=== PATIENT | female | born 1985 | race Caucasian/White ===

== ENCOUNTER 2020-02-16 15:29 | Outpatient (REF) | payer OTHER, SELFPAY | END 2020-02-16 15:30 | disposition home or self-care (01) | LOC: HO.LNP 15:29 | PROVIDERS: Visit Provider Nurse Practitioner Family | DX: Z20.828 Contact with and (suspected) exposure to other viral communicable diseases (principal); H92.02 Otalgia, left ear | CPT/HCPCS: 87635 ==

== ENCOUNTER → 2020-03-22 08:18 | Outpatient (BNVA) | payer OTHER, SELFPAY | PROVIDERS: PCP Internal Medicine; Visit Provider Surgery | DX: Z76.89 Persons encountering health services in other specified circumstances (principal) ==

== ENCOUNTER 2020-03-23 09:29 | Outpatient (REF) | payer OTHER, SELFPAY ==
--- NOTE | 2020-03-23 09:52 | ECG_ITS ---
Test Reason : CP Blood Pressure : / mmHG Vent. Rate : 069 BPM Atrial Rate : 069 BPM P-R Int : 184 ms QRS Dur : 102 ms QT Int : 410 ms P-R-T Axes : 043 010 023 degrees QTc Int : 439 ms Normal sinus rhythm Normal ECG No previous ECGs available Referred By: Fransisco Kasper Electronically Signed By:MARCIO DOWNS MD
[2020-03-23 10:19] LABS: MANUAL DIFF FLAG NO
--- NOTE | 2020-03-23 10:19 | XR_ITS ---
EXAMINATION: XR CHEST CLINICAL INFORMATION: Morbid obesity COMPARISON: Previous chest x-ray most recent November 2019 TECHNIQUE: 2 views of the chest were obtained. FINDINGS: No significant abnormality is noted involving the heart, lungs, mediastinum, bony thorax or soft tissues. XR/XR chest 2V IMPRESSION: Unremarkable examination.
[2020-03-23 10:23] LABS: Basophils Percent Auto 0.5 % (0-2); Eosinophils Absolute Auto 0.1 X10*3/uL (0.0-0.4); Eosinophils Percent Auto 1.4 % (0-4); Hematocrit 38.8 % (37-47); Hemoglobin 12.6 g/dl (12.0-16.0); Imm Gran Abs Auto 0.03 X10*3/uL (0.00-0.03); Imm Gran Pct Auto 0.3 % (0.0-0.4); Lymphocytes Absolute Auto 1.7 X10*3/uL (1.2-4.9); Lymphocytes Percent Auto 20.3 % (20-40); Mean Corpuscular HGB Conc 32.5 g/dl (31.0-35.0); Mean Corpuscular Hemoglobin 29.3 pg (27.0-33.0); Mean Corpuscular Volume 90.2 fL (80-98); Monocytes Absolute Auto 0.6 X10*3/uL (0.1-1.2); Monocytes Percent Auto 7.3 % (2-11); Neutrophils Percent Auto 70.2 % (45-73); Platelet Count 295 X10*3/uL (160-400); Red Cell Distribution Width 13.1 % (11.0-16.0); White Blood Count 8.6 X10*3/uL (4.8-10.8)
[2020-03-23 10:32] LABS: Estimated Average Glucose 108 mg/dL; Hemoglobin A1c % 5.4 %
[2020-03-23 10:50] LABS: Alanine Aminotransferase 15 U/L (0-31); Albumin Level 4.4 g/dL (3.5-5.0); Alkaline Phosphatase 55 U/L (39-117); Anion Gap 11 (12-20); Aspartate Amino Transferase 10 U/L (5-31); Bilirubin Total 0.4 mg/dL (0.0-1.0); Blood Urea Nitrogen 15 mg/dL (9-16); Calcium 8.9 mg/dL (8.4-10.2); Carbon Dioxide 25 mmol/L (22-29); Chloride 106 mmol/L (96-108); Cholesterol 165 mg/dL; Estimated Glomerular Filt Rate > 60; Glucose Random 108 mg/dL (60-115); HDL Cholesterol 38 mg/dL; LDL Cholesterol Calculated 100 mg/dl; Potassium 4.5 mmol/l (3.3-5.1); Sodium 137 mmol/L (135-145); Total Protein 7.1 g/dL (6.5-8.0); Triglycerides 136 mg/dL
[2020-03-23 11:03] LABS: Ferritin 24 ng/mL (10-122)
[2020-03-23 11:13] LABS: Free T4 (Free Thyroxine) 0.91 ng/dL (0.71-1.85); Vitamin D 25-OH Total 13.1 ng/mL (>30)
[2020-03-23 11:19] LABS: Folate 11.2 ng/mL (> or = 4.0); Vitamin B12 186 pg/mL (200-900)
[2020-03-25 10:36] LABS: H Pylori Breath Test NOT DETECTED (NOT DETECTED)
[2020-03-25 13:41] LABS: Calcium (PTHI) 9.2 mg/dL (8.6-10.2); Insulin Level Total 25.4 uIU/mL; PTHI 70 pg/mL (14-64)
[2020-03-26 12:51] LABS: Zinc 79 mcg/dL (60-130)
[2020-03-28 20:09] LABS: Vitamin A 50 mcg/dL (38-98)
[2020-03-30 10:57] LABS: Vitamin B1 8 nmol/L (8-30)
== END 2020-03-23 09:30 | disposition home or self-care (01) ==
LOC: HO.LAB 09:29
PROVIDERS: Absent Provider Surgery; PCP Internal Medicine; Visit Provider Internal Medicine
DX: E66.01 Morbid (severe) obesity due to excess calories (principal); I10 Essential (primary) hypertension; K21.9 Gastro-esophageal reflux disease without esophagitis; J45.20 Mild intermittent asthma, uncomplicated; E78.00 Pure hypercholesterolemia, unspecified; Z68.41 Body mass index [BMI] 40.0-44.9, adult
CPT/HCPCS: 36415; 71046; 80053; 80061; 82306; 82607; 82728; 82746; 83013; 83036; 83525; 83970; 84425; 84439; 84443; 84590; 84630; 85025; 93005; 99211

== ENCOUNTER → 2020-04-08 13:26 | Outpatient (BNVA) | payer OTHER, SELFPAY | PROVIDERS: PCP Internal Medicine; Visit Provider Physician Assistant | DX: Z76.89 Persons encountering health services in other specified circumstances (principal) ==

== ENCOUNTER → 2020-05-09 08:48 | Outpatient (BNVA) | payer OTHER, SELFPAY | PROVIDERS: PCP Internal Medicine; Visit Provider Dietitian, Registered | DX: Z76.89 Persons encountering health services in other specified circumstances (principal) ==

== ENCOUNTER → 2020-05-16 08:17 | Outpatient (BNVA) | payer OTHER, SELFPAY | PROVIDERS: PCP Internal Medicine; Visit Provider Surgery ==

== ENCOUNTER → 2020-05-24 08:08 | Outpatient (REF) | payer OTHER, SELFPAY ==
--- NOTE | 2020-05-24 08:12 | US_ITS ---
EXAMINATION: US COMPLETE ABDOMEN WITH LIVER ELASTOGRAPHY CLINICAL INFORMATION: Obesity COMPARISON: Previous CT of the abdomen and pelvis February 2017 TECHNIQUE: Real-time imaging of the abdominal viscera. Noninvasive ultrasound liver fibrosis assessment is performed using King ElastPQ point quantification shear wave elastography (pSWE) with a 5 MHz transducer. Multiple elastography samples are obtained. FINDINGS: PANCREAS: The visualized pancreatic head and body are normal in appearance. The remainder of the pancreas is obscured from visualization by the overlying bowel gas. ABDOMINAL AORTA: The proximal, middle, and distal aortic segments are normal in caliber. INFERIOR VENA CAVA: Visualized portions are normal. LIVER: Liver echotexture is increased probably representing fatty infiltration. The liver is enlarged. The liver is normal in contour. No focal lesion or intrahepatic biliary duct dilatation. The right lobe measures 21 cm in length. The left lobe measures 12 cm in length. The main portal vein is patent with appropriate hepatopedal flow Shear wave elastography provides a median stiffness of 1.6 m/s (reference: normal median stiffness is 0.81 - 1.22 m/s). The IQR/median stiffness to assess sampling precision is 0.3 (reference: optimal IQR/median stiffness is under 0.3). GALLBLADDER: Normal. The gallbladder is physiologically distended without evidence of stones, sludge, polyps, wall thickening or pericholecystic fluid. COMMON BILE DUCT: Normal in caliber measuring 0.5 cm in diameter. RIGHT KIDNEY: Normal. No hydronephrosis. No renal calculi or focal parenchymal lesions. The kidney measures 14.3 cm in maximum dimension. LEFT KIDNEY: There is a 2 x 3 mm echogenic density in the lower pole suggestive of a stone. No hydronephrosis. No focal parenchymal lesions. The kidney measures 14.2 cm in maximum dimension. SPLEEN: Normal. The spleen measures 12 cm in maximum dimension. FREE FLUID: None. US/US abdomen comp w elastography IMPRESSION: 1. Impression: Enlarged echogenic liver probably representing fatty infiltration. Left renal stone. Limited visualization of the tail of the pancreas. 2. Elastography: Metavir score F2 to F3 suggestive of [id number]-zr-[id number] increased risk of developing liver fibrosis.
--- NOTE | 2020-05-24 08:12 | FL_ITS ---
PROCEDURE: XR GI SERIES CLINICAL INFORMATION: Gastroesophageal reflux disease without esophagitis. COMPARISON: None TECHNIQUE: Routine upper GI air-contrast study was performed in upright and lying position. FINDINGS: Following oral administration of thick barium and effervescent granules there is normal propagation of bolus from the oral cavity through the pharynx, esophagus into stomach without any evidence of obstruction, narrowing or stricture. On placing patient supine and prone lying there is normal course, caliber and peristalsis of the stomach, duodenal bulb and the sweep. There is mild gastroesophageal reflux into the mid esophagus without hiatal hernia. The mucosal pattern of stomach, duodenal bulb and the sweep is normal. Rest of the course of stomach and the duodenum is normal. FLUOROSCOPY TIME: 2.3 minutes. DOSE AREA PRODUCT: 54.544 uGy-m2 (microgray-meter squared). FL/FL upper GI series IMPRESSION: Mild gastroesophageal reflux. Otherwise unremarkable upper GI air contrast study.
== END ==
LOC: HO.SL 08:08
PROVIDERS: Visit Provider Surgery
DX: Z01.818 Encounter for other preprocedural examination (principal); E66.01 Morbid (severe) obesity due to excess calories; I10 Essential (primary) hypertension; J45.20 Mild intermittent asthma, uncomplicated; K21.9 Gastro-esophageal reflux disease without esophagitis; J45.41 Moderate persistent asthma with (acute) exacerbation
CPT/HCPCS: 74240; 76705; 76981; 95806

== ENCOUNTER → 2020-06-07 08:09 | Outpatient (BNVA) | payer OTHER, SELFPAY | PROVIDERS: PCP Internal Medicine; Visit Provider Dietitian, Registered ==

== ENCOUNTER → 2020-06-15 08:26 | Outpatient (BNVA) | payer OTHER, SELFPAY | PROVIDERS: PCP Internal Medicine; Visit Provider Surgery ==

== ENCOUNTER 2020-06-16 10:52 | Outpatient (REF) | payer OTHER, SELFPAY ==
--- NOTE | 2020-06-16 17:26 | PFT_ITS ---
FLOWS: FEV1 of 104% of predicted at 3.78 L. FVC 99% of predicted at 4.38 L. FEV1 to FVC ratio of 0.86. No bronchodilator response. LUNG VOLUMES: Total lung capacity 111% of predicted at 6.48 L. Residual volume 114% of predicted at 1.98 L. Slow vital capacity 110% of predicted at 4.51 L. Expiratory reserve volume 44% of predicted at 0.67 L. Diffusion capacity is normal. IMPRESSION: No obstructive or restrictive ventilatory defect. No bronchodilator response. Decreased expiratory reserve volume suggests extrathoracic restriction likely secondary to abdominal obesity. Cliff Reed MD AP/MODL / [id number]
== END 2020-06-16 10:53 | disposition home or self-care (01) ==
LOC: HO.RESP 10:52
PROVIDERS: Visit Provider Surgery
DX: J45.41 Moderate persistent asthma with (acute) exacerbation (principal); J45.20 Mild intermittent asthma, uncomplicated; E66.01 Morbid (severe) obesity due to excess calories; I10 Essential (primary) hypertension; K21.9 Gastro-esophageal reflux disease without esophagitis
CPT/HCPCS: 94060; 94727; 94729

== ENCOUNTER → 2020-06-21 09:04 | Outpatient (BNVA) | payer OTHER, SELFPAY | PROVIDERS: PCP Internal Medicine; Visit Provider Physician Assistant ==

== ENCOUNTER → 2020-06-30 08:35 | Outpatient (BNVA) | payer OTHER, SELFPAY | PROVIDERS: PCP Internal Medicine; Visit Provider Physician Assistant ==

== ENCOUNTER → 2020-07-08 07:54 | Outpatient (BNVA) | payer OTHER, SELFPAY | PROVIDERS: PCP Internal Medicine; Visit Provider Surgery ==

== ENCOUNTER → 2020-07-14 08:03 | Outpatient (BNVA) | payer OTHER, SELFPAY | PROVIDERS: PCP Internal Medicine; Visit Provider Physician Assistant ==

== ENCOUNTER 2020-08-07 11:02 | Emergency (ER) | payer OTHER, SELFPAY ==
--- NOTE | ~2020-08-07 | CT_ITS ---
EXAMINATION: CT ABDOMEN AND PELVIS WITHOUT CONTRAST CLINICAL INFORMATION: Right-sided abdominal/flank pain. COMPARISON: CT of the abdomen and pelvis done on 03/16/2017. TECHNIQUE: Multidetector volumetric imaging was performed from the superior aspect of the liver through the pubic symphysis. Sagittal and coronal reformatted images were obtained on the technologist's workstation. This CT examination was performed using dose optimization techniques as appropriate, variously including the following: *Automated exposure control *Adjustment of mA and/or kV according to patient size (this includes techniques or standardized protocols for targeted exams where dose is matched to indication/reason for exam; i.e. extremities or head) *Use of iterative reconstruction technique DLP: 1289 mGy-cm FINDINGS: LUNG BASES: The visualized lung bases are unremarkable. LIVER, GALLBLADDER, AND BILIARY TREE: The liver is normal in size, shape, and attenuation. No focal hepatic lesion or biliary ductal dilatation is present. The gallbladder is unremarkable with no evidence of radiopaque gallstones, gallbladder wall thickening, or obvious pericholecystic inflammatory changes. PANCREAS: Unremarkable. SPLEEN: Unremarkable. ADRENAL GLANDS: Unremarkable. KIDNEYS AND URETERS: Few punctate clusters of 2 to 3 mm maximum dimension calculi are present within the inferior calyx of the left kidney. A punctate millimeter size radiopaque calculus is also noted within the inferior calyx of the right kidney. BLADDER: Unremarkable. GASTROINTESTINAL TRACT: The small and large bowel are unremarkable. The appendix is unremarkable. Multiple shotty mesenteric lymph nodes are noted around the right lower quadrant of the (image #5) ABDOMINAL WALL: Supraumbilical small fat-containing paramedian hernia is noted, unchanged. LYMPH NODES: Normal. VASCULAR: Unremarkable. PELVIC VISCERA: Hypodense circumscribed 4.4 x 4.4 cm mass is present within the left adnexal region, likely represent ovarian cyst. A smaller similar appearing hypodensity is also noted measuring approximately 3 cm within the right adnexal region. The left-sided adnexal/ovarian presumed cyst shows interval increased by 0.5 cm since the prior study. No evidence of any free fluid and/or free air. OSSEOUS STRUCTURES: No acute pathology. Moderate to severe degenerative spondylosis at L5-S1. CT/CT abdomen pelvis wo con IMPRESSION: 1. Bilateral nonobstructing renal calculi (left greater than right), the largest measures approximately 2 to 3 mm, seen at the inferior pole of the left kidney. 2. No evidence of any obstructive uropathy. 3. Multiple shotty mesenteric lymph nodes at the right lower quadrant of the abdomen, of indeterminate etiology. 4. Stable supraumbilical small fat-containing paramedian hernia. 5. Bilateral ovarian/adnexal cystic lesions, measures 4.4 cm on the left and 3 cm on the right. Follow-up nonemergent pelvic ultrasound is recommended for further clarification.
[2020-08-07 12:01] VITALS: BP 131/85; PULSE 74; RESP 18; TEMP 36.7; O2SAT 98; BMI 42.7
[2020-08-07 12:33] LABS: Glucose Urine UA NEG (NEG); Leukocyte Esterase Urine NEG (NEG); Nitrite Urine NEG (NEG); PH 7.5 (5.0-8.0); Urine Blood 2+ (NEG); Urine Ketones NEG (NEG); Urine Protein NEG (NEG-TRACE)
[2020-08-07 12:34] LABS: Appearance Urine CLOUDY; Color Urine YELLOW
[2020-08-07 12:46] LABS: WBC Urine 0 /HPF (0-4)
[2020-08-07 12:47] LABS: Amorphous Sediment Urine 3+ /LPF; Bacteria Urine 1+ /LPF; Squamous Epithelial Cell Urine 2+ /LPF
--- NOTE | 2020-08-07 14:01 | ED_ITS ---
HPI - General Adult General Chief complaint: General Medical Stated complaint: ?kidney stone Time Seen by Provider: 08/07/20 14:01 Source: patient Mode of arrival: ambulatory Limitations: no limitations History of Present Illness HPI narrative: States right flank pain since last evening history of kidney stones and feels consistent with this. Pain described as sharp and stabbing. No dysuria or hematuria. States has had multiple lithotripsies with urology here. No fever or chills. No vaginal discharge or bleeding. Some nausea due to pain but no vomiting for diarrhea. Onset (ago): day(s) Location: abdomen (Right flank) Radiation: flank Severity: mild Quality: stabbing and sharp Pain Consistency: constant Relieving factors: none Exacerbating factors: none Associated symptoms: denies other symptoms Treatments prior to arrival: none Related Data Home Medications Medication Instructions Recorded Confirmed acetaminophen 500 mg tablet 1,000 mg PO Q8H PRN 02/16/20 07/28/20 albuterol sulfate 90 mcg/actuation 2 puff INHALATION Q4H PRN 02/16/20 07/28/20 aerosol inhaler fluticasone 113 mcg-salmeterol 14 1 inh INHALATION BID 02/16/20 07/28/20 mcg/actuation breath activated powdr ibuprofen 600 mg tablet 600 mg PO Q6H PRN 02/16/20 07/28/20 etonogestrel 68 mg subdermal SUBDERMAL 03/17/20 07/28/20 implant Previous Rx's Medication Instructions Recorded cyclobenzaprine 10 mg tablet 10 mg PO TID 10 Days #30 tab 03/09/20 hvgyumavxz-loemwkeulbjml-oidkhtbu 1 cap PO .QD PRN 30 Days #30 cap 03/17/20 50 mg-300 mg-40 mg capsule lorazepam 0.5 mg tablet 0.5 mg PO Q6H PRN #30 tab 03/17/20 pantoprazole 40 mg tablet,delayed 40 mg PO DAILY #30 tab 03/17/20 release cholecalciferol (vitamin D3) 25 25 mcg PO DAILY #30 cap 03/28/20 mcg (1,000 unit) capsule mecobalamin (vitamin B12) 1,000 1,000 mcg PO DAILY #30 tab 03/28/20 mcg disintegrating tablet,sublingual cyanocobalamin (vitamin B-12) 1,000 mcg PO DAILY #30 tab 05/16/20 1,000 mcg tablet CPAP 5-16 cm H20 humidified air #1 ea 06/03/20 citalopram 40 mg tablet 40 mg PO DAILY #90 tab 06/06/20 lisinopril 10 mg tablet 10 mg PO DAILY 30 Days #30 tab 06/15/20 oxycodone 5 mg tablet 5 mg PO Q8H PRN 5 Days #15 tab 06/15/20 prednisone 10 mg tablet 10 mg PO DAILY 9 Days #18 tab 06/15/20 nystatin 100,000 unit/gram topical 1 appl TOPICAL TID #30 g 07/15/20 cream ibuprofen 800 mg PO Q8H PRN #30 tab 08/07/20 tamsulosin [Flomax] 0.4 mg PO DAILY #14 cap 08/07/20 Allergies Allergy/AdvReac Type Severity Reaction Status Date / Time amoxicillin [AMOXICILLIN] Allergy Intermediate RASH, hives Verified 06/15/20 16:08 clindamycin [CLINDAMYCIN] Allergy Intermediate RASH Verified 06/15/20 16:08 penicillin G [Penicillin G] Allergy Intermediate HIVES AND Verified 06/15/20 16:08 RASH cephalexin Allergy Unknown hives Verified 06/15/20 16:08 morphine [MORPHINE] Allergy Unknown AIRWAY Verified 06/15/20 16:08 ISSUES, sick penicillin V Allergy Unknown hives Verified 06/15/20 16:08 Review of Systems Review of Systems: Constitutional: No Weight loss, No Fever, No Chills, No Night Sweats, No Fatigue, No Malaise ENT/Mouth: No Hearing loss, No Ear Pain, No Nasal Congestion, No Sinus Pain, No Hoarseness, No sore throat, No Rhinorrhea, No Swallowing Difficulty Eyes: No Eye Pain, No Swelling, No Redness, No Foreign Body, No Discharge, No Vision Changes Cardiovascular: No Chest Pain, No SOB, No Dyspnea on Exertion, No Orthopnea, No Edema, No Palpitations Respiratory: No Cough, No Sputum, No Wheezing, No Dyspnea Gastrointestinal: No Nausea, No Vomiting, No Diarrhea, No Constipation, No abdominal Pain, No Hematochezia, No Melena Genitourinary: no irregular bleeding, No Dysuria, No Urinary Frequency, No He maturia, No Urinary Incontinence, No Urgency, + Flank Pain, No Urinary Flow Changes, No Hesitancy Musculoskeletal: No joint pain, No Myalgias, No Joint Swelling Skin: No Skin Lesions, No rash Neuro: No Weakness, No Numbness, No Paresthesias, No Loss of Consciousness, No Dizziness, No Headache Psych: No Social Issues Heme/Lymph: No Bruising, No Bleeding,No Lymphadenopathy Endocrine: No Polyuria, No Polydipsia, No Temperature Intolerance Yes all other systems are reviewed and are negative PMF Past Medical History Medical History Anxiety and depression Asthma Chronic back pain COVID-19 Degenerative joint disease Encounter for laboratory testing for COVID-19 virus History of MRSA infection Hypertension Irritable bowel syndrome Left ovarian cyst Menorrhagia Migraine Morbid obesity Obesity Renal calculus Surgical History History of bladder surgery History of lithotripsy History of tonsillectomy Family History Family History Father Diabetes Substance abuse Mother Diabetes Depression with anxiety CVD (cardiovascular disease) Hypertension Myocardial infarct Substance abuse Maternal Grandmother Diabetes Maternal Grandfather Diabetes Kidney failure, acute Social History Social History Alcohol intake: never Smoking Status: Never smoker Advance Directives: No Physical Exam Vital Signs: Vital Signs: Last Vital Signs Temp 98.1 F 08/07/20 12:01 Pulse 82 08/07/20 15:55 Resp 18 08/07/20 15:55 BP 134/75 08/07/20 15:55 Pulse Ox 98 08/07/20 15:55 Body Mass Index 42.7 Reviewed Const: General: cooperative and healthy appearing; No acute distress or intoxicated appearing Nutritional Appearance: average body habitus Orientation/consciousness: patient oriented x3 HENMT: Head: Yes normal to inspection Ears: hearing grossly normal bilaterally Eyes: General: appearance normal, both eyes and all related structures Visual Hayward: normal visual hayward by confrontation Neck: Neck: Yes normal visual inspection, No positive Brudzinski's sign, No positive Kernig's sign and No tender Thyroid: Thyroid normal Chest: Chest palpation & inspection: normal inspection of the chest Resp: Effort & Inspection: normal respiratory effort Auscultation: clear to auscultation bilaterally Cardio: Jugular venous distension: no JVD Rhythm: regular rhythm Heart sounds: S1 normal heart sound present and S2 normal heart sound present GI: Inspection: Yes normal to inspection Palpation (GI): Soft to palpation Percussion: Yes normal to percussion Auscultation: normal bowel sounds : General: Yes CVA tenderness on the right Skin: General skin exam: no rashes or lesions noted Neuro: General: patient oriented x3 Extrem: General: Yes normal to inspection Course Course Course Narrative: UA with RBC and flank pain consistent with previous renal c alculi. Afebrile nontoxic. No signs of acute infection. CT of the abdomen pelvis shows 1. Bilateral nonobstructing renal calculi (left greater than right), the largest measures approximately 2 to 3 mm, seen at the inferior pole of the left kidney. 2. No evidence of any obstructive uropathy. 3. Multiple shotty mesenteric lymph nodes at the right lower quadrant of the abdomen, of indeterminate etiology. 4. Stable supraumbilical small fat-containing paramedian hernia. 5. Bilateral ovarian/adnexal cystic lesions, measures 4.4 cm on the left and 3 cm on the right. Follow-up nonemergent pelvic ultrasound is recommended for further clarification. This was reviewed with her she feels better after voiding likely she has passed a small stone. Given urine strainer will follow up with Urology. Precaution return follow-up instructions provided. Abdominal exam benign. Stable for discharge. Medical Decision Making Lab Data Result diagrams: 08/07/20 14:19 08/07/20 15:08 Labs: Lab Results 08/07/20 08/07/20 08/07/20 Range/Units 12:25 12:25 14:19 WBC 11.3 H (4.8-10.8) X10*3/uL RBC 4.47 (4.20-5.50) X10*6/uL Hgb 13.3 (12.0-16.0) g/dl Hct 41.5 (37-47) % MCV 92.8 (80-98) fL MCH 29.8 (27.0-33.0) pg MCHC 32.0 (31.0-35.0) g/dl RDW 13.3 (11.0-16.0) % Plt Count 326 (160-400) X10*3/uL MPV 10.9 (9.4-12.3) fL Immature Gran % (Auto) 0.4 (0.0-0.4) % Neut % (Auto) 69.7 (45-73) % Lymph % (Auto) 21.7 (20-40) % Garfield % (Auto) 6.6 (2-11) % Eos % (Auto) 1.2 (0-4) % Baso % (Auto) 0.4 (0-2) % Lymph # (Auto) 2.5 (1.2-4.9) X10*3/uL Garfield # (Auto) 0.8 (0.1-1.2) X10*3/uL Eos # (Auto) 0.1 (0.0-0.4) X10*3/uL Baso # (Auto) 0.1 (0.0-0.2) X10*3/uL Abs Immat Gran (auto) 0.04 H (0.00-0.03) X10*3/uL Absolute Neuts (auto) 7.9 (2.0-8.3) X10*3/uL Absolute Nucleated RBC 0.000 (0.0-0.012) X10*3/uL Nucleated RBC % (auto) 0.0 (0.0-0.2) /100WBC Sodium (135-145) mmol/L Potassium (3.3-5.1) mmol/L Chloride (96-108) mmol/L Carbon Dioxide (22-29) mmol/L Anion Gap (12-20) BUN (9-16) mg/dL Creatinine (0.5-1.4) mg/dL Estim Creat Clear Calc Estimated GFR Random Glucose (60-115) mg/dL Calcium (8.4-10.2) mg/dL Total Bilirubin (0.0-1.0) mg/dL AST (5-31) U/L ALT (0-31) U/L Alkaline Phosphatase (39-117) U/L Total Protein (6.5-8.0) g/dL Albumin (3.5-5.0) g/dL Urine Color YELLOW Urine Appearance CLOUDY Urine pH 7.5 (5.0-8.0) Ur Specific [place] 1.020 (1.005-1.025) Urine Protein NEG (NEG-TRACE) MG/DL Urine Glucose (UA) NEG (NEG) MG/DL Urine Ketones NEG (NEG) MG/DL Urine Blood 2+ H (NEG) Urine Nitrite NEG (NEG) Ur Leukocyte Esterase NEG (NEG) Urine RBC 1-4 (0) /HPF Urine WBC 0 (0-4) /HPF Ur Squamous Epith Cells 2+ /LPF Amorphous Sediment 3+ /LPF Urine Bacteria 1+ /LPF Urine Test NEGATIVE (NEGATIVE) 08/07/20 Range/Units 15:08 WBC (4.8-10.8) X10*3/uL RBC (4.20-5.50) X10*6/uL Hgb (12.0-16.0) g/dl Hct (37-47) % MCV (80-98) fL MCH (27.0-33.0) pg MCHC (31.0-35.0) g/dl RDW (11.0-16.0) % Plt Count (160-400) X10*3/uL MPV (9.4-12.3) fL Immature Gran % (Auto) (0.0-0.4) % Neut % (Auto) (45-73) % Lymph % (Auto) (20-40) % Garfield % (Auto) (2-11) % Eos % (Auto) (0-4) % Baso % (Auto) (0-2) % Lymph # (Auto) (1.2-4.9) X10*3/uL Garfield # (Auto) (0.1-1.2) X10*3/uL Eos # (Auto) (0.0-0.4) X10*3/uL Baso # (Auto) (0.0-0.2) X10*3/uL Abs Immat Gran (auto) (0.00-0.03) X10*3/uL Absolute Neuts (auto) (2.0-8.3) X10*3/uL Absolute Nucleated RBC (0.0-0.012) X10*3/uL Nucleated RBC % (auto) (0.0-0.2) /100WBC Sodium 139 (135-145) mmol/L Potassium 4.3 (3.3-5.1) mmol/L Chloride 108 (96-108) mmol/L Carbon Dioxide 21 L (22-29) mmol/L Anion Gap 14 (12-20) BUN 16 (9-16) mg/dL Creatinine 0.65 (0.5-1.4) mg/dL Estim Creat Clear Calc 177.4 Estimated GFR > 60 Random Glucose 85 (60-115) mg/dL Calcium 8.7 (8.4-10.2) mg/dL Total Bilirubin 0.3 (0.0-1.0) mg/dL AST 10 (5-31) U/L ALT 17 (0-31) U/L Alkaline Phosphatase 48 (39-117) U/L Total Protein 6.3 L (6.5-8.0) g/dL Albumin 4.0 (3.5-5.0) g/dL Urine Color Urine Appearance Urine pH (5.0-8.0) Ur Specific [place] (1.005-1.025) Urine Protein (NEG-TRACE) MG/DL Urine Glucose (UA) (NEG) MG/DL Urine Ketones (NEG) MG/DL Urine Blood (NEG) Urine Nitrite (NEG) Ur Leukocyte Esterase (NEG) Urine RBC (0) /HPF Urine WBC (0-4) /HPF Ur Squamous Epith Cells /LPF Amorphous Sediment /LPF Urine Bacteria /LPF Urine Test (NEGATIVE) Imaging Data Abdominal/pelvis CT: Radiologist's impression: Leigh Hubbard Dax 35 F [address] Scan ReportSigned Patient: Leigh Hubbard AMR#: [id number]: 1985Acct:[id number]/Sex: 35 / FADM Date: 08/07/20Loc: EDRoxana Dr: Ordering Physician: Duc Ortega NP Date of Service: 08/07/20 Procedure(s): CT abdomen pelvis wo [facility] Accession Number(s): [id number] cc: Duc Ortega NP~ EXAMINATION: CT ABDOMEN AND PELVIS WITHOUT CONTRAST CLINICAL INFORMATION: Right-sided abdominal/flank pain. COMPARISON: CT of the abdomen and pelvis done on 03/16/2017. TECHNIQUE: Multidetector volumetric imaging was performed from the superior aspect of the liver through the pubic symphysis. Sagittal and coronal reformatted images were obtained on the technologist's workstation. This CT examination was performed using dose optimization techniques as appropriate, variously including the following: *Automated exposure control *Adjustment of mA and/or kV according to patient size (this includes techniques or standardized protocols for targeted exams where dose is matched to indication/reason for exam; i.e. extremities or head) *Use of iterative reconstruction technique DLP: 1289 mGy-cm FINDINGS: LUNG BASES: The visualized lung bases are unremarkable. LIVER, GALLBLADDER, AND BILIARY TREE: The liver is normal in size, shape, and attenuation. No focal hepatic lesion or biliary ductal dilatation is present. The gallbladder is unremarkable with no evidence of radiopaque gallstones, gallbladder wall thickening, or obvious pericholecystic inflammatory changes. PANCREAS: Unremarkable. SPLEEN: Unremarkable. ADRENAL GLANDS: Unremarkable. KIDNEYS AND URETERS: Few punctate clusters of 2 to 3 mm maximum dimension calculi are present within the inferior calyx of the left kidney. A punctate millimeter size radiopaque calculus is also noted within the inferior calyx of the right kidney. BLADDER: Unremarkable. GASTROINTESTINAL TRACT: The small and large bowel are unremarkable. The appendix is unremarkable. Multiple shotty mesenteric lymph nodes are noted around the right lower quadrant of the (image #5) ABDOMINAL WALL: Supraumbilical small fat-containing paramedian hernia is noted, unchanged. LYMPH NODES: Normal. VASCULAR: Unremarkable. PELVIC VISCERA: Hypodense circumscribed 4.4 x 4.4 cm mass is present within the left adnexal region, likely represent ovarian cyst. A smaller similar appearing hypodensity is also noted measuring approximately 3 cm within the right adnexal region. The left-sided adnexal/ovarian presumed cyst shows interval increased by 0.5 cm since the prior study. No evidence of any free fluid and/or free air. OSSEOUS STRUCTURES: No acute pathology. Moderate to severe degenerative spondylosis at L5-S1. CT/CT abdomen pelvis wo con IMPRESSION: 1. Bilateral nonobstructing renal calculi (left greater than right), the largest measures approximately 2 to 3 mm, seen at the inferior pole of the left kidney. 2. No evidence of any obstructive uropathy. 3. Multiple shotty mesenteric lymph nodes at the right lower quadrant of the abdomen, of indeterminate etiology. 4. Stable supraumbilical small fat-containing paramedian hernia. 5. Bilateral ovarian/adnexal cystic lesions, measures 4.4 cm on the left and 3 cm on the right. Follow-up nonemergent pelvic ultrasound is recommended for further clarification. Dictated By:MENA RODARTE MDSigned By:<Electronically signed by MENA RODARTE MD in OV>08/07/20 1528 DD/ 1404TD/TT: Hide Measuring Machine Operator: BRYNN Discharge Plan Discharge Clinical Impression: Bilateral renal stones Patient Disposition: Home, Self-Care Instructions: Kidney Stones (ED), How to Strain Your Urine (ED), Flank Pain (ED) Additional Instructions: Push clear fluids Take medication prescribed Follow-up with urology as discussed Return if any concerns or worsening symptoms including abdominal pain, fever, nausea, vomiting, diarrhea, chest pain, shortness of breath Thank you Prescriptions: New ibuprofen 800 mg tablet 800 mg PO Q8H PRN (Reason: pain) Qty: 30 RF: 0 tamsulosin [Flomax] 0.4 mg capsule 0.4 mg PO DAILY Qty: 14 RF: 0 No Action cyclobenzaprine 10 mg tablet 10 mg PO TID 10 Days Qty: 30 RF: 0 cholecalciferol (vitamin D3) 25 mcg (1,000 unit) capsule 25 mcg PO DAILY Qty: 30 RF: 5 mecobalamin (vitamin B12) 1,000 mcg tablet,disintegrating 1,000 mcg PO DAILY Qty: 30 RF: 5 (DME) CPAP 5-16 cm H20 humidified air See Rx Instructions .Route .MEDSUPPLY Qty: 1 RF: 0 citalopram 40 mg tablet 40 mg PO DAILY Qty: 90 RF: 1 nystatin 100,000 unit/gram cream 1 appl topical TID Qty: 30 RF: 0 oxycodone 5 mg tablet 5 mg PO Q8H PRN (Reason: pain) 5 Days Qty: 15 RF: 0 prednisone 10 mg tablet 10 mg PO DAILY 9 Days Qty: 18 RF: 0 lisinopril 10 mg tablet 10 mg PO DAILY 30 Days Qty: 30 RF: 3 Nexplanon 68 mg implant subdermal RF: 0 ykqglnbqeq-boutaaltwlyww-dgjy 50-300-40 mg capsule 1 cap PO .QD PRN (Reason: pain) 30 Days Qty: 30 RF: 0 lorazepam 0.5 mg tablet 0.5 mg PO Q6H PRN (Reason: anxiety) Qty: 30 RF: 0 pantoprazole 40 mg tablet,delayed release (DR/EC) 40 mg PO DAILY Qty: 30 RF: 1 fluticasone propion-salmeterol 113-14 mcg/actuation aerosol powdr breath activated 1 inh inhalation BID RF: 0 albuterol sulfate 90 mcg/actuation HFA aerosol inhaler 2 puff inhalation Q4H PRNRF: 0 ibuprofen 600 mg tablet 600 mg PO Q6H PRN (Reason: pain) RF: 0 acetaminophen 500 mg tablet 1,000 mg PO Q8H PRN (Reason: pain) RF: 0 cyanocobalamin (vitamin B-12) 1,000 mcg tablet 1,000 mcg PO DAILY Qty: 30 RF: 2 Referrals: Panfilo Hollins MD [Physician] - 1 week Interventions: ED Discharge Assessment Last Done: 08/07/20 17:09 Discharge Date/Time: 08/07/20 17:10
[2020-08-07 14:13] LABS: UPreg QC Valid YES; Urine Pregnancy NEGATIVE (NEGATIVE)
[2020-08-07 14:23] LABS: MANUAL DIFF FLAG NO
[2020-08-07 14:25] VITALS: BP 131/73; PULSE 75; RESP 20; O2SAT 100
[2020-08-07] MEDS: ondansetron HCL 4 MG/2 ML VIAL IVPUSH (14:25)
[2020-08-07] MEDS: Ketorolac Tromethamine 30 MG/ML VIAL IVPUSH (14:25)
[2020-08-07] MEDS: 0.9 % Sodium Chloride 1,000 ML 999 ML IV (14:25)
[2020-08-07] MEDS: HYDROmorphone HCl 0.5 MG/0.5 ML SYRINGE IVPUSH (14:25)
[2020-08-07 14:40] LABS: Basophils Absolute Auto 0.1 X10*3/uL (0.0-0.2); Basophils Percent Auto 0.4 % (0-2); Eosinophils Absolute Auto 0.1 X10*3/uL (0.0-0.4); Eosinophils Percent Auto 1.2 % (0-4); Hematocrit 41.5 % (37-47); Hemoglobin 13.3 g/dl (12.0-16.0); Imm Gran Abs Auto 0.04 X10*3/uL (0.00-0.03); Imm Gran Pct Auto 0.4 % (0.0-0.4); Lymphocytes Absolute Auto 2.5 X10*3/uL (1.2-4.9); Lymphocytes Percent Auto 21.7 % (20-40); Mean Corpuscular Hemoglobin 29.8 pg (27.0-33.0); Mean Corpuscular Volume 92.8 fL (80-98); Mean Platelet Volume 10.9 fL (9.4-12.3); Monocytes Absolute Auto 0.8 X10*3/uL (0.1-1.2); Monocytes Percent Auto 6.6 % (2-11); Neutrophils Absolute Auto 7.9 X10*3/uL (2.0-8.3); Neutrophils Percent Auto 69.7 % (45-73); Platelet Count 326 X10*3/uL (160-400); Red Blood Count 4.47 X10*6/uL (4.20-5.50); Red Cell Distribution Width 13.3 % (11.0-16.0); White Blood Count 11.3 X10*3/uL (4.8-10.8)
[2020-08-07 15:55] VITALS: BP 134/75; PULSE 82; RESP 18; O2SAT 98
[2020-08-07 16:01] LABS: Alanine Aminotransferase 17 U/L (0-31); Alkaline Phosphatase 48 U/L (39-117); Anion Gap 14 (12-20); Aspartate Amino Transferase 10 U/L (5-31); Bilirubin Total 0.3 mg/dL (0.0-1.0); Blood Urea Nitrogen 16 mg/dL (9-16); Calcium 8.7 mg/dL (8.4-10.2); Carbon Dioxide 21 mmol/L (22-29); Chloride 108 mmol/L (96-108); Creatinine Clr Calc Pharmacy 177.4; Estimated Glomerular Filt Rate > 60; Glucose Random 85 mg/dL (60-115); Potassium 4.3 mmol/L (3.3-5.1); Sodium 139 mmol/L (135-145); Total Protein 6.3 g/dL (6.5-8.0)
== END 2020-08-07 17:10 | disposition home or self-care (01) ==
PROVIDERS: Nurse Practitioner Primary Care; Emergency Provider Emergency Medicine Emergency Medical Services; PCP Internal Medicine
DX: N20.0 Calculus of kidney (principal); I10 Essential (primary) hypertension; J45.909 Unspecified asthma, uncomplicated; Z86.16 Personal history of COVID-19; Z87.442 Personal history of urinary calculi
CPT/HCPCS: 36415; 74176; 80053; 81001; 81025; 85025; 96361; 96374; 96375; 99284; J1170; J1885; J2405

== ENCOUNTER 2020-08-08 16:43 | Outpatient (REF) | payer OTHER, SELFPAY ==
--- NOTE | ~2020-08-08 | MR_ITS ---
EXAMINATION: MR LUMBAR SPINE WITHOUT CONTRAST CLINICAL INFORMATION: 35-year-old with back pain and bilateral leg pain. Evaluate for intervertebral disc disorder with radiculopathy. COMPARISON: None. TECHNIQUE: MRI of the lumbar spine was obtained using routine sequences without contrast. FINDINGS: Coronal Alignment:?Normal. Sagittal Alignment:?Trace retrolisthesis at L2-3. No spondylolisthesis or spondylolysis. Lumbosacral Junction:?Normal. Vertebral Bodies: Normal height. Bone Marrow: Degenerative marrow signal changes along the endplates at L5-S1. No suspicious marrow replacing process. Conus Medullaris:?Terminates at L1.?Morphology and signal is normal. Intradural Nerve Roots: Within normal limits. L5-S1: Severe loss of disc space height with disc desiccation, tiny Schmorl's nodes, probable intradiscal vacuum disc phenomenon and mixed degenerative marrow signal changes along the endplates. Anterior and paravertebral spondylosis is noted with diffuse disc bulging and a superimposed left paramedian extruded disc herniation with mild cephalad migration with slight encroachment on the dural sac on the left without nerve root compression or displacement. There is mild facet hypertrophic degenerative change bilaterally and there is mild right-sided and [id number]-[id number]-sided neural foraminal stenosis, with impingement on the exiting left L5 nerve root. L4-L5: Vsozseiv-gc-yexquy disc space height loss is noted with disc desiccation, probable intradiscal vacuum disc phenomenon, mixed degenerative marrow signal changes along the endplates. There is minimal disc bulging with a superimposed mild shallow central disc protrusion with minimal flattening of the central dural sac without neural impingement. No significant facet arthropathy, canal or neuroforaminal stenosis. L3-L4: Mild loss of disc space height and disc desiccation are noted. Very small central extruded disc herniation with slight caudal migration and minimal flattening of the central dural sac noted. No significant facet arthropathy, canal or neuroforaminal stenosis. L2-L3: Minimal disc space height loss and disc desiccation are noted. Small central extruded disc herniation with slight caudal migration noted and a small annular fissure with minimal flattening of the central dural sac. No significant spondylosis or facet arthrosis and no significant canal or neuroforaminal stenosis. L1-L2: Disc space height and signal well maintained without significant disc bulge or herniation and no significant spondylosis, facet arthrosis, canal or neural foraminal stenosis. Paraspinal/Retroperitoneal: The paravertebral soft tissues appear unremarkable. MR/MR lumbar spine wo con IMPRESSION: 1. Multilevel discogenic degenerative changes between L2-3 and L5-S1 inclusive with trace retrolisthesis at L2-3. 2. Small central and central to left paramedian disc herniations as described above without definite nerve root compression or displacement and no significant spinal canal stenosis. 3. Mild bilateral facet arthropathy at L5-S1 with severe disc space height loss, with moderate left-sided neural foraminal stenosis, with impingement on the exiting left L5 nerve root.
== END 2020-08-08 16:44 | disposition home or self-care (01) ==
LOC: HO.MRI 16:43
PROVIDERS: Visit Provider Physician Assistant
DX: M51.16 Intervertebral disc disorders with radiculopathy, lumbar region (principal)
CPT/HCPCS: 72148

== ENCOUNTER → 2020-08-31 08:35 | Outpatient (BNVA) | payer OTHER, SELFPAY | PROVIDERS: PCP Internal Medicine; Visit Provider Physician Assistant ==

== ENCOUNTER → 2020-09-14 09:03 | Outpatient (BNVA) | payer OTHER, SELFPAY | PROVIDERS: PCP Internal Medicine; Visit Provider Physician Assistant ==

== ENCOUNTER → 2020-09-23 10:16 | Outpatient (BNVA) | payer OTHER, SELFPAY | PROVIDERS: PCP Internal Medicine; Visit Provider Physician Assistant ==

== ENCOUNTER → 2020-09-30 09:59 | Outpatient (BNVA) | payer OTHER, SELFPAY | PROVIDERS: PCP Internal Medicine; Visit Provider Physician Assistant ==

== ENCOUNTER → 2020-10-07 10:47 | Outpatient (BNVA) | payer OTHER, SELFPAY | PROVIDERS: PCP Internal Medicine; Visit Provider Physician Assistant ==

== ENCOUNTER → 2020-10-11 07:22 | Outpatient (BNVA) | payer OTHER, SELFPAY | PROVIDERS: PCP Internal Medicine; Visit Provider Surgery ==

== ENCOUNTER → 2020-10-14 09:48 | Outpatient (BNVA) | payer OTHER, SELFPAY | PROVIDERS: PCP Internal Medicine; Visit Provider Physician Assistant ==

== ENCOUNTER → 2020-10-28 11:02 | Outpatient (BNVA) | payer OTHER, SELFPAY | PROVIDERS: PCP Internal Medicine; Visit Provider Physician Assistant ==

== ENCOUNTER → 2020-11-04 09:02 | Outpatient (BNVA) | payer OTHER, SELFPAY | PROVIDERS: PCP Internal Medicine; Referring Provider Internal Medicine; Visit Provider Physician Assistant ==

== ENCOUNTER 2020-11-12 09:07 | Emergency (ER) | payer OTHER, SELFPAY ==
[2020-11-12 09:12] VITALS: BP 131/78; PULSE 70; RESP 16; TEMP 37.1; O2SAT 98; BMI 42.3
--- NOTE | 2020-11-12 09:18 | ED_ITS ---
HPI - Allergic Reaction General Chief complaint: Allergic Reaction Stated complaint: Allergic reaction Time Seen by Provider: 11/12/20 09:18 Source: patient Mode of arrival: ambulatory Limitations: no limitations History of Present Illness MD complaint: hives Onset (ago): hour(s) (last night) Exposure: unknown Known history of allergy to: has allergy to blue cheese ate at a restaurant last night symptoms started after Symptoms: rash and itching Severity: moderate Treatment prior to arrival: benadryl (last night) Previous Allergic Reaction History: prior ED visit(s) Related Data Home Medications Medication Instructions Recorded Confirmed acetaminophen 500 mg tablet 1,000 mg PO Q8H PRN 02/16/20 09/15/20 albuterol sulfate 90 mcg/actuation 2 puff INHALATION Q4H PRN 02/16/20 09/15/20 aerosol inhaler fluticasone 113 mcg-salmeterol 14 1 inh INHALATION BID 02/16/20 09/15/20 mcg/actuation breath activated powdr etonogestrel 68 mg subdermal SUBDERMAL 03/17/20 09/15/20 implant gabapentin 600 mg tablet 600 mg PO DAILY 09/30/20 Previous Rx's Medication Instructions Recorded cyclobenzaprine 10 mg tablet 10 mg PO TID 10 Days #30 tab 03/09/20 lorazepam 0.5 mg tablet 0.5 mg PO Q6H PRN #30 tab 03/17/20 mecobalamin (vitamin B12) 1,000 1,000 mcg PO DAILY #30 tab 03/28/20 mcg disintegrating tablet,sublingual CPAP 5-16 cm H20 humidified air #1 ea 06/03/20 citalopram 40 mg tablet 40 mg PO DAILY #90 tab 06/06/20 lisinopril 10 mg tablet 10 mg PO DAILY 30 Days #30 tab 06/15/20 nystatin 100,000 unit/gram topical 1 appl TOPICAL TID #30 g 07/15/20 cream ibuprofen 800 mg PO Q8H PRN #30 tab 08/07/20 tamsulosin [Flomax] 0.4 mg PO DAILY #14 cap 08/07/20 fexofenadine 180 mg tablet 180 mg PO Q24H #90 tab 09/07/20 doxycycline hyclate 100 mg capsule 100 mg PO BID 10 Days #20 cap 09/15/20 fluconazole 150 mg tablet 150 mg PO DAILY #1 tab 09/15/20 cholecalciferol (vitamin D3) 25 25 mcg PO DAILY 90 Days #90 cap 09/30/20 mcg (1,000 unit) capsule cyanocobalamin (vitamin B-12) 1,000 mcg PO DAILY 90 Days #90 tab 09/30/20 1,000 mcg tablet oxycodone 5 mg tablet 5 mg PO Q8H PRN 10 Days #20 tab 09/30/20 pantoprazole 40 mg tablet,delayed 40 mg PO DAILY 90 Days #90 tab 11/09/20 release polyethylene glycol 3350 17 gram 17 g PO DAILY 90 Days #100 ea 11/10/20 oral powder packet famotidine [Pepcid] 20 mg PO DAILY 7 Days #30 tab 11/12/20 prednisone 40 mg PO DAILY 4 Days #8 tab 11/12/20 Allergies Allergy/AdvReac Type Severity Reaction Status Date / Time amoxicillin [AMOXICILLIN] Allergy Intermediate RASH, hives Verified 11/12/20 09:11 clindamycin [CLINDAMYCIN] Allergy Intermediate RASH Verified 11/12/20 09:11 penicillin G [Penicillin G] Allergy Intermediate HIVES AND Verified 11/12/20 09:11 RASH cephalexin Allergy Unknown hives Verified 11/12/20 09:11 morphine [MORPHINE] Allergy Unknown AIRWAY Verified 11/12/20 09:11 ISSUES, sick penicillin V Allergy Unknown hives Verified 11/12/20 09:11 Review of Systems Review of Systems: Constitutional : No Fever, No Chills ENT/Mouth : no oral swelling, No Hoarseness, No Swallowing Difficulty Eyes: No Eye Pain, No Swelling, No Redness Cardiovascular : No Chest Pain, No SOB Respiratory : No Cough, No Sputum, No Wheezing, No Smoke Exposure, No Dyspnea Gastrointestinal : No Nausea, No Vomiting, No Diarrhea, No abdominal Pain Genitourinary : No Dysuria, No Urinary Frequency, No Hematuria Musculoskeletal : No joint pain, No Myalgias, No Joint Swelling Skin : No Skin Lesions, positive rash Neuro : No Weakness, No Numbness, No Headache Psych : No Anxiety/Panic, No Depression Heme/Lymph: No Bruising, No Lymphadenopathy Endocrine : No Polyuria, No Polydipsia All other systems reviewed and are negative PMFSH Past Medical History Attestation statement: The following information was validated with the patient. Medical History Anxiety and depression Asthma Chronic back pain COVID-19 Degenerative joint disease Encounter for laboratory testing for COVID-19 virus History of MRSA infection Hypertension Irritable bowel syndrome Left ovarian cyst Menorrhagia Migraine Morbid obesity Obesity Renal calculus Surgical History History of bladder surgery History of lithotripsy History of tonsillectomy Family History Family History Father Diabetes Substance abuse Mother Diabetes Depression with anxiety CVD (cardiovascular disease) Hypertension Myocardial infarct Substance abuse Maternal Grandmother Diabetes Maternal Grandfather Diabetes Kidney failure, acute Social History Social History Alcohol intake: never Patient Tobacco Use Status: Never used Tobacco Second Hand Smoke Exposure: No Use of substances other than those prescribed or required for medical reasons: No Advance Directives: No Advance Directives Information Provided: No Patient : No Physical Exam Vital Signs: Vital Signs: Last Vital Signs Temp 98.8 F 11/12/20 09:12 Pulse 70 11/12/20 09:12 Resp 16 11/12/20 09:12 BP 131/78 11/12/20 09:12 Pulse Ox 98 11/12/20 09:12 Body Mass Index 42.3 Appearance: Alert. Oriented X3. No acute distress. Eyes: Pupils equal, round and reactive to light. ENT: Pharynx normal. Neck: Normal inspection. Neck supple. CVS: Normal heart rate and rhythm. Pulses normal. Respiratory: No respiratory distress. Breath sounds normal. no stridor Abdomen: Soft and nontender. Skin: Skin warm and dry. Normal skin color. hives noted on L knee and bilateral hands including the knuckles Extremities: No lower extremity edema. No calf ttp Neuro: Oriented X 3. No motor deficit. No sensory deficit. MDM - Allergic Reaction MDM Narrative Medical decision making narrative: 35 yo female with no sig PMH ate at a restaurant last night has isolated hives no resp issues at this time - will dose on benadryl, pepcid and steroids. suspect food contamination last night Discharge Plan Discharge Clinical Impression: Hives Patient Disposition: Home, Self-Care Instructions: Urticaria (ED) Additional Instructions: return to ED for any worsening symptoms or concerns would recommend following up with personnel and payroll technician I suspect that this was food contamination take 25mg benadryl every 6 hours as needed for itching Prescriptions: New prednisone 20 mg tablet 40 mg PO DAILY 4 Days Qty: 8 RF: 0 famotidine [Pepcid] 20 mg tablet 20 mg PO DAILY 7 Days Qty: 30 RF: 0 No Action cyclobenzaprine 10 mg tablet 10 mg PO TID 10 Days Qty: 30 RF: 0 mecobalamin (vitamin B12) 1,000 mcg tablet,disintegrating 1,000 mcg PO DAILY Qty: 30 RF: 5 (DME) CPAP 5-16 cm H20 humidified air See Rx Instructions .Route .MEDSUPPLY Qty: 1 RF: 0 citalopram 40 mg tablet 40 mg PO DAILY Qty: 90 RF: 1 nystatin 100,000 unit/gram cream 1 appl topical TID Qty: 30 RF: 0 fexofenadine [[facility] Allergy] 180 mg tablet 180 mg PO Q24H Qty: 90 RF: 1 pantoprazole 40 mg tablet,delayed release (DR/EC) 40 mg PO DAILY 90 Days Qty: 90 RF: 2 polyethylene glycol 3350 [Miralax] 17 gram powder in packet 17 g PO DAILY 90 Days Qty: 100 RF: 2 ibuprofen 800 mg tablet 800 mg PO Q8H PRN (Reason: pain) Qty: 30 RF: 0 tamsulosin [Flomax] 0.4 mg capsule 0.4 mg PO DAILY Qty: 14 RF: 0 lisinopril 10 mg tablet 10 mg PO DAILY 30 Days Qty: 30 RF: 3 gabapentin 600 mg tablet 600 mg PO DAILY RF: 0 oxycodone 5 mg tablet 5 mg PO Q8H PRN (Reason: pain) 10 Days Qty: 20 RF: 0 cholecalciferol (vitamin D3) 25 mcg (1,000 unit) capsule 25 mcg PO DAILY 90 Days Qty: 90 RF: 3 cyanocobalamin (vitamin B-12) 1,000 mcg tablet 1,000 mcg PO DAILY 90 Days Qty: 90 RF: 3 doxycycline hyclate 100 mg capsule 100 mg PO BID 10 Days Qty: 20 RF: 0 fluconazole [Diflucan] 150 mg tablet 150 mg PO DAILY Qty: 1 RF: 0 Nexplanon 68 mg implant subdermal RF: 0 lorazepam 0.5 mg tablet 0.5 mg PO Q6H PRN (Reason: anxiety) Qty: 30 RF: 0 fluticasone propion-salmeterol 113-14 mcg/actuation aerosol powdr breath activated 1 inh inhalation BID RF: 0 albuterol sulfate 90 mcg/actuation HFA aerosol inhaler 2 puff inhalation Q4H PRNRF: 0 acetaminophen 500 mg tablet 1,000 mg PO Q8H PRN (Reason: pain) RF: 0
[2020-11-12] MEDS: Famotidine 20 MG TABLET PO (09:28)
[2020-11-12] MEDS: predniSONE 20 MG TABLET 60 MG PO (09:28)
[2020-11-12] MEDS: diphenhydrAMINE HCL 25 MG TABLET PO (09:28)
== END 2020-11-12 09:42 | disposition home or self-care (01) ==
PROVIDERS: Emergency Provider Emergency Medicine; PCP Internal Medicine
DX: L50.9 Urticaria, unspecified (principal); I10 Essential (primary) hypertension; Z79.899 Other long term (current) drug therapy
CPT/HCPCS: 99283; 99284; Q0163

== ENCOUNTER → 2020-11-18 07:29 | Outpatient (BNVA) | payer OTHER, SELFPAY | PROVIDERS: PCP Internal Medicine; Visit Provider Surgery ==

== ENCOUNTER → 2021-01-18 08:08 | Outpatient (BNVA) | payer OTHER, SELFPAY | PROVIDERS: PCP Internal Medicine; Referring Provider Surgery; Visit Provider Dietitian, Registered | DX: E66.01 Morbid (severe) obesity due to excess calories (principal); Z68.41 Body mass index [BMI] 40.0-44.9, adult | CPT/HCPCS: 97803 ==

== ENCOUNTER → 2021-02-01 08:16 | Outpatient (BNVA) | payer OTHER, SELFPAY | PROVIDERS: PCP Internal Medicine; Referring Provider Surgery; Visit Provider Dietitian, Registered ==

== ENCOUNTER 2021-03-29 14:26 | Outpatient (REF) | payer OTHER, SELFPAY | END 2021-03-29 14:27 | disposition home or self-care (01) | LOC: HO.LNP 14:26 | PROVIDERS: Visit Provider Nurse Practitioner Family | DX: Z20.822 Contact with and (suspected) exposure to COVID-19 (principal); J01.10 Acute frontal sinusitis, unspecified; J45.20 Mild intermittent asthma, uncomplicated | CPT/HCPCS: U0003; U0005 ==

== ENCOUNTER 2021-04-02 21:01 | Emergency (ER) | payer OTHER, SELFPAY ==
--- NOTE | ~2021-04-02 | CT_ITS ---
EXAMINATION: CT ABDOMEN AND PELVIS WITH CONTRAST CLINICAL INFORMATION: RUQ, left-sided ABD pain rule out biliary, diverticulitis COMPARISON: None TECHNIQUE: Multidetector volumetric images were obtained from the superior aspect of the liver through the pubic symphysis following administration 100 mL of Omnipaque 350 intravenous contrast. Sagittal and coronal reformatted images were obtained on the technologist's workstation. Oral contrast: No This CT examination was performed using dose optimization techniques as appropriate, variously including the following: *Automated exposure control *Adjustment of mA and/or kV according to patient size (this includes techniques or standardized protocols for targeted exams where dose is matched to indication/reason for exam; i.e. extremities or head) *Use of iterative reconstruction technique DLP: 1268 mGy-cm FINDINGS: LUNG BASES: The visualized lung bases are unremarkable. LIVER, GALLBLADDER, AND BILIARY TREE: Again seen is enlarged fatty liver. The liver measures 22.3 cm in greatest length and demonstrates significantly decreased attenuation when compared with the spleen. No focal hepatic lesion or biliary ductal dilatation is present. The gallbladder is contracted but otherwise unremarkable with no evidence of radiopaque gallstones, gallbladder wall thickening, or obvious pericholecystic inflammatory changes. PANCREAS: Unremarkable. SPLEEN: Unremarkable. ADRENAL GLANDS: Unremarkable. KIDNEYS AND URETERS: The kidneys are normal in size, shape, and attenuation. Tiny punctate nonobstructing renal calculi again noted, left more than right. No hydronephrosis, hydroureter, or ureteral calculi seen. No perinephric stranding. BLADDER: Unremarkable. GASTROINTESTINAL TRACT: The small and large bowel are unremarkable. The appendix is unremarkable. ABDOMINAL WALL: There is a periumbilical hernia seen containing only fat. LYMPH NODES: Shotty retroperitoneal lymph nodes are seen but there is no adenopathy. VASCULAR: Unremarkable. PELVIC VISCERA: An anteverted uterus is present. A left ovarian cyst which had measured 4.5 cm, now measures 3.4 cm. A 4.0 cm right ovarian cyst is present which was not present previously. No free intraperitoneal fluid is seen. OSSEOUS STRUCTURES: Marked degenerative changes present at L4-L5 and L5-S1 with disc space narrowing at most other levels as well. No bony destructive lesions. CT/CT abdomen pelvis w con IMPRESSION: 1. Enlarged unchanged fatty liver. 2. Punctate nonobstructing bilateral renal calculi 3. Left ovarian cyst smaller, new right ovarian cyst. These are most likely functional and are of no concern. 4. Other incidental findings as described above. Fleischner guidelines were followed.
[2021-04-02 21:08] VITALS: BP 147/78; PULSE 101; RESP 20; TEMP 36.8; O2SAT 98; BMI 43.7
[2021-04-02 22:42] LABS: Basophils Absolute Auto 0.1 X10*3/uL (0.0-0.2); Basophils Percent Auto 0.4 % (0-2); Eosinophils Absolute Auto 0.2 X10*3/uL (0.0-0.4); Eosinophils Percent Auto 1.8 % (0-4); Hematocrit 36.9 % (37.0-47.0); Imm Gran Abs Auto 0.04 X10*3/uL (0.00-0.03); Imm Gran Pct Auto 0.4 % (0.0-0.4); Lymphocytes Percent Auto 26.4 % (20-40); Mean Corpuscular HGB Conc 32.5 g/dl (31.0-35.0); Mean Corpuscular Hemoglobin 30.1 pg (27.0-33.0); Mean Corpuscular Volume 92.5 fL (80.0-98.0); Mean Platelet Volume 10.6 fL (9.4-12.3); Monocytes Absolute Auto 0.9 X10*3/uL (0.1-1.2); Monocytes Percent Auto 8.1 % (2-11); Neutrophils Absolute Auto 7.2 x10*3/uL (2.0-8.3); Neutrophils Percent Auto 62.9 % (45-73); Platelet Count 301 X10*3/uL (160-400); Red Blood Count 3.99 X10*6/uL (4.20-5.50); Red Cell Distribution Width 12.9 % (11.0-16.0); White Blood Count 11.4 X10*3/uL (4.8-10.8)
[2021-04-02 22:43] LABS: MANUAL DIFF FLAG NO
[2021-04-02 22:54] VITALS: BP 121/64; PULSE 91; RESP 16; TEMP 36.7; O2SAT 97
--- NOTE | 2021-04-02 22:57 | PC.NURSE ---
PT a&o, no sob or chest pain. pt reports having bloody stool and abd pain. iv placed and labs collected and sent. Will continue to monitor. no sign of distress at this time.
[2021-04-02 23:05] LABS: Appearance Urine HAZY; Color Urine YELLOW; Glucose Urine UA NEG (NEG); Leukocyte Esterase Urine NEG (NEG); Nitrite Urine NEG (NEG); Urine Blood NEG (NEG); Urine Ketones 5 MG/DL (NEG); Urine Protein NEG (NEG-TRACE)
[2021-04-02 23:06] LABS: UPreg QC Valid YES; Urine Pregnancy NEGATIVE (NEGATIVE)
[2021-04-02 23:07] LABS: Alanine Aminotransferase 21 U/L (0-31); Albumin Level 4.3 g/dL (3.5-5.0); Alkaline Phosphatase 58 U/L (39-117); Anion Gap 13 (12-20); Aspartate Amino Transferase 22 U/L (5-31); Bilirubin Direct < 0.2 mg/dL (0.0-0.5); Bilirubin Total 0.3 mg/dL (0.0-1.0); Blood Urea Nitrogen 20 mg/dL (9-16); Calcium 9.7 mg/dL (8.4-10.2); Carbon Dioxide 23 mmol/L (22-29); Chloride 105 mmol/L (96-108); Creatinine Clr Calc Pharmacy 121.7; Estimated Glomerular Filt Rate > 60; Glucose Random 101 mg/dL (60-115); Lipase 33 U/L (8-78); Potassium 4.4 mmol/L (3.3-5.1); Sodium 137 mmol/L (135-145); Total Protein 7.3 g/dL (6.5-8.0)
--- NOTE | 2021-04-02 23:13 | ED.ABDPAIN ---
HPI - Abdominal Pain General Chief Complaint: Abdominal Pain Stated Complaint: Abdominal discomfort/Rectum bleeding Time Seen by Provider: 04/02/21 22:59 Source: patient Mode of arrival: ambulatory Limitations: no limitations History of Present Illness HPI narrative: 35-year-old female who presents emergency department for evaluation of abdominal pain and lower back pain. The patient states that she has chronic lower back pain. She states however over the past 2 months she has had pain in her lower coccygeal region which is new. She states this is a constant pain which is not changed. She states that approximately 2 hours prior to coming to the emergency department she developed a sudden onset of severe abdominal pain. The pain is located in the right upper quadrant of her abdomen as well as in her lower abdomen. She states that the pain radiates between her shoulder blades. She describes the pain as an intermittent cramping sensation which is 8/10 at its worst. She had associated nausea with no vomiting. She states that she had 3 episodes of bright red blood per rectum with some blood clots. She also states her abdomen feels very distended and bloated. This is her 1st episode of this type of abdominal pain however she states that when she was 16 years old she may have had an ?diverticulosis and she had similar pain to today's pain. The patient states that she is dieting to try to lose 30 lb for bariatric surgery but she has not lost any weight yet. She states that she ate dinner around 6:00 p.m. and this consisted of salad, pot roast and potatoes. Related Data Home Medications Medication Instructions Recorded Confirmed acetaminophen 500 mg tablet 1,000 mg PO Q8H PRN 02/16/20 09/15/20 etonogestrel 68 mg subdermal SUBDERMAL 03/17/20 09/15/20 implant (Nexplanon) gabapentin 600 mg tablet 600 mg PO DAILY 09/30/20 citalopram 20 mg tablet (Celexa) 20 mg PO DAILY 03/29/21 Previous Rx's Medication Instructions Recorded cyclobenzaprine 10 mg tablet 10 mg PO TID 10 Days #30 tab 03/09/20 mecobalamin (vitamin B12) 1,000 1,000 mcg PO DAILY #30 tab 03/28/20 mcg disintegrating tablet,sublingual CPAP 5-16 cm H20 humidified air #1 ea 06/03/20 nystatin 100,000 unit/gram topical 1 appl TOPICAL TID #30 g 07/15/20 cream ibuprofen 800 mg tablet 800 mg PO Q8H PRN #30 tab 08/07/20 tamsulosin 0.4 mg capsule (Flomax) 0.4 mg PO DAILY #14 cap 08/07/20 fexofenadine 180 mg tablet 180 mg PO Q24H #90 tab 09/07/20 (Mckenzie Allergy) doxycycline hyclate 100 mg capsule 100 mg PO BID 10 Days #20 cap 09/15/20 oxycodone 5 mg tablet 5 mg PO Q8H PRN 10 Days #20 tab 09/30/20 pantoprazole 40 mg tablet,delayed 40 mg PO DAILY 90 Days #90 tab 11/09/20 release diphenhydramine HCl 25 mg capsule 25 mg PO Q6H PRN #30 cap 11/12/20 (Benadryl) famotidine 20 mg tablet (Pepcid) 20 mg PO DAILY 7 Days #30 tab 11/12/20 prednisone 20 mg tablet 40 mg PO DAILY 4 Days #8 tab 11/12/20 polyethylene glycol 3350 17 17 g PO DAILY PRN #850 g 11/14/20 gram/dose oral powder (Miralax) cholecalciferol (vitamin D3) 25 25 mcg PO DAILY 90 Days #90 cap 01/13/21 mcg (1,000 unit) capsule cyanocobalamin (vitamin B-12) 1,000 mcg PO DAILY 90 Days #90 tab 01/13/21 1,000 mcg tablet lisinopril 10 mg tablet 10 mg PO DAILY 90 Days #90 tab 01/13/21 citalopram 20 mg tablet 20 mg PO DAILY 30 Days #30 tab 03/16/21 lorazepam 0.5 mg tablet 0.5 mg PO Q6H PRN #30 tab 03/20/21 albuterol sulfate 90 mcg/actuation 2 puff INHALATION Q4H PRN #6.7 g 03/29/21 aerosol inhaler azithromycin 250 mg tablet See Rx Instructions PO .COMPLEX #6 03/29/21 tab fluticasone 113 mcg-salmeterol 14 1 inh INHALATION BID PRN #1 ea 03/29/21 mcg/actuation breath activated powdr omeprazole 20 mg capsule,delayed 20 mg PO DAILY 30 Days #30 cap 04/03/21 release Allergies Allergy/AdvReac Type Severity Reaction Status Date / Time amoxicillin [AMOXICILLIN] Allergy Intermediate RASH, hives Verified 03/29/21 11:49 clindamycin [CLINDAMYCIN] Allergy Intermediate RASH Verified 03/29/21 11:49 penicillin G [Penicillin G] Allergy Intermediate HIVES AND Verified 03/29/21 11:49 RASH cephalexin Allergy Unknown hives Verified 03/29/21 11:49 morphine [MORPHINE] Allergy Unknown AIRWAY Verified 03/29/21 11:49 ISSUES, sick penicillin V Allergy Unknown hives Verified 03/29/21 11:49 Review of Systems Review of Systems Yes all other systems are reviewed and are negative Physical Exam Vital Signs: Vital Signs: Last Vital Signs Temp 98.1 F 04/02/21 22:54 Pulse 91 04/03/21 00:04 Resp 18 04/03/21 00:04 BP 111/54 L 04/03/21 00:04 Pulse Ox 98 04/03/21 00:04 BMI result Body Mass Index 43.7 Const: General: cooperative and no acute distress Orientation/consciousness: oriented to person and oriented to place Limitations: no limitations HENMT: Head: Yes normal to inspection, Yes normocephalic and Yes atraumatic Ears: external ears normal General nose exam: Normal external nose present Face and sinus: Yes normal facial exam Mouth: Normal oral and palatal mucosa present Throat: Yes posterior oropharynx normal Eyes: General: appearance normal, both eyes and all related structures Pupils: Equal, round and reactive pupils present Neck: Neck: Yes normal visual inspection, Yes no lymphadenopathy, Yes trachea midline and Yes supple Chest: Chest palpation & inspection: normal inspection of the chest and normal palpation of entire chest wall Resp: Effort & Inspection: normal respiratory effort and able to speak in complete sentences Auscultation: clear to auscultation bilaterally Cardio: Rate: regular rate Rhythm: regular rhythm Heart sounds: S1 normal heart sound present, S2 normal heart sound present and no murmurs GI: Inspection: Yes normal to inspection and Yes obesity Palpation (GI): Soft to palpation, Tenderness to palpation present (GI) in the epigastrum (Mild), in the LLQ (Moderate), in the LUQ (Moderate) and in the RUQ (Moderate) and no guarding Auscultation: normal bowel sounds Back/Spine/Pelvis: Other: Patient has tenderness palpation of her lumbar spine as well as her coccygeal spine with no significant paraspinal muscle tenderness or spasm. Skin: General skin exam: no rashes or lesions noted Neuro: General: oriented to person and oriented to place Cranial nerves: Yes CN's II-XII intact bilaterally and Yes Equal, round and reactive pupils present Cognition (Neuro): normal cognition Motor exam (neuro): 5/5 motor strength present throughout Extrem: General: Yes normal to inspection Psych: Appearance: grossly normal Speech and movement: Normal speech and movement present Affect: normal affect Attitude: cooperative Thought process: Normal thought process present Thought content: Normal thought content present Course Course Course Narrative: 35-year-old female who presents emergency department for evaluation of sudden onset of abdominal pain approximately 2 hours prior to coming to the emergency department. The pain is located in her right upper quadrant, epigastric and left side of her abdomen . She states the pain did radiate between her shoulder blades. Physical examination did reveal tenderness in all of these areas. Differential includes was not limited to acute pancreatitis, cholecystitis, diverticulitis, perforation, bowel obstruction. I did order CBC, CMP, lipase, urinalysis, urine , CT scan of the abdomen pelvis with IV contrast. 0158: The patient's laboratory evaluation was unremarkable. CT scan of the abdomen pelvis did not reveal any clear etiology for the patient's pain. She had multiple incidental findings which I did discuss with her. The patient got minimal relief with her 1st dose of Dilaudid and required a 2nd dose of Dilaudid 1 mg IV. Repeat abdominal exam revealed improvement of her lower abdominal pain but she still had midepigastric tenderness. She was treated Maalox 30 cc, viscous lidocaine 10 cc and 10 cc orally with only minimal improvement of her pain. I did do a rectal exam on the patient and the patient had brown stool which was Hemoccult positive. At this time I suspect that the patient may have acute gastritis possibly related to her ibuprofen and Excedrin that she takes for her back pain. She was advised to stop these medications for at least 2 weeks and she was started on omeprazole 20 mg once a day for 1 month. She was given printed and verbal instructions and discharged home. I did tell her that she will need to follow-up with the frame nailer to further evaluate her Hemoccult-positive stools and her bloody stool. Patient was given a work note to return to work on 04/04/2021. MDM - Abdominal Pain Lab Data Result diagrams: 04/02/21 22:37 04/02/21 22:37 Labs: Lab Results 04/02/21 04/02/21 04/02/21 Range/Units 22:37 22:37 22:58 WBC 11.4 H (4.8-10.8) X10*3/uL RBC 3.99 L (4.20-5.50) X10*6/uL Hgb 12.0 (12.0-16.0) g/dl Hct 36.9 L (37.0-47.0) % MCV 92.5 (80.0-98.0) fL MCH 30.1 (27.0-33.0) pg MCHC 32.5 (31.0-35.0) g/dl RDW 12.9 (11.0-16.0) % Plt Count 301 (160-400) X10*3/uL MPV 10.6 (9.4-12.3) fL Immature Gran % (Auto) 0.4 (0.0-0.4) % Neut % (Auto) 62.9 (45-73) % Lymph % (Auto) 26.4 (20-40) % [place] % (Auto) 8.1 (2-11) % Eos % (Auto) 1.8 (0-4) % Baso % (Auto) 0.4 (0-2) % Lymph # (Auto) 3.0 (1.2-4.9) X10*3/uL [place] # (Auto) 0.9 (0.1-1.2) X10*3/uL Eos # (Auto) 0.2 (0.0-0.4) X10*3/uL Baso # (Auto) 0.1 (0.0-0.2) X10*3/uL Abs Immat Gran (auto) 0.04 H (0.00-0.03) X10*3/uL Absolute Neuts (auto) 7.2 (2.0-8.3) x10*3/uL Absolute Nucleated RBC 0.000 (0.0-0.012) X10*3/uL Nucleated RBC % (auto) 0.0 (0.0-0.2) /100WBC Sodium 137 (135-145) mmol/L Potassium 4.4 (3.3-5.1) mmol/L Chloride 105 (96-108) mmol/L Carbon Dioxide 23 (22-29) mmol/L Anion Gap 13 (12-20) BUN 20 H (9-16) mg/dL Creatinine 0.96 (0.5-1.4) mg/dL Estim Creat Clear Calc 121.7 Estimated GFR > 60 Random Glucose 101 (60-115) mg/dL Calcium 9.7 D (8.4-10.2) mg/dL Total Bilirubin 0.3 (0.0-1.0) mg/dL Direct Bilirubin < 0.2 (0.0-0.5) mg/dL AST 22 D (5-31) U/L ALT 21 (0-31) U/L Alkaline Phosphatase 58 D (39-117) U/L Total Protein 7.3 (6.5-8.0) g/dL Albumin 4.3 (3.5-5.0) g/dL Lipase 33 (8-78) U/L Urine Color YELLOW Urine Appearance HAZY Urine pH 7.0 (5.0-8.0) Ur Specific [place] 1.020 (1.005-1.025) Urine Protein NEG (NEG-TRACE) MG/DL Urine Glucose (UA) NEG (NEG) MG/DL Urine Ketones 5 (NEG) MG/DL Urine Blood NEG (NEG) Urine Nitrite NEG (NEG) Ur Leukocyte Esterase NEG (NEG) Urine Test (NEGATIVE) 04/02/21 Range/Units 22:58 WBC (4.8-10.8) X10*3/uL RBC (4.20-5.50) X10*6/uL Hgb (12.0-16.0) g/dl Hct (37.0-47.0) % MCV (80.0-98.0) fL MCH (27.0-33.0) pg MCHC (31.0-35.0) g/dl RDW (11.0-16.0) % Plt Count (160-400) X10*3/uL MPV (9.4-12.3) fL Immature Gran % (Auto) (0.0-0.4) % Neut % (Auto) (45-73) % Lymph % (Auto) (20-40) % [place] % (Auto) (2-11) % Eos % (Auto) (0-4) % Baso % (Auto) (0-2) % Lymph # (Auto) (1.2-4.9) X10*3/uL [place] # (Auto) (0.1-1.2) X10*3/uL Eos # (Auto) (0.0-0.4) X10*3/uL Baso # (Auto) (0.0-0.2) X10*3/uL Abs Immat Gran (auto) (0.00-0.03) X10*3/uL Absolute Neuts (auto) (2.0-8.3) x10*3/uL Absolute Nucleated RBC (0.0-0.012) X10*3/uL Nucleated RBC % (auto) (0.0-0.2) /100WBC Sodium (135-145) mmol/L Potassium (3.3-5.1) mmol/L Chloride (96-108) mmol/L Carbon Dioxide (22-29) mmol/L Anion Gap (12-20) BUN (9-16) mg/dL Creatinine (0.5-1.4) mg/dL Estim Creat Clear Calc Estimated GFR Random Glucose (60-115) mg/dL Calcium (8.4-10.2) mg/dL Total Bilirubin (0.0-1.0) mg/dL Direct Bilirubin (0.0-0.5) mg/dL AST (5-31) U/L ALT (0-31) U/L Alkaline Phosphatase (39-117) U/L Total Protein (6.5-8.0) g/dL Albumin (3.5-5.0) g/dL Lipase (8-78) U/L Urine Color Urine Appearance Urine pH (5.0-8.0) Ur Specific [place] (1.005-1.025) Urine Protein (NEG-TRACE) MG/DL Urine Glucose (UA) (NEG) MG/DL Urine Ketones (NEG) MG/DL Urine Blood (NEG) Urine Nitrite (NEG) Ur Leukocyte Esterase (NEG) Urine Test NEGATIVE (NEGATIVE) Discharge Plan Discharge Clinical Impression: Hematochezia Abdominal pain Qualifiers: Abdominal location: epigastric Qualified Code(s): R10.13 - Epigastric pain Gastritis Qualifiers: Gastritis type: unspecified gastritis Chronicity: acute Gastritis bleeding: with bleeding Qualified Code(s): K29.01 - Acute gastritis with bleeding Patient Disposition: Home, Self-Care Instructions: Gastritis (ED), Rectal Bleeding (ED) Additional Instructions: Your laboratory evaluation was unremarkable. The CT scan of your abdomen and pelvis revealed multiple incidental findings which are not related to your pain. Your rectal exam did reveal to have blood in your stool. At this time, I believe that your symptoms are related to your esophageal reflux disease and you may have inflammation of your stomach (gastritis). You need to stop taking ibuprofen and Excedrin migraine for at least 1-2 weeks. This may be making her symptoms worse. I want you to start Prilosec (omeprazole) 20 mg once a day for 1 month. This medication will shut off your acid production and help the inflammation in your stomach heal. You will need to talk to your doctor about getting referred to a frame nailer to evaluate the blood in your stool. Follow-up with your doctor in 2 days. Please return to the emergency department if your symptoms get worse or if you develop any symptoms that are concerning to you. Please see the work note. Prescriptions: New omeprazole 20 mg capsule,delayed release(DR/EC) 20 mg PO DAILY 30 Days Qty: 30 RF: 0 No Action cyclobenzaprine 10 mg tablet 10 mg PO TID 10 Days Qty: 30 RF: 0 mecobalamin (vitamin B12) 1,000 mcg tablet,disintegrating 1,000 mcg PO DAILY Qty: 30 RF: 5 (DME) CPAP 5-16 cm H20 humidified air See Rx Instructions .Route .MEDSUPPLY Qty: 1 RF: 0 nystatin 100,000 unit/gram cream 1 appl topical TID Qty: 30 RF: 0 fexofenadine [Mckenzie Allergy] 180 mg tablet 180 mg PO Q24H Qty: 90 RF: 1 pantoprazole 40 mg tablet,delayed release (DR/EC) 40 mg PO DAILY 90 Days Qty: 90 RF: 2 polyethylene glycol 3350 [Miralax] 17 gram/dose powder 17 g PO DAILY PRN (Reason: constipation) Qty: 850 RF: 3 cyanocobalamin (vitamin B-12) 1,000 mcg tablet 1,000 mcg PO DAILY 90 Days Qty: 90 RF: 3 cholecalciferol (vitamin D3) 25 mcg (1,000 unit) capsule 25 mcg PO DAILY 90 Days Qty: 90 RF: 3 lisinopril 10 mg tablet 10 mg PO DAILY 90 Days Qty: 90 RF: 2 citalopram 20 mg tablet 20 mg PO DAILY 30 Days Qty: 30 RF: 0 lorazepam 0.5 mg tablet 0.5 mg PO Q6H PRN (Reason: anxiety) Qty: 30 RF: 0 ibuprofen 800 mg tablet 800 mg PO Q8H PRN (Reason: pain) Qty: 30 RF: 0 tamsulosin [Flomax] 0.4 mg capsule 0.4 mg PO DAILY Qty: 14 RF: 0 prednisone 20 mg tablet 40 mg PO DAILY 4 Days Qty: 8 RF: 0 famotidine [Pepcid] 20 mg tablet 20 mg PO DAILY 7 Days Qty: 30 RF: 0 diphenhydramine HCl [Benadryl] 25 mg capsule 25 mg PO Q6H PRN (Reason: allergy symptoms) Qty: 30 RF: 0 gabapentin 600 mg tablet 600 mg PO DAILY RF: 0 oxycodone 5 mg tablet 5 mg PO Q8H PRN (Reason: pain) 10 Days Qty: 20 RF: 0 doxycycline hyclate 100 mg capsule 100 mg PO BID 10 Days Qty: 20 RF: 0 Nexplanon 68 mg implant subdermal RF: 0 acetaminophen 500 mg tablet 1,000 mg PO Q8H PRN (Reason: pain) RF: 0 citalopram [Celexa] 20 mg tablet 20 mg PO DAILY RF: 0 azithromycin 250 mg tablet See Rx Instructions PO .COMPLEX Qty: 6 RF: 0 albuterol sulfate 90 mcg/actuation HFA aerosol inhaler 2 puff inhalation Q4H PRN (Reason: shortness of breath or wheezing) Qty: 6.7 RF: 2 fluticasone propion-salmeterol 113-14 mcg/actuation aerosol powdr breath activated 1 inh inhalation BID PRN (Reason: shortness of breath) Qty: 1 RF: 1 Stand Alone Forms: Work/School Release [facility] Past Medical History [facility] Narrative: Social history: She denies tobacco, alcohol and drug use. Medical History Anxiety and depression Asthma Chronic back pain COVID-19 Degenerative joint disease Encounter for laboratory testing for COVID-19 virus History of MRSA infection Hypertension Irritable bowel syndrome Left ovarian cyst Menorrhagia Migraine Morbid obesity Obesity Renal calculus Surgical History History of bladder surgery History of lithotripsy History of tonsillectomy Family History Family History Father Diabetes Substance abuse Mother Diabetes Depression with anxiety CVD (cardiovascular disease) Hypertension Myocardial infarct Substance abuse Maternal Grandmother Diabetes Maternal Grandfather Diabetes Kidney failure, acute Social History Social History Alcohol intake: never Patient Tobacco Use Status: Never used Tobacco Second Hand Smoke Exposure: No Use of substances other than those prescribed or required for medical reasons: No Advance Directives: No Advance Directives Information Provided: No
[2021-04-02] MEDS: 0.9 % Sodium Chloride 1,000 ML 999 ML IV (23:22)
[2021-04-02] MEDS: ondansetron HCL 4 MG/2 ML VIAL IVPUSH (23:22)
[2021-04-02] MEDS: HYDROmorphone HCl 1 MG/ML SYRINGE IVPUSH (23:22)
[2021-04-02] MEDS: iohexoL 350 MG/ML 100 ML INFUS..BTL IV (23:58)
[2021-04-03 00:04] VITALS: BP 111/54; PULSE 91; RESP 18; O2SAT 98
[2021-04-03] MEDS: HYDROmorphone HCl 1 MG/ML SYRINGE IVPUSH (01:07)
[2021-04-03] MEDS: Lidocaine HCl Viscous 2 % 15 ML SOLUTION 10 ML PO (01:30)
[2021-04-03] MEDS: PHENobarb/Hyoscy/Atropine/Scop 10 ML ELIXIR PO (01:31)
[2021-04-03] MEDS: Magnesium Hydrox/Alum Hydrox 30 ML ORAL.SUSP PO (01:31)
[2021-04-03 02:24] VITALS: RESP 20
== END 2021-04-03 02:26 | disposition home or self-care (01) ==
PROVIDERS: Emergency Provider Emergency Medicine Emergency Medical Services; PCP Internal Medicine
DX: K29.01 Acute gastritis with bleeding (principal); I10 Essential (primary) hypertension; J45.909 Unspecified asthma, uncomplicated
CPT/HCPCS: 36415; 74177; 80053; 81003; 81025; 82248; 83690; 85025; 96374; 99284; 99285; J1170; J2405; Q9967

== ENCOUNTER → 2021-04-12 12:31 | Outpatient (BNVA) | payer OTHER, SELFPAY | PROVIDERS: PCP Internal Medicine; Referring Provider Internal Medicine; Visit Provider Physician Assistant ==

== ENCOUNTER 2021-04-30 17:17 | Outpatient (REF) | payer OTHER, SELFPAY ==
[2021-04-30 17:48] LABS: IDNOW Serial# 9DD0AD1C
[2021-04-30 17:50] LABS: COVID-19 Test Negative (Negative)
== END 2021-04-30 17:18 | disposition home or self-care (01) ==
LOC: HO.LAB 17:17
PROVIDERS: Visit Provider Internal Medicine
DX: Z20.822 Contact with and (suspected) exposure to COVID-19 (principal)
CPT/HCPCS: 36415; 87635

== ENCOUNTER → 2021-07-04 10:57 | Outpatient (BNVA) | payer OTHER, SELFPAY | PROVIDERS: PCP Internal Medicine; Referring Provider Internal Medicine; Visit Provider Nurse Practitioner Family | DX: K21.9 Gastro-esophageal reflux disease without esophagitis (principal); K58.1 Irritable bowel syndrome with constipation; R14.0 Abdominal distension (gaseous) | CPT/HCPCS: 99202 ==

== ENCOUNTER 2021-07-05 12:10 | Outpatient (REF) | payer OTHER, SELFPAY ==
--- NOTE | ~2021-07-05 | XR_ITS ---
EXAMINATION: XR SACRUM AND COCCYX CLINICAL INFORMATION: Back pain COMPARISON: None TECHNIQUE: 2 views of the sacrum and 2 views of the coccyx were obtained. XR/XR sacrum coccyx min 2V FINDINGS/IMPRESSION: No acute fracture or dislocation. Joint spaces are maintained. Calcified phleboliths in the pelvis.
[2021-07-05 13:25] LABS: Appearance Urine CLEAR; Color Urine STRAW; Glucose Urine UA NEG (NEG); Leukocyte Esterase Urine NEG (NEG); Nitrite Urine NEG (NEG); Urine Blood NEG (NEG); Urine Ketones NEG (NEG); Urine Protein NEG (NEG-TRACE)
[2021-07-05 13:49] LABS: Anion Gap 14 (12-20); Blood Urea Nitrogen 17 mg/dL (9-16); C Reactive Protein 0.45 mg/dL (< or = 0.50); Calcium 10.1 mg/dL (8.4-10.2); Carbon Dioxide 25 mmol/L (22-29); Chloride 105 mmol/L (96-108); Estimated Glomerular Filt Rate > 60; Glucose Random 91 mg/dL (60-115); Potassium 4.8 mmol/L (3.3-5.1); Sodium 139 mmol/L (135-145)
[2021-07-05 14:06] LABS: TSH reflex Free T4 1.81 uIU/mL (0.32-4.0)
[2021-07-07 13:26] LABS: Transglutaminase Ab IgG <1.0 U/mL; Transglutaminase IgA <1.0 U/mL
== END 2021-07-05 12:11 | disposition home or self-care (01) ==
LOC: HO.LAB 12:10
PROVIDERS: Absent Provider Nurse Practitioner Family; PCP Internal Medicine; Visit Provider Nurse Practitioner Family
DX: M54.50 Low back pain, unspecified (principal); N20.0 Calculus of kidney; R10.9 Unspecified abdominal pain; K58.9 Irritable bowel syndrome, unspecified; R14.0 Abdominal distension (gaseous); R10.11 Right upper quadrant pain; I10 Essential (primary) hypertension
CPT/HCPCS: 36415; 72220; 80048; 81003; 84443; 86140; 86364

== ENCOUNTER → 2021-07-12 09:26 | Outpatient (BNVA) | payer OTHER, SELFPAY | PROVIDERS: PCP Internal Medicine; Visit Provider Physician Assistant | DX: Z13.89 Encounter for screening for other disorder (principal) ==

== ENCOUNTER → 2021-07-19 08:33 | Outpatient (BNVA) | payer OTHER, SELFPAY | PROVIDERS: PCP Internal Medicine; Referring Provider Internal Medicine; Visit Provider Physician Assistant | DX: Z13.89 Encounter for screening for other disorder (principal) ==

== ENCOUNTER → 2021-07-26 08:54 | Outpatient (BNVA) | payer OTHER, SELFPAY | PROVIDERS: PCP Internal Medicine; Visit Provider Physician Assistant | DX: Z13.89 Encounter for screening for other disorder (principal) ==

== ENCOUNTER → 2021-08-02 08:25 | Outpatient (BNVA) | payer OTHER, SELFPAY | PROVIDERS: PCP Internal Medicine; Referring Provider Internal Medicine; Visit Provider Physician Assistant | DX: Z13.89 Encounter for screening for other disorder (principal) ==

== ENCOUNTER → 2021-08-09 08:38 | Outpatient (BNVA) | payer OTHER, SELFPAY | PROVIDERS: PCP Internal Medicine; Referring Provider Internal Medicine; Visit Provider Physician Assistant Surgical | DX: Z13.89 Encounter for screening for other disorder (principal) ==

== ENCOUNTER → 2021-08-16 08:30 | Outpatient (BNVA) | payer OTHER, SELFPAY | PROVIDERS: PCP Internal Medicine; Visit Provider Physician Assistant | DX: Z13.89 Encounter for screening for other disorder (principal) ==

== ENCOUNTER → 2021-08-21 08:11 | Outpatient (BNVA) | payer OTHER, SELFPAY | PROVIDERS: PCP Internal Medicine; Visit Provider Dietitian, Registered | DX: E66.9 Obesity, unspecified (principal) | CPT/HCPCS: 97803 ==

== ENCOUNTER → 2021-08-22 11:15 | Outpatient (BNVA) | payer OTHER, SELFPAY | PROVIDERS: PCP Internal Medicine; Visit Provider Counselor Mental Health | DX: F43.23 Adjustment disorder with mixed anxiety and depressed mood (principal); E66.01 Morbid (severe) obesity due to excess calories | CPT/HCPCS: 90791 ==

== ENCOUNTER → 2021-08-23 08:28 | Outpatient (BNVA) | payer OTHER, SELFPAY | PROVIDERS: PCP Internal Medicine; Referring Provider Internal Medicine; Visit Provider Physician Assistant Surgical | DX: Z13.89 Encounter for screening for other disorder (principal) ==

== ENCOUNTER → 2021-08-29 10:05 | Outpatient (BNVA) | payer OTHER, SELFPAY | PROVIDERS: PCP Internal Medicine; Referring Provider Internal Medicine; Visit Provider Nurse Practitioner Family | DX: K21.9 Gastro-esophageal reflux disease without esophagitis (principal); K58.1 Irritable bowel syndrome with constipation; K59.04 Chronic idiopathic constipation | CPT/HCPCS: 99212 ==

== ENCOUNTER → 2021-09-06 08:36 | Outpatient (BNVA) | payer OTHER, SELFPAY | PROVIDERS: PCP Internal Medicine; Referring Provider Internal Medicine; Visit Provider Physician Assistant | DX: Z13.89 Encounter for screening for other disorder (principal) ==

== ENCOUNTER → 2021-09-08 08:16 | Outpatient (BNVA) | payer OTHER, SELFPAY | PROVIDERS: PCP Internal Medicine; Visit Provider Surgery | DX: E66.01 Morbid (severe) obesity due to excess calories (principal); K21.9 Gastro-esophageal reflux disease without esophagitis; I10 Essential (primary) hypertension; R11.0 Nausea; Z01.818 Encounter for other preprocedural examination ==

== ENCOUNTER 2021-09-15 09:29 | Inpatient (IN) | payer OTHER, SELFPAY ==
[2021-09-08 12:59] LABS: MANUAL DIFF FLAG NO
[2021-09-08 13:22] LABS: Basophils Percent Auto 0.4 % (0-2); Eosinophils Absolute Auto 0.2 X10*3/uL (0.0-0.4); Eosinophils Percent Auto 2.1 % (0-4); Hematocrit 35.5 % (37.0-47.0); Hemoglobin 11.6 g/dl (12.0-16.0); Imm Gran Abs Auto 0.03 X10*3/uL (0.00-0.03); Imm Gran Pct Auto 0.4 % (0.0-0.4); Lymphocytes Absolute Auto 2.3 X10*3/uL (1.2-4.9); Lymphocytes Percent Auto 28.8 % (20-40); Mean Corpuscular HGB Conc 32.7 g/dl (31.0-35.0); Mean Corpuscular Hemoglobin 30.3 pg (27.0-33.0); Mean Corpuscular Volume 92.7 fL (80.0-98.0); Mean Platelet Volume 11.3 fL (9.4-12.3); Monocytes Absolute Auto 0.6 X10*3/uL (0.1-1.2); Monocytes Percent Auto 7.3 % (2-11); Neutrophils Absolute Auto 4.9 x10*3/uL (2.0-8.3); Platelet Count 291 X10*3/uL (160-400); Red Blood Count 3.83 X10*6/uL (4.20-5.50); Red Cell Distribution Width 12.9 % (11.0-16.0)
[2021-09-08 13:27] LABS: INTERNATIONAL NORM RATIO 1.1 (0.9-1.1); Prothrombin Time 12.4 SEC (9.9-13.0)
[2021-09-08 13:28] LABS: Estimated Average Glucose 105 mg/dL; Hemoglobin A1c % 5.3 %
[2021-09-08 13:47] LABS: Alanine Aminotransferase 17 U/L (0-31); Albumin Level 4.4 g/dL (3.5-5.0); Alkaline Phosphatase 56 U/L (39-117); Anion Gap 13 (12-20); Aspartate Amino Transferase 12 U/L (5-31); Bilirubin Total 0.5 mg/dL (0.0-1.0); Blood Urea Nitrogen 13 mg/dL (9-16); Calcium 9.8 mg/dL (8.4-10.2); Carbon Dioxide 23 mmol/L (22-29); Chloride 106 mmol/L (96-108); Cholesterol 170 mg/dL; Estimated Glomerular Filt Rate > 60; Glucose Random 91 mg/dL (60-115); HDL Cholesterol 37 mg/dL; LDL Cholesterol Calculated 92 mg/dl; Potassium 4.4 mmol/L (3.3-5.1); Sodium 138 mmol/L (135-145); Triglycerides 205 mg/dL
[2021-09-08 14:08] LABS: Insulin 10 uU/mL (2-29); TSH reflex Free T4 1.87 uIU/mL (0.32-4.0)
--- NOTE | 2021-09-09 16:49 | MHC.SHP ---
Pre-Procedural Eval Section A Date of Service: 09/09/21 The patient is an INPATIENT: Yes The History & Physical has been completed within 30 days and I have reviewed it.: Yes Section B Chief Complaint: obesity Relevant Family History (Specify if Yes): No Relevant Social History: None Present Medications: None Medical History: No relevant PMH History of Previous Operations: No relevant previous surgery Allergies: Allergies Allergy/AdvReac Type Severity Reaction Status Date / Time amoxicillin [AMOXICILLIN] Allergy Intermediate RASH, hives Verified 08/29/21 10:10 clindamycin [CLINDAMYCIN] Allergy Intermediate RASH Verified 08/29/21 10:10 penicillin G [Penicillin G] Allergy Intermediate HIVES AND Verified 08/29/21 10:10 RASH cephalexin Allergy Unknown hives Verified 08/29/21 10:10 morphine [MORPHINE] Allergy Unknown AIRWAY Verified 08/29/21 10:10 ISSUES, sick penicillin V Allergy Unknown hives Verified 08/29/21 10:10 Review of Systems Sugical H&P ROS: Negative: Constitution, Cardiovascular, Respiratory, Neurological, Psychiatric, Hem-Onc, Allergic/Immunologic, Gastrointestinal, Genitourinary, Musculoskeletal, Integumentary, Endocrine and Eyes/Ears/Nose/Throat Exam Surgical H&P Exam: Normal: HEENT, Normal: Heart, Normal: Lungs, Normal: Extremities, Normal: Abdomen, Normal: Skin and Normal: Neurological Plan Diagnosis/Plan: Unchanged I have reviewed the history and physical and performed a pertinent physical examination on my patient. No changes have occurred unless specified.
[2021-09-12 10:22] VITALS: BMI 40.7
--- NOTE | 2021-09-13 12:18 | P.CONAN_ITS ---
Documented by User: Ronna Bai NP 09/13/21 12:19 HPI - Anesthesia Eval Consult details Narrative: 36yo F for Gastrectomy Sleeve,EGD,poss diaphragmatic hernia,poss ventral hernia,poss open, PMFSH Active Problems Active Problems: All Active Problems (Updated 09/12/21 @ 10:21 by Dayana Mckeon RN) Annual physical exam (Acute) Witnessed apneic spells (Acute) GERD (gastroesophageal reflux disease) (Acute) Bilateral hand numbness (Acute) Low back pain (Acute) Vitamin B12 deficiency (Acute) Mild obstructive sleep apnea (Acute) Lumbar disc disease with radiculopathy (Acute) Nasal congestion (Acute) Sinus congestion (Acute) Allergic rhinitis (Acute) Vitamin D deficiency (Acute) Allergic reaction (Acute) Generalized anxiety disorder (Acute) Intermittent asthma (Acute) Sinusitis, acute frontal (Acute) Hematochezia (Acute) Renal calculus, bilateral (Acute) COVID-19 virus infection (Acute) Generalized anxiety disorder (Acute) Low back pain (Acute) Recurrent nephrolithiasis (Acute) Left flank pain (Acute) Adjustment disorder with mixed anxiety and depressed mood (Acute) Degenerative joint disease (Acute) Morbid obesity (Acute) Anxiety and depression (Acute) Migraine (Acute) Asthma (Acute) Hypertension (Acute) Irritable bowel syndrome (Acute) Obesity (Acute) Past Medical History Medical History Anxiety and depression Asthma Chronic back pain COVID-19 COVID-19 vaccine series completed Degenerative joint disease Encounter for laboratory testing for COVID-19 virus History of MRSA infection History of postoperative nausea and vomiting Hypertension Irritable bowel syndrome Left ovarian cyst Menorrhagia Migraine Morbid obesity Obesity Renal calculus Family History Family History Father Diabetes Substance abuse Mother Diabetes Depression with anxiety CVD (cardiovascular disease) Hypertension Myocardial infarct Substance abuse Maternal Grandmother Diabetes Maternal Grandfather Diabetes Kidney failure, acute Surgical History Surgical History History of bladder surgery History of colonoscopy History of endoscopy History of lithotripsy History of tonsillectomy Social History Social History Housing: Apartment Are you a primary multi care technician to a significant other at home: No Do you presently have visiting nurse or other home services: No Alcohol intake: never Patient Tobacco Use Status: Never used Tobacco e-Cigarette/Vaping Use: Never Used Second Hand Smoke Exposure: No Use of substances other than those prescribed or required for medical reasons: No Have you been hit, kicked, punched, or otherwise hurt by someone within the past year? If so, by whom?: No Are you DNR?: No Advance Directives: No Advance Directives Information Provided: Yes (brochure offered) Advance Directives on File: No Recently lost weight without trying: No Eating poorly because of decreased appetite: No Nutrition Risks: No Nutritional Risk Patient : No : No Poor oral hygiene: No Current occupational status: employed Meds Allergies Allergy/AdvReac Type Severity Reaction Status Date / Time morphine [MORPHINE] Allergy Severe Anaphylaxis Verified 09/15/21 10:04 amoxicillin [AMOXICILLIN] Allergy Intermediate RASH, hives Verified 08/29/21 10:10 cephalexin Allergy Intermediate hives Verified 09/12/21 09:53 clindamycin [CLINDAMYCIN] Allergy Intermediate RASH Verified 08/29/21 10:10 Penicillins Allergy Intermediate hives/rash Verified 09/12/21 09:53 shrimp Allergy Intermediate Hives Verified 09/12/21 10:21 Home Medications Medication Instructions Recorded Confirmed Last Taken Type acetaminophen 500 mg tablet 1,000 mg PO Q8H PRN 02/16/20 09/12/21 Unknown History etonogestrel 68 mg subdermal 1 implant SUBDERMAL ONCE 03/17/20 09/12/21 Unknown History implant (Nexplanon) citalopram 20 mg tablet 20 mg PO BEDTIME 09/12/21 09/12/21 Unknown History Exam Exam Date and Time: September 13, 2021 1218 Height,Weight and Vital Signs: Height 5 ft 9 in Weight 125.191 kg Pertinent Lab Results Pertinent Lab Results: Laboratory Tests 09/08/21 09/08/21 09/08/21 12:50 12:57 12:57 WBC 8.0 RBC 3.83 L Hgb 11.6 L Hct 35.5 L MCV 92.7 MCH 30.3 MCHC 32.7 RDW 12.9 Plt Count 291 MPV 11.3 Immature Gran % (Auto) 0.4 Neut % (Auto) 61.0 Lymph % (Auto) 28.8 [place] % (Auto) 7.3 Eos % (Auto) 2.1 Baso % (Auto) 0.4 Lymph # (Auto) 2.3 [place] # (Auto) 0.6 Eos # (Auto) 0.2 Baso # (Auto) 0.0 Abs Immat Gran (auto) 0.03 Absolute Neuts (auto) 4.9 Absolute Nucleated RBC 0.000 Nucleated RBC % (auto) 0.0 PT 12.4 INR 1.1 APTT 33.0 Sodium Potassium Chloride Carbon Dioxide Anion Gap BUN Creatinine Estim Creat Clear Calc Estimated GFR Random Glucose Estimat Average Glucose Hemoglobin A1c % Insulin Level Calcium Total Bilirubin AST ALT Alkaline Phosphatase C-Reactive Protein Total Protein Albumin Triglycerides Cholesterol LDL Cholesterol, Calc HDL Cholesterol TSH Blood Type A Positive Antibody Screen NEGATIVE 09/08/21 09/08/21 12:57 12:57 WBC RBC Hgb Hct MCV MCH MCHC RDW Plt Count MPV Immature Gran % (Auto) Neut % (Auto) Lymph % (Auto) [place] % (Auto) Eos % (Auto) Baso % (Auto) Lymph # (Auto) [place] # (Auto) Eos # (Auto) Baso # (Auto) Abs Immat Gran (auto) Absolute Neuts (auto) Absolute Nucleated RBC Nucleated RBC % (auto) PT INR APTT Sodium 138 Potassium 4.4 Chloride 106 Carbon Dioxide 23 Anion Gap 13 BUN 13 Creatinine 0.72 Estim Creat Clear Calc TNP Estimated GFR > 60 Random Glucose 91 Estimat Average Glucose 105 Hemoglobin A1c % 5.3 Insulin Level 10 Calcium 9.8 Total Bilirubin 0.5 AST 12 D ALT 17 Alkaline Phosphatase 56 C-Reactive Protein 0.20 Total Protein 7.0 Albumin 4.4 Triglycerides 205 Cholesterol 170 LDL Cholesterol, Calc 92 HDL Cholesterol 37 TSH 1.87 Blood Type Antibody Screen Assessment and Plan Assessment Anesthesia Assessment: Chart Reviewed Documented by User: Yoly Mayer MD 09/15/21 10:49 PMFSH Past Medical History Medical History Anxiety and depression Asthma Chronic back pain COVID-19 COVID-19 vaccine series completed Degenerative joint disease Encounter for laboratory testing for COVID-19 virus History of MRSA infection History of postoperative nausea and vomiting Hypertension Irritable bowel syndrome Left ovarian cyst Menorrhagia Migraine Morbid obesity Obesity Renal calculus Functional capacity: independent ambulation Patient : No Family History Family History Father Diabetes Substance abuse Mother Diabetes Depression with anxiety CVD (cardiovascular disease) Hypertension Myocardial infarct Substance abuse Maternal Grandmother Diabetes Maternal Grandfather Diabetes Kidney failure, acute Family history of problems with anesthesia: No Surgical History Surgical History History of bladder surgery History of colonoscopy History of endoscopy History of lithotripsy History of tonsillectomy History of Problems with Anesthesia: Yes (PONV) Social History Social History Housing: Apartment Are you a primary multi care technician to a significant other at home: No Do you presently have visiting nurse or other home services: No Alcohol intake: never Patient Tobacco Use Status: Never used Tobacco e-Cigarette/Vaping Use: Never Used Second Hand Smoke Exposure: No Use of substances other than those prescribed or required for medical reasons: No Have you been hit, kicked, punched, or otherwise hurt by someone within the past year? If so, by whom?: No Are you DNR?: No Advance Directives: No Advance Directives Information Provided: Yes (brochure offered) Advance Directives on File: No Recently lost weight without trying: No Eating poorly because of decreased appetite: No Nutrition Risks: No Nutritional Risk Patient : No : No Poor oral hygiene: No Current occupational status: employed Meds Allergies Allergy/AdvReac Type Severity Reaction Status Date / Time morphine [MORPHINE] Allergy Severe Anaphylaxis Verified 09/15/21 10:04 amoxicillin [AMOXICILLIN] Allergy Intermediate RASH, hives Verified 08/29/21 10:10 cephalexin Allergy Intermediate hives Verified 09/12/21 09:53 clindamycin [CLINDAMYCIN] Allergy Intermediate RASH Verified 08/29/21 10:10 Penicillins Allergy Intermediate hives/rash Verified 09/12/21 09:53 shrimp Allergy Intermediate Hives Verified 09/12/21 10:21 Home Medications Medication Instructions Recorded Confirmed Last Taken Type acetaminophen 500 mg tablet 1,000 mg PO Q8H PRN 02/16/20 09/12/21 Unknown History etonogestrel 68 mg subdermal 1 implant SUBDERMAL ONCE 03/17/20 09/12/21 Unknown History implant (Nexplanon) citalopram 20 mg tablet 20 mg PO BEDTIME 09/12/21 09/12/21 Unknown History Exam Airway Mallampati Class: III TM Dist: >3cm Neck ROM: Full Heart: TRR Lungs: CTA Assessment and Plan Final Anesthetic Review Family History of Problems with Anesthesia: No History of Problems with Anesthesia: Yes (PONV) NPO: Yes Final Preanesthetic Review: No Changes in Pt Med Stat, Meds/Allgs Chart Reviewed, Consent Obtained/Reviewed and Anes Risks/Benef Reviewed Patient Risk: Intermediate Procedure Risk: Intermediate Anesthetic Plan Anesthetic Plan: GA Disposition: Standard PACU
--- NOTE | 2021-09-14 | ECG_ITS ---
Test Reason : e66.01 Blood Pressure : / mmHG Vent. Rate : 048 BPM Atrial Rate : 048 BPM P-R Int : 196 ms QRS Dur : 106 ms QT Int : 454 ms P-R-T Axes : 032 007 015 degrees QTc Int : 405 ms Sinus bradycardia Otherwise normal ECG When compared to the previous EKG of 23 mar 2020, rate slower Referred By: Ronna Bai Electronically Signed By:YESSY POLK
[2021-09-14 12:12] LABS: COVID-19 Test Negative (Negative)
[2021-09-15] VITALS (14 sets, daily range): BP systolic 127–166; BP diastolic 69–91; PULSE 51–80; RESP 12–18; TEMP 36.1–37.2; O2SAT 96–100
--- NOTE | 2021-09-15 09:42 | PHA.MEDREC ---
Pharmacy Consult ? Medication Reconciliation Pharmacy has completed the medication reconciliation.
[2021-09-15 09:46] LABS: UPreg QC Valid YES; Urine Pregnancy NEGATIVE (NEGATIVE)
[2021-09-15] MEDS: Lactated Ringers 1,000 ML 999 ML IV (10:28)
[2021-09-15] MEDS: Lactated Ringers 1,000 ML 100 ML IVCONT ×2 (10:28→16:23)
[2021-09-15] MEDS: Scopolamine 1.5 MG PATCH.TD.3 TRANSDERMA (10:35)
--- NOTE | 2021-09-15 11:47 | P.BOP_ITS ---
Brief Operative Note Date of Service: 09/15/21 Pre-op diagnosis: Morbid obesity and comorbidities (see below) Post-op diagnosis: same Procedure: INITIAL PATIENT BMI ON PRESENTATION AT OUR OFFICE: 44 kg/m2 LAST BMI BEFORE SURGERY: 41.9 kg/m2 COMORBIDITIES: sleep apnea on CPAP, hypertension, asthma, depression, migraines, DJD, stress incontinence, GERD, liver fibrosis, liver steatosis ?The patient presented to the Weight Management Program with significant obesity that was negatively impacting the patient's comorbidities as listed above.? The program is a phased program with a special focus on preoperative medical weight management to promote substantial weight loss and prepare the patients for the second phase of the program: bariatric surgery. The patient participated in an intensive weekly lifestyle ?intervention and exercise program during which the patient ?has lost between the initial office visit and the last preoperative visit 21 lbs, or 8.7% of initial actual body weight. It was deemed appropriate for the patient to now have bariatric surgery. In light of the current Covid-19 pandemic and the well documented strong association of obesity and increased risk of worse outcomes if infected with Covid-19 (REFERENCES: https://pubmed.ncbi.nlm.nih.gov/08256025/ ,? https://pubmed.ncbi.nlm.nih.gov/45283164/ ), any delay in undergoing bariatric surgery may lead to the patient's worsening health condition and increased?risk of more severe Covid-19 disease if infected. In addition a recent?study from [facility] published in [facility] on 04/24/2021 ([email or web address]) found that, among patients with obesity, substantial weight loss achieved with surgery was associated with improved outcomes of COVID-19 infection. The findings suggest that obesity can be a modifiable risk factor for the severity of COVID- 19 infection. In addition, the patient met the BMI-criteria for bariatric surgery based on the BMI on initial presentation. The patient should not be penalized for achieving such weight loss because ?it is not sustainable long-term without surgical intervention and it was achieved in preparation for bariatric surgery ?under my direction and based on my published research ([email or web address] and? https://www.soard.org/article/[email or web address](16)18030-X/pdf ) ?that a 10% preoperative weight loss improves long-term weight loss after surgery and reduces perioperative complications.? Insurance carriers such as [employer] have endor sed my recommendations ?and have included in their policies criteria to include a 10% preoperative weight loss requirement. PROCEDURE: Esophago-gastroscopy, laparoscopic sleeve gastrectomy and lapar oscopic gastropexy INDICATIONS: This is a 36 year-old female who was electively scheduled for laparoscopic, possibly open sleeve gastrectomy. The risks and complications of the procedure were discussed with the patient in advance, particularly the possibility of ; pulmonary embolism; staple line leak; bleeding; GERD; cardiac, pulmonary, or renal complications; as well as long-term problems such as insufficient weight loss, vitamin deficiency, strictures, or ulcers. The patient understood all the risks, and was in agreement to proceed with surgery. DESCRIPTION OF PROCEDURE: After informed consent was obtained from the patient, the patient was given preoperative antibiotics, and was transferred to the operating room. After successful induction of general anesthesia, pneumatic compression devices were placed on both lower extremities. An upper endoscopy was performed next. The oropharynx and esophagus appeared to be within normal limits. There was no diaphragmatic hernia present consistent with the findings of the preoperative upper GI. The stomach was entered. Then after all fluid and air were suctioned and the stomach was fully decompressed, the scope was withdrawn and secured in the mid esophagus. The patient was then prepped and draped in the usual sterile manner, and abdominal access was established at the right upper quadrant with the Emery technique. A 12 mm blunt port was inserted, and the abdomen was insufflated with CO2 to a pressure of 15 mmHg. Under direct visualization, additional ports were placed, specifically two 5 mm Versi-step ports to the left upper quadrant, and a 5 mm Versi-Step port to the right upper quadrant. 1% lidocaine plain was used to infiltrate all port sites as well as all fascia defects. Following that, the patient was placed in a steep reverse Trendelenburg position. An additional 5 mm port was placed to the right flank for the Mediflex retractor that was used to retract the left lobe of the liver. The gastro-esophageal fat pad was opened with the ultrasonic device (Thunderbeat, Olympus) and the anterior esophagus and hiatus were exposed. The angle of His was opened with the ultrasonic device the fundus of the stomach from any diaphragmatic and splenic attachments. I then opened the gastrocolic ligament between the transverse colon and the greater curvature of the stomach with the ultrasonic device to enter the lesser sac and facilitate the ligation of the short gastric vessels. I started at a mid-point along the greater curvature and using the Thunderbeat, all short gastric vessels were divided all the way to the angle of His until the left jf was completely dissected at its entirety. I then divided the gastro-colic ligament distally to a distance of about 3-4 cm proximal to the pylorus. The stomach was then divided transversely with one Endo GIO-45 purple, one GIO- 45 orange load and four GIO-60 articulating orange loads using the AEON stapler and loads. Every effort was made that the gastric sleeve had a tubular shape and an even caliber throughout. Once the sleeve resection was completed, the staple line of the gastric sleeve was reinforced with Hemoclips. The resected stomach was retrieved without difficulty from the Emery port. A gastropexy was then performed in order to prevent postoperative GERD and partial gastric volvulus. Several interrupted 2.0 Surgidac sutures were placed between the sleeve's staple line and the previously divided greater omentum and gastro-colic ligament using the Endo-Stitch device. ?An upper endoscopy was performed. There was no narrowing at the GE junction. The scope was easily advanced all the way to the pylorus which was clearly visualized. There was no narrowing anywhere and the sleeve's caliber was even throughout. The sleeve's staple line was inspected and there was no evidence of ischemia, bleeding or dehiscence. At that point the gastroscope was withdrawn from the patient?s mouth while we were decompressing the bowel and the stomach from any remaining air. I looked into the lesser sac to see how the sleeve was situating and it was situating well. There was no bleeding from the staple line, spleen, or short gastric vessels. The Mediflex retractor was removed, and the undersurface of the liver was inspected and there was no bleeding. The patient was placed in supine position. I closed the fascial defect of the 12 mm port site with a figure of eight #1 Polysorb suture. Then 100 cc 0.25 % Marcaine plain with 10 mg of Dexamethasone were used to infiltrate the fascial closure as well as all skin incisions. At this point, the abdomen was deflated, all ports were removed under direct vision, and no bleeding was noted from any of the port sites. The skin incisions were irrigated with saline and were closed with 4-0 absorbable monofilament sutures. Steri-Strips and OpSites were used to cover all incisions. The patient was extubated and was transferred in stable condition to the recovery room for further care. I was present and performed all remy parts of the procedure. Ms. Pride was the healthcare administrative assistant. There were no residents to assist with this case. Derrick Kasper MD, PhD, FACS Surgeon: Fransisco Kasper MD Anesthesia: GETA, local and other (TAP block) Was an Supervisor In Charge used for this Procedure?: No Supervisor In Charge: Audelia Pride Estimated blood loss (mL): 10 Urine output (mL): 0 (No Cook to record) Pathology: other (Stomach) Condition: stable Disposition: PACU
[2021-09-15] MEDS: levoFLOXacin/D5W 500 MG/100 ML PIGGYBACK 100 MG IV (12:35)
--- NOTE | 2021-09-15 15:25 | PM.DS ---
DS: Providers Provider Date of Service: 09/16/21 Date of admission: 09/15/21 09:29 Primary care physician: Sarmad Rincon MD DS: Summary Hospital Course Hospital Course: ADMITTING DIAGNOSIS: morbid obesity,?anxiety, depression, asthma, back pain, HTN, IBS, DJD, menorrhagia, migraines ? DISCHARGE DIAGNOSIS: same, s/p laparoscopic sleeve gastrectomy and gastropexy ? PAST SURGICAL HISTORY:?bladder surgery, colonoscopy, endoscopy, lithotripsy, tonsillectomy ? PROCEDURE: upper endoscopy, laparoscopic sleeve gastrectomy ? DISCHARGE SUMMARY: ? History of Present Illness: ? The patient is a? 36? year-old woman with a BMI of? ?41.8 ? kg/m2 and associated co-morbidities as described above. The patient had extensive work-up, lost? ?18.4 ? lbs preoperatively and was electively scheduled for laparoscopic, possible open sleeve gastrectomy and gastropexy. Risks and complications of the surgery were discussed with the patient in advance, particularly the possibility of , pulmonary embolism, anastomotic leak, bleeding, bowel injury, GERD, cardiac, renal or pulmonary complications. The patient understood all the risks and was in agreement with the surgical plan. ? Hospital Course: ? The patient underwent an uneventful laparoscopic sleeve gastrectomy with gastropexy on the day of admission. Postoperatively, the patient was transferred to the surgical floor. The patient received IV Acetaminophen and IV dilaudid for pain control. Patient was started on bariatric phase 1 diet POD #0. On postoperative day one, the patient was feeling well without nausea, vomiting, fevers, or tachycardia. The patient had some mild incisional pain and the abdomen was soft.? ? On the morning of postoperative day one, the patient was continued on 1 ounce of water or ice every half hour. During the day, the patient did fairly well, having some incisional pain, but able to ambulate adequately and to tolerate liquids well. ? Since the patient is doing well, we decided that the patient was ready to be discharged. The patient was given instructions to follow-up with me next week and to call my office for any fever over 101, persistent abdominal pain, nausea, vomiting, GERD, symptoms of DVT such as calf tenderness, or leg swelling, or pulmonary embolism such as chest pain or shortness of breath.? The patient was also instructed to drink 40-60 ounces of liquids per day using the 1-ounce cups. The patient had been given prescriptions for Tylenol for pain, Zofran prn for nausea, and pantoprazole and carafate previously. The patient was encouraged to ambulate and use the incentive spirometer. The patient was allowed to shower, but no baths, and encouraged to stay active at home. All of these instructions were given to the patient personally. All questions were answered and the patient understood all instructions, the instructions were also given to the patient in print. Time Spent with Patient Time attestation: Total time spent providing and/or coordinating discharge services: Discharge coordination time: Less than 30 minutes Quality: Safe Use of Opioids Does Pt have an Active Cancer Diagnosis on the Problem List?: No Quality: Stroke Does the patient have a stroke diagnosis?: No Physical Exam Vital Signs: Vital Signs: Last Vital Signs Temp 97.8 F 09/15/21 10:06 Pulse 76 09/15/21 10:06 Resp 18 09/15/21 10:06 BP 127/76 09/15/21 10:06 Pulse Ox 100 09/15/21 10:06 BMI result Body Mass Index 40.7 DS: Data Data Completed and Pending Pending studies at discharge: Pending at discharge 09/15/21 14:30 Surgical [PTH] Routine Labs on day of discharge: Laboratory Results - last 24 hr 09/15/21 09:35 Urine Test NEGATIVE Discharge Plan Discharge Anticipated Discharge Date/Time: 09/16/21 09:17 Patient Disposition: Home, Self-Care Discharge Diagnosis: s/p sleeve gastrectomy Referrals: Po,Sarmad Turcios MD [Primary Care Provider] - 1 Week Discharge Medications: Continued lisinopril 10 mg tablet 10 mg PO DAILY 90 Days Qty: 90 2RF citalopram 20 mg tablet 20 mg PO BEDTIME 0RF lorazepam 0.5 mg tablet 0.5 mg PO Q6H PRN (Reason: anxiety) 30 Days Qty: 30 0RF Nexplanon 68 mg implant 1 implant subdermal ONCE 0RF acetaminophen 500 mg tablet 1,000 mg PO Q8H PRN (Reason: pain) 0RF albuterol sulfate 90 mcg/actuation HFA aerosol inhaler 2 puff inhalation Q4H PRN (Reason: shortness of breath or wheezing) Qty: 6.7 2RF pantoprazole 40 mg tablet,delayed release (DR/EC) 40 mg PO DAILY Qty: 30 2RF Rx Instructions: take one tablet half an hour before breakfast sucralfate 100 mg/mL suspension 10 ml PO BID Qty: 400 2RF ondansetron HCl 4 mg tablet 4 mg PO Q12H Qty: 20 0RF Discontinued cyanocobalamin (vitamin B-12) 1,000 mcg tablet 1,000 mcg PO DAILY 90 Days Qty: 90 3RF cholecalciferol (vitamin D3) 25 mcg (1,000 unit) capsule 25 mcg PO DAILY 90 Days Qty: 90 3RF Citrucel 500 mg tablet 500 mg PO DAILY Qty: 30 2RF Rx Instructions: take it with full glass of water famotidine 40 mg tablet 40 mg PO BEDTIME Qty: 30 3RF sennosides [Natural Senna Laxative] 8.6 mg tablet 17.2 mg PO BEDTIME Qty: 180 2RF polyethylene glycol 3350 [Miralax] 17 gram powder in packet 17 g PO DAILY Qty: 100 3RF pantoprazole 40 mg tablet,delayed release (DR/EC) 40 mg PO DAILY Qty: 30 2RF polyethylene glycol 3350 [Miralax] 17 gram powder in packet 17 g PO DAILY Qty: 14 0RF Rx Instructions: Mix each packet with 8oz of water and do 7 packets on 09/13/21 and another 7 packets on 09/14/21 Diet: other Activity on Discharge: No heavy lifting Stand Alone Forms: Patient Portal Discharge page Care Plan Goals: weight loss Health Concerns: morbid obesity Plan of Treatment: No tub baths, sex or returning to work until discussed at first post op appointment. No exercise, alcohol, tobacco or illegal drug use. Continue to use incentive spirometer hourly while awake. Walk in home for 5- 10 minutes every 2 hours during the first week. Follow all instructions in the bariatric handbook and call with any questions.Discharge Instructions 1. Please call your doctor or come back to the emergency room should any new symptoms arise. 2. You will receive a courtesy call from [facility] 24-48 hours after discharge. 3. Activity: abstain from alcohol, practice limited stair climbing, no bending, no driving, no exercise, no illicit substances, no lifting, no sex, no tub bath, no work. 4. Diet: continue as discussed with Dr. Kasper. 5. Dressing Change/Wound Care: Your incision is covered by clear bandages and gauze underneath. If the area is tender, you may apply an ice pack for short intervals (no more than 20 minutes on, followed by at least 20 minutes off). Do not apply heat. Do not use creams, lotions, or topical antibiotics unless instructed to do so by your surgeon. These can cause infection or allergic reaction. 6. Call your doctor if: - Your temperature exceeds 101.5 F - You experience excessive pain or swelling - You have an unexpected reaction to medication - You have excessive bleeding - You experience continued vomiting/nausea - Your incision begins to separate - Your incision shows signs of infection such as increased redness, swelling, excessive pain, heat, or drainage (light blood or clear fluid is normal) 7. General instructions: No lifting greater than 5 lbs for the next 4 weeks[address] within 24 hours of taking narcotic pain medications. If you do not move your bowels in the next 2 days, please take milk of magnesia over the counter. Please follow the post op diet and do not advance your diet until you are seen in the office in about 2 weeks. Please walk around your home every hour or two to prevent blood clots from forming in your legs. You do not need to wake from sleeping to walk. Please sleep in a bed or couch to prevent kinking at the hips and knees. Please take your incentive spirometer (your lung hospital insurance representative) home with you and use it for the next few days to prevent pneumonias. You may shower, no hot tubs, baths or swimming pools. Please call the office with any questions or concerns such as increasing abdominal pain, fever, chills, shortness of breath, chest pain, leg pain or swelling, or redness or drainage from your incisions. Please stay on stage 3 diet which includes sugar free clear liquids such as ice pops and jello and broth and crystal light. Avoid all carbonation. Please drink 3 protein shakes with at least 25-30 grams of protein daily or 3 of the Celebrate 4:1 shakes which can be purchased in our office. The Celebrate shakes have all of the bariatric vitamins you need if you consume these shakes. If you are drinking other protein shakes, you will need to purchase the Celebrate multivitamins and calcium that we provide in the office (they will provide all the vitamins you need). Please make sure you are consuming at least 40-60 ounces of water in addition to your 3 protein shakes daily. Do not hesitate to contact the office with any questions at . The patient's medical history has been reviewed and they are considered low risk for post op DVT and therefore DVT prophylaxis is not considered necessary. Travel after surgery was reviewed. The patient has not disclosed any travel plans during the first 30 days after surgery and they have been advised that within the first 30 days after surgery any bus, plane, train or car travel over 2 hours in duration is contraindicated due to the possibility of developing blood clots from immobility. Any travel, needs to include periods of ambulation of 10 minutes in duration every 2 hours.? The patient was instructed to discuss any plans for travel during this period with their bariatric surgeon. Assessment: stable s/p sleeve gastrectomy
[2021-09-15] MEDS: Famotidine/PF 20 MG/2 ML VIAL IVPUSH ×2 (15:34→20:42)
[2021-09-15 15:48] LABS: Hematocrit 37.6 % (37.0-47.0); Hemoglobin 12.2 g/dl (12.0-16.0)
[2021-09-15] MEDS: ondansetron HCL 4 MG/2 ML VIAL IVPUSH ×2 (16:00→18:21)
[2021-09-15 16:07] LABS: Anion Gap 12 (12-20); Blood Urea Nitrogen 12 mg/dL (9-16); Calcium 9.2 mg/dL (8.4-10.2); Carbon Dioxide 23 mmol/L (22-29); Chloride 105 mmol/L (96-108); Creatinine Clr Calc Pharmacy 150.4; Estimated Glomerular Filt Rate > 60; Glucose Random 120 mg/dL (60-115); Potassium 4.3 mmol/L (3.3-5.1); Sodium 136 mmol/L (135-145)
[2021-09-15] MEDS: Metoclopramide HCl 10 MG/2 ML VIAL IVPUSH (16:39)
[2021-09-15] MEDS: 0.9 % Sodium Chloride Flush 3 ML SYRINGE IVFLUSH (18:21)
[2021-09-16] MEDS: Metoclopramide HCl 10 MG/2 ML VIAL IVPUSH ×2 (00:12→08:00)
[2021-09-16] MEDS: 0.9 % Sodium Chloride Flush 3 ML SYRINGE IVFLUSH ×2 (00:12→08:05)
[2021-09-16 01:12] VITALS: RESP 18
[2021-09-16] MEDS: Lactated Ringers 1,000 ML 100 ML IVCONT (01:32)
[2021-09-16] MEDS: ondansetron HCL 4 MG/2 ML VIAL IVPUSH ×2 (03:19→09:02)
[2021-09-16 04:00] VITALS: BP 135/69; PULSE 88; RESP 20; TEMP 36.7; O2SAT 98
[2021-09-16 06:55] LABS: MANUAL DIFF FLAG NO
[2021-09-16 07:12] LABS: Basophils Percent Auto 0.1 % (0-2); Hematocrit 34.8 % (37.0-47.0); Hemoglobin 11.2 g/dl (12.0-16.0); Imm Gran Abs Auto 0.05 X10*3/uL (0.00-0.03); Imm Gran Pct Auto 0.4 % (0.0-0.4); Lymphocytes Absolute Auto 0.8 X10*3/uL (1.2-4.9); Lymphocytes Percent Auto 7.2 % (20-40); Mean Corpuscular HGB Conc 32.2 g/dl (31.0-35.0); Mean Corpuscular Hemoglobin 29.6 pg (27.0-33.0); Mean Corpuscular Volume 92.1 fL (80.0-98.0); Mean Platelet Volume 11.7 fL (9.4-12.3); Monocytes Absolute Auto 0.6 X10*3/uL (0.1-1.2); Monocytes Percent Auto 5.4 % (2-11); Neutrophils Absolute Auto 10.1 x10*3/uL (2.0-8.3); Neutrophils Percent Auto 86.9 % (45-73); Platelet Count 287 X10*3/uL (160-400); Red Blood Count 3.78 X10*6/uL (4.20-5.50); Red Cell Distribution Width 12.8 % (11.0-16.0); White Blood Count 11.7 X10*3/uL (4.8-10.8)
[2021-09-16 07:27] LABS: Anion Gap 13 (12-20); Blood Urea Nitrogen 9 mg/dL (9-16); Calcium 9.4 mg/dL (8.4-10.2); Carbon Dioxide 21 mmol/L (22-29); Chloride 107 mmol/L (96-108); Creatinine Clr Calc Pharmacy 148.4; Estimated Glomerular Filt Rate > 60; Glucose Random 120 mg/dL (60-115); Potassium 4.7 mmol/L (3.3-5.1); Sodium 136 mmol/L (135-145)
[2021-09-16 07:48] VITALS: BP 143/73; PULSE 56; RESP 22; TEMP 36.4; O2SAT 95
[2021-09-16] MEDS: Famotidine/PF 20 MG/2 ML VIAL IVPUSH (09:02)
--- NOTE | 2021-09-16 10:20 | MHC.CM.PN ---
PT REPORTS SHE LIVES AT HOME WITH HER AND CHILDREN RANGING IN AGES FROM 15 TO 3 YEARS OLD. 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 PT DISCHARGED HOME TODAY WITH NO SERVICES TRANSPORTED
--- NOTE | 2021-09-17 15:32 | HO.POSTANES ---
Post Anesthesia Evaluation Post Anesthesia Evaluation Anesthesia: General Endotracheal-GETA Mental Status: Awake Pain Control: Satisfactory Nausea/Vomiting: None Hydration: Adequate Anesthesia-Related Issues: No Anes. Related Issues
== END 2021-09-16 10:33 | disposition home or self-care (01) | DRG 403 ==
LOC: HO.SSSA 09:40 → HO.S3 12:36
PROVIDERS: Nurse Practitioner; Physician Assistant Surgical; Admitting Provider Surgery; PCP Internal Medicine; Visit Provider Surgery
PROC: 0DB64Z3 Excision of Stomach, Percutaneous Endoscopic Approach, Vertical (ICD-10-PCS; CPT 43845; principal; 2021-09-15 11:30)
DX: E66.01 Morbid (severe) obesity due to excess calories (principal); K44.0 Diaphragmatic hernia with obstruction, without gangrene; G43.909 Migraine, unspecified, not intractable, without status migrainosus; G89.29 Other chronic pain; M54.9 Dorsalgia, unspecified; M19.90 Unspecified osteoarthritis, unspecified site; F41.9 Anxiety disorder, unspecified; F32.A Depression, unspecified; J45.909 Unspecified asthma, uncomplicated; I10 Essential (primary) hypertension; K66.0 Peritoneal adhesions (postprocedural) (postinfection); Z20.822 Contact with and (suspected) exposure to COVID-19; Z68.41 Body mass index [BMI] 40.0-44.9, adult; Z86.16 Personal history of COVID-19; Z87.442 Personal history of urinary calculi; Z87.892 Personal history of anaphylaxis; Z91.013 Allergy to seafood; Z88.0 Allergy status to penicillin; Z88.1 Allergy status to other antibiotic agents; Z88.5 Allergy status to narcotic agent; Z79.899 Other long term (current) drug therapy
CPT/HCPCS: 36415; 80048; 80053; 80061; 81025; 83036; 83525; 84443; 85014; 85018; 85025; 85610; 85730; 86140; 86850; 86900; 86901; 87635; 88307; 88342; 93005; A4649; C9088; J0131; J1100; J1170; J1956; J2250; J2405; J2550; J2765; J3010

== ENCOUNTER → 2021-09-19 14:01 | Outpatient (BNVA) | payer OTHER, SELFPAY | PROVIDERS: PCP Internal Medicine; Referring Provider Internal Medicine; Visit Provider Surgery | DX: Z13.89 Encounter for screening for other disorder (principal) ==

== ENCOUNTER → 2021-09-26 08:38 | Outpatient (BNVA) | payer OTHER, SELFPAY | PROVIDERS: PCP Internal Medicine; Referring Provider Internal Medicine; Visit Provider Physician Assistant Surgical | DX: Z13.89 Encounter for screening for other disorder (principal) ==

== ENCOUNTER → 2021-09-27 17:00 | Outpatient (BNVA) | payer OTHER, SELFPAY | PROVIDERS: PCP Internal Medicine; Visit Provider Counselor Mental Health | DX: F43.23 Adjustment disorder with mixed anxiety and depressed mood (principal); E66.01 Morbid (severe) obesity due to excess calories | CPT/HCPCS: 90853 ==

== ENCOUNTER → 2021-09-29 09:41 | Outpatient (BNVA) | payer OTHER, SELFPAY | PROVIDERS: PCP Internal Medicine; Referring Provider Internal Medicine; Visit Provider Physician Assistant | DX: Z13.89 Encounter for screening for other disorder (principal) ==

== ENCOUNTER → 2021-10-12 11:06 | Outpatient (BNVA) | payer OTHER, SELFPAY | PROVIDERS: PCP Internal Medicine; Visit Provider Dietitian, Registered | DX: E66.9 Obesity, unspecified (principal); Z68.36 Body mass index [BMI] 36.0-36.9, adult | CPT/HCPCS: 97803 ==

== ENCOUNTER → 2021-10-26 15:48 | Outpatient (BNVA) | payer OTHER, SELFPAY | PROVIDERS: PCP Internal Medicine; Referring Provider Surgery; Visit Provider Dietitian, Registered | DX: E66.9 Obesity, unspecified (principal); Z68.36 Body mass index [BMI] 36.0-36.9, adult | CPT/HCPCS: 97803 ==

== ENCOUNTER → 2021-11-14 09:29 | Outpatient (BNVA) | payer OTHER, SELFPAY | PROVIDERS: PCP Internal Medicine; Referring Provider Surgery; Visit Provider Dietitian, Registered | DX: E66.9 Obesity, unspecified (principal); Z68.35 Body mass index [BMI] 35.0-35.9, adult | CPT/HCPCS: 97803 ==

== ENCOUNTER 2021-11-27 14:24 | Outpatient (REF) | payer OTHER, SELFPAY ==
[2021-11-27 14:44] LABS: MANUAL DIFF FLAG NO
[2021-11-27 15:33] LABS: Basophils Percent Auto 0.3 % (0-2); Eosinophils Absolute Auto 0.1 X10*3/uL (0.0-0.4); Eosinophils Percent Auto 0.7 % (0-4); Hematocrit 36.9 % (37.0-47.0); Hemoglobin 11.8 g/dl (12.0-16.0); Imm Gran Abs Auto 0.02 X10*3/uL (0.00-0.03); Imm Gran Pct Auto 0.2 % (0.0-0.4); Lymphocytes Absolute Auto 2.2 X10*3/uL (1.2-4.9); Lymphocytes Percent Auto 22.2 % (20-40); Mean Corpuscular Hemoglobin 29.7 pg (27.0-33.0); Mean Corpuscular Volume 92.9 fL (80.0-98.0); Mean Platelet Volume 12.1 fL (9.4-12.3); Monocytes Absolute Auto 0.7 X10*3/uL (0.1-1.2); Monocytes Percent Auto 6.5 % (2-11); Neutrophils Percent Auto 70.1 % (45-73); Platelet Count 278 X10*3/uL (160-400); Red Blood Count 3.97 X10*6/uL (4.20-5.50); Red Cell Distribution Width 13.3 % (11.0-16.0)
[2021-11-27 16:22] LABS: Iron 59 mcg/dL (30-160); Percent Iron Saturation 18 % (15-50); Total Iron Binding Capacity 322 mcg/dL (228-428); Unsaturated Iron Binding 263 ug/dL
== END 2021-11-27 14:25 | disposition home or self-care (01) ==
LOC: HO.LAB 14:24
PROVIDERS: PCP Internal Medicine; Visit Provider Physician Assistant Surgical
DX: R53.83 Other fatigue (principal)
CPT/HCPCS: 36415; 83540; 85025

== ENCOUNTER 2021-12-06 11:51 | Emergency (ER) | payer OTHER, SELFPAY ==
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
[2021-12-06 12:35] VITALS: BP 149/66; PULSE 60; RESP 18; TEMP 36.2; O2SAT 98; BMI 35.4
[2021-12-06 13:16] LABS: MANUAL DIFF FLAG NO
[2021-12-06 13:17] LABS: Basophils Percent Auto 0.4 % (0-2); Eosinophils Absolute Auto 0.1 X10*3/uL (0.0-0.4); Eosinophils Percent Auto 0.8 % (0-4); Hematocrit 35.7 % (37.0-47.0); Hemoglobin 11.5 g/dl (12.0-16.0); Imm Gran Abs Auto 0.02 X10*3/uL (0.00-0.03); Imm Gran Pct Auto 0.3 % (0.0-0.4); Lymphocytes Percent Auto 26.5 % (20-40); Mean Corpuscular HGB Conc 32.2 g/dl (31.0-35.0); Mean Corpuscular Hemoglobin 29.6 pg (27.0-33.0); Mean Corpuscular Volume 91.8 fL (80.0-98.0); Monocytes Absolute Auto 0.6 X10*3/uL (0.1-1.2); Monocytes Percent Auto 7.4 % (2-11); Neutrophils Absolute Auto 4.9 x10*3/uL (2.0-8.3); Neutrophils Percent Auto 64.6 % (45-73); Platelet Count 258 X10*3/uL (160-400); Red Blood Count 3.89 X10*6/uL (4.20-5.50); Red Cell Distribution Width 13.2 % (11.0-16.0); White Blood Count 7.5 X10*3/uL (4.8-10.8)
[2021-12-06 13:23] LABS: INTERNATIONAL NORM RATIO 1.1 (0.9-1.1)
[2021-12-06] MEDS: Cyclobenzaprine HCl 5 MG TABLET PO (13:26)
[2021-12-06] MEDS: Acetaminophen 325 MG TABLET 975 MG PO (13:26)
[2021-12-06] MEDS: diphenhydrAMINE HCL 25 MG TABLET PO (13:37)
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
[2021-12-06 14:48] LABS: Alanine Aminotransferase 14 U/L (0-31); Albumin Level 4.2 g/dL (3.5-5.0); Alkaline Phosphatase 68 U/L (39-117); Anion Gap 13 (12-20); Aspartate Amino Transferase 12 U/L (5-31); Bilirubin Total 0.6 mg/dL (0.0-1.0); Blood Urea Nitrogen 20 mg/dL (9-16); Carbon Dioxide 25 mmol/L (22-29); Chloride 106 mmol/L (96-108); Creatinine Clr Calc Pharmacy 140.7; Estimated Glomerular Filt Rate > 60; Glucose Random 89 mg/dL (60-115); Potassium 4.1 mmol/L (3.3-5.1); Sodium 140 mmol/L (135-145); Total Protein 6.8 g/dL (6.5-8.0)
[2021-12-06] MEDS: 0.9 % Sodium Chloride 1,000 ML 999 ML IVCONT (14:53)
[2021-12-06 14:54] LABS: HCG Quantitative < 2 mIU/mL
[2021-12-06] MEDS: iohexoL 350 MG/ML 100 ML INFUS..BTL IV (15:23)
[2021-12-06 17:50] LABS: Appearance Urine CLEAR; Color Urine YELLOW; Glucose Urine UA NEG (NEG); Leukocyte Esterase Urine NEG (NEG); Nitrite Urine NEG (NEG); PH 6.5 (5.0-8.0); Specific Gravity - Urine <= 1.005 (1.005-1.025); UACC Culture Trigger NO; Urine Blood 1+ (NEG); Urine Ketones 15 MG/DL (NEG); Urine Protein NEG (NEG-TRACE)
[2021-12-06 17:59] LABS: Amorphous Sediment Urine TRACE /LPF; RBC Urine 0-2 /HPF (0); Squamous Epithelial Cell Urine 1+ /LPF; WBC Urine 0-2 /HPF (0-4)
[2021-12-06 18:15] LABS: COVID-19 Test Negative (Negative); IDNOW Serial# 9DB6401D
[2021-12-06] MEDS: ondansetron HCL 4 MG/2 ML VIAL IVPUSH (18:46)
[2021-12-06] MEDS: HYDROmorphone HCl 0.5 MG/0.5 ML SYRINGE IVPUSH (18:46)
--- NOTE | 2021-12-06 18:51 | PC.NURSE ---
call was placed to [facility] per EL Ramos. [facility] was reached at [phone] awaiting call back. [facility] called back with ED to ed transfer. call was placed to action [phone] awaiting arrival
--- NOTE | 2021-12-06 19:09 | PC.NURSE ---
report called to [facility] RADHA [place]- pt transferred via ems to [facility] ED for further eval, pt aler oriented, NAD
== END 2021-12-06 19:40 | disposition short-term general hospital (02) ==
PROVIDERS: Physician Assistant Medical; Emergency Provider Internal Medicine; PCP Internal Medicine
DX: S36.119A Unspecified injury of liver, initial encounter (principal); S13.4XXA Sprain of ligaments of cervical spine, initial encounter; S39.012A Strain of muscle, fascia and tendon of lower back, initial encounter; V43.62XA Car passenger injured in collision with other type car in traffic accident, initial encounter; N83.202 Unspecified ovarian cyst, left side; Y93.89 Activity, other specified; Y92.414 Local residential or business street as the place of occurrence of the external cause; Y99.9 Unspecified external cause status; Z20.822 Contact with and (suspected) exposure to COVID-19
CPT/HCPCS: 36415; 72072; 72125; 74177; 80053; 81001; 83735; 84702; 85025; 85610; 87635; 96361; 96374; 96375; 99283; 99285; J1170; J2405; Q0163; Q9967

== ENCOUNTER → 2021-12-21 09:19 | Outpatient (BNVA) | payer OTHER, SELFPAY | PROVIDERS: PCP Internal Medicine; Referring Provider Surgery; Visit Provider Dietitian, Registered | DX: E66.9 Obesity, unspecified (principal); Z68.34 Body mass index [BMI] 34.0-34.9, adult; Z98.84 Bariatric surgery status; Z71.3 Dietary counseling and surveillance | CPT/HCPCS: 97803 ==

== ENCOUNTER → 2021-12-26 08:57 | Outpatient (REF) | payer OTHER, SELFPAY ==
--- NOTE | 2021-12-26 09:00 | ECG_ITS ---
Test Reason : ATRIOVENTRICULAR BLK Blood Pressure : / mmHG Vent. Rate : 057 BPM Atrial Rate : 057 BPM P-R Int : 200 ms QRS Dur : 104 ms QT Int : 442 ms P-R-T Axes : 045 013 023 degrees QTc Int : 430 ms Sinus bradycardia Otherwise normal ECG When compared with ECG of 14-SEP-2021 12:05, Heart rate has increased Referred By: Sarmad Rincon Electronically Signed By:LEBRON GRIMM
== END ==
LOC: HO.CARD 08:57
PROVIDERS: PCP Internal Medicine; Visit Provider Internal Medicine
DX: I44.0 Atrioventricular block, first degree (principal)
CPT/HCPCS: 93005

== ENCOUNTER → 2022-01-16 15:37 | Outpatient (BNVA) | payer OTHER, SELFPAY | PROVIDERS: PCP Internal Medicine; Referring Provider Surgery; Visit Provider Dietitian, Registered | DX: E66.9 Obesity, unspecified (principal); Z68.34 Body mass index [BMI] 34.0-34.9, adult; Z98.84 Bariatric surgery status; Z71.3 Dietary counseling and surveillance | CPT/HCPCS: 97803 ==

== ENCOUNTER → 2022-02-14 15:16 | Outpatient (BNVA) | payer OTHER, SELFPAY | PROVIDERS: PCP Internal Medicine; Referring Provider Surgery; Visit Provider Dietitian, Registered | DX: E66.9 Obesity, unspecified (principal); Z68.33 Body mass index [BMI] 33.0-33.9, adult | CPT/HCPCS: 97803 ==

== ENCOUNTER → 2022-03-14 13:08 | Outpatient (BNVA) | payer OTHER, SELFPAY | PROVIDERS: PCP Internal Medicine; Visit Provider Physician Assistant Surgical | DX: E66.01 Morbid (severe) obesity due to excess calories (principal); L98.7 Excessive and redundant skin and subcutaneous tissue; Z68.33 Body mass index [BMI] 33.0-33.9, adult; Z98.84 Bariatric surgery status; Z90.3 Acquired absence of stomach [part of] | CPT/HCPCS: 99212 ==

== ENCOUNTER → 2022-03-26 10:16 | Outpatient (BNVA) | payer OTHER, SELFPAY | PROVIDERS: PCP Internal Medicine; Visit Provider Dietitian, Registered | DX: E66.9 Obesity, unspecified (principal); Z68.33 Body mass index [BMI] 33.0-33.9, adult | CPT/HCPCS: 97803 ==

== ENCOUNTER 2022-05-01 07:21 | Outpatient (REF) | payer OTHER, SELFPAY ==
[2022-05-01 07:34] LABS: MANUAL DIFF FLAG NO
[2022-05-01 07:53] LABS: Basophils Percent Auto 0.4 % (0-2); Eosinophils Absolute Auto 0.1 X10*3/uL (0.0-0.4); Eosinophils Percent Auto 1.2 % (0-4); Hematocrit 36.4 % (37.0-47.0); Hemoglobin 11.9 g/dl (12.0-16.0); Imm Gran Abs Auto 0.03 X10*3/uL (0.00-0.03); Imm Gran Pct Auto 0.3 % (0.0-0.4); Lymphocytes Absolute Auto 2.9 X10*3/uL (1.2-4.9); Mean Corpuscular HGB Conc 32.7 g/dl (31.0-35.0); Mean Corpuscular Volume 91.7 fL (80.0-98.0); Mean Platelet Volume 10.9 fL (9.4-12.3); Monocytes Absolute Auto 0.7 X10*3/uL (0.1-1.2); Monocytes Percent Auto 7.4 % (2-11); Neutrophils Absolute Auto 5.1 x10*3/uL (2.0-8.3); Neutrophils Percent Auto 57.7 % (45-73); Platelet Count 302 X10*3/uL (160-400); Red Blood Count 3.97 X10*6/uL (4.20-5.50); Red Cell Distribution Width 12.6 % (11.0-16.0); White Blood Count 8.9 X10*3/uL (4.8-10.8)
[2022-05-01 08:10] LABS: Estimated Average Glucose 97 mg/dL
[2022-05-01 08:14] LABS: Anion Gap 11 (12-20)
[2022-05-01 08:19] LABS: Alanine Aminotransferase 11 U/L (0-31); Albumin Level 4.3 g/dL (3.5-5.0); Alkaline Phosphatase 65 U/L (39-117); Aspartate Amino Transferase 12 U/L (5-31); Bilirubin Total 0.7 mg/dL (0.0-1.0); Blood Urea Nitrogen 18 mg/dL (9-16); C Reactive Protein 0.13 mg/dL (< or = 0.50); Calcium 9.6 mg/dL (8.4-10.2); Carbon Dioxide 25 mmol/L (22-29); Chloride 109 mmol/L (96-108); Cholesterol 186 mg/dL; Estimated Glomerular Filt Rate > 60; Glucose Random 93 mg/dL (60-115); HDL Cholesterol 52 mg/dL; Iron 68 mcg/dL (30-160); LDL Cholesterol Calculated 119 mg/dl; Percent Iron Saturation 25 % (15-50); Potassium 4.5 mmol/L (3.3-5.1); Sodium 140 mmol/L (135-145); Total Iron Binding Capacity 269 mcg/dL (228-428); Total Protein 6.8 g/dL (6.5-8.0); Triglycerides 75 mg/dL; Unsaturated Iron Binding 201 ug/dL
[2022-05-01 08:52] LABS: Folate 13.7 ng/mL (> or = 4.0); Vitamin B12 343 pg/mL (200-900)
[2022-05-01 09:25] LABS: Ferritin 28 ng/mL (10-122); Insulin 6 uU/mL (2-29); TSH reflex Free T4 3.58 uIU/mL (0.32-4.0); Vitamin D 25-OH Total 27.3 ng/mL (>30)
[2022-05-02 16:14] LABS: Calcium (PTHI) 9.4 mg/dL (8.6-10.2); PTHI 64 pg/mL (16-77)
[2022-05-04 16:23] LABS: Zinc 71 mcg/dL (60-130)
[2022-05-04 22:24] LABS: Vitamin A 53 mcg/dL (38-98)
[2022-05-06 10:13] LABS: Vitamin B1 15 nmol/L (8-30)
== END 2022-05-01 07:22 | disposition home or self-care (01) ==
LOC: HO.LAB 07:21
PROVIDERS: PCP Internal Medicine; Visit Provider Physician Assistant Surgical
DX: Z98.84 Bariatric surgery status (principal)
CPT/HCPCS: 36415; 80053; 80061; 82306; 82607; 82728; 82746; 83036; 83525; 83540; 83970; 84425; 84443; 84590; 84630; 85025; 86140

== ENCOUNTER → 2022-05-08 11:08 | Outpatient (BNVA) | payer OTHER, SELFPAY | PROVIDERS: PCP Internal Medicine; Visit Provider Dietitian, Registered | DX: E66.9 Obesity, unspecified (principal); Z68.33 Body mass index [BMI] 33.0-33.9, adult; Z71.3 Dietary counseling and surveillance | CPT/HCPCS: 97803 ==

== ENCOUNTER 2022-05-08 18:50 | Outpatient (REF) | payer OTHER, SELFPAY ==
[2022-05-08 20:01] LABS: Influenza A PCR NEGATIVE (Negative); Influenza B PCR NEGATIVE (Negative); Resp Syncy Virus RNA Qual PCR NEGATIVE (Negative); SARS COV2 PCR INHOUSE POSITIVE (Negative)
== END 2022-05-08 18:51 | disposition home or self-care (01) ==
LOC: HO.LAB 18:50
PROVIDERS: Physician Assistant; Visit Provider Internal Medicine
DX: Z20.822 Contact with and (suspected) exposure to COVID-19 (principal); R05.9 Cough, unspecified; R09.89 Other specified symptoms and signs involving the circulatory and respiratory systems
CPT/HCPCS: 0241U; C9803

== ENCOUNTER → 2022-06-19 13:48 | Outpatient (BNVA) | payer OTHER, SELFPAY | PROVIDERS: PCP Internal Medicine; Visit Provider Dietitian, Registered | DX: E66.9 Obesity, unspecified (principal); Z68.34 Body mass index [BMI] 34.0-34.9, adult | CPT/HCPCS: 97803 ==

== ENCOUNTER → 2022-06-26 08:10 | Outpatient (BNVA) | payer OTHER, SELFPAY | PROVIDERS: PCP Internal Medicine; Referring Provider Internal Medicine; Visit Provider Internal Medicine | DX: I44.0 Atrioventricular block, first degree (principal); R07.2 Precordial pain | CPT/HCPCS: 93005; 99202 ==

== ENCOUNTER → 2022-07-17 13:04 | Outpatient (REF) | payer OTHER, SELFPAY ==
--- NOTE | 2022-07-17 13:08 | CA_ITS ---
Transthoracic Echocardiogram Patient (Last, First, Middle): Leigh Pabon A Gender: Female Date of : 1985 Age: 37 Procedure Date: 07/17/2022 Procedure Type: Transthoracic Echocardiogram Location: OP Height: 175.26 cm Weight: 106.6 kg BSA: 2.21 m2 Heart Rate: bpm BP: 128 / 64 mmHg Data Processing Auditor: TO Referring MD: Odilon Lanza MD Test Automation Architect: Terry De Santiago MD Symptoms: I44.0 - Atrioventricular block, first degree Study Quality: Fair ECG Rhythm: Sinus Conclusions: - Normal study Findings Left Ventricle Normal left ventricular size, thickness, and systolic function. The visually estimated ejection fraction is between 60-65%. Diastolic function is normal for age. Right Ventricle Normal right ventricular cavity size and systolic function. Atria Both atria are normal in size. There is no evidence of interatrial shunt. Aortic Valve Normal aortic valve structure and function. There is no aortic valve stenosis. There is no aortic valve regurgitation. Mitral Valve Normal mitral valve structure and function. There is no mitral valve regurgitation. There is no mitral valve stenosis. Pulmonic Valve The pulmonic valve is likely normal. There is trace pulmonic valve regurgitation. Tricuspid Valve Normal tricuspid valve structure. There is trace tricuspid valve regurgitation. The right ventricular systolic pressure is normal. Normal right atrial pressure. There is no evidence of pulmonary hypertension. Great Vessels All visible segments of the aorta are normal in size. The pulmonary artery was not well visualized. Venous The inferior vena cava is normal in size and collapses greater than 50% with inspiration. Pericardium/Pleural There is no evidence of pericardial effusion. Prior Study Comparison No prior study available for comparison. Measurements 2D Linear Measurements IVSd: 1.05 0.6-0.9/0.6-1.0 cm LVIDd: 5.12 3.9-5.3/4.2-5.9 cm LVIDd Index: 2.32 2.4-3.2/2.2-3.1 cm/m2 LVIDs: 3.36 2.0-3.6 cm LVPWd: 0.92 0.7-1.1 cm LA Diam: 4.10 2.7-3.8/3.0-4.0 cm LAIDs Index: 1.86 1.5-2.3 cm/m2 LV Mass: 230.29 67-162/88-224 g LV Mass Index: 104.20 43-95/49-115 g/m2 LVOT Diam: 2.20 3.0+(-)1.3 cm 2D Systolic Function EF 4C: 56.30 >55% Mitral Valve MV Pk E: 0.90 MV PK A: 0.62 MV Decel Time: 211.00 E/A: 1.50 E'Lateral: 16.80 E'Medial: 8.49 E/E' Med: 10.60 E/E' Lat: 5.40 PHT: 62.00 MVA PHT: 3.55 Decel Boundary: 4.29 Aortic Valve AoV Pk Isaiah: 1.43 AoV Mn Isaiah: 1.01 AoV VTI: 0.31 AoV Pk Grad: 8.00 Aov Mn Grad: 4.00 ABBI Cont.VTI: 2.64 LVOT LVOT Pk Isaiah: 1.04 LVOT Mn Isaiah: 0.70 LVOT VTI: 0.21 LVOT Pk Grad: 4.00 LVOT Mn Grad: 2.00 LVOT Diam: 2.20 LVOT Area: 3.80 Diastolic Function MV Pk E: 0.90 MV Pk A: 0.62 E/A: 1.50 E'Medial: 8.49 E/E' Med: 10.60 E' Laterial: 16.80 E/E' Lat: 5.40 Tricuspid Valve TR Pk Isaiah: 1.89 TR Pk Grad: 14.00 RA Press: 3.00 RVSP: 17.00 Great Vessels Aorta Sinus of Valsalva: 3.12 2.0-3.5 cm Ao Asc: 3.00 2.1-3.4 cm Updated in Other Vendor System with Status of Final Terry De Santiago MD electronically signed on 07/18/2022 9:14:23 AM with status of Final
--- NOTE | 2022-07-17 13:09 | HM_ITS ---
Conclusion: 1. Patient was monitored for total period of 2 days and 22 hours 2. Baseline was normal sinus rhythm with average heart of 76 beats per minute 3. No significant pauses noted 4. Very rare PVCs noted 5. Patient reported 1 event without any symptoms correlating with sinus rhythm MTDD
== END ==
LOC: HO.CARD 13:04
PROVIDERS: Visit Provider Internal Medicine
DX: I44.0 Atrioventricular block, first degree (principal)
CPT/HCPCS: 93242; 93306; 97803

== ENCOUNTER → 2022-07-31 13:11 | Outpatient (BNVA) | payer OTHER, SELFPAY | PROVIDERS: PCP Internal Medicine; Visit Provider Dietitian, Registered | DX: E66.01 Morbid (severe) obesity due to excess calories (principal); Z68.34 Body mass index [BMI] 34.0-34.9, adult; Z90.3 Acquired absence of stomach [part of]; Z71.3 Dietary counseling and surveillance | CPT/HCPCS: 97803 ==

== ENCOUNTER → 2022-08-10 09:13 | Outpatient (BNVA) | payer OTHER, SELFPAY | PROVIDERS: PCP Internal Medicine; Visit Provider Physician Assistant Surgical ==

== ENCOUNTER → 2022-08-24 09:12 | Outpatient (BNVA) | payer OTHER, SELFPAY | PROVIDERS: PCP Internal Medicine; Referring Provider Internal Medicine; Visit Provider Physician Assistant Surgical ==

== ENCOUNTER → 2022-09-27 08:01 | Outpatient (BNVA) | payer OTHER, SELFPAY | PROVIDERS: PCP Internal Medicine; Referring Provider Internal Medicine; Visit Provider Internal Medicine | DX: I44.0 Atrioventricular block, first degree (principal); R07.2 Precordial pain | CPT/HCPCS: 99212 ==

== ENCOUNTER → 2022-10-05 08:54 | Outpatient (BNVA) | payer OTHER, SELFPAY | PROVIDERS: PCP Internal Medicine; Visit Provider Physician Assistant ==

== ENCOUNTER → 2022-10-11 11:07 | Outpatient (BNVA) | payer OTHER, SELFPAY | PROVIDERS: PCP Internal Medicine; Visit Provider Dietitian, Registered | DX: E66.9 Obesity, unspecified (principal); Z68.35 Body mass index [BMI] 35.0-35.9, adult | CPT/HCPCS: 97803 ==

== ENCOUNTER → 2022-10-12 09:03 | Outpatient (BNVA) | payer OTHER, SELFPAY | PROVIDERS: PCP Internal Medicine; Visit Provider Physician Assistant Surgical ==

== ENCOUNTER 2022-10-19 21:06 | Emergency (ER) | payer OTHER, SELFPAY ==
--- NOTE | ~2022-10-19 | CT_ITS ---
EXAMINATION: CT ANGIOGRAM HEAD CT ANGIOGRAM NECK CLINICAL INFORMATION: Dissection. Severe neck pain. COMPARISON: CT head and cervical spine from 10/20/2022. TECHNIQUE: Initial noncontrast box lidder imaging of the head and neck was performed. Comparison is made with noncontrast head CT from earlier today. Test bolus sequences followed by intravenous administration 70 mL of Omnipaque 350. Helical imaging was performed in the axial plane from the aortic arch to the skull vertex. Delayed postcontrast imaging of the head was also performed. The data was processed at the histotechnologist's workstation for generation of MIP sequences. Angled MIPs and volume rendered reformatted images were also generated at an offline 3D workstation. Stenoses are assessed in accordance with NASCET criteria unless otherwise indicated. This CT examination was performed using dose optimization techniques as appropriate, variously including the following: *Automated exposure control. *Adjustment of mA and/or kV according to patient size (this includes techniques or standardized protocols for targeted exams where dose is matched to indication/reason for exam; i.e. extremities or head). *Use of iterative reconstruction technique. DLP: 1427 mGy-cm FINDINGS: CT Head: There is no evidence of acute intracranial hemorrhage or edematous territorial infarction. There is no abnormal attenuation within the brain parenchyma. Mccarty-white matter differentiation is preserved. The ventricles are normal in size and configuration. No evidence for obstructive hydrocephalus. No abnormal mass effect or midline shift. No extra-axial fluid collections. No pathologic intra-axial enhancement or regional oligemia. No acute soft tissue or osseous abnormalities. Moderate polypoid mucosal thickening of the maxillary and sphenoid sinuses. Mild mucosal thickening of the remaining paranasal sinuses. The mastoid air cells and middle ear cavities are clear. CT Neck: Subcentimeter lymph nodes with fatty magdaleno are mildly increased in number throughout the neck. The thyroid gland and remaining cervical soft tissues are within normal limits. No significant abnormalities of the cervical spine. CT Upper Chest: The visualized lung apices and upper mediastinum are within normal limits. Neck CTA: Aortic Arch: Normal contour and caliber. Classic 3 vessel branching pattern of the aortic arch. Great Vessel Origins: No significant stenosis of the branch origins. Right Common Carotid Artery: No focal stenosis or occlusion. Cervical Right Internal Carotid Artery: Normal opacification without focal stenosis or occlusion. Left Common Carotid Artery: No focal stenosis or occlusion. Cervical Left Internal Carotid Artery: Normal opacification without focal stenosis or occlusion. Cervical Right Vertebral Artery: Co-dominant. No focal stenosis or occlusion. Cervical Left Vertebral Artery: Co-dominant. No focal stenosis or occlusion. Brain CTA: Intracranial Internal Carotid Arteries: No focal stenosis or occlusion. Right Anterior Cerebral Artery: Normal A1 segment. Normal opacification of the distal MARITZA segments. Left Anterior Cerebral Artery: Normal A1 segment. Normal opacification of the distal MARITZA segments. Anterior Communicating Artery: Normal. Right Middle Cerebral Artery: Normal M1 segment of the MCA without focal stenosis or occlusion. Normal arborization of the distal segments. Left Middle Cerebral Artery: Normal M1 segment of the MCA without focal stenosis or occlusion. Normal arborization of the distal segments. Right Vertebral Artery: Normal V4 segment. Normal opacification of the proximal segments of the posterior inferior cerebellar artery. Left Vertebral Artery: Normal V4 segment. Normal opacification of the proximal segments of the posterior inferior cerebellar artery. Basilar Artery: Normal without focal stenosis or occlusion. Normal appearance of the proximal superior cerebellar arteries. Right Posterior Cerebral Artery: Normal P1 segment. Normal opacification of the distal PLEATING MACHINE OPERATOR segments. Left Posterior Cerebral Artery: Normal P1 segment. Normal opacification of the distal PLEATING MACHINE OPERATOR segments. Normal opacification of the superior sagittal, straight, transverse, and sigmoid sinuses. CT/CT angio head neck IMPRESSION: 1. No evidence of acute intracranial hemorrhage or edematous territorial infarction. 2. CTA of the head and neck without proximal occlusion or flow-limiting stenosis. 3. Moderate polypoid mucosal sinonasal disease.
--- NOTE | ~2022-10-19 | CT_ITS ---
EXAMINATION: CT brain and CT cervical spine without contrast CLINICAL INDICATIONS: Neck pain comparison: COMPARISON: CT cervical spine without contrast 12/06/2021. TECHNIQUE: Axial 3 mm thin and reformatted 2 mm thin sagittal and coronal images of cervical spine were obtained. Subsequently 5 minutes thin axial and reformatted 2 mm thin sagittal coronal images of brain were obtained. DLP 12:30. FINDINGS: Brain: There is no acute intra-axial, extra-axial bleed, masses or midline shift. There is no acute infarction evolution. There is no edema. The robin to white matter differentiation is maintained normal. The lateral ventricles are symmetrical in size and configuration without enlargement. Bone windows reveal no calvarial abnormality. There is no scalp soft tissue abnormality. There is mucoperiosteal thickening right sphenoid sinus. Rest of the paranasal sinuses and mastoid air cells are well-aerated. Cervical spine: There is mild straightening of cervical lordosis. The vertebral heights, alignment and disc heights are normal. There is no visible acute fracture, dislocation or subluxation seen. Craniovertebral junction and C1-C2 alignment is normal. There is underlying disc bulge, herniation or spinal stenosis. The neural foramina patent bilaterally. The lung apices are clear. CT/CT head/brain wo IV con IMPRESSION: 1. No acute intracranial process seen. 2. Mild straightening of cervical lordosis likely spasm. No visible acute fracture, dislocation or subluxation seen.
--- NOTE | ~2022-10-19 | CT_ITS ---
EXAMINATION: CT brain and CT cervical spine without contrast CLINICAL INDICATIONS: Neck pain comparison: COMPARISON: CT cervical spine without contrast 12/06/2021. TECHNIQUE: Axial 3 mm thin and reformatted 2 mm thin sagittal and coronal images of cervical spine were obtained. Subsequently 5 minutes thin axial and reformatted 2 mm thin sagittal coronal images of brain were obtained. DLP 12:30. FINDINGS: Brain: There is no acute intra-axial, extra-axial bleed, masses or midline shift. There is no acute infarction evolution. There is no edema. The robin to white matter differentiation is maintained normal. The lateral ventricles are symmetrical in size and configuration without enlargement. Bone windows reveal no calvarial abnormality. There is no scalp soft tissue abnormality. There is mucoperiosteal thickening right sphenoid sinus. Rest of the paranasal sinuses and mastoid air cells are well-aerated. Cervical spine: There is mild straightening of cervical lordosis. The vertebral heights, alignment and disc heights are normal. There is no visible acute fracture, dislocation or subluxation seen. Craniovertebral junction and C1-C2 alignment is normal. There is underlying disc bulge, herniation or spinal stenosis. The neural foramina patent bilaterally. The lung apices are clear. CT/CT cervical spine wo IV con IMPRESSION: 1. No acute intracranial process seen. 2. Mild straightening of cervical lordosis likely spasm. No visible acute fracture, dislocation or subluxation seen.
[2022-10-19 21:51] VITALS: BP 149/78; PULSE 78; RESP 16; TEMP 36.7; O2SAT 99; BMI 35.4
--- NOTE | 2022-10-19 22:46 | ED_ITS ---
HPI - General Adult General Chief complaint: Back Pain/Injury Stated complaint: Neck pain down to back Time Seen by Provider: 10/19/22 22:26 Source: patient Mode of arrival: ambulatory Limitations: no limitations History of Present Illness HPI narrative: 37 yo female with history of migraines, lumbar disc disease with radiculopathy and morbid obesity presents to the ER for two weeks of worsening headaches that now progressed to severe lower back pain and severe neck pain. She states that the headache was mild 2 weeks ago and worsened after being adjusted by her chiropractor. She reports the headache started to increase in intensity 2 days ago. She reports this morning she started experiencing intense lumbar back pain that radiates down her right leg to her toes. She reports cervical tenderness. She states this is the worst headache and back pain of her life. She reports worse with activity and better with rest. She states its hard to bear weight as it exaggerates her pain. She states that she was evaluated years ago for back pain by [facility] but currently is not under their care. She states she has taken 1000 mg of Tyelonol, 800 mg of Ibuprofen,, and extra strength Excedrin for her pain. She is currently not taking medication for her migraines. She denies visual changes, N/V, abdominal pain, weakness in the lower extremity, urinary/ bowel incontinence/retention, saddle paresthesias, numbness, tingling, fevers, chills, recent URI visual changes. Related Data Home Medications Medication Instructions Recorded Confirmed etonogestrel 68 mg subdermal 1 implant subdermal ONCE 03/17/20 09/27/22 implant (Nexplanon) polyethylene glycol 3350 17 gram 17 g PO DAILY 09/19/22 09/27/22 oral powder packet (Miralax) Previous Rx's Medication Instructions Recorded docusate sodium 100 mg capsule 100 mg PO DAILY #30 caps 06/19/22 buspirone 5 mg tablet 5 mg PO BID 30 days #60 tabs 09/19/22 lorazepam 0.5 mg tablet 0.5 mg PO BID PRN anxiety 5 days 09/19/22 #10 tabs sertraline 25 mg tablet 25 mg PO DAILY #30 tabs 09/19/22 clotrimazole 1 % topical cream 1 appl topical BID #45 grams 09/26/22 cetirizine 10 mg tablet 10 mg PO DAILY #90 tabs 10/17/22 sennosides 8.6 mg tablet (Senna 8.6 mg PO DAILY #90 tabs 10/18/22 Laxative) cyclobenzaprine 10 mg tablet 10 mg PO BEDTIME PRN muscle spasm 10/20/22 #7 tabs lidocaine 5 % topical patch 1 patch topical DAILY PRN pain #15 10/20/22 ea Allergies Allergy/AdvReac Type Severity Reaction Status Date / Time morphine [MORPHINE] Allergy Severe Anaphylaxis Verified 09/27/22 08:45 amoxicillin [AMOXICILLIN] Allergy Intermediate RASH, hives Verified 09/27/22 08:45 cephalexin Allergy Intermediate hives Verified 09/27/22 08:45 clindamycin [CLINDAMYCIN] Allergy Intermediate RASH Verified 09/27/22 08:45 Penicillins Allergy Intermediate hives/rash Verified 09/27/22 08:45 shrimp Allergy Intermediate Hives Verified 09/27/22 08:45 Review of Systems Review of Systems: Constitutional : No Weight loss, No Fever, No Chills, ENT/Mouth : No Hearing loss, No Ear Pain, No Nasal Congestion, No Sinus Pain, No Hoarseness, No sore throat, No Rhinorrhea, No Swallowing Difficulty Cardiovascular : No Chest Pain, No SOB Respiratory : No Cough, No Dyspnea Gastrointestinal : No Nausea, No Vomiting, No Diarrhea, No abdominal Pain, No Hematochezia, No Melena Genitourinary : No Dysuria, No Urinary Frequency, No Hematuria, No Urinary Incontinence, Musculoskeletal : positive back pain Skin : No Skin Lesions, No rash Neuro : No Weakness, No Numbness, No Paresthesias, no loss of bowel or bladder incontinence, no saddle anesthesia, + headache Yes all other systems are reviewed and are negative [facility] Past Medical History Attestation statement: The following information was validated with the patient. Source: old records reviewed and nursing notes reviewed Medical History Allergic dermatitis Allergic rhinitis Annual physical exam Asthma Bilateral hand numbness Chronic back pain COVID-19 COVID-19 vaccine series completed COVID-19 virus infection Degenerative joint disease Encounter for laboratory testing for COVID-19 virus Fatigue Generalized anxiety disorder Hematochezia History of MRSA infection History of postoperative nausea and vomiting Hypertension Irritable bowel syndrome Left flank pain Left ovarian cyst Menorrhagia Migraine Morbid obesity Nasal congestion Nausea Obesity Recurrent nephrolithiasis Renal calculus Renal calculus, bilateral Sinus congestion Sinusitis, acute frontal Upper respiratory infection, acute Witnessed apneic spells Surgical History History of bladder surgery History of colonoscopy History of endoscopy History of lithotripsy History of tonsillectomy S/P laparoscopic sleeve gastrectomy Family History Family History Father Diabetes Substance abuse CVD (cardiovascular disease) Hypertension Hypercholesteremia Mother Diabetes Depression with anxiety CVD (cardiovascular disease) Hypertension Myocardial infarct Substance abuse Maternal Grandmother Diabetes Maternal Grandfather Diabetes Kidney failure, acute Social History Social History Household Members: Family Housing: Apartment Are you a primary pet care worker to a significant other at home: No Do you presently have visiting nurse or other home services: No Alcohol intake: never Patient Tobacco Use Status: Never used Tobacco Smoked in Last 30 Days: No e-Cigarette/Vaping Use: Never Used Second Hand Smoke Exposure: No Use of substances other than those prescribed or required for medical reasons: No Advance Directives: Yes Advance Directives on File: Yes Advance Directives Date on File: 09/18/21 service: No Current occupational status: employed Current occupational exposures/hazards: No Cognitive needs: No Hearing needs: No Vision needs: No Physical Exam ED Vital Signs: Vital Signs - 24 hr 10/19/22 21:51 10/20/22 00:35 10/20/22 02:00 Temperature 98.1 F 98.7 F 98.2 F Pulse Rate 78 57 62 Respiratory Rate 16 16 16 Blood Pressure 149/78 H 140/64 H 112/67 Pulse Oximetry 99 97 98 Oxygen Delivery Method Room Air Room Air Room Air 10/20/22 05:09 Temperature 97.9 F Pulse Rate 74 Respiratory Rate 18 Blood Pressure 120/57 L Pulse Oximetry 98 Oxygen Delivery Method Room Air BMI result Body Mass Index 35.4 vss Appearance: Alert.? Oriented X3.? No acute distress.? Head: Normocephalic, atraumatic, no step-offs or deformities Eyes: Pupils equal, round and reactive to light.? ENT: Pharynx normal.? Neck: Normal inspection.?Negative Kernig and Brudzinski CVS: Normal heart rate and rhythm.? Pulses normal.? Respiratory: No respiratory distress.? Breath sounds normal.? Abdomen: Soft and nontender.? Skin: Skin warm and dry.? Normal skin color.? Normal skin turgor.? Extremities: No lower extremity edema.? No calf ttp. 5/5 strength to bilateral upper and lower extremities Back: + midline tenderness around C3-C4 , full range of motion, + b/l lumbar paraspinous tenderness throughout, no midline tenderness in thoracic or lumbar region. No CVA tenderness bilaterally + R straight leg raise. Negative on L Neuro: Oriented X 3.? No motor deficit.? No sensory deficit. CN 2-12 intact. Normal finger to nose, heel to moeller, steady tandem gait w/ normal coordination. No saddle paresthesias. NIHSS-0 Course Reevaluation(s) Reevaluation #1: CBC with normal white blood cell count, inflammatory markers normal. Chemistry unremarkable. CT head and cervical spine negative. Patient resting in the stretcher, well-appearing, nontoxic, vital signs stable. No meningeal signs. Patient reports that medications helped significantly getting rid of the pain behind her eyes that she was having, reports now she is having some discomfort, pain is not completely gone. However improved from when she 1st got here. Will give Lidoderm patch and Tylenol in addition to what patient already got. I suspect this is musculoskeletal in origin, possible sciatica. Other differentials include herniated disc of the cervical spine, Will discuss this case with my attending Time: 01:00 Reevaluation #2: Discussed case w/ my attending recommends CTA head and neck w/ contrast to r/o disection. Patient laying in bed comfortable appearing at this time Time: 01:19 Reevaluation #3: Sign-out given to Dr. Chung pending CTA, reeval and dispo based off of results. Patient aware of plan. Time: 01:29 Medications Administered Discontinued Medications Generic Name Dose Route Start Last Admin Trade Name Freq PRN Reason Stop Dose Admin Acetaminophen 975 mg 10/20/22 01:05 10/20/22 01:35 Acetaminophen 325 Mg Tablet PO 10/20/22 01:06 975 mg ONCE ONE Administration Diphenhydramine HCl 25 mg 10/19/22 22:46 10/19/22 23:19 Diphenhydramine Hcl 50 Mg/Ml Vial IVPUSH 10/19/22 22:47 25 mg ONCE ONE Administration Iohexol 70 ml 10/20/22 02:30 10/20/22 02:30 Iohexol 350 Mg/Ml 100 Ml Infus..Btl IV 10/20/22 02:31 70 ml ONCE ONE Administration Ketorolac Tromethamine 30 mg 10/19/22 22:46 10/19/22 23:15 Ketorolac Tromethamine 15 Mg/Ml Vial IVPUSH 10/19/22 22:47 30 mg ONCE ONE Administration Lidocaine 2 patch 10/20/22 01:05 10/20/22 01:35 Lidocaine 4 % Patch Adh..Patch TRANSDERMA 10/20/22 01:06 2 patch ONCE ONE Administration Protocol Metoclopramide HCl 10 mg 10/19/22 22:46 10/19/22 23:22 Metoclopramide Hcl 10 Mg/2 Ml Vial IVPUSH 10/19/22 22:47 10 mg ONCE ONE Administration Medical Decision Making Medical Decision Making [facility] Narrative: 37 year old female presents with neck pain, lower back pain, atraumatic in nature for the past few days Physical exam significant for + midline tenderness around C3-C4 , full range of motion, + b/l lumbar paraspinous tenderness throughout, no midline tenderness in thoracic or lumbar region. No CVA tenderness bilaterally + R straight leg rais e. Negative on L No signs of cauda equina, epidural abscess, cord compression. Likely lumbar radiculopathy or possible sciatica versus herniated disc. Neck pain likely secondary to herniated disc, versus cervical radiculopathy or cervical sprain or strain. Unlikely fractures, dislocations. Low suspicion for epidural abscess. I do not suspect aseptic, meningitis, encephalitis based off patient history and physical exam. No meningeal signs. Unlikley SAH sx > 5 hours no focal neuro deficits. . Plan labs, imaging. Will medicate with Reglan, Benadryl, Toradol. Will order CT of head and cervical spine. Her patient went to a chiropractor did have increasing pain. A CTA of the head and neck was done. There was no evidence for dissection. Patient well- appearing. Neurologically intact. Likely musculoskeletal. Will discharge patient home Differential Diagnosis Differential Diagnoses: The differential diagnosis associated with the presentation includes No signs of cauda equina, epidural abscess, cord compression. Likely lumbar radiculopathy or possible sciatica versus herniated disc. Neck pain likely secondary to herniated disc, versus cervical radiculopathy or cervical sprain or strain. Unlikely fractures, dislocations. Low suspicion for epidural abscess. I do not suspect aseptic, meningitis, encephalitis based off patient history and physical exam. No meningeal signs. Unlikley SAH. Unlikley SAH sx > 5 hours no focal neuro deficits. . Admission/Observation Consideration of admission/observation: Escalation of care including admission/observation considered Unlikely candidate for hospital admission Lab Data MDM Lab Attestation statement: I reviewed the patient's lab results. 10/19/22 23:10 10/19/22 23:10 Labs: Lab Results 10/19/22 10/19/22 10/19/22 Range/Units 23:10 23:10 23:10 WBC 8.0 (4.8-10.8) X10*3/uL RBC 3.97 L (4.20-5.50) X10*6/uL Hgb 12.0 (12.0-16.0) g/dl Hct 36.8 L (37.0-47.0) % MCV 92.7 (80.0-98.0) fL MCH 30.2 (27.0-33.0) pg MCHC 32.6 (31.0-35.0) g/dl RDW 12.6 (11.0-16.0) % Plt Count 286 (160-400) X10*3/uL MPV 10.8 (9.4-12.3) fL Immature Gran % (Auto) 0.1 (0.0-0.4) % Neut % (Auto) 46.0 (45-73) % Lymph % (Auto) 42.8 H (20-40) % [place] % (Auto) 8.9 (2-11) % Eos % (Auto) 1.6 (0-4) % Baso % (Auto) 0.6 (0-2) % Lymph # (Auto) 3.4 (1.2-4.9) X10*3/uL [place] # (Auto) 0.7 (0.1-1.2) X10*3/uL Eos # (Auto) 0.1 (0.0-0.4) X10*3/uL Baso # (Auto) 0.1 (0.0-0.2) X10*3/uL Abs Immat Gran (auto) 0.01 (0.00-0.03) X10*3/uL Absolute Neuts (auto) 3.7 (2.0-8.3) x10*3/uL Absolute Nucleated RBC 0.000 (0.0-0.012) X10*3/uL Nucleated RBC % (auto) 0.0 (0.0-0.2) /100WBC ESR 14 (0-20) MM/HR Sodium 141 (135-145) mmol/L Potassium 4.0 (3.3-5.1) mmol/L Chloride 109 H (96-108) mmol/L Carbon Dioxide 23 (22-29) mmol/L Anion Gap 13 (12-20) BUN 19 H (9-16) mg/dL Creatinine 0.67 (0.5-1.4) mg/dL Estim Creat Clear Calc 152.6 Estimated GFR > 60 Random Glucose 116 H (60-115) mg/dL Calcium 9.6 (8.4-10.2) mg/dL Magnesium 2.0 (1.6-2.6) mg/dL Total Bilirubin 0.2 (0.0-1.0) mg/dL AST 13 (5-31) U/L ALT 13 (0-31) U/L Alkaline Phosphatase 65 (39-117) U/L C-Reactive Protein 0.11 (< or = 0.50) mg/dL Total Protein 7.5 (6.5-8.0) g/dL Albumin 4.3 (3.5-5.0) g/dL Beta HCG, Quant mIU/mL Urine Test (NEGATIVE) COVID-19 (IRENE) (Negative) COVID-19 Clin Com 10/19/22 10/20/22 10/20/22 Range/Units 23:12 01:52 01:52 WBC (4.8-10.8) X10*3/uL RBC (4.20-5.50) X10*6/uL Hgb (12.0-16.0) g/dl Hct (37.0-47.0) % MCV (80.0-98.0) fL MCH (27.0-33.0) pg MCHC (31.0-35.0) g/dl RDW (11.0-16.0) % Plt Count (160-400) X10*3/uL MPV (9.4-12.3) fL Immature Gran % (Auto) (0.0-0.4) % Neut % (Auto) (45-73) % Lymph % (Auto) (20-40) % [place] % (Auto) (2-11) % Eos % (Auto) (0-4) % Baso % (Auto) (0-2) % Lymph # (Auto) (1.2-4.9) X10*3/uL [place] # (Auto) (0.1-1.2) X10*3/uL Eos # (Auto) (0.0-0.4) X10*3/uL Baso # (Auto) (0.0-0.2) X10*3/uL Abs Immat Gran (auto) (0.00-0.03) X10*3/uL Absolute Neuts (auto) (2.0-8.3) x10*3/uL Absolute Nucleated RBC (0.0-0.012) X10*3/uL Nucleated RBC % (auto) (0.0-0.2) /100WBC ESR (0-20) MM/HR Sodium (135-145) mmol/L Potassium (3.3-5.1) mmol/L Chloride (96-108) mmol/L Carbon Dioxide (22-29) mmol/L Anion Gap (12-20) BUN (9-16) mg/dL Creatinine (0.5-1.4) mg/dL Estim Creat Clear Calc Estimated GFR Random Glucose (60-115) mg/dL Calcium (8.4-10.2) mg/dL Magnesium (1.6-2.6) mg/dL Total Bilirubin (0.0-1.0) mg/dL AST (5-31) U/L ALT (0-31) U/L Alkaline Phosphatase (39-117) U/L C-Reactive Protein (< or = 0.50) mg/dL Total Protein (6.5-8.0) g/dL Albumin (3.5-5.0) g/dL Beta HCG, Quant < 2 mIU/mL Urine Test NEGATIVE (NEGATIVE) COVID-19 (IRENE) Negative (Negative) COVID-19 Clin Com See Note Independent Interpretation I performed an independent interpretation of an: CT Scan (CT/CT cervical spine wo IV con IMPRESSION: 1. No acute intracranial process seen. 2. Mild straightening of cervical lordosis likely spasm. No visible acute fracture, dislocation or subluxation seen. ) Radiology Impression Discussion of test interpretation with radiology: I have reviewed the radiologist's reading. Core Measures AMI core measures followed: Yes Measure exclusions: not indicated Critical Care Time Critical Care Time Critical Care Time: No Discharge Plan Discharge Clinical Impression: Sciatica, Neck pain Patient Disposition: Home, Self-Care Instructions: Sciatica (ED), Neck Pain (ED) Additional Instructions: Take your medications as prescribed. If you were prescribed antibiotics today, it is important that you take your medication to their entirety, do not skip any doses, do not finish them early. Follow-up with your primary care provider this week. Return to the emergency department with new or worsening symptoms. Such as fevers, chills, chest pain, shortness of breath, nausea, vomiting, dizziness, headache, vision changes, lethargy In case of emergency call 911 Follow-up with [facility] Prescriptions: New cyclobenzaprine 10 mg tablet 10 mg PO BEDTIME PRN (Reason: muscle spasm) Qty: 7 0RF lidocaine 5 % adhesive patch,medicated 1 patch topical DAILY PRN (Reason: pain) Qty: 15 0RF Rx Instructions: leave on most painful area for up to 12 hrs No Action docusate sodium 100 mg capsule 100 mg PO DAILY Qty: 30 5RF clotrimazole 1 % cream 1 appl topical BID Qty: 45 3RF cetirizine 10 mg tablet 10 mg PO DAILY Qty: 90 3RF sennosides [Senna Laxative] 8.6 mg tablet 8.6 mg PO DAILY Qty: 90 3RF Nexplanon 68 mg implant 1 implant subdermal ONCE buspirone 5 mg tablet 5 mg PO BID 30 Days Qty: 60 1RF polyethylene glycol 3350 [Miralax] 17 gram powder in packet 17 g PO DAILY lorazepam 0.5 mg tablet 0.5 mg PO BID PRN (Reason: anxiety) 5 Days Qty: 10 0RF sertraline 25 mg tablet 25 mg PO DAILY Qty: 30 2RF Referrals: [facility] [Provider Group] - 2 days Po,Sarmad Turcios MD [Primary Care Provider] - 2 days
[2022-10-19 23:15] LABS: MANUAL DIFF FLAG NO
[2022-10-19] MEDS: Ketorolac Tromethamine 15 MG/ML VIAL 30 MG IVPUSH (23:15)
[2022-10-19 23:16] LABS: Basophils Absolute Auto 0.1 X10*3/uL (0.0-0.2); Basophils Percent Auto 0.6 % (0-2); Eosinophils Absolute Auto 0.1 X10*3/uL (0.0-0.4); Eosinophils Percent Auto 1.6 % (0-4); Hematocrit 36.8 % (37.0-47.0); Imm Gran Abs Auto 0.01 X10*3/uL (0.00-0.03); Imm Gran Pct Auto 0.1 % (0.0-0.4); Lymphocytes Absolute Auto 3.4 X10*3/uL (1.2-4.9); Lymphocytes Percent Auto 42.8 % (20-40); Mean Corpuscular HGB Conc 32.6 g/dl (31.0-35.0); Mean Corpuscular Hemoglobin 30.2 pg (27.0-33.0); Mean Corpuscular Volume 92.7 fL (80.0-98.0); Mean Platelet Volume 10.8 fL (9.4-12.3); Monocytes Absolute Auto 0.7 X10*3/uL (0.1-1.2); Monocytes Percent Auto 8.9 % (2-11); Neutrophils Absolute Auto 3.7 x10*3/uL (2.0-8.3); Platelet Count 286 X10*3/uL (160-400); Red Blood Count 3.97 X10*6/uL (4.20-5.50); Red Cell Distribution Width 12.6 % (11.0-16.0)
[2022-10-19] MEDS: diphenhydrAMINE HCL 50 MG/ML VIAL 25 MG IVPUSH (23:19)
[2022-10-19] MEDS: Metoclopramide HCl 10 MG/2 ML VIAL IVPUSH (23:22)
[2022-10-19 23:31] LABS: Alanine Aminotransferase 13 U/L (0-31); Albumin Level 4.3 g/dL (3.5-5.0); Alkaline Phosphatase 65 U/L (39-117); Anion Gap 13 (12-20); Aspartate Amino Transferase 13 U/L (5-31); Bilirubin Total 0.2 mg/dL (0.0-1.0); Blood Urea Nitrogen 19 mg/dL (9-16); Calcium 9.6 mg/dL (8.4-10.2); Carbon Dioxide 23 mmol/L (22-29); Chloride 109 mmol/L (96-108); Creatinine Clr Calc Pharmacy 152.6; Estimated Glomerular Filt Rate > 60; Glucose Random 116 mg/dL (60-115); Sodium 141 mmol/L (135-145); Total Protein 7.5 g/dL (6.5-8.0)
[2022-10-19 23:40] LABS: C Reactive Protein 0.11 mg/dL (< or = 0.50)
[2022-10-19 23:50] LABS: COVID-19 Test Negative (Negative); IDNOW Serial# BCCEAD1C
[2022-10-20 00:06] LABS: Erythrocyte Sedimentation Rate 14 MM/HR (0-20)
[2022-10-20 00:35] VITALS: BP 140/64; PULSE 57; RESP 16; TEMP 37.1; O2SAT 97
[2022-10-20] MEDS: Acetaminophen 325 MG TABLET 975 MG PO (01:35)
[2022-10-20] MEDS: Lidocaine 4 % Patch ADH..PATCH 2 PATCH TRANSDERMA (01:35)
--- NOTE | 2022-10-20 01:40 | PC.NURSE ---
provider into discuss plan of care, medicated per mar, Pt awaiting CT (A) Scan. Will continue to monitor.
[2022-10-20 02:00] VITALS: BP 112/67; PULSE 62; RESP 16; TEMP 36.8; O2SAT 98
[2022-10-20 02:03] LABS: UPreg QC Valid YES; Urine Pregnancy NEGATIVE (NEGATIVE)
[2022-10-20 02:20] LABS: HCG Quantitative < 2 mIU/mL
[2022-10-20] MEDS: iohexoL 350 MG/ML 100 ML INFUS..BTL 70 ML IV (02:30)
--- NOTE | 2022-10-20 03:57 | PC.NURSE ---
pt sleeping no s/s of distress.
[2022-10-20 05:09] VITALS: BP 120/57; PULSE 74; RESP 18; TEMP 36.6; O2SAT 98
== END 2022-10-20 05:55 | disposition home or self-care (01) ==
PROVIDERS: Physician Assistant; Emergency Provider Emergency Medicine Emergency Medical Services; PCP Internal Medicine
DX: M54.40 Lumbago with sciatica, unspecified side (principal); M54.2 Cervicalgia; R51.9 Headache, unspecified; Z20.822 Contact with and (suspected) exposure to COVID-19; Z20.828 Contact with and (suspected) exposure to other viral communicable diseases; Z79.899 Other long term (current) drug therapy
CPT/HCPCS: 36415; 70450; 70496; 70498; 72125; 80053; 81025; 83735; 84702; 85025; 85652; 86140; 87635; 96374; 96375; 99284; J1200; J1885; J2765; Q9967

== ENCOUNTER → 2022-11-16 08:37 | Outpatient (BNVA) | payer OTHER, SELFPAY | PROVIDERS: PCP Internal Medicine; Visit Provider Physician Assistant Surgical ==

== ENCOUNTER 2022-12-12 16:22 | Outpatient (AMB) | payer OTHER, SELFPAY ==
--- NOTE | 2022-12-12 16:08 | A.OFFVIS_ITS ---
Intake VS Expanded 12/12/22 16:14 Height 5 ft 9 in Weight 239 lb BMI 35.3 Intake Visit Reasons: VIDEO PO LSG 09/15/21 Allergies morphine [MORPHINE] Allergy (Severe, Verified 09/27/22 08:45) Anaphylaxis amoxicillin [AMOXICILLIN] Allergy (Intermediate, Verified 09/27/22 08:45) RASH, hives cephalexin Allergy (Intermediate, Verified 09/27/22 08:45) hives clindamycin [CLINDAMYCIN] Allergy (Intermediate, Verified 09/27/22 08:45) RASH Penicillins Allergy (Intermediate, Verified 09/27/22 08:45) hives/rash shrimp Allergy (Intermediate, Verified 09/27/22 08:45) Hives Medication List - Last Reconciled 12/12/22 by EL Croft buspirone 5 mg PO BID 30 days cetirizine 10 mg PO DAILY clotrimazole 1% 1 appl topical BID cyclobenzaprine 10 mg PO BEDTIME PRN docusate sodium 100 mg PO DAILY etonogestrel (Nexplanon) 1 implant subdermal ONCE lidocaine 5% 1 patch topical DAILY PRN lorazepam 0.5 mg PO BID PRN 5 days polyethylene glycol 3350 (Miralax) 17 grams PO DAILY sennosides (Senna Laxative) 8.6 mg PO DAILY sertraline 25 mg PO DAILY HPI HPI Comments History of Present Illness Details This?is a?37?yo female who is s/p LSG 09/15/2021. Presents for 15 month post op visit. Weight at last visit on 10/11/2022 was 240 pounds with a BMI of 35.4, weight today is 239 pounds, representing a 1 pound weight loss with a BMI today of 35.3.? No complaints of nausea, emesis, abdominal pain or reflux, or constipation. Pt reports she had gained almost 20lbs working nights, now weight is down again. Working 6 days a week, 16 hour shifts, starts school in 2 weeks. Present meal plan includes: using Rockin' Protein, 50g- splits between breakfast and lunch protein bar - ZP or Fitcrunch small meal for dinner feels cravings after dinner although she knows she is not really hungry gets adequate hydration, uses Propel water sometimes uses Isopure goodwin Exercise routine includes: has gym membership, planning to go 4 days per week once school starts Did the patient ever have any of these conditions and are they resolved or still being treated? GERD: never ANDERSON:? never DM:? was prediabetic before surgery? HTN:? was on meds, stopped after surgery Hyperlipidemia:?never Post op complications:? never Pt reports ongoing issues of excess skin of abdomen. Notices a foul smelling odor when moisture collects in skin fold. Will get boils at bottom of pannus and rashes/itchiness. She has been prescribed clotrimazole ointment but this has not completely resolved the issue. Has to wear a girdle for support during everyday activities and especially exercise to prevent discomfort. Reports that intercourse with her is very difficult because the skin gets in the way and is very uncomfortable. [facility] Medical History Allergic dermatitis Allergic rhinitis Annual physical exam Asthma Bilateral hand numbness Chronic back pain COVID-19 COVID-19 vaccine series completed COVID-19 virus infection Degenerative joint disease Encounter for laboratory testing for COVID-19 virus Fatigue Generalized anxiety disorder Hematochezia History of MRSA infection History of postoperative nausea and vomiting Hypertension Irritable bowel syndrome Left flank pain Left ovarian cyst Menorrhagia Migraine Morbid obesity Nasal congestion Nausea Obesity Recurrent nephrolithiasis Renal calculus Renal calculus, bilateral Sinus congestion Sinusitis, acute frontal Upper respiratory infection, acute Witnessed apneic spells Surgical History History of bladder surgery History of colonoscopy History of endoscopy History of lithotripsy History of tonsillectomy S/P laparoscopic sleeve gastrectomy Family History Father Diabetes Substance abuse CVD (cardiovascular disease) Hypertension Hypercholesteremia Mother Diabetes Depression with anxiety CVD (cardiovascular disease) Hypertension Myocardial infarct Substance abuse Maternal Grandmother Diabetes Maternal Grandfather Diabetes Kidney failure, acute Social History Household Members: Family Housing: Apartment Are you a primary child care nurse to a significant other at home: No Do you presently have visiting nurse or other home services: No Alcohol intake: never Patient Tobacco Use Status: Never used Tobacco e-Cigarette/Vaping Use: Never Used Second Hand Smoke Exposure: No Advance Directives Date on File: 09/18/21 service: No Current occupational status: employed Current occupational exposures/hazards: No Cognitive needs: No Hearing needs: No Vision needs: No Assessment & Plan Assessment & Plan (1) S/P laparoscopic sleeve gastrectomy: Comment: 09/15/21 Code(s): Z98.84 - Bariatric surgery status (2) Obesity: Code(s): E66.9 - Obesity, unspecified Qualifiers: Obesity type: due to excess calories Obesity classification: adult class 3 (BMI >= 40) Serious obesity comorbidity presence: with serious comorbidity Body mass index: BMI 40.0-44.9 Qualified Code(s): E66.01 - Morbid (severe) obesity due to excess calories; Z68.41 - Body mass index [BMI]40.0- 44.9, adult Plan Pt requested the option for a bar/shake plan, suggested 1 shake split into 2 for 50g protein; plus 2 protein bars per day. She recognizes exercise will be remy to help support ongoing weight loss. She wants to have one meal per week, will measure a 2oz portion. Labs ordered. Pt has appointment with RD already scheduled for next month. She will photograph any skin rashes that develop; will continue clotrimazole. Goal of 50lbs additional weight loss prior to submission for skin removal surgery. Patient is obese and is not considered stable at this time. I spent a total of 30 minutes reviewing/updating records, examining the patient and counseling the patient on weight management as detailed above. Orders: Orders Vitamin B12 and Folate Today Z.84 - Bariatric surgery status Comprehensive Met. Panel Today Z84 - Bariatric surgery status C Reactive Protein Today Z98.84 - Bariatric surgery status Ferritin Today Z98.84 - Bariatric surgery status Hemoglobin A1c Today Z98.84 - Bariatric surgery status Insulin Today Z98.84 - Bariatric surgery status IRON PROFILE Today Z.84 - Bariatric surgery status Lipid Panel Today Z.84 - Bariatric surgery status PTHI Today Z.84 - Bariatric surgery status TSH reflex Free T4 Today Z98.84 - Bariatric surgery status Vitamin A Today Z.84 - Bariatric surgery status Vitamin B1 Today Z98.84 - Bariatric surgery status Vitamin D 25-OH Total Today Z98.84 - Bariatric surgery status Zinc Today Z98.84 - Bariatric surgery status Complete Blood Count Auto Diff Today Z98.84 - Bariatric surgery status Telehealth Telehealth Location of provider rendering services: practice address Location of patient: address on file Patient Identification confirmed using: Name, : Yes Telehealth method: video Patient verbally consented to treatment: Yes Patient verbally consented to billing insurance company: Yes Patient informed of any privacy concerns related to visit: Yes Coding Level of Care Code Tele Est Pt Level 4 (27458) Diagnoses S/P laparoscopic sleeve gastrectomy Z98.84 Obesity E66.01; Z68.41 Obesity type: due to excess calories Obesity classification: adult class 3 (BMI >= 40) Serious obesity comorbidity presence: with serious comorbidity Body mass index: BMI 40.0-44.9
[2022-12-12 16:14] VITALS: BMI 35.3
== END 2022-12-12 16:32 | disposition home or self-care (01) ==
LOC: HO.HBS 16:22
PROVIDERS: PCP Internal Medicine; Visit Provider Physician Assistant Surgical
DX: E66.01 Morbid (severe) obesity due to excess calories (principal); Z68.35 Body mass index [BMI] 35.0-35.9, adult; Z90.3 Acquired absence of stomach [part of]; Z98.84 Bariatric surgery status
CPT/HCPCS: 99214

== ENCOUNTER → 2022-12-12 16:22 | Outpatient (BNVA) | payer OTHER, SELFPAY | PROVIDERS: PCP Internal Medicine; Visit Provider Physician Assistant Surgical ==

== ENCOUNTER 2022-12-17 07:54 | Outpatient (REF) | payer OTHER, SELFPAY ==
[2022-12-17 08:20] LABS: MANUAL DIFF FLAG NO
[2022-12-17 08:58] LABS: Basophils Percent Auto 0.5 % (0-2); Eosinophils Absolute Auto 0.1 X10*3/uL (0.0-0.4); Eosinophils Percent Auto 1.6 % (0-4); Hematocrit 38.6 % (37.0-47.0); Hemoglobin 12.3 g/dl (12.0-16.0); Imm Gran Abs Auto 0.01 X10*3/uL (0.00-0.03); Imm Gran Pct Auto 0.2 % (0.0-0.4); Lymphocytes Absolute Auto 1.8 X10*3/uL (1.2-4.9); Lymphocytes Percent Auto 28.4 % (20-40); Mean Corpuscular HGB Conc 31.9 g/dl (31.0-35.0); Mean Corpuscular Hemoglobin 29.4 pg (27.0-33.0); Mean Corpuscular Volume 92.3 fL (80.0-98.0); Mean Platelet Volume 11.1 fL (9.4-12.3); Monocytes Absolute Auto 0.5 X10*3/uL (0.1-1.2); Monocytes Percent Auto 8.7 % (2-11); Neutrophils Absolute Auto 3.8 x10*3/uL (2.0-8.3); Neutrophils Percent Auto 60.6 % (45-73); Platelet Count 264 X10*3/uL (160-400); Red Blood Count 4.18 X10*6/uL (4.20-5.50); Red Cell Distribution Width 12.4 % (11.0-16.0); White Blood Count 6.2 X10*3/uL (4.8-10.8)
[2022-12-17 09:04] LABS: Estimated Average Glucose 97 mg/dL
[2022-12-17 09:36] LABS: Alanine Aminotransferase 12 U/L (0-31); Albumin Level 4.3 g/dL (3.5-5.0); Alkaline Phosphatase 56 U/L (39-117); Anion Gap 12 (12-20); Aspartate Amino Transferase 11 U/L (5-31); Bilirubin Total 0.5 mg/dL (0.0-1.0); Blood Urea Nitrogen 18 mg/dL (9-16); C Reactive Protein 0.11 mg/dL (< or = 0.50); Calcium 9.3 mg/dL (8.4-10.2); Carbon Dioxide 25 mmol/L (22-29); Chloride 109 mmol/L (96-108); Cholesterol 186 mg/dL; Estimated Glomerular Filt Rate > 60; Glucose Random 91 mg/dL (60-115); HDL Cholesterol 53 mg/dL; Iron 54 mcg/dL (30-160); LDL Cholesterol Calculated 111 mg/dl; Percent Iron Saturation 18 % (15-50); Potassium 4.4 mmol/L (3.3-5.1); Sodium 142 mmol/L (135-145); Total Iron Binding Capacity 299 mcg/dL (228-428); Total Protein 7.3 g/dL (6.5-8.0); Triglycerides 110 mg/dL; Unsaturated Iron Binding 245 ug/dL
[2022-12-17 09:59] LABS: Ferritin 18 ng/mL (10-122); TSH reflex Free T4 2.24 uIU/mL (0.32-4.0); Vitamin D 25-OH Total 32.9 ng/mL (>30)
[2022-12-17 10:00] LABS: Folate 11.1 ng/mL (> or = 4.0); Vitamin B12 331 pg/mL (200-900)
[2022-12-17 10:30] LABS: Insulin 7 uU/mL (2-29)
[2022-12-18 14:13] LABS: Calcium (PTHI) 9.3 mg/dL (8.6-10.2); PTHI 87 pg/mL (16-77)
[2022-12-20 12:54] LABS: Zinc 77 mcg/dL (60-130)
[2022-12-21 02:44] LABS: Vitamin A 55 mcg/dL (38-98)
[2022-12-22 14:38] LABS: Vitamin B1 14 nmol/L (8-30)
== END 2022-12-17 07:55 | disposition home or self-care (01) ==
LOC: HO.LAB 07:54
PROVIDERS: Absent Provider Physician Assistant Surgical; PCP Internal Medicine; Visit Provider Internal Medicine
DX: Z98.84 Bariatric surgery status (principal)
CPT/HCPCS: 36415; 80053; 80061; 82306; 82607; 82728; 82746; 83036; 83525; 83540; 83970; 84425; 84443; 84590; 84630; 85025; 86140

== ENCOUNTER 2023-01-10 08:58 | Outpatient (AMB) | payer OTHER, SELFPAY ==
--- NOTE | 2023-01-10 08:32 | A.OFFVIS_ITS ---
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 Sleep has significantly improved - 10pm-6am was eating a lot of sweet candies . Hasn't been consistent with her nutrition plan in several months. two shakes - rockin protein 30g protein 4 crackers, 4 cubes of cheese, 1/2c grap es dinner: stuffed shrimp and 2 bites mashed potatoes Hydration: 60oz per day Exercise: hasn't been to the gym in several months Dietary counseling reduction Diagnosis Nutrition problem #1 overweight/obesity As related to (etiology) #1 excess energy intake and physical inactivity As evidenced by (sign/symptom) #1 high BMI Monitoring/Goals Nutrition problem monitoring total energy intake, level of knowledge/skill, total PRO intake, total CHO intake and weight Outcome progress verbalized understanding Learning/Education Readiness to learn good Stages of change action Most Recent Diabetes Results: Cholesterol 186 mg/dL 12/17/22 HDL Cholesterol 53 mg/dL 12/17/22 Triglycerides 110 mg/dL 12/17/22 Creatinine 0.68 mg/dL (0.5-1.4) 12/17/22 Blood Urea Nitrogen 18 mg/dL (9-16) H 12/17/22 Sodium 142 mmol/L (135-145) 12/17/22 Potassium 4.4 mmol/L (3.3-5.1) 12/17/22 Chloride 109 mmol/L (96-108) H 12/17/22 Carbon Dioxide 25 mmol/L (22-29) 12/17/22 Calcium 9.3 mg/dL (8.4-10.2) 12/17/22 AST 11 U/L (5-31) 12/17/22 ALT 12 U/L (0-31) 12/17/22 Total Protein 7.3 g/dL (6.5-8.0) 12/17/22 Albumin 4.3 g/dL (3.5-5.0) 12/17/22 [facility] Medical History Allergic dermatitis Allergic rhinitis Annual physical exam Asthma Bilateral hand numbness Chronic back pain COVID-19 COVID-19 vaccine series completed COVID-19 virus infection Degenerative joint disease Encounter for laboratory testing for COVID-19 virus Fatigue Generalized anxiety disorder Hematochezia History of MRSA infection History of postoperative nausea and vomiting Hypertension Irritable bowel syndrome Left flank pain Left ovarian cyst Menorrhagia Migraine Morbid obesity Nasal congestion Nausea Obesity Recurrent nephrolithiasis Renal calculus Renal calculus, bilateral Sinus congestion Sinusitis, acute frontal Upper respiratory infection, acute Witnessed apneic spells Surgical History History of bladder surgery History of colonoscopy History of endoscopy History of lithotripsy History of tonsillectomy S/P laparoscopic sleeve gastrectomy Family History Father Diabetes Substance abuse CVD (cardiovascular disease) Hypertension Hypercholesteremia Mother Diabetes Depression with anxiety CVD (cardiovascular disease) Hypertension Myocardial infarct Substance abuse Maternal Grandmother Diabetes Maternal Grandfather Diabetes Kidney failure, acute Social History Household Members: Family Housing: Apartment Are you a primary post anesthesia care unit nurse to a significant other at home: No Do you presently have visiting nurse or other home services: No Alcohol intake: never Patient Tobacco Use Status: Never used Tobacco e-Cigarette/Vaping Use: Never Used Second Hand Smoke Exposure: No Advance Directives Date on File: 09/18/21 service: No Current occupational status: employed Current occupational exposures/hazards: No Cognitive needs: No Hearing needs: No Vision needs: No Assessment & Plan Assessment & Plan (1) Obesity (BMI 30-39.9): Code(s): E66.9 - Obesity, unspecified Patient Instructions: Come to emotional eating workshop. make time for herself and take 30 minutes to go to the gym. check in with me every few days via message to help with accountability. We talked about having some balance and if she wants to have food, portion control, adequate protein throughout the day. Telehealth Telehealth Location of provider rendering services: practice address Location of patient: address on file Patient Identification confirmed using: Name, : Yes Telehealth method: video Patient verbally consented to treatment: Yes Patient verbally consented to billing insurance company: Yes Patient informed of any privacy concerns related to visit: Yes Minutes spent on Phone/Video with Pt.: 30 Coding Level of Care Code Nutr Indiv Subseq ([id number]) Diagnoses Obesity (BMI 30-39.9) E66.9 Time Spent (min) 30
[2023-01-10 16:42] VITALS: BMI 35.3
== END 2023-01-10 09:51 | disposition home or self-care (01) ==
LOC: HO.HBS 08:58
PROVIDERS: PCP Internal Medicine; Visit Provider Dietitian, Registered
DX: E66.9 Obesity, unspecified (principal)

== ENCOUNTER → 2023-01-10 08:58 | Outpatient (BNVA) | payer OTHER, SELFPAY | PROVIDERS: PCP Internal Medicine; Visit Provider Dietitian, Registered | DX: E66.9 Obesity, unspecified (principal); Z68.35 Body mass index [BMI] 35.0-35.9, adult; Z98.84 Bariatric surgery status; Z71.3 Dietary counseling and surveillance | CPT/HCPCS: 97803 ==

== ENCOUNTER 2023-01-11 16:32 | Emergency (ER) | payer OTHER, SELFPAY ==
--- NOTE | ~2023-01-11 | XR_ITS ---
EXAMINATION: XR CHEST CLINICAL INFORMATION: Chest pain COMPARISON: X-ray 03/23/2020 TECHNIQUE: 2 views of the chest were obtained. FINDINGS: The cardiomediastinal silhouette is within normal limits. The lungs are well expanded. There is no focal consolidation, edema, or effusion. No pneumothorax. No acute osseous abnormality. XR/XR chest 2V IMPRESSION: No acute cardiopulmonary process.
--- NOTE | 2023-01-11 16:34 | ECG_ITS ---
Test Reason : DIZZY Blood Pressure : / mmHG Vent. Rate : 068 BPM Atrial Rate : 068 BPM P-R Int : 218 ms QRS Dur : 100 ms QT Int : 410 ms P-R-T Axes : 035 004 018 degrees QTc Int : 435 ms Sinus rhythm with 1st degree A-V block Otherwise normal ECG When compared with ECG of 26-DEC-2021 08:58, No significant change was found Referred By: Ibis Flores Electronically Signed By:LEBRON GRIMM
[2023-01-11 16:58] VITALS: BP 140/85; PULSE 66; RESP 20; TEMP 36.3; O2SAT 98; BMI 1749.8
--- NOTE | 2023-01-11 16:58 | ED.GENADULT ---
HPI - General Adult General Chief complaint: General Medical Stated complaint: High blood pressure Time Seen by Provider: 01/11/23 21:27 Source: patient Mode of arrival: ambulatory Limitations: no limitations History of Present Illness HPI narrative: Patient history of migraine headaches borderline hypertension used to be on medications which were stopped after she lost some weight and not on any medication patient does have a migraine after this episode was last month headache started behind the left eye did left side of the back with nausea check the blood pressure was elevated 169/107 also complaining of mild chest pain after noticed that she had a high blood pressure took Tylenol prior to arrival in the ER patient pressure was 140/85 patient headache is similar to that as headache which she gets in the past with light sensitive Related Data Home Medications Medication Instructions Recorded Confirmed etonogestrel 68 mg subdermal 1 implant subdermal ONCE 03/17/20 12/12/22 implant (Nexplanon) polyethylene glycol 3350 17 gram 17 g PO DAILY 09/19/22 12/12/22 oral powder packet (Miralax) Previous Rx's Medication Instructions Recorded buspirone 5 mg tablet 5 mg PO BID 30 days #60 tabs 09/19/22 lorazepam 0.5 mg tablet 0.5 mg PO BID PRN anxiety 5 days 09/19/22 #10 tabs sertraline 25 mg tablet 25 mg PO DAILY #30 tabs 09/19/22 clotrimazole 1 % topical cream 1 appl topical BID #45 grams 09/26/22 cetirizine 10 mg tablet 10 mg PO DAILY #90 tabs 10/17/22 sennosides 8.6 mg tablet (Senna 8.6 mg PO DAILY #90 tabs 10/18/22 Laxative) cyclobenzaprine 10 mg tablet 10 mg PO BEDTIME PRN muscle spasm 10/20/22 #7 tabs lidocaine 5 % topical patch 1 patch topical DAILY PRN pain #15 10/20/22 ea docusate sodium 100 mg capsule 100 mg PO DAILY #90 caps 12/12/22 dynlptosor-revipxjbxligt-wdutfwaf 1 tab PO Q6H PRN haeadace #20 tabs 01/11/23 50 mg-325 mg-40 mg tablet sumatriptan succinate 50 mg tablet 50 mg PO Q2H PRN migraine headache 01/11/23 (Imitrex) #10 tabs Allergies Allergy/AdvReac Type Severity Reaction Status Date / Time morphine [MORPHINE] Allergy Severe Anaphylaxis Verified 09/27/22 08:45 amoxicillin [AMOXICILLIN] Allergy Intermediate RASH, hives Verified 09/27/22 08:45 cephalexin Allergy Intermediate hives Verified 09/27/22 08:45 clindamycin [CLINDAMYCIN] Allergy Intermediate RASH Verified 09/27/22 08:45 Penicillins Allergy Intermediate hives/rash Verified 09/27/22 08:45 shrimp Allergy Intermediate Hives Verified 09/27/22 08:45 Review of Systems Review of Systems: Yes all other systems are reviewed and are negative [facility] Past Medical History Medical History Nausea Fatigue Allergic dermatitis Upper respiratory infection, acute History of postoperative nausea and vomiting COVID-19 vaccine series completed Left flank pain Recurrent nephrolithiasis Generalized anxiety disorder COVID-19 virus infection Renal calculus, bilateral Hematochezia Sinusitis, acute frontal Allergic rhinitis Sinus congestion Nasal congestion Degenerative joint disease Morbid obesity Bilateral hand numbness Witnessed apneic spells Annual physical exam Chronic back pain Menorrhagia History of MRSA infection Migraine Asthma Hypertension Irritable bowel syndrome Obesity Renal calculus Left ovarian cyst Encounter for laboratory testing for COVID-19 virus COVID-19 Surgical History S/P laparoscopic sleeve gastrectomy History of endoscopy History of colonoscopy History of lithotripsy History of bladder surgery History of tonsillectomy Family History Family History Father Diabetes Substance abuse CVD (cardiovascular disease) Hypertension Hypercholesteremia Mother Diabetes Depression with anxiety CVD (cardiovascular disease) Hypertension Myocardial infarct Substance abuse Maternal Grandmother Diabetes Maternal Grandfather Diabetes Kidney failure, acute Social History Social History Household Members: Family Housing: Apartment Are you a primary resident care associate to a significant other at home: No Do you presently have visiting nurse or other home services: No Alcohol intake: never Patient Tobacco Use Status: Never used Tobacco Smoked in Last 30 Days: No e-Cigarette/Vaping Use: Never Used Second Hand Smoke Exposure: No Use of substances other than those prescribed or required for medical reasons: No Advance Directives: Yes Advance Directives on File: Yes Advance Directives Date on File: 09/18/21 service: No Current occupational status: employed Current occupational exposures/hazards: No Cognitive needs: No Hearing needs: No Vision needs: No Physical Exam ED Vital Signs: Vital Signs - 24 hr 01/11/23 16:58 01/11/23 20:14 Temperature 97.3 F 98.4 F Pulse Rate 66 72 Respiratory Rate 20 19 Blood Pressure 140/85 H 147/76 H Pulse Oximetry 98 98 Oxygen Delivery Method Room Air Room Air BMI result Body Mass Index 1749.8 Appearance: Alert. Oriented X3. No acute distress. Eyes: PERRLA, No Nystagmus ENT: Pharynx normal. Oral Mucosa moist no temporal artery tenderness Neck: Normal inspection. Neck supple. CVS: Normal heart rate and rhythm. Pulses normal. Respiratory: No respiratory distress. Equal air entry bilateral, no wheezing/rales/rhonchi Abdomen: Soft and nontender. Bowel sounds are present, no mass palpable, no CVA tenderness Skin: Skin warm and dry. Normal skin color. Normal skin turgor. Extremities: No lower extremity edema. No calf tenderness Neuro: Oriented X 3. No motor deficit. No sensory deficit.No cerebellar signs , cranial nerves II-XII intact Course Course Course Narrative: This is a rapid medical exam: Additional HPI, ROS, PE not included below will be deferred to primary provider. Patient is a 37-year-old female with history of sleeve gastrectomy, GERD, ANDERSON, asthma, migraines, IBS, HTN presenting to the emergency department from PCP office for elevated blood pressure, migraine, and left eye pain as well as seeing black waves, squiggly lines. Also complains of dizziness, intermittent chest pain, nausea, and feeling hot, states I usually always feel cold. States sxs began with headache 2 days ago, then developed left eye pain this morning, then noted BP to be elevated at home 169/107. States she is not currently on any BP meds currently, they were discontinued after her bariatric surgery. BP 140/85 in triage. Took 1g Tylenol at home. Plan: EKG, CXR, labs Medications Administered Discontinued Medications Generic Name Dose Route Start Last Admin Trade Name Freq PRN Reason Stop Dose Admin Acetaminophen/Butalbital/Caffeine 1 tab 01/11/23 22:25 01/11/23 22:47 Butalb/Acetamin/Caff 50/325/40 Tablet PO 01/11/23 22:26 1 tab ONCE ONE Administration Ondansetron HCl 4 mg 01/11/23 22:25 01/11/23 22:47 Ondansetron Odt 4 Mg Tab.Rapdis TRANSLINGU 01/11/23 22:26 4 mg ONCE ONE Administration Sumatriptan Succinate 6 mg 01/11/23 22:25 01/11/23 22:47 Sumatriptan Succinate 6 Mg/0.5 Ml Vial SUBCUT 01/11/23 22:26 6 mg ONCE ONE Administration Medical Decision Making Medical Decision Making MDM Narrative: Patient with measuring headache which improved clinician migraine headache which improved after Fioricet and Imitrex patient home Differential Diagnosis Differential Diagnoses: The differential diagnosis associated with the presentation includes Accelerated hypertension/migraine headaches/tension headache/ACS Lab Data [facility] Lab Attestation statement: I reviewed the patient's lab results. 01/11/23 18:21 01/11/23 18:21 Labs: Lab Results 01/11/23 Range/Units 18:21 WBC 9.1 (4.8-10.8) X10*3/uL RBC 4.10 L (4.20-5.50) X10*6/uL Hgb 12.3 (12.0-16.0) g/dl Hct 38.1 (37.0-47.0) % MCV 92.9 (80.0-98.0) fL MCH 30.0 (27.0-33.0) pg MCHC 32.3 (31.0-35.0) g/dl RDW 12.2 (11.0-16.0) % Plt Count 265 (160-400) X10*3/uL MPV 10.8 (9.4-12.3) fL Immature Gran % (Auto) 0.3 (0.0-0.4) % Neut % (Auto) 63.7 (45-73) % Lymph % (Auto) 27.5 (20-40) % Story % (Auto) 6.8 (2-11) % Eos % (Auto) 1.2 (0-4) % Baso % (Auto) 0.5 (0-2) % Lymph # (Auto) 2.5 (1.2-4.9) X10*3/uL Story # (Auto) 0.6 (0.1-1.2) X10*3/uL Eos # (Auto) 0.1 (0.0-0.4) X10*3/uL Baso # (Auto) 0.1 (0.0-0.2) X10*3/uL Abs Immat Gran (auto) 0.03 (0.00-0.03) X10*3/uL Absolute Neuts (auto) 5.8 (2.0-8.3) x10*3/uL Absolute Nucleated RBC 0.000 (0.0-0.012) X10*3/uL Nucleated RBC % (auto) 0.0 (0.0-0.2) /100WBC Sodium 140 (135-145) mmol/L Potassium 4.0 (3.3-5.1) mmol/L Chloride 107 (96-108) mmol/L Carbon Dioxide 24 (22-29) mmol/L Anion Gap 13 (12-20) BUN 22 H (9-16) mg/dL Creatinine 0.71 (0.5-1.4) mg/dL Estim Creat Clear Calc 6.0 Estimated GFR > 60 Random Glucose 103 (60-115) mg/dL Calcium 9.5 (8.4-10.2) mg/dL Total Bilirubin 0.2 (0.0-1.0) mg/dL AST 11 (5-31) U/L ALT 11 (0-31) U/L Alkaline Phosphatase 64 (39-117) U/L Troponin I High Sens < 2.7 (<3.5-17.0) ng/L Total Protein 7.1 (6.5-8.0) g/dL Albumin 4.3 (3.5-5.0) g/dL Independent Interpretation I performed an independent interpretation of an: EKG Interpretation: Normal sinus rhythm heart rate 68 beats per minute no acute ST wave changes acute ischemia Discharge Plan Discharge Clinical Impression: Migraine, Essential hypertension Patient Disposition: Home, Self-Care Instructions: Migraine Headache (ED), Hypertension (ED) Additional Instructions: Taking medication for migraine as prescribed Your elevated blood pressure could be from reaction to the headache Check blood pressure regularly should be less than 135/85 If the blood pressure persistently higher than 135/85 follow-up with PCP Medication as advised for migraine headache Prescriptions: New sumatriptan succinate [Imitrex] 50 mg tablet 50 mg PO Q2H PRN (Reason: migraine headache) Qty: 10 0RF Rx Instructions: do not exceed 2 doses per 24 hrs fehmiyyinu-liygkuakwrcrc-xmmi 50-325-40 mg tablet 1 tab PO Q6H PRN (Reason: haeadace) Qty: 20 0RF No Action clotrimazole 1 % cream 1 appl topical BID Qty: 45 3RF cetirizine 10 mg tablet 10 mg PO DAILY Qty: 90 3RF sennosides [Senna Laxative] 8.6 mg tablet 8.6 mg PO DAILY Qty: 90 3RF docusate sodium 100 mg capsule 100 mg PO DAILY Qty: 90 1RF cyclobenzaprine 10 mg tablet 10 mg PO BEDTIME PRN (Reason: muscle spasm) Qty: 7 0RF lidocaine 5 % adhesive patch,medicated 1 patch topical DAILY PRN (Reason: pain) Qty: 15 0RF Rx Instructions: leave on most painful area for up to 12 hrs Nexplanon 68 mg implant 1 implant subdermal ONCE buspirone 5 mg tablet 5 mg PO BID 30 Days Qty: 60 1RF polyethylene glycol 3350 [Miralax] 17 gram powder in packet 17 g PO DAILY lorazepam 0.5 mg tablet 0.5 mg PO BID PRN (Reason: anxiety) 5 Days Qty: 10 0RF sertraline 25 mg tablet 25 mg PO DAILY Qty: 30 2RF
[2023-01-11 18:26] LABS: MANUAL DIFF FLAG NO
[2023-01-11 18:33] LABS: Basophils Absolute Auto 0.1 X10*3/uL (0.0-0.2); Basophils Percent Auto 0.5 % (0-2); Eosinophils Absolute Auto 0.1 X10*3/uL (0.0-0.4); Eosinophils Percent Auto 1.2 % (0-4); Hematocrit 38.1 % (37.0-47.0); Hemoglobin 12.3 g/dl (12.0-16.0); Imm Gran Abs Auto 0.03 X10*3/uL (0.00-0.03); Imm Gran Pct Auto 0.3 % (0.0-0.4); Lymphocytes Absolute Auto 2.5 X10*3/uL (1.2-4.9); Lymphocytes Percent Auto 27.5 % (20-40); Mean Corpuscular HGB Conc 32.3 g/dl (31.0-35.0); Mean Corpuscular Volume 92.9 fL (80.0-98.0); Mean Platelet Volume 10.8 fL (9.4-12.3); Monocytes Absolute Auto 0.6 X10*3/uL (0.1-1.2); Monocytes Percent Auto 6.8 % (2-11); Neutrophils Absolute Auto 5.8 x10*3/uL (2.0-8.3); Neutrophils Percent Auto 63.7 % (45-73); Platelet Count 265 X10*3/uL (160-400); Red Cell Distribution Width 12.2 % (11.0-16.0); White Blood Count 9.1 X10*3/uL (4.8-10.8)
[2023-01-11 18:46] LABS: Alanine Aminotransferase 11 U/L (0-31); Albumin Level 4.3 g/dL (3.5-5.0); Alkaline Phosphatase 64 U/L (39-117); Anion Gap 13 (12-20); Aspartate Amino Transferase 11 U/L (5-31); Bilirubin Total 0.2 mg/dL (0.0-1.0); Blood Urea Nitrogen 22 mg/dL (9-16); Calcium 9.5 mg/dL (8.4-10.2); Carbon Dioxide 24 mmol/L (22-29); Chloride 107 mmol/L (96-108); Estimated Glomerular Filt Rate > 60; Glucose Random 103 mg/dL (60-115); Sodium 140 mmol/L (135-145); Total Protein 7.1 g/dL (6.5-8.0)
[2023-01-11 18:51] LABS: Troponin-I High Sensitivity < 2.7 ng/L (<3.5-17.0)
--- NOTE | 2023-01-11 19:23 | PC.NURSE ---
pt resting comfortably on stretcher at this time, respirations even and unlabored, skin pwd, no apparent distress. Awaiting MD sign up. Pt reports increased headache at this time
[2023-01-11 20:14] VITALS: BP 147/76; PULSE 72; RESP 19; TEMP 36.9; O2SAT 98
[2023-01-11] MEDS: Ondansetron ODT 4 MG TAB.RAPDIS TRANSLINGU (22:47)
[2023-01-11] MEDS: Butalb/Acetamin/Caff 50/325/40 TABLET 1 TAB PO (22:47)
[2023-01-11] MEDS: SUMAtriptan succinate 6 MG/0.5 ML VIAL SUBCUT (22:47)
== END 2023-01-11 23:51 | disposition home or self-care (01) ==
PROVIDERS: Registered Nurse Emergency; Emergency Provider Internal Medicine; PCP Internal Medicine
DX: G43.909 Migraine, unspecified, not intractable, without status migrainosus (principal); I10 Essential (primary) hypertension; Z79.899 Other long term (current) drug therapy
CPT/HCPCS: 36415; 71046; 80053; 84484; 85025; 93005; 96372; 99284; J3030

== ENCOUNTER 2023-01-16 14:58 | Outpatient (AMB) | payer OTHER, SELFPAY ==
[2023-01-16 15:01] VITALS: BP 136/78; PULSE 64; O2SAT 98; BMI 36.6
--- NOTE | 2023-01-16 15:01 | MHC.PC.OV ---
Vital Signs 01/16/23 15:01 Height 5 ft 9 in Weight 248 lb BMI 36.6 BP 136/78 Blood Pressure Location Lt brachial Position Sitting Pulse 64 Pulse Source Pulse Oximeter Pulse Oximetry (%) 98 Oxygen Delivery Method Room Air Intake Visit Reasons: Weight Management Allergies morphine [MORPHINE] Allergy (Severe, Verified 01/16/23 15:02) Anaphylaxis amoxicillin [AMOXICILLIN] Allergy (Intermediate, Verified 01/16/23 15:02) RASH, hives cephalexin Allergy (Intermediate, Verified 01/16/23 15:02) hives clindamycin [CLINDAMYCIN] Allergy (Intermediate, Verified 01/16/23 15:02) RASH Penicillins Allergy (Intermediate, Verified 01/16/23 15:02) hives/rash shrimp Allergy (Intermediate, Verified 01/16/23 15:02) Hives citalopram Adverse Reaction (Intermediate, Unverified 01/16/23 15:24) Nausea Medication List - Last Reconciled 01/16/23 by Sarmad Rincon MD riwcaofixh-sivmolxtuibqs-vdto 50-325-40 mg 1 tab PO Q6H PRN cetirizine 10 mg PO DAILY clotrimazole 1% 1 appl topical BID docusate sodium 100 mg PO DAILY etonogestrel (Nexplanon) 1 implant subdermal ONCE lorazepam 0.5 mg PO BID PRN 5 days polyethylene glycol 3350 (Miralax) 17 grams PO DAILY sennosides (Senna Laxative) 8.6 mg PO DAILY sumatriptan succinate (Imitrex) 50 mg PO Q2H PRN Tobacco use date assessed: 09/19/22 Dental Screening Dental Screen Date: 01/16/23 Did you have a dental visit in the last 12 months?: Yes Did you have a dental problem in the last 6 months where you did not have access to dental care?: No Was dental information given to patient?: Patient has dentist HPI Weight Management HPI Details 37-year-old obese female with hypertension irritable bowel syndrome, GERD adjustment disorder/generalized anxiety disorder status post laparoscopic sleeve gastrectomy coming in for follow-up. Patient has nephrolithiasis also. Review of the notes ER visit January 11 having headaches and noted to have an elevated blood pressure. Patient is here for follow-up. Patient has been complaining of a lot of stress with regards to family, studies children and work. Patient was asking some medication to help with anxiety. Also thinks that she has ADHD and complaining that she is not able to completely finish her work. Patient also has been having problems with losing the weight and is asking for medications for this. Discussed about the different medication to help with the problems that she has. [facility] Medical History Nausea Fatigue Allergic dermatitis Upper respiratory infection, acute History of postoperative nausea and vomiting COVID-19 vaccine series completed Left flank pain Recurrent nephrolithiasis Generalized anxiety disorder COVID-19 virus infection Renal calculus, bilateral Hematochezia Sinusitis, acute frontal Allergic rhinitis Sinus congestion Nasal congestion Degenerative joint disease Morbid obesity Bilateral hand numbness Witnessed apneic spells Annual physical exam Chronic back pain Menorrhagia History of MRSA infection Migraine Asthma Hypertension Irritable bowel syndrome Obesity Renal calculus Left ovarian cyst Encounter for laboratory testing for COVID-19 virus COVID-19 Surgical History S/P laparoscopic sleeve gastrectomy History of endoscopy History of colonoscopy History of lithotripsy History of bladder surgery History of tonsillectomy Family History Father Diabetes Substance abuse CVD (cardiovascular disease) Hypertension Hypercholesteremia Mother Diabetes Depression with anxiety CVD (cardiovascular disease) Hypertension Myocardial infarct Substance abuse Maternal Grandmother Diabetes Maternal Grandfather Diabetes Kidney failure, acute Social History Household Members: Family Housing: Apartment Are you a primary medicare specialist to a significant other at home: No Do you presently have visiting nurse or other home services: No Alcohol intake: never Patient Tobacco Use Status: Never used Tobacco e-Cigarette/Vaping Use: Never Used Second Hand Smoke Exposure: No Advance Directives Date on File: 09/18/21 service: No Current occupational status: employed Current occupational exposures/hazards: No Cognitive needs: No Hearing needs: No Vision needs: No Questionnaire PHQ-9 Over the last 2 weeks, how often have you been bothered by any of the following problems? 1. Little interest or pleasure in doing things: several days 2. Feeling down, depressed, or hopeless: several days 3. Trouble falling or staying asleep, or sleeping too much: several days 4. Feeling tired or having little energy: several days 5. Poor appetite or overeating: several days 6. Feeling bad about yourself - or that you are a failure or have let yourself or your family down: several days 7. Trouble concentrating on things, such as reading the newspaper or watching television: several days 8. Moving or speaking so slowly that other people could have noticed. Or the opposite - being so fidgety or restless that you have been moving around a lot more than usual: several days 9. Thoughts that you would be better off or of hurting yourself in some way: not at all Total score: 8 Source: Developed by Drs. Alfredo Singletary, Lian Marion, Wang Espinoza and colleagues, with an educational arben from [employer]. Thrive Questionnaire Date Thrive assessed: 09/19/22 AUDIT C Alcohol Use Questionnaire (AUDIT-C) 1. How often do you have a drink containing alcohol?: Never Total Score: 0 VERONIQUE-7 AMB Questionnaire VERONIQUE-7 Date VERONIQUE - 7 assessed: 08/09/22 Source: Developed by Drs. Alfredo Singletary, Lian Marion, Wang Espinoza and colleagues, with an educational arben from [employer]. Physical exam (Primary Care) Vital Signs: Last Vital Signs Pulse 64 01/16/23 15:01 BP 136/78 01/16/23 15:01 Pulse Ox 98 01/16/23 15:01 Oxygen Delivery Method Room Air 01/16/23 15:01 BMI result Body Mass Index 36.6 Tobacco/Smoking Status: Tobacco use Status Tobacco use date assessed 09/19/22 01/16/23 15:11 Patient Tobacco Use Status Never used Tobacco 01/16/23 15:11 e-Cigarette/Vaping Use Never Used 01/16/23 15:11 PHQ-9: PHQ-9 Score PHQ-9: Total score 8 01/16/23 15:11 Thrive Assessment: Date of Thrive Assessment Date Thrive assessed 09/19/22 01/16/23 15:11 Const General: alert; No acute distress Eyes Conjunctivae: conjunctivae normal Resp Auscultation: clear to auscultation bilaterally Cardio Rate: regular rate Rhythm: regular rhythm GI Inspection: Yes normal to inspection Extrem General: Yes normal to inspection and No edema Assessment and Plan Assessment & Plan (1) S/P laparoscopic sleeve gastrectomy: Comment: 09/15/21 Code(s): Z98.84 - Bariatric surgery status Plan: Continue to follow-up with weight management (2) GERD (gastroesophageal reflux disease): Code(s): K21.9 - Gastro-esophageal reflux disease without esophagitis Qualifiers: Esophagitis presence: esophagitis presence not specified Qualified Code(s): K21.9 - Gastro-esophageal reflux disease without esophagitis Plan: Avoid the foods that causes that usually spicy foods, tomato products, juices, coffee, soda and foods that your sensitive to. After eating do not lie down, allow 3-4 hours before in lie down. And keep the head of bed above 30 degrees to avoid the acid from going up. (3) Generalized anxiety disorder: Comment: counselling [facility] counselling Code(s): F41.1 - Generalized anxiety disorder Plan: Continue with counseling and therapy. Start on Wellbutrin SR 100 mg once a day (4) Hypertension: Code(s): I10 - Essential (primary) hypertension Qualifiers: Hypertension type: essential hypertension Qualified Code(s): I10 - Essential (primary) hypertension Plan: Continue to monitor blood pressure. Blood pressure presently is under control without any medication. Increase in blood pressure most likely from the stress (5) Migraine: Code(s): G43.909 - Migraine, unspecified, not intractable, without status migrainosus Plan: Continue with medication discussed that if the migraine attacks/episodic more than 3 a month will have to discuss about preventive medications. Medications: New bupropion HCl (Wellbutrin SR) 100 mg PO BEDTIME 30 tabs 3RF F41.1 - Generalized anxiety disorder Coding Level of Care Code Est Pt Level 4 (67272) Diagnoses S/P laparoscopic sleeve gastrectomy Z98.84 Gastroesophageal reflux disease, unspecified whether esophagitis present K21.9 Esophagitis presence: esophagitis presence not specified Generalized anxiety disorder F41.1 Essential hypertension I10 Hypertension type: essential hypertension Migraine G43.909
== END 2023-01-16 16:04 | disposition home or self-care (01) ==
PROVIDERS: PCP Internal Medicine; Visit Provider Internal Medicine
DX: K21.9 Gastro-esophageal reflux disease without esophagitis (principal); I10 Essential (primary) hypertension; G43.909 Migraine, unspecified, not intractable, without status migrainosus; Z98.84 Bariatric surgery status; F41.1 Generalized anxiety disorder
CPT/HCPCS: 99214

== ENCOUNTER 2023-03-01 12:53 | Outpatient (AMB) | payer OTHER, SELFPAY ==
--- NOTE | 2023-03-01 12:49 | A.OFFPC_ITS ---
Vital Signs 03/01/23 12:50 Height 5 ft 9 in Weight 250 lb BMI 36.9 Intake Visit Reasons: la Telephone Exchange Operator Required: No Accompanied by: Self / Same As Patient Allergies morphine [MORPHINE] Allergy (Severe, Verified 01/16/23 15:02) Anaphylaxis amoxicillin [AMOXICILLIN] Allergy (Intermediate, Verified 01/16/23 15:02) RASH, hives cephalexin Allergy (Intermediate, Verified 01/16/23 15:02) hives clindamycin [CLINDAMYCIN] Allergy (Intermediate, Verified 01/16/23 15:02) RASH Penicillins Allergy (Intermediate, Verified 01/16/23 15:02) hives/rash shrimp Allergy (Intermediate, Verified 01/16/23 15:02) Hives citalopram Adverse Reaction (Intermediate, Unverified 01/16/23 15:24) Nausea Medication List - Last Reconciled 03/01/23 by Sarmad Turcios Po, amitriptyline 10 mg PO BEDTIME bupropion HCl (Wellbutrin SR) 100 mg PO BEDTIME cetirizine 10 mg PO DAILY clotrimazole 1% 1 appl topical BID docusate sodium 100 mg PO DAILY etonogestrel (Nexplanon) 1 implant subdermal ONCE lorazepam 0.5 mg PO BID PRN 5 days polyethylene glycol 3350 (Miralax) 17 grams PO DAILY sennosides (Senna Laxative) 8.6 mg PO DAILY sumatriptan succinate (Imitrex) 50 mg PO Q2H PRN Tobacco use date assessed: 09/19/22 Dental Screening Dental Screen Date: 03/01/23 Did you have a dental visit in the last 12 months?: Yes Did you have a dental problem in the last 6 months where you did not have access to dental care?: No Was dental information given to patient?: Patient has dentist HPI fmla HPI Details 37-year-old obese female status post lap aroscopic gastrectomy August 2021, GERD Radha anxiety disorder hypertension and migraine last seen in December 2022. Patient sent me a note for [facility] paperwork and is here for follow-up to [place]. Pateint was receiving treatment from [facility] but changed to [place]. --and advised counselling to send notes. Patient was asking for medication to help with losing weight, Saxenda was sent in but insurance does not cover. Discussed about other medications leg semaglutide, mounjaro, eddieity. As for the form FMLA fill up done due to generalized anxiety disorder and that she wants an intermittent FMLA to cover for work. [facility] Medical History Nausea Fatigue Allergic dermatitis Upper respiratory infection, acute History of postoperative nausea and vomiting COVID-19 vaccine series completed Left flank pain Recurrent nephrolithiasis Generalized anxiety disorder COVID-19 virus infection Renal calculus, bilateral Hematochezia Sinusitis, acute frontal Allergic rhinitis Sinus congestion Nasal congestion Degenerative joint disease Morbid obesity Bilateral hand numbness Witnessed apneic spells Annual physical exam Chronic back pain Menorrhagia History of MRSA infection Migraine Asthma Hypertension Irritable bowel syndrome Obesity Renal calculus Left ovarian cyst Encounter for laboratory testing for COVID-19 virus COVID-19 Surgical History S/P laparoscopic sleeve gastrectomy History of endoscopy History of colonoscopy History of lithotripsy History of bladder surgery History of tonsillectomy Family History Father Diabetes Substance abuse CVD (cardiovascular disease) Hypertension Hypercholesteremia Mother Diabetes Depression with anxiety CVD (cardiovascular disease) Hypertension Myocardial infarct Substance abuse Maternal Grandmother Diabetes Maternal Grandfather Diabetes Kidney failure, acute Social History Household Members: Family Housing: Apartment Are you a primary medical care evaluation specialist to a significant other at home: No Do you presently have visiting nurse or other home services: No Alcohol intake: never Patient Tobacco Use Status: Never used Tobacco e-Cigarette/Vaping Use: Never Used Second Hand Smoke Exposure: No Advance Directives Date on File: 09/18/21 service: No Current occupational status: employed Current occupational exposures/hazards: No Cognitive needs: No Hearing needs: No Vision needs: No Questionnaire Thrive Questionnaire Date Thrive assessed: 09/19/22 VERONIQUE-7 AMB Questionnaire VERONIQUE-7 Date VERONIQUE - 7 assessed: 08/09/22 Source: Developed by Drs. Alfredo Singletary, Lian Marion, Wang Espinoza and colleagues, with an educational arben from [employer]. Physical exam (Primary Care) BMI result Body Mass Index 36.9 Tobacco/Smoking Status: Tobacco use Status Tobacco use date assessed 09/19/22 03/01/23 12:53 Patient Tobacco Use Status Never used Tobacco 03/01/23 12:53 e-Cigarette/Vaping Use Never Used 03/01/23 12:53 Thrive Assessment: Date of Thrive Assessment Date Thrive assessed 09/19/22 03/01/23 12:53 Telehealth Telehealth Location of provider rendering services: practice address Location of patient: address on file Patient Identification confirmed using: Name, : Yes Telehealth method: video Patient verbally consented to treatment: Yes Patient verbally consented to billing insurance company: Yes Patient informed of any privacy concerns related to visit: Yes Minutes spent on Phone/Video with Pt.: 25 Assessment and Plan Assessment & Plan (1) Generalized anxiety disorder: Comment: counselling done in [place] Code(s): F41.1 - Generalized anxiety disorder Plan: Advised to said the notes from counseling place (2) Migraine: Code(s): G43.909 - Migraine, unspecified, not intractable, without status migrainosus Plan: Discussed that Fioricet has ran out of fever for migraine. Amitriptyline sent in to take at night. And continue with Imitrex p.r.n. on follow-up will have to discuss about preventive measures (3) Obesity with body mass index (BMI) of 30.0 to 39.9: Code(s): E66.9 - Obesity, unspecified Plan: Diet and exercise. Discussed about semaglutide, Trulicity,Mounjaro and saxenda Medications: New amitriptyline 10 mg PO BEDTIME 30 tabs 0RF G43.909 - Migraine, unspecified, not intractable, without status migrainosus Discontinued cpucivxbcw-xwwvamelhvzra-mflm 50-325-40 mg Discontinued Reason: Ancillary Entered New Order 1 tab PO Q6H PRN 20 tabs 0RF haeadace Coding Level of Care Code Tele Est Pt Level 4 (45474) Diagnoses Generalized anxiety disorder F41.1 Migraine G43.909 Obesity with body mass index (BMI) of 30.0 to 39.9 E66.9
[2023-03-01 12:50] VITALS: BMI 36.9
== END 2023-03-01 13:36 | disposition home or self-care (01) ==
LOC: HO.HMGH 12:53
PROVIDERS: PCP Internal Medicine; Visit Provider Internal Medicine
DX: F41.1 Generalized anxiety disorder (principal); G43.909 Migraine, unspecified, not intractable, without status migrainosus; E66.9 Obesity, unspecified; Z68.36 Body mass index [BMI] 36.0-36.9, adult
CPT/HCPCS: 99214

== ENCOUNTER 2023-03-10 21:02 | Inpatient (IN) | payer OTHER, SELFPAY ==
--- NOTE | ~2023-03-10 | CT_ITS ---
EXAMINATION: CT ABDOMEN AND PELVIS WITHOUT CONTRAST CLINICAL INFORMATION: Right lower quadrant pain. COMPARISON: CT abdomen/pelvis 12/06/2021. TECHNIQUE: Multidetector volumetric imaging was performed from the superior aspect of the liver through the pubic symphysis. Sagittal and coronal reformatted images were obtained on the technologist's workstation. This CT examination was performed using dose optimization techniques as appropriate, variously including the following: *Automated exposure control *Adjustment of mA and/or kV according to patient size (this includes techniques or standardized protocols for targeted exams where dose is matched to indication/reason for exam; i.e. extremities or head) *Use of iterative reconstruction technique DLP: 1028 mGy-cm FINDINGS: The lack of intravenous contrast limits evaluation of the solid visceral organs including the liver, spleen, pancreas, and kidneys. LUNG BASES: No focal consolidation or pleural effusion. LIVER, GALLBLADDER, AND BILIARY TREE: The liver is enlarged measuring 20 cm craniocaudally with decreased attenuation most consistent with hepatic steatosis. No focal liver lesion in this limited noncontrast examination. The gallbladder is unremarkable with no evidence of radiopaque gallstones, gallbladder wall thickening, or obvious pericholecystic inflammatory changes. PANCREAS: Unremarkable. SPLEEN: Unremarkable. ADRENAL GLANDS: Unremarkable. KIDNEYS AND URETERS: The kidneys are normal in size, shape, and attenuation. Nonobstructive left greater than right punctate renal calculi. No perinephric stranding. BLADDER: Unremarkable. GASTROINTESTINAL TRACT: Significant dilatation of the appendix measuring up to 1.5 cm in diameter with severe wall thickening and extensive periappendiceal fat stranding/free fluid. No extraluminal air or organized extraluminal collection. Right lower quadrant lymphadenopathy, for instance measuring up to 14 mm in short axis. A few loops of small bowel are slightly prominent, likely reactive ileus in the context of appendicitis. Postsurgical changes from gastric sleeve. The stomach is nondilated. No findings to suggest acute diverticulitis or colitis. ABDOMINAL WALL: Mild to moderate fat-containing inguinal hernia with minimal associated fatty haziness, sac measures up to 5 cm in size. LYMPH NODES: As above, right lower quadrant lymphadenopathy. VASCULAR: Normal caliber abdominal aorta. PELVIC VISCERA: Large up to 5.2 cm right adnexal cyst. Small amount of free fluid. OSSEOUS STRUCTURES: No acute or aggressive appearing osseous findings. Degenerative changes of the spine. CT/CT abdomen pelvis wo IV con IMPRESSION: Significant appendiceal dilatation with severe wall thickening and extensive periappendiceal inflammatory changes most consistent with acute appendicitis. In view of the degree of extensive fat stranding and free fluid, some degree of perforation is suspected. No organized extraluminal collection, although evaluation is limited in the absence of IV contrast. No pneumoperitoneum. Up to 5.2 cm simple appearing cyst in the right adnexa/ovary which is almost certainly benign in a patient of this age. In view of size, a yearly follow-up ultrasound is recommended. Nonobstructive bilateral renal calculi. Enlarged liver with hepatic steatosis. Small to moderate-sized fat-containing umbilical hernia with mild fat stranding, recommend correlation with physical examination. This critical result was discussed with at 03/10/2023 11:41 PM and it was ascertained that the content and urgency of the report was understood at the time of direct communication.
[2023-03-10 21:11] VITALS: BP 134/81; PULSE 92; RESP 18; TEMP 36.8; O2SAT 97; BMI 36.6
[2023-03-10 21:50] LABS: MANUAL DIFF FLAG NO
[2023-03-10 21:54] LABS: Basophils Absolute Auto 0.1 X10*3/uL (0.0-0.2); Basophils Percent Auto 0.3 % (0-2); Eosinophils Absolute Auto 0.1 X10*3/uL (0.0-0.4); Eosinophils Percent Auto 0.9 % (0-4); Hematocrit 37.6 % (37.0-47.0); Hemoglobin 12.5 g/dl (12.0-16.0); Imm Gran Abs Auto 0.05 X10*3/uL (0.00-0.03); Imm Gran Pct Auto 0.3 % (0.0-0.4); Lymphocytes Absolute Auto 2.4 X10*3/uL (1.2-4.9); Lymphocytes Percent Auto 16.9 % (20-40); Mean Corpuscular HGB Conc 33.2 g/dl (31.0-35.0); Mean Corpuscular Volume 90.4 fL (80.0-98.0); Mean Platelet Volume 10.5 fL (9.4-12.3); Monocytes Absolute Auto 1.4 X10*3/uL (0.1-1.2); Monocytes Percent Auto 9.4 % (2-11); Neutrophils Absolute Auto 10.5 x10*3/uL (2.0-8.3); Neutrophils Percent Auto 72.2 % (45-73); Platelet Count 275 X10*3/uL (160-400); Red Blood Count 4.16 X10*6/uL (4.20-5.50); Red Cell Distribution Width 12.4 % (11.0-16.0); White Blood Count 14.5 X10*3/uL (4.8-10.8)
[2023-03-10 22:07] LABS: Alanine Aminotransferase 12 U/L (0-31); Albumin Level 4.3 g/dL (3.5-5.0); Alkaline Phosphatase 74 U/L (39-117); Anion Gap 11 (12-20); Aspartate Amino Transferase 11 U/L (5-31); Bilirubin Direct 0.2 mg/dL (0.0-0.5); Bilirubin Total 0.6 mg/dL (0.0-1.0); Blood Urea Nitrogen 17 mg/dL (9-16); Calcium 9.5 mg/dL (8.4-10.2); Carbon Dioxide 23 mmol/L (22-29); Chloride 108 mmol/L (96-108); Creatinine Clr Calc Pharmacy 155.2; Estimated Glomerular Filt Rate > 60; Glucose Random 105 mg/dL (60-115); Lipase 13 U/L (8-78); Potassium 3.9 mmol/L (3.3-5.1); Sodium 138 mmol/L (135-145); Total Protein 7.1 g/dL (6.5-8.0)
--- NOTE | 2023-03-10 22:08 | ED_ITS ---
HPI - Abdominal Pain General Chief Complaint: Abdominal Pain Stated Complaint: abd pain, nausea/vomiting Time Seen by Provider: 03/10/23 21:59 Source: patient Mode of arrival: ambulatory Limitations: no limitations History of Present Illness HPI narrative: A 37-year-old female came in for evaluation of right lower quadrant abdominal pain x1 day. Started early this morning right lower quadrant pain associated with loss of appetite patient did not eat or drink anything all day today, no sick contacts, no exposure to bad food, no recent travel. Past surgical history is significant for sleeve gastrectomy, patient had a normal bowel movement earlier today, no dysuria, frequency urination, no hematuria , no fever or chills. Related Data Home Medications Medication Instructions Recorded Confirmed etonogestrel 68 mg subdermal 1 implant subdermal ONCE 03/17/20 03/01/23 implant (Nexplanon) polyethylene glycol 3350 17 gram 17 g PO DAILY 09/19/22 03/01/23 oral powder packet (Miralax) Previous Rx's Medication Instructions Recorded lorazepam 0.5 mg tablet 0.5 mg PO BID PRN anxiety 5 days 09/19/22 #10 tabs clotrimazole 1 % topical cream 1 appl topical BID #45 grams 09/26/22 cetirizine 10 mg tablet 10 mg PO DAILY #90 tabs 10/17/22 sennosides 8.6 mg tablet (Senna 8.6 mg PO DAILY #90 tabs 10/18/22 Laxative) docusate sodium 100 mg capsule 100 mg PO DAILY #90 caps 12/12/22 bupropion HCl 100 mg tablet,12 hr 100 mg PO BEDTIME #30 tabs 01/16/23 sustained-release (Wellbutrin SR) sumatriptan succinate 50 mg tablet 50 mg PO Q2H PRN migraine headache 02/11/23 (Imitrex) #10 tabs amitriptyline 10 mg tablet 10 mg PO BEDTIME #30 tabs 03/01/23 liraglutide (weight loss) 3 mg/0.5 See Rx Instructions subcut 03/04/23 mL (18 mg/3 mL) subcut pen .COMPLEX #15 mL injector (Saxenda) Allergies Allergy/AdvReac Type Severity Reaction Status Date / Time morphine [MORPHINE] Allergy Severe Anaphylaxis Verified 01/16/23 15:02 amoxicillin [AMOXICILLIN] Allergy Intermediate RASH, hives Verified 01/16/23 15:02 cephalexin Allergy Intermediate hives Verified 01/16/23 15:02 clindamycin [CLINDAMYCIN] Allergy Intermediate RASH Verified 01/16/23 15:02 Penicillins Allergy Intermediate hives/rash Verified 01/16/23 15:02 shrimp Allergy Intermediate Hives Verified 01/16/23 15:02 citalopram AdvReac Intermediate Nausea Unverified 01/16/23 15:24 Review of Systems Review of Systems All other systems are reviewed and are negative Constitutional: Reports as per HPI and Reports no additional constitutional complaints Eyes: Reports as per HPI and Reports no additional eye complaints Reports system reviewed and no additional complaints, except as documented Cardiovascular: Reports as per HPI and Reports no additional cardiovascular complaints Respiratory: Reports as per HPI and Reports no additional respiratory complaints Gastrointestinal: Reports as per HPI and Reports no additional gastrointestinal complaints Genitourinary: Reports no additional female genitourinary complaints Musculoskeletal: Reports no additional musculoskeletal complaints Skin/Breast: Reports system reviewed and no additional complaints, except as docu Psychiatric: Reports no additional psychiatric complaints Endocrine: Reports no additional endocrine complaints Hematologic/Lymphatic: Reports no additional hematologic/lymphatic complaints Allergic/Immunologic: Reports no additional allergic/immunologic complaints Reports system reviewed and no additional complaints, except as documented and Reports Abnormal speech present PMFSH Past Medical History Medical History Nausea Fatigue Allergic dermatitis Upper respiratory infection, acute History of postoperative nausea and vomiting COVID-19 vaccine series completed Left flank pain Recurrent nephrolithiasis Generalized anxiety disorder COVID-19 virus infection Renal calculus, bilateral Hematochezia Sinusitis, acute frontal Allergic rhinitis Sinus congestion Nasal congestion Degenerative joint disease Morbid obesity Bilateral hand numbness Witnessed apneic spells Annual physical exam Chronic back pain Menorrhagia History of MRSA infection Migraine Asthma Hypertension Irritable bowel syndrome Obesity Renal calculus Left ovarian cyst Encounter for laboratory testing for COVID-19 virus COVID-19 Surgical History S/P laparoscopic sleeve gastrectomy History of endoscopy History of colonoscopy History of lithotripsy History of bladder surgery History of tonsillectomy Family History Family History Father Diabetes Substance abuse CVD (cardiovascular disease) Hypertension Hypercholesteremia Mother Diabetes Depression with anxiety CVD (cardiovascular disease) Hypertension Myocardial infarct Substance abuse Maternal Grandmother Diabetes Maternal Grandfather Diabetes Kidney failure, acute Social History Social History Household Members: Family Housing: Apartment Are you a primary urgent care technician to a significant other at home: No Do you presently have visiting nurse or other home services: No Alcohol intake: never Patient Tobacco Use Status: Never used Tobacco e-Cigarette/Vaping Use: Never Used Second Hand Smoke Exposure: No Advance Directives: Yes Advance Directives on File: Yes Advance Directives Date on File: 09/18/21 service: No Current occupational status: employed Current occupational exposures/hazards: No Cognitive needs: No Hearing needs: No Vision needs: No Physical Exam ED Vital Signs: Vital Signs - 24 hr 03/10/23 21:11 03/10/23 23:09 Temperature 98.3 F 98.5 F Pulse Rate 92 88 Respiratory Rate 18 16 Blood Pressure 134/81 121/74 Pulse Oximetry 97 95 Oxygen Delivery Method Room Air Room Air BMI result Body Mass Index 36.6 Vital signs have been reviewed and appear to be correct. Blood pressure elevated. Heart rate normal. Respiratory rate normal. Temperature normal. Oxygen saturation normal. Appearance: Alert. Oriented X3. No acute distress. Head: Normal external exam. Normocephalic. Atraumatic. No Corona signs noted. No raccoon eyes noted Eyes: PERRLA. EOMI. Conjunctiva and sclera normal. Eyelids normal. ENT: TM's Normal. Pharynx normal. Uvula midline. Moist mucous membranes. No trismus noted. No drooling noted. No muffled voice noted. Neck: Normal inspection. Neck supple. FROM. No adenopathy. Thyroid Normal. No meningeal signs. No neck mass noted. CVS: Normal heart rate and rhythm. Heart sound normal. No murmurs noted. Pulses normal throughout. Respiratory: No respiratory distress. Painless inspiration. Breath sounds normal. No wheezes/rales/rhonchi noted. Chest nontender. No accessory muscle usage noted or decreased air movement noted. Abdomen: Soft , obese, right lower quadrant tenderness, no guarding or rebound tenderness.. Bowel sounds normal in all 4 quadrants. No distention noted. No organomegaly noted. No visible injury noted. Back: No CVA tenderness. Full range of motion noted. Skin: Skin warm and dry. Normal skin color. Normal skin turgor. No rashes/lesions/lacerations noted. Extremities: No lower extremity edema. Extremities exhibit normal range of motion. Extremities nontender. Neuro: Oriented X 3. Cranial nerve exam: II-XII are grossly intact No motor deficit. No sensory deficit. Reflexes normal. Course Reevaluation(s) Reevaluation #1: 37-year-old female came in with right lower quadrant abdominal pain with leukocytosis CT confirmed diagnosis of acute appendicitis case discussed with Dr. Waters. keep patient NPO, appendectomy as per Dr. waters Time: 23:53 Medical Decision Making Differential Diagnosis Differential Diagnoses: The differential diagnosis associated with the presentation includes ( acute appendicitis, colitis, diverticulitis, electrolyte abnormality, UTI, , severe anemia.) Admission/Observation Consideration of admission/observation: Escalation of care including admission/observation considered Consult Healthcare Provider Management of the patient was discussed with: Justowriter Operator ( Dr. waters) Lab Data MDM Lab Attestation statement: I reviewed the patient's lab results. 03/10/23 21:45 03/10/23 21:45 Labs: Lab Results 03/10/23 Range/Units 21:45 WBC 14.5 H (4.8-10.8) X10*3/uL RBC 4.16 L (4.20-5.50) X10*6/uL Hgb 12.5 (12.0-16.0) g/dl Hct 37.6 (37.0-47.0) % MCV 90.4 (80.0-98.0) fL MCH 30.0 (27.0-33.0) pg MCHC 33.2 (31.0-35.0) g/dl RDW 12.4 (11.0-16.0) % Plt Count 275 (160-400) X10*3/uL MPV 10.5 (9.4-12.3) fL Immature Gran % (Auto) 0.3 (0.0-0.4) % Neut % (Auto) 72.2 (45-73) % Lymph % (Auto) 16.9 L (20-40) % [place] % (Auto) 9.4 (2-11) % Eos % (Auto) 0.9 (0-4) % Baso % (Auto) 0.3 (0-2) % Lymph # (Auto) 2.4 (1.2-4.9) X10*3/uL [place] # (Auto) 1.4 H (0.1-1.2) X10*3/uL Eos # (Auto) 0.1 (0.0-0.4) X10*3/uL Baso # (Auto) 0.1 (0.0-0.2) X10*3/uL Abs Immat Gran (auto) 0.05 H (0.00-0.03) X10*3/uL Absolute Neuts (auto) 10.5 H (2.0-8.3) x10*3/uL Absolute Nucleated RBC 0.000 (0.0-0.012) X10*3/uL Nucleated RBC % (auto) 0.0 (0.0-0.2) /100WBC Sodium 138 (135-145) mmol/L Potassium 3.9 (3.3-5.1) mmol/L Chloride 108 (96-108) mmol/L Carbon Dioxide 23 (22-29) mmol/L Anion Gap 11 L (12-20) BUN 17 H (9-16) mg/dL Creatinine 0.67 (0.5-1.4) mg/dL Estim Creat Clear Calc 155.2 Estimated GFR > 60 Random Glucose 105 (60-115) mg/dL Calcium 9.5 (8.4-10.2) mg/dL Total Bilirubin 0.6 (0.0-1.0) mg/dL Direct Bilirubin 0.2 (0.0-0.5) mg/dL AST 11 (5-31) U/L ALT 12 (0-31) U/L Alkaline Phosphatase 74 (39-117) U/L Total Protein 7.1 (6.5-8.0) g/dL Albumin 4.3 (3.5-5.0) g/dL Lipase 13 (8-78) U/L Independent Interpretation I performed an independent interpretation of an: CT Scan ( abdomen and pelvis: Acute appendicitis.) Radiology Impression Discussion of test interpretation with radiology: I have reviewed the radiologist's reading. Medications Administered Discontinued Medications Generic Name Dose Route Start Last Admin Trade Name Freq PRN Reason Stop Dose Admin Hydromorphone HCl 0.5 mg 03/10/23 22:07 03/10/23 23:03 Hydromorphone Hcl 0.5 Mg/0.5 Ml Syringe IVPUSH 03/10/23 22:08 0.5 mg ONCE ONE Administration Protocol Sodium Chloride 1,000 mls @ 999 mls/hr 03/10/23 22:07 03/10/23 23:00 Ns IV 03/10/23 23:07 999 mls/hr .Q1H1M ONE Administration Discharge Plan Discharge Clinical Impression: Acute appendicitis Patient Disposition: Admitted As Inpatient Prescriptions: No Action clotrimazole 1 % cream 1 appl topical BID Qty: 45 3RF cetirizine 10 mg tablet 10 mg PO DAILY Qty: 90 3RF sennosides [Senna Laxative] 8.6 mg tablet 8.6 mg PO DAILY Qty: 90 3RF docusate sodium 100 mg capsule 100 mg PO DAILY Qty: 90 1RF sumatriptan succinate [Imitrex] 50 mg tablet 50 mg PO Q2H PRN (Reason: migraine headache) Qty: 10 12RF Rx Instructions: do not exceed 2 doses per 24 hrs Saxenda 3 mg/0.5 mL (18 mg/3 mL) pen injector See Rx Instructions subcut .COMPLEX Qty: 15 1RF Rx Instructions: inject subcutaneously once daily: week 1 = 0.6 mg; week 2 = 1.2 mg; week 3 = 1.8 mg; week 4 = 2.4 mg; then 3 mg daily subcut Nexplanon 68 mg implant 1 implant subdermal ONCE bupropion HCl [Wellbutrin SR] 100 mg tablet sustained-release 12 hr 100 mg PO BEDTIME Qty: 30 3RF polyethylene glycol 3350 [Miralax] 17 gram powder in packet 17 g PO DAILY lorazepam 0.5 mg tablet 0.5 mg PO BID PRN (Reason: anxiety) 5 Days Qty: 10 0RF amitriptyline 10 mg tablet 10 mg PO BEDTIME Qty: 30 0RF
[2023-03-10] MEDS: 0.9 % Sodium Chloride 1,000 ML 999 ML IV (23:00)
[2023-03-10] MEDS: HYDROmorphone HCl 0.5 MG/0.5 ML SYRINGE IVPUSH (23:03)
--- NOTE | 2023-03-10 23:08 | PC.NURSE ---
Pt in bed resting, IV placed and dialudid given. pt has 10/10 abdominal pain.
[2023-03-10 23:09] VITALS: BP 121/74; PULSE 88; RESP 16; TEMP 36.9; O2SAT 95
--- NOTE | 2023-03-10 23:56 | PC.NURSE ---
consult called into dr. sanchez, dr lord on the line now with.
[2023-03-11] VITALS (16 sets, daily range): BP systolic 108–137; BP diastolic 60–85; PULSE 57–95; RESP 14–18; TEMP 36.1–36.7; O2SAT 94–100
[2023-03-11 00:10] LABS: HCG Quantitative < 2 mIU/mL
--- NOTE | 2023-03-11 00:10 | P.HPGS_ITS ---
History of Present Illness History of Present Illness Date of Service: 03/11/23 Chief complaint: Appendicitis Narrative: Leigh Pabon is a 37 year old female s/p LSG 08/2021, h/o HTN, ANDERSON, anxiety, PONV with appendicitis, leukocytosis. Radiology noted possible contained perforation based on fat streaking per report w/o pneumoperitoneum. The patient notes that her abdominal complaints started at work Saturday and was accompanied by obstipation. 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 When the pain progressed, she returned as a patient and had labs & CT. This morning, the patient states that sleep deprivation and stresses resulted in a migraine. She notes she normally takes Fioricet and requested 1. Patient further denies history of inflammatory bowel disease, Crohn's disease, family history of GI malignancy. She does note a history of irritable bowel syndrome. She reports her only intra-abdominal surgery was her sleeve gastrectomy performed here by Dr. Kasper Aug, 2021. [facility] Past Medical History Medical History (Updated 03/11/23 @ 00:20 by Jorge Waters MD, FACS, [facility]) Nausea Fatigue Allergic dermatitis Upper respiratory infection, acute History of postoperative nausea and vomiting COVID-19 vaccine series completed Left flank pain Recurrent nephrolithiasis Generalized anxiety disorder COVID-19 virus infection Renal calculus, bilateral Hematochezia Sinusitis, acute frontal Allergic rhinitis Sinus congestion Nasal congestion Degenerative joint disease Morbid obesity Bilateral hand numbness Witnessed apneic spells Annual physical exam Chronic back pain Menorrhagia History of MRSA infection Migraine Asthma Hypertension Irritable bowel syndrome Obesity Renal calculus Left ovarian cyst Encounter for laboratory testing for COVID-19 virus COVID-19 Family History Family History Father Diabetes Substance abuse CVD (cardiovascular disease) Hypertension Hypercholesteremia Mother Diabetes Depression with anxiety CVD (cardiovascular disease) Hypertension Myocardial infarct Substance abuse Maternal Grandmother Diabetes Maternal Grandfather Diabetes Kidney failure, acute Surgical History Surgical History S/P laparoscopic sleeve gastrectomy History of endoscopy History of colonoscopy History of lithotripsy History of bladder surgery History of tonsillectomy Social History Social History Household Members: Family Housing: Apartment Are you a primary regular senior care provider to a significant other at home: No Do you presently have visiting nurse or other home services: No Alcohol intake: never Patient Tobacco Use Status: Never used Tobacco e-Cigarette/Vaping Use: Never Used Second Hand Smoke Exposure: No Advance Directives: Yes Advance Directives on File: Yes Advance Directives Date on File: 09/18/21 Nutrition Risks: No Nutritional Risk Patient : No service: No Current occupational status: employed Current occupational exposures/hazards: No Cognitive needs: No Hearing needs: No Vision needs: No Meds Allergies Allergy/AdvReac Type Severity Reaction Status Date / Time morphine [MORPHINE] Allergy Severe Anaphylaxis Verified 03/11/23 01:51 amoxicillin [AMOXICILLIN] Allergy Intermediate RASH, hives Verified 03/11/23 01:51 cephalexin Allergy Intermediate hives Verified 03/11/23 01:51 clindamycin [CLINDAMYCIN] Allergy Intermediate RASH Verified 03/11/23 01:51 Penicillins Allergy Intermediate hives/rash Verified 03/11/23 01:51 citalopram AdvReac Intermediate Nausea Verified 03/11/23 01:51 Active Medications: Current Medications Acetaminophen (Acetaminophen 325 Mg Tablet) 975 mg PO Q6H PRN PRN Reason: Pain, Mild (Pain Scale 1-3) Hydromorphone HCl (Hydromorphone Hcl 0.5 Mg/0.5 Ml Syringe) 0.25 mg IVPUSH Q2H PRN; Protocol PRN Reason: Pain, Moderate(Pain Scale 4-6) Ondansetron HCl (Ondansetron Hcl 4 Mg/2 Ml Vial) 4 mg IVPUSH Q6H PRN PRN Reason: Nausea and Vomiting Home Medications Medication Instructions Recorded Confirmed Last Taken Type etonogestrel 68 mg subdermal 1 implant subdermal ONCE 03/17/20 03/11/23 Unknown History implant (Nexplanon) polyethylene glycol 3350 17 gram 17 g PO DAILY 09/19/22 03/11/23 Unknown History oral powder packet (Miralax) Physical Exam Vital Signs: Vital Signs: Last Vital Signs Temp 98.5 F 03/10/23 23:09 Pulse 88 03/10/23 23:09 Resp 16 03/10/23 23:09 BP 121/74 03/10/23 23:09 Pulse Ox 95 03/10/23 23:09 O2 Del Method Room Air 03/10/23 23:09 BMI result Body Mass Index 36.6 The patient is non-toxic & in good spirits NC/AT, PERRLA, EOMI Mood, affect & judgment all appear appropriate Sclera anicteric conjunctiva pink and moist Oropharynx is clear with no aphthous ulcers, Mallampati class 4, mucous membranes moist Neck is supple with no masses, adenopathy or bruits Heart is regular, normal S1-S2 no rubs or murmurs Lungs are clear and equal anteriorly with no audible wheezing, rubs or dullness to percussion Abdomen is obese with no demonstrable hernias. No HSM, rebound, rigidity, guarding, masses or bruits are present. Rectal exam is deferred Skin has good turgor and is free of rashes Extremities free of cyanosis clubbing edema Results Results Labs: Short CBC 03/10/23 Range/Units 21:45 WBC 14.5 H (4.8-10.8) X10*3/uL Hgb 12.5 (12.0-16.0) g/dl Hct 37.6 (37.0-47.0) % Plt Count 275 (160-400) X10*3/uL BMP 03/10/23 21:45 Sodium 138 Potassium 3.9 Chloride 108 Carbon Dioxide 23 BUN 17 H Creatinine 0.67 Calcium 9.5 Liver Function 03/10/23 Range/Units 21:45 Total Bilirubin 0.6 (0.0-1.0) mg/dL Direct Bilirubin 0.2 (0.0-0.5) mg/dL AST 11 (5-31) U/L ALT 12 (0-31) U/L Alkaline Phosphatase 74 (39-117) U/L Albumin 4.3 (3.5-5.0) g/dL Abdomen CT scan report/results: report reviewed and image reviewed CT scan - pelvis: report reviewed and image reviewed Assessment and Plan (1) Acute appendicitis: Status: Acute (2) Obesity with body mass index (BMI) of 30.0 to 39.9: Status: Acute (3) S/P laparoscopic sleeve gastrectomy: Status: Acute (4) GERD (gastroesophageal reflux disease): Qualifiers: Esophagitis presence: esophagitis presence not specified Qualified Code(s): K21.9 - Gastro-esophageal reflux disease without esophagitis Status: Acute (5) History of postoperative nausea and vomiting: Status: Acute (6) Mild obstructive sleep apnea: Status: Acute (7) Vitamin D deficiency: Status: Acute (8) Generalized anxiety disorder: Status: Acute (9) Hypertension: Qualifiers: Hypertension type: essential hypertension Qualified Code(s): I10 - Essential (primary) hypertension Status: Acute Plan NPO, IVF Levaquin, Flagyl IV SCDs For OR today I had a long discussion with the patient regarding her presentation and options of medical management versus appendectomy. I recommended an appendectomy in reviewed the plan for a laparoscopic appendectomy, possible open appendectomy if unexpected pathology is encountered or an open operation is required. I also reviewed the inherent risks of this plan which include bleeding, need for another procedure in the event of complications like bleeding or an abscess, activity restrictions to minimize incisional hernia, possibility of unexpected pathology that may require another procedure, and the possible need for a temporary drain in the event of perforation. Patient seemed understand her options, had her questions answered and wants to proceed. Patient should be kept NPO. 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 Likely OR time, 1300 today Quality Stroke Does the patient have a stroke diagnosis?: No VTE Prior VTE?: No VTE Risk Level:: Surgical - moderate VTE Device Contraindication: N/A - Device Ordered VTE Drug Contraindication: Treatment Not Indicated Procedures Date of Service Date of Service: 03/11/23
[2023-03-11 00:36] LABS: Appearance Urine Clear; Color Urine Yellow; Glucose Urine UA Negative (Negative); Leukocyte Esterase Urine Trace (Negative); Nitrite Urine Negative (Negative); PH 5.5 (5.0-9.0); Specific Gravity - Urine 1.025 (1.005-1.025); UMIC TRIGGER UACC YES; Urine Blood Negative (Negative); Urine Ketones Negative (Negative); Urine Protein Negative (Neg-Trace)
[2023-03-11 00:38] LABS: Bacteria Urine 1+ (None Seen); Hyaline Casts Urine 0-2 /LPF (0-2); RBC Urine 0-2 /HPF (0-2); WBC Urine 0-5 /HPF (0-5)
[2023-03-11] MEDS: metroNIDAZOLE/NS 500 MG/100 ML PIGGYBACK 100 MG IV ×4 (01:59→23:25)
[2023-03-11] MEDS: ondansetron HCL 4 MG/2 ML VIAL IVPUSH ×2 (01:59→08:04)
[2023-03-11] MEDS: Lactated Ringers 1,000 ML 150 ML IVCONT (01:59)
[2023-03-11] MEDS: HYDROmorphone HCl 0.5 MG/0.5 ML SYRINGE 0.25 MG IVPUSH ×2 (02:00→08:04)
[2023-03-11] MEDS: levoFLOXacin/D5W 500 MG/100 ML PIGGYBACK 100 MG IV ×2 (03:21→21:59)
[2023-03-11 05:51] LABS: MANUAL DIFF FLAG NO
[2023-03-11 05:58] LABS: Basophils Absolute Auto 0.1 X10*3/uL (0.0-0.2); Basophils Percent Auto 0.5 % (0-2); Eosinophils Absolute Auto 0.1 X10*3/uL (0.0-0.4); Eosinophils Percent Auto 1.4 % (0-4); Hematocrit 35.4 % (37.0-47.0); Hemoglobin 11.2 g/dl (12.0-16.0); Imm Gran Abs Auto 0.03 X10*3/uL (0.00-0.03); Imm Gran Pct Auto 0.3 % (0.0-0.4); Lymphocytes Absolute Auto 2.4 X10*3/uL (1.2-4.9); Lymphocytes Percent Auto 24.7 % (20-40); Mean Corpuscular HGB Conc 31.6 g/dl (31.0-35.0); Mean Corpuscular Hemoglobin 29.9 pg (27.0-33.0); Mean Corpuscular Volume 94.7 fL (80.0-98.0); Mean Platelet Volume 11.1 fL (9.4-12.3); Monocytes Absolute Auto 1.1 X10*3/uL (0.1-1.2); Monocytes Percent Auto 10.7 % (2-11); Neutrophils Absolute Auto 6.2 x10*3/uL (2.0-8.3); Neutrophils Percent Auto 62.4 % (45-73); Platelet Count 230 X10*3/uL (160-400); Red Blood Count 3.74 X10*6/uL (4.20-5.50); Red Cell Distribution Width 12.4 % (11.0-16.0); White Blood Count 9.9 X10*3/uL (4.8-10.8)
[2023-03-11 06:18] LABS: Anion Gap 9 (12-20); Blood Urea Nitrogen 15 mg/dL (9-16); Calcium 8.6 mg/dL (8.4-10.2); Carbon Dioxide 25 mmol/L (22-29); Chloride 109 mmol/L (96-108); Creatinine Clr Calc Pharmacy 144.4; Estimated Glomerular Filt Rate > 60; Glucose Random 93 mg/dL (60-115); Potassium 3.6 mmol/L (3.3-5.1); Sodium 139 mmol/L (135-145)
--- NOTE | 2023-03-11 07:10 | P.OP_ITS ---
Operative Note Operative Note Date of Service: 03/11/23 Narrative: Preop diagnosis: [Acute appendicitis] Postop diagnosis: [] Procedure: [] Surgeon: Jorge Waters MD, [facility], [place] Assist: [Alexa Sesay RN] Anesthesia: [GET, Marcaine 0.5% plain] Estimated blood loss: [20cc] Specimen: [appendix] Intraoperative findings: [Acutely inflamed appendix densely adherent into the stephanie appendiceal fat and ileal veil] Indications: [The patient is a 37-year-old woman with morbid obesity, anxiety disorder, migraine, sleep apnea, hypertension and is status post sleeve gastrectomy Aug, 2021. She presented with abdominal pain since Saturday and is noted to have a leukocytosis and CT consistent with acute appendicitis which may have a contained perforation. Options including medical management with IV antibiotics verses operative resection via laparoscopic or open incision was di scussed at length and the patient's questions seemed to be satisfactorily answered. She wanted to proceed with a laparoscopic, possible open appendectomy. The risks we discussed include, but are not limited to: Bleeding, infection, need for an open operation, the possibility of encountering unexpected pathology that may change the operative plan, complications such as bleeding or abscess that could require another procedure, activity restrictions for a month due to minimizing postoperative incisional hernia was also discussed. Patient seemed to have her questions satisfactorily answered and wanted to proceed.] Procedure: [The patient was identified in the preoperative holding area and again in the operating room. An appropriate time-out was performed. 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 Sequential compression stockings were placed. The patient was induced in general endotracheal anesthesia administered with excellent effect. The abdomen was widely prepped and draped in the usual manner for surgery. Preemptive local was used at all trocar insertion sites. The abdomen was accessed using a Veress needle. A transverse supraumbilical incision was made, the Veress needle inserted without incident, an appropriate drop test performed and a pneumoperitoneum of 15 mmHg was obtained using carbon dioxide. Opening pressures were 6 mmHg. Next, the Veress needle was withdrawn and the abdomen was accessed through the incision with a 30 degree/5 mm laparoscoped over Optiview trocar technique without incident. In examining the bowel & mesentary deep to the Veress needle, no evidence of injury was present. The remaining trocars were placed under direct laparoscopic vision with preemptive analgesia. The patient was then positioned in Trendelenburg, banked left. The appendix was identified and tracked down to the cecum. A window was made in the mesoappendix and the mesoappendix carefully dissected using the 5 mm L igaSure [place] tip. An Endo-GIO stapler, purple load, was placed across the appendiceal base on the cecum the and fired with good hemostasis and closure. The specimen was placed in an Endo-Catch bag and delivered through the 12 mm port in the left lower quadrant. Operative field was irrigated and inspected for hemostasis which was good. Patient was returned to neutral position, the abdomen deflated and the trocars removed. 12 mm fascia was closed with 0- Polysorb and skin closed with 4-0 Monocryl subcuticular sutures. The abdomen was washed and dried, Mastisol and Steri-Strips applied followed by Band-Aids. Patient tolerated the procedure well and was sent to the recovery in stable condition. All sponge instrument counts were correct. At the patient's request, I called her mother at [phone] to explan the operation and post-op plan to keep her overnight given the angry, friable tissue. Her parents' questions seemed to be satisfactorily answered.]
--- NOTE | 2023-03-11 07:45 | PHA.MEDREC ---
Pharmacy Consult ? Medication Reconciliation Pharmacy has completed the medication reconciliation. Pharmacy reviewed med rec done by nursing staff.
[2023-03-11] MEDS: Butalb/Acetamin/Caff 50/325/40 TABLET 1 TAB PO (08:04)
--- NOTE | 2023-03-11 08:13 | PC.NURSE ---
pt is alert and oriented, skin pwd, respirations even and unlabored, pt reports having abd pain and nausea, pain at 9/10, also having a headache 9/10, abd soft but tender, bowel sounds in all 4 quadrants
--- NOTE | 2023-03-11 09:20 | PC.NURSE ---
pt reports feeling a little better pain at 7/10 report given to med/oral surgery technician
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
[2023-03-11] MEDS: Scopolamine 1.5 MG PATCH.TD.3 TRANSDERMA (11:55)
--- NOTE | 2023-03-11 14:14 | PC.NURSE ---
Pt to unit approximately 0945. A/O x4. Comfortable at this time. Awaiting surgical procedure. 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
[2023-03-11] MEDS: Lactated Ringers 1,000 ML 125 ML IVCONT (16:18)
[2023-03-11] MEDS: Simethicone 80 MG TAB.CHEW PO (20:06)
[2023-03-11] MEDS: Acetaminophen 325 MG TABLET 975 MG PO (23:26)
[2023-03-12] MEDS: Lactated Ringers 1,000 ML 125 ML IVCONT (03:07)
[2023-03-12 03:18] VITALS: BP 136/70; PULSE 73; RESP 18; TEMP 36.4; O2SAT 99
[2023-03-12 05:30] LABS: MANUAL DIFF FLAG NO
[2023-03-12 05:34] LABS: Basophils Percent Auto 0.2 % (0-2); Eosinophils Percent Auto 0.1 % (0-4); Hematocrit 31.8 % (37.0-47.0); Hemoglobin 10.3 g/dl (12.0-16.0); Imm Gran Abs Auto 0.03 X10*3/uL (0.00-0.03); Imm Gran Pct Auto 0.3 % (0.0-0.4); Lymphocytes Absolute Auto 1.9 X10*3/uL (1.2-4.9); Lymphocytes Percent Auto 16.6 % (20-40); Mean Corpuscular HGB Conc 32.4 g/dl (31.0-35.0); Mean Corpuscular Hemoglobin 29.8 pg (27.0-33.0); Mean Corpuscular Volume 91.9 fL (80.0-98.0); Mean Platelet Volume 10.3 fL (9.4-12.3); Monocytes Absolute Auto 1.1 X10*3/uL (0.1-1.2); Monocytes Percent Auto 9.9 % (2-11); Neutrophils Absolute Auto 8.2 x10*3/uL (2.0-8.3); Neutrophils Percent Auto 72.9 % (45-73); Platelet Count 240 X10*3/uL (160-400); Red Blood Count 3.46 X10*6/uL (4.20-5.50); Red Cell Distribution Width 12.3 % (11.0-16.0); White Blood Count 11.2 X10*3/uL (4.8-10.8)
[2023-03-12 05:49] LABS: Anion Gap 12 (12-20); Blood Urea Nitrogen 8 mg/dL (9-16); Calcium 8.9 mg/dL (8.4-10.2); Carbon Dioxide 23 mmol/L (22-29); Chloride 110 mmol/L (96-108); Creatinine Clr Calc Pharmacy 152.9; Estimated Glomerular Filt Rate > 60; Glucose Random 107 mg/dL (60-115); Potassium 4.3 mmol/L (3.3-5.1); Sodium 141 mmol/L (135-145)
[2023-03-12 06:53] VITALS: BP 135/87; PULSE 77; RESP 18; TEMP 36.6; O2SAT 99
--- NOTE | 2023-03-12 07:45 | PM.PNGS ---
Subjective Subjective Date of Service: 03/12/23 Patient reports: no new complaints and feels better Interval history: The patient is sitting out of bed in a chair on her computer. She is in good spirits, tolerated clear liquids. She notes that the presenting pain in her right lower quadrant has resolved but she reports incisional pain, particularly in the left lower quadrant. She otherwise denies any new complaints such as chest pain, difficulty breathing or shortness of breath. Physical Exam Vital Signs: Vital Signs: Last Vital Signs Temp 98 F 03/12/23 06:53 Pulse 77 03/12/23 06:53 Resp 18 03/12/23 06:53 BP 135/87 03/12/23 06:53 Pulse Ox 99 03/12/23 06:53 O2 Del Method Room Air 03/12/23 06:53 O2 Flow Rate 6 03/11/23 14:35 BMI result Body Mass Index 36.6 On exam she is nontoxic She is having no respiratory difficulty There is no bruising around her incisions. The Band-Aids are intact and dry. Objective Data Active Medications Acetaminophen (Acetaminophen 325 Mg Tablet) 975 mg PO Q6H PRN PRN Reason: Pain, Mild (Pain Scale 1-3) Last Admin: 03/11/23 23:26 Dose: 975 mg Documented By: ROBERTO Acetaminophen/Butalbital/Caffeine (Butalb/Acetamin/Caff 50/325/40 Tablet) 1 tab PO Q4H PRN PRN Reason: Migraine Headache Last Admin: 03/11/23 08:04 Dose: 1 tab Documented By: DEIRDRE Fentanyl (Fentanyl Citrate/Pf 100 Mcg/2 Ml Vial) 50 mcg IVPUSH Q5M PRN; Protocol PRN Reason: Pain, Severe (Pain Scale 7-10) Hydromorphone HCl (Hydromorphone Hcl 0.5 Mg/0.5 Ml Syringe) 0.25 mg IVPUSH Q2H PRN; Protocol PRN Reason: Pain, Moderate(Pain Scale 4-6) Last Admin: 03/11/23 08:04 Dose: 0.25 mg Documented By: DEIRDRE Lactated Ringer's (Lr) 1,000 mls @ 125 mls/hr IVCONT .Q8H [facility]LES Last Admin: 03/12/23 03:07 Dose: 125 mls/hr Documented By: ROBERTO Metronidazole (Flagyl) 500 mg in 100 mls @ 100 mls/hr IV Q8H [facility] Last Infusion: 03/12/23 00:25 Dose: Infused Documented By: ROBERTO Levofloxacin (Levaquin) 500 mg in 100 mls @ 100 mls/hr IV Q24H [facility] Last Infusion: 03/11/23 23:22 Dose: Infused Documented By: ROBERTO Ondansetron HCl (Ondansetron Hcl 4 Mg/2 Ml Vial) 4 mg IVPUSH Q6H PRN PRN Reason: Nausea and Vomiting Last Admin: 03/11/23 08:04 Dose: 4 mg Documented By: DEIRDRE Ondansetron HCl (Ondansetron Hcl 4 Mg/2 Ml Vial) 4 mg IVPUSH ONCE PRN PRN Reason: Nausea and Vomiting Simethicone (Simethicone 80 Mg Tab.Chew) 80 mg PO QIDWMHS PRN PRN Reason: Gas Last Admin: 03/11/23 20:06 Dose: 80 mg Documented By: PERFECTO Labs 03/12/23 05:25 03/12/23 05:25 Labs: Laboratory Results - last 24 hr 03/12/23 05:25 MCV 91.9 MCH 29.8 MCHC 32.4 RDW 12.3 Plt Count 240 MPV 10.3 Immature Gran % (Auto) 0.3 Neut % (Auto) 72.9 Lymph % (Auto) 16.6 L Beckham % (Auto) 9.9 Eos % (Auto) 0.1 Baso % (Auto) 0.2 Lymph # (Auto) 1.9 Beckham # (Auto) 1.1 Eos # (Auto) 0.0 Baso # (Auto) 0.0 Abs Immat Gran (auto) 0.03 Absolute Neuts (auto) 8.2 Absolute Nucleated RBC 0.000 Nucleated RBC % (auto) 0.0 Anion Gap 12 Estim Creat Clear Calc 152.9 Estimated GFR > 60 Random Glucose 107 Calcium 8.9 Procedures Date of Service Date of Service: 03/12/23 Progress Note: A&P Assessment and plan (1) Acute appendicitis: Status: Acute (2) Obesity with body mass index (BMI) of 30.0 to 39.9: Status: Acute (3) History of postoperative nausea and vomiting: Status: Acute Plan Instructions including resuming her postoperative bariatric diet with celebrate 4 in 1 shakes, importance of hydration, activity restrictions and bowel regime were all reviewed & questions answered. Prescriptions were sent to her pharmacy. Follow up with me next week, sooner if she has problems. Instructions regarding her questions for school and work is seemed to be satisfactorily addressed. Patient will obtain notes from my office as needed. Time Spent With Patient Time: Total time managing care of this patient today ____ minutes. Quality Stroke Does the patient have a stroke diagnosis?: No VTE Prior VTE?: No VTE Risk Level:: Surgical - moderate VTE Device Contraindication: N/A - Device Ordered VTE Drug Contraindication: Treatment Not Indicated
--- NOTE | 2023-03-12 07:48 | P.DS_ITS ---
DS: Providers Provider Date of Service: 03/12/23 Date of admission: 03/11/23 00:05 Primary care physician: Sarmad Rincon MD Consults: 03/11/23 00:00 Consult to General Surgery Stat Consulting Provider: [facility] [place] General Surgeons Reason for consultation: acute appendicitis Has provider been notified: Yes DS: Diagnosis Discharge Diagnosis (1) Acute appendicitis: Status: Acute (2) Obesity with body mass index (BMI) of 30.0 to 39.9: Status: Acute (3) History of postoperative nausea and vomiting: Status: Acute DS: Summary Hospital Course Hospital Course: See admitting H and P for full details. 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 She was admitted, hydrated and placed on antibiotics. At the time of her laparoscopic appendectomy, her appendix was not grossly perforated but extremely densely socked in to the surrounding fatty tissue consistent with localized contained perforation. No gross purulence was obtained no cultures were taken. Postoperatively the patient had tolerated a clear liquid diet, had improvement of her pain and met discharge criteria on postop day 1. Overall condition at time discharge improved Time Attestation Discharge coordination time: Less than 30 minutes Quality: Safe Use of Opioids Does Pt have an Active Cancer Diagnosis on the Problem List?: No Quality: Stroke Does the patient have a stroke diagnosis?: No Physical Exam Vital Signs: Vital Signs: Last Vital Signs Temp 98 F 03/12/23 06:53 Pulse 77 03/12/23 06:53 Resp 18 03/12/23 06:53 BP 135/87 03/12/23 06:53 Pulse Ox 99 03/12/23 06:53 O2 Del Method Room Air 03/12/23 06:53 O2 Flow Rate 6 03/11/23 14:35 BMI result Body Mass Index 36.6 DS: Data Data Completed and Pending Completed studies during hospitalization [Text1]: Procedures Excision of Stomach, Percutaneous Endoscopic Approach, Vertical (09/15/21) Release Peritoneum, Percutaneous Endoscopic Approach (09/15/21) Repair Diaphragm, Percutaneous Endoscopic Approach (09/15/21) Pending studies at discharge: Pending at discharge 03/11/23 13:48 Surgical [PTH] Routine Labs on day of discharge: Laboratory Results - last 24 hr 03/12/23 05:25 WBC 11.2 H RBC 3.46 L Hgb 10.3 L Hct 31.8 L MCV 91.9 MCH 29.8 MCHC 32.4 RDW 12.3 Plt Count 240 MPV 10.3 Immature Gran % (Auto) 0.3 Neut % (Auto) 72.9 Lymph % (Auto) 16.6 L Armstrong % (Auto) 9.9 Eos % (Auto) 0.1 Baso % (Auto) 0.2 Lymph # (Auto) 1.9 Armstrong # (Auto) 1.1 Eos # (Auto) 0.0 Baso # (Auto) 0.0 Abs Immat Gran (auto) 0.03 Absolute Neuts (auto) 8.2 Absolute Nucleated RBC 0.000 Nucleated RBC % (auto) 0.0 Sodium 141 Potassium 4.3 Chloride 110 H Carbon Dioxide 23 Anion Gap 12 BUN 8 L Creatinine 0.68 Estim Creat Clear Calc 152.9 Estimated GFR > 60 Random Glucose 107 Calcium 8.9 Discharge Plan Discharge Anticipated Discharge Date/Time: 03/12/23 12:39 Patient Disposition: Home, Self-Care Discharge Diagnosis: acute appendicitis, s/p lap appy Referrals: Physician,Unknown J [Physician] - 1 Week Jorge Waters MD, CHARLENE, ARJUN [Physician] - 1 Week Discharge Medications: New levofloxacin 500 mg tablet 500 mg PO DAILY 5 Days Qty: 5 0RF oxycodone 5 mg tablet 5 mg PO Q4H PRN (Reason: pain) Qty: 14 0RF Rx Instructions: Partial Fill upon patient request. metronidazole 500 mg tablet 500 mg PO TID Qty: 14 0RF Continued clotrimazole 1 % cream 1 appl topical BID Qty: 45 3RF cetirizine 10 mg tablet 10 mg PO DAILY Qty: 90 3RF sennosides [Senna Laxative] 8.6 mg tablet 8.6 mg PO DAILY Qty: 90 3RF docusate sodium 100 mg capsule 100 mg PO DAILY Qty: 90 1RF sumatriptan succinate [Imitrex] 50 mg tablet 50 mg PO Q2H PRN (Reason: migraine headache) Qty: 10 12RF Rx Instructions: do not exceed 2 doses per 24 hrs Saxenda 3 mg/0.5 mL (18 mg/3 mL) pen injector See Rx Instructions subcut .COMPLEX Qty: 15 1RF Rx Instructions: inject subcutaneously once daily: week 1 = 0.6 mg; week 2 = 1.2 mg; week 3 = 1.8 mg; week 4 = 2.4 mg; then 3 mg daily subcut Nexplanon 68 mg implant 1 implant subdermal ONCE bupropion HCl [Wellbutrin SR] 100 mg tablet sustained-release 12 hr 100 mg PO BEDTIME Qty: 30 3RF polyethylene glycol 3350 [Miralax] 17 gram powder in packet 17 g PO DAILY amitriptyline 10 mg tablet 10 mg PO BEDTIME Qty: 30 0RF Diet: Advance to usual diet Activity on Discharge: No heavy lifting Stand Alone Forms: Patient Portal Discharge page Activity Restrictions/Additional Instructions: You had a laparoscopic appendectomy performed by Dr. Waters. It is normal to feel some minor abdominal discomfort due to the gas from the operation, however if you develop severe pain in your abdomen or chest, fevers over 100F, vomiting and are unable to keep liquids down, you should contact Dr. Waters or report to the nearest emergency department. If your incisions become red, swollen and tender, draining pus or have problems, please contact Dr. Waters report to the nearest emergency department. If you have bandages on your incisions, leave them in place for 48 hours, then remove them. You can shower but not soak in a tub after removing the bandages. If there are paper tapes known as butterflies/Steri-Strips, leave them fall off on their own in 1-2 weeks. You do not need to put another bandage on your incision s unless your clothing rubs and irritates your incisions. You can shower after you removed your bandages in 48 hours, but do not soak in a tub, go in a pool, or go swimming in a osei pond or ocean. Please let the paper tapes to dry after getting them wet. You do not need to replace a bandage on lesser clothing irritates the incision. You may find that pants with an elastic waist like gym cloths or suspenders are more comfortable than pants requiring a belt until your incisions completely heal. Because of the operation, you should not lift more than 20 lb for the next 4 weeks. Any strenuous activity such as lifting more than 20 lb, digging, yoga, any athletic activity, like running, soccer, or other strenuous activity, lifting heavy bags/groceries, swimming, martial arts, or other strenuous athletic activities can cause hernias. If you have any questions regarding a specific activity, please ask Dr. Waters. Avoiding strenuous activities will minimize the risk of incisional hernias. At your 1 week post-op office visit, Dr. Waters will discuss returning to work on light duty with you. Since you can perform light duty, you are not disabled, but your employer may not allow you to return until you have no restrictions; it is up to you to discuss this issue, as we cannot disclose personal information. Please bring any paperwork to that follow-up appointment from your employer. Please note that you are not disabled and need to discuss your work restrictions for medical reasons with your employer. If you do not have a follow-up post-op visit, call [phone] to schedule one, or call with questions. If you were prescribed an antibiotic, continue taking the medication as prescribed. The anesthesia from the operation and pain medicine will cause constipation. Yo u can purchase [id number] stool softener known as Colace/docusate, 100 mg and take 2 tablets in the morning with breakfast and 2 tablets in the evening after dinner to minimize this problem. Even if you are not taking narcotics, the anesthesia can cause constipation. Unless you have a medical reason, you should take [id number] Tylenol/acetaminophen every 6 hours to help with pain. Add the narcotic pain medicine if you are still having pain. Ice packs are also allowed to minimize pain and swelling. You should eat a high-protein, high-fiber, low-fat diet to optimize healing. Pl ease resume any preoperative medications unless otherwise directed by Dr. Waters. Please contact your primary care provider for a follow-up appointment in 2 weeks. Care Plan Goals: Allow adequate postoperative healing Health Concerns: Allow adequate postoperative healing; follow-up bariatric surgery office as previously scheduled Plan of Treatment: High-protein diet/low-carbohydrate diet Assessment: acute appendicitis, s/p lap appy
[2023-03-12] MEDS: Acetaminophen 325 MG TABLET 975 MG PO (08:39)
--- NOTE | 2023-03-12 09:05 | MHC.CM.PN ---
pt dcd home no services
--- NOTE | 2023-03-12 09:40 | PC.NURSE ---
Pt. with hx of Gastric sleeve, discharged home to follow bariatric diet.
--- NOTE | 2023-03-12 12:53 | HO.POSTANES ---
Post Anesthesia Evaluation Post Anesthesia Evaluation Date of Service: 03/12/23 Vital Signs: Vital Signs Temp Pulse Resp BP Pulse Ox O2 Del Method 03/12/23 06:53 98 F 77 18 135/87 99 Room Air 03/12/23 03:18 97.5 F 73 18 136/70 99 Room Air Anesthesia: General Endotracheal-GETA Mental Status: Awake Pain Control: Satisfactory Nausea/Vomiting: None Hydration: Adequate Anesthesia-Related Issues: No Anes. Related Issues
== END 2023-03-12 09:45 | disposition home or self-care (01) | DRG 234 ==
LOC: HO.ED 03-11 → HO.EDOVER 03-11 00:07 → HO.S3 03-11 08:46
PROVIDERS: Admitting Provider Surgery; Emergency Provider Emergency Medicine; PCP Internal Medicine; Visit Provider Surgery
PROC: 0DTJ4ZZ Resection of Appendix, Percutaneous Endoscopic Approach (ICD-10-PCS; CPT 44970; principal; 2023-03-11 12:20)
DX: K35.80 Unspecified acute appendicitis (principal); E55.9 Vitamin D deficiency, unspecified; K21.9 Gastro-esophageal reflux disease without esophagitis; E66.01 Morbid (severe) obesity due to excess calories; F41.1 Generalized anxiety disorder; G47.33 Obstructive sleep apnea (adult) (pediatric); Z98.84 Bariatric surgery status; Z79.899 Other long term (current) drug therapy
CPT/HCPCS: 36415; 74176; 80048; 80053; 81001; 82248; 83690; 84702; 85025; 88304; 99285; C1713; J0665; J1100; J1170; J1836; J1956; J2250; J2405; J2704; J3010; J7120

== ENCOUNTER → 2023-03-11 00:05 | Outpatient (BNV) | payer OTHER, SELFPAY | PROVIDERS: Admitting Provider Surgery; Emergency Provider Emergency Medicine; Visit Provider Surgery | DX: K35.80 Unspecified acute appendicitis (principal); E66.9 Obesity, unspecified; Z87.898 Personal history of other specified conditions | CPT/HCPCS: 44970; 99024; 99222 ==

== ENCOUNTER 2023-03-13 08:22 | Outpatient (AMB) | payer OTHER, SELFPAY ==
[2023-03-13 08:28] VITALS: BP 139/65; PULSE 61; TEMP 36.2; O2SAT 99
--- NOTE | 2023-03-13 08:28 | A.OFFVIS_ITS ---
Intake Vital Signs 03/13/23 08:28 Height 5 ft 9 in BP 139/65 Blood Pressure Location Rt brachial Position Sitting Pulse 61 Pulse Source Pulse Oximeter Temp 97.1 F Temp Source Tympanic Pulse Oximetry (%) 99 Oxygen Delivery Method Room Air Intake Visit Reasons: post op appendectomy 03/11 Allergies morphine [MORPHINE] Allergy (Severe, Verified 03/13/23 08:31) Anaphylaxis amoxicillin [AMOXICILLIN] Allergy (Intermediate, Verified 03/13/23 08:31) RASH, hives cephalexin Allergy (Intermediate, Verified 03/13/23 08:31) hives clindamycin [CLINDAMYCIN] Allergy (Intermediate, Verified 03/13/23 08:31) RASH Penicillins Allergy (Intermediate, Verified 03/13/23 08:31) hives/rash citalopram Adverse Reaction (Intermediate, Verified 03/13/23 08:31) Nausea HPI HPI Comments History of Present Illness Details The patient is a 37-year-old woman who is status post laparoscopic sleeve gastrectomy 08/2021 for obesity who developed acute appendicitis and underwent a laparoscopic appendectomy on 03/11/2023. Intraoperatively, there was no gross pus, but there was evidence of contained perforation due to adhesions to the surrounding mesoappendix and abdominal fat. Patient tolerated her diet of clear liquids and protein shakes and was discharged. Patient contacted the PA earlier today noting that she woke up at 05:00 today having crampy abdominal pain and vomiting. She does not recall when her last flatus or bowel movement occurred. She was directed to come to the office and is retching vomiting in a bag and was sent to the emergency room via wheelchair. Communication with the charge nurse occurred and I will evaluate the patient later in the ER and I have requested labs and hydration begin. [facility], [facility] Medical History (Updated 03/11/23 @ 00:20 by Jorge Waters MD, FACS, FASS) Nausea Fatigue Allergic dermatitis Upper respiratory infection, acute History of postoperative nausea and vomiting COVID-19 vaccine series completed Left flank pain Recurrent nephrolithiasis Generalized anxiety disorder COVID-19 virus infection Renal calculus, bilateral Hematochezia Sinusitis, acute frontal Allergic rhinitis Sinus congestion Nasal congestion Degenerative joint disease Morbid obesity Bilateral hand numbness Witnessed apneic spells Annual physical exam Chronic back pain Menorrhagia History of MRSA infection Migraine Asthma Hypertension Irritable bowel syndrome Obesity Renal calculus Left ovarian cyst Encounter for laboratory testing for COVID-19 virus COVID-19 Surgical History (Updated 03/12/23 @ 13:33 by Lisa Georges CMA) History of laparoscopic appendectomy S/P laparoscopic sleeve gastrectomy History of endoscopy History of colonoscopy History of lithotripsy History of bladder surgery History of tonsillectomy Family History Father Diabetes Substance abuse CVD (cardiovascular disease) Hypertension Hypercholesteremia Mother Diabetes Depression with anxiety CVD (cardiovascular disease) Hypertension Myocardial infarct Substance abuse Maternal Grandmother Diabetes Maternal Grandfather Diabetes Kidney failure, acute Social History Household Members: Spouse Housing: Apartment Are you a primary patient care coordinator to a significant other at home: No Do you presently have visiting nurse or other home services: No Alcohol intake: never Patient Tobacco Use Status: Never used Tobacco e-Cigarette/Vaping Use: Never Used Second Hand Smoke Exposure: No Advance Directives Date on File: 09/18/21 service: No Current occupational status: employed Current occupational exposures/hazards: No Cognitive needs: No Hearing needs: No Vision needs: No Physical Exam Vital Signs: Last Vital Signs Temp 97.1 F 03/13/23 08:28 Pulse 61 03/13/23 08:28 BP 139/65 03/13/23 08:28 Pulse Ox 99 03/13/23 08:28 Oxygen Delivery Method Room Air 03/13/23 08:28 Patient appears nauseated and is retching and vomiting into an emesis bag. She is speaking in full sentences and having no respiratory difficulty Given her ongoing nausea, her abdominal incisions will be examined in the emergency depart Assessment & Plan Assessment & Plan (1) History of postoperative nausea and vomiting: Comment: NEEDS SCOPOLAMINE PATCH PRE-OP Code(s): Z87.898 - Personal history of other specified conditions (2) Acute appendicitis: Code(s): K35.80 - Unspecified acute appendicitis (3) Obesity with body mass index (BMI) of 30.0 to 39.9: Code(s): E66.9 - Obesity, unspecified Plan Patient is being transported by wheelchair to the emergency room. In communication with the charge nurse I have requested an IV, IV fluid, labs be drawn and I will assess the patient. CT of the abdomen and pelvis will likely be confusing and may show free air as well as free fluid, consequently, in the setting of possible ileus and known postoperative nausea and vomiting, will clinically evaluate after labs are obtained before obtaining CT and recommend starting with standard abdominal x-rays. Coding Level of Care Code Global (77734) Diagnoses History of postoperative nausea and vomiting Z87.898 Acute appendicitis K35.80 Obesity with body mass index (BMI) of 30.0 to 39.9 E66.9
== END 2023-03-13 08:41 | disposition home or self-care (01) ==
PROVIDERS: PCP Internal Medicine; Visit Provider Surgery
DX: Z87.898 Personal history of other specified conditions (principal); K35.80 Unspecified acute appendicitis; E66.9 Obesity, unspecified
CPT/HCPCS: 99024

== ENCOUNTER → 2023-03-13 08:22 | Outpatient (BNVA) | payer OTHER, SELFPAY | PROVIDERS: PCP Internal Medicine; Visit Provider Surgery ==

== ENCOUNTER 2023-03-13 08:38 | Inpatient (IN) | payer OTHER, SELFPAY ==
[2023-03-13] VITALS (7 sets, daily range): BP systolic 128–144; BP diastolic 68–81; PULSE 57–79; RESP 16–20; TEMP 36–36.9; O2SAT 98–100; BMI 37.2
--- NOTE | ~2023-03-13 | XR_ITS ---
EXAMINATION: XR ABDOMEN KUB CLINICAL INDICATION: Vomiting after recent appendectomy. COMPARISON: 03/10/2023 CT abdomen TECHNIQUE: AP view of the abdomen. FINDINGS: Bowel gas pattern normal. No bowel obstruction or free air or mass effect. Surgical clips are observed in the left upper quadrant. XR/XR KUB IMPRESSION: No evidence for bowel obstruction.
--- NOTE | 2023-03-13 09:08 | ED.NAVMDI ---
HPI - Nausea/Vomiting/Diarrhea General Chief complaint: Nausea/Vomiting/Diarrhea Stated complaint: Vomiting Time Seen by Provider: 03/13/23 08:43 History of Present Illness HPI Narrative: Patient is a 37-year-old female status post gastric sleeve surgery history of having abdominal pain was evaluated for appendicitis operated on Saturday night. Discharge yesterday morning presented today with having abdominal pain nausea vomiting generalized malaise. Patient from home. The abdominal pain is diffuse. Worse over the lower abdomen. Related Data Home Medications Medication Instructions Recorded Confirmed etonogestrel 68 mg subdermal 1 implant subdermal ONCE 03/17/20 03/11/23 implant (Nexplanon) Previous Rx's Medication Instructions Recorded clotrimazole 1 % topical cream 1 appl topical BID #45 grams 09/26/22 cetirizine 10 mg tablet 10 mg PO DAILY #90 tabs 10/17/22 sennosides 8.6 mg tablet (Senna 8.6 mg PO DAILY #90 tabs 10/18/22 Laxative) docusate sodium 100 mg capsule 100 mg PO DAILY #90 caps 12/12/22 bupropion HCl 100 mg tablet,12 hr 100 mg PO BEDTIME #30 tabs 01/16/23 sustained-release (Wellbutrin SR) sumatriptan succinate 50 mg tablet 50 mg PO Q2H PRN migraine headache 02/11/23 (Imitrex) #10 tabs amitriptyline 10 mg tablet 10 mg PO BEDTIME #30 tabs 03/01/23 liraglutide (weight loss) 3 mg/0.5 See Rx Instructions subcut 03/04/23 mL (18 mg/3 mL) subcut pen .COMPLEX #15 mL injector (Saxenda) levofloxacin 500 mg tablet 500 mg PO DAILY 5 days #5 tabs 03/12/23 metronidazole 500 mg tablet 500 mg PO TID #14 tabs 03/12/23 oxycodone 5 mg tablet 5 mg PO Q4H PRN pain #14 tabs 03/12/23 polyethylene glycol 3350 17 gram 17 g PO DAILY #100 ea 03/12/23 oral powder packet (Miralax) polyethylene glycol 3350 17 gram 17 g PO DAILY #30 ea 03/12/23 oral powder packet (Miralax) Allergies Allergy/AdvReac Type Severity Reaction Status Date / Time morphine [MORPHINE] Allergy Severe Anaphylaxis Verified 03/13/23 08:31 amoxicillin [AMOXICILLIN] Allergy Intermediate RASH, hives Verified 03/13/23 08:31 cephalexin Allergy Intermediate hives Verified 03/13/23 08:31 clindamycin [CLINDAMYCIN] Allergy Intermediate RASH Verified 03/13/23 08:31 Penicillins Allergy Intermediate hives/rash Verified 03/13/23 08:31 citalopram AdvReac Intermediate Nausea Verified 03/13/23 08:31 Review of Systems Review of Systems: Positive abdominal pain PMFSH Past Medical History Attestation statement: The following information was validated with the patient. Medical History (Updated 03/13/23 @ 11:52 by Maude Chung MD) Nausea Fatigue Allergic dermatitis Upper respiratory infection, acute History of postoperative nausea and vomiting COVID-19 vaccine series completed Left flank pain Recurrent nephrolithiasis Generalized anxiety disorder COVID-19 virus infection Renal calculus, bilateral Hematochezia Sinusitis, acute frontal Allergic rhinitis Sinus congestion Nasal congestion Degenerative joint disease Morbid obesity Bilateral hand numbness Witnessed apneic spells Annual physical exam Chronic back pain Menorrhagia History of MRSA infection Migraine Asthma Hypertension Irritable bowel syndrome Obesity Renal calculus Left ovarian cyst Encounter for laboratory testing for COVID-19 virus COVID-19 Surgical History History of laparoscopic appendectomy S/P laparoscopic sleeve gastrectomy History of endoscopy History of colonoscopy History of lithotripsy History of bladder surgery History of tonsillectomy Family History Family History Father Diabetes Substance abuse CVD (cardiovascular disease) Hypertension Hypercholesteremia Mother Diabetes Depression with anxiety CVD (cardiovascular disease) Hypertension Myocardial infarct Substance abuse Maternal Grandmother Diabetes Maternal Grandfather Diabetes Kidney failure, acute Social History Social History Household Members: Spouse Housing: Apartment Are you a primary career based intervention coordinator to a significant other at home: No Do you presently have visiting nurse or other home services: No Alcohol intake: never Patient Tobacco Use Status: Never used Tobacco e-Cigarette/Vaping Use: Never Used Second Hand Smoke Exposure: No Advance Directives: Yes Advance Directives on File: Yes Advance Directives Date on File: 05/23/22 service: No Current occupational status: employed Current occupational exposures/hazards: No Cognitive needs: No Hearing needs: No Vision needs: No Physical Exam Vital Signs: Vital Signs: Last Vital Signs Temp 98.2 F 03/13/23 08:53 Pulse 57 03/13/23 11:02 Resp 16 03/13/23 11:02 BP 130/73 03/13/23 11:02 Pulse Ox 98 03/13/23 11:02 O2 Del Method Room Air 03/13/23 11:02 BMI result Body Mass Index 37.2 Appearance: Alert. Oriented X3. No acute distress. Eyes: Pupils equal, round and reactive to light. ENT: Pharynx normal. Neck: Normal inspection. Neck supple. No lymph nodes noted. No crepitus CVS: Normal heart rate and rhythm. Pulses normal. Normal S1 and S2 Respiratory: No respiratory distress. Breath sounds normal. No Wheezing. No rales Abdomen: Soft and nontender. No rigidity. No distention. good BS x4 Skin: Skin warm and dry. Normal skin color. Normal skin turgor. Extremities: No lower extremity edema. Neurovascular intact to all extremities. No Lacerations. No Rash Neuro: Oriented X 3. No motor deficit. No sensory deficit. Moving all extermities. No slurred speech Medications Administered Discontinued Medications Generic Name Dose Route Start Last Admin Trade Name Redq PRN Reason Stop Dose Admin Hydromorphone HCl 0.5 mg 03/13/23 09:06 03/13/23 09:27 Hydromorphone Hcl 0.5 Mg/0.5 Ml Syringe IVPUSH 03/13/23 09:07 0.5 mg ONCE ONE Administration Protocol Sodium Chloride 1,000 mls @ 999 mls/hr 03/13/23 09:15 03/13/23 11:01 Ns IV 03/13/23 10:15 Infused .Q1H1M CHARLES Infusion Ondansetron HCl 4 mg 03/13/23 09:06 03/13/23 09:26 Ondansetron Hcl 4 Mg/2 Ml Vial IVPUSH 03/13/23 09:07 4 mg ONCE ONE Administration Ondansetron HCl 4 mg 03/13/23 10:44 03/13/23 10:59 Ondansetron Hcl 4 Mg/2 Ml Vial IVPUSH 03/13/23 10:45 4 mg ONCE ONE Administration Medical Decision Making Medical Decision Making [facility] Narrative: Positive nausea vomiting status post appendectomy 3 days prior. Patient abdominal exam is soft. Labs appear normal. Surgeon came down evaluated the patient. Will admit patient for observation overnight. Currently in no distress. Zofran was given for nausea. Pain medications given additional IV fluids given. Patient feel comfortable. Will admit for further evaluation Differential Diagnosis Differential Diagnoses: The differential diagnosis associated with the presentation includes Perforation, further infection, complication from surgery, ileus, dehydration, constipation Admission/Observation Consideration of admission/observation: Escalation of care including admission/observation considered Will admit for observation Consult Healthcare Provider Management of the patient was discussed with: Transformer Assembly Supervisor (Surgery) Lab Data [facility] Lab Attestation statement: I reviewed the patient's lab results. 03/13/23 09:23 03/13/23 09:23 Labs: Lab Results 03/13/23 Range/Units 09:23 WBC 8.0 (4.8-10.8) X10*3/uL RBC 3.58 L (4.20-5.50) X10*6/uL Hgb 10.5 L (12.0-16.0) g/dl Hct 32.8 L (37.0-47.0) % MCV 91.6 (80.0-98.0) fL MCH 29.3 (27.0-33.0) pg MCHC 32.0 (31.0-35.0) g/dl RDW 12.6 (11.0-16.0) % Plt Count 267 (160-400) X10*3/uL MPV 10.5 (9.4-12.3) fL Immature Gran % (Auto) 0.3 (0.0-0.4) % Neut % (Auto) 65.3 (45-73) % Lymph % (Auto) 24.3 (20-40) % [place] % (Auto) 8.5 (2-11) % Eos % (Auto) 1.1 (0-4) % Baso % (Auto) 0.5 (0-2) % Lymph # (Auto) 1.9 (1.2-4.9) X10*3/uL [place] # (Auto) 0.7 (0.1-1.2) X10*3/uL Eos # (Auto) 0.1 (0.0-0.4) X10*3/uL Baso # (Auto) 0.0 (0.0-0.2) X10*3/uL Abs Immat Gran (auto) 0.02 (0.00-0.03) X10*3/uL Absolute Neuts (auto) 5.2 (2.0-8.3) x10*3/uL Absolute Nucleated RBC 0.000 (0.0-0.012) X10*3/uL Nucleated RBC % (auto) 0.0 (0.0-0.2) /100WBC Sodium 141 (135-145) mmol/L Potassium 4.0 (3.3-5.1) mmol/L Chloride 111 H (96-108) mmol/L Carbon Dioxide 24 (22-29) mmol/L Anion Gap 10 L (12-20) BUN 15 (9-16) mg/dL Creatinine 0.65 (0.5-1.4) mg/dL Estim Creat Clear Calc 161.3 Estimated GFR > 60 Random Glucose 98 (60-115) mg/dL Calcium 9.2 (8.4-10.2) mg/dL Total Bilirubin 0.2 (0.0-1.0) mg/dL Direct Bilirubin 0.2 (0.0-0.5) mg/dL AST 13 (5-31) U/L ALT 10 (0-31) U/L Alkaline Phosphatase 62 (39-117) U/L Total Protein 6.9 (6.5-8.0) g/dL Albumin 3.9 (3.5-5.0) g/dL Lipase 15 (8-78) U/L Beta HCG, Quant < 2 mIU/mL Independent Interpretation I performed an independent interpretation of an: Plain X-Ray (No gross abnormality noted on plain film x-ray) Radiology Impression Discussion of test interpretation with radiology: I have reviewed the radiologist's reading. External Record Review External record reviewed: Inpatient record Previous surgical record reviewed Chronic Conditions History of gastric bypass History of being overweight Discharge Plan Discharge Clinical Impression: Abdominal pain Patient Disposition: Admitted As Inpatient Prescriptions: No Action clotrimazole 1 % cream 1 appl topical BID Qty: 45 3RF cetirizine 10 mg tablet 10 mg PO DAILY Qty: 90 3RF sennosides [Senna Laxative] 8.6 mg tablet 8.6 mg PO DAILY Qty: 90 3RF docusate sodium 100 mg capsule 100 mg PO DAILY Qty: 90 1RF sumatriptan succinate [Imitrex] 50 mg tablet 50 mg PO Q2H PRN (Reason: migraine headache) Qty: 10 12RF Rx Instructions: do not exceed 2 doses per 24 hrs Saxenda 3 mg/0.5 mL (18 mg/3 mL) pen injector See Rx Instructions subcut .COMPLEX Qty: 15 1RF Rx Instructions: inject subcutaneously once daily: week 1 = 0.6 mg; week 2 = 1.2 mg; week 3 = 1.8 mg; week 4 = 2.4 mg; then 3 mg daily subcut polyethylene glycol 3350 [Miralax] 17 gram powder in packet 17 g PO DAILY Qty: 30 0RF polyethylene glycol 3350 [Miralax] 17 gram powder in packet 17 g PO DAILY Qty: 100 3RF levofloxacin 500 mg tablet 500 mg PO DAILY 5 Days Qty: 5 0RF oxycodone 5 mg tablet 5 mg PO Q4H PRN (Reason: pain) Qty: 14 0RF Rx Instructions: Partial Fill upon patient request. metronidazole 500 mg tablet 500 mg PO TID Qty: 14 0RF Nexplanon 68 mg implant 1 implant subdermal ONCE bupropion HCl [Wellbutrin SR] 100 mg tablet sustained-release 12 hr 100 mg PO BEDTIME Qty: 30 3RF amitriptyline 10 mg tablet 10 mg PO BEDTIME Qty: 30 0RF
[2023-03-13] MEDS: 0.9 % Sodium Chloride 1,000 ML 999 ML IV (09:21)
[2023-03-13] MEDS: ondansetron HCL 4 MG/2 ML VIAL IVPUSH ×3 (09:26→15:01)
[2023-03-13] MEDS: HYDROmorphone HCl 0.5 MG/0.5 ML SYRINGE IVPUSH (09:27)
[2023-03-13 09:29] LABS: MANUAL DIFF FLAG NO
[2023-03-13 09:30] LABS: Basophils Percent Auto 0.5 % (0-2); Eosinophils Absolute Auto 0.1 X10*3/uL (0.0-0.4); Eosinophils Percent Auto 1.1 % (0-4); Hematocrit 32.8 % (37.0-47.0); Hemoglobin 10.5 g/dl (12.0-16.0); Imm Gran Abs Auto 0.02 X10*3/uL (0.00-0.03); Imm Gran Pct Auto 0.3 % (0.0-0.4); Lymphocytes Absolute Auto 1.9 X10*3/uL (1.2-4.9); Lymphocytes Percent Auto 24.3 % (20-40); Mean Corpuscular Hemoglobin 29.3 pg (27.0-33.0); Mean Corpuscular Volume 91.6 fL (80.0-98.0); Mean Platelet Volume 10.5 fL (9.4-12.3); Monocytes Absolute Auto 0.7 X10*3/uL (0.1-1.2); Monocytes Percent Auto 8.5 % (2-11); Neutrophils Absolute Auto 5.2 x10*3/uL (2.0-8.3); Neutrophils Percent Auto 65.3 % (45-73); Platelet Count 267 X10*3/uL (160-400); Red Blood Count 3.58 X10*6/uL (4.20-5.50); Red Cell Distribution Width 12.6 % (11.0-16.0)
--- NOTE | 2023-03-13 09:44 | PC.NURSE ---
pt a&o x4, pleasant, calm, and cooperative. pt audibly dry heaving/vomiting in room. pt reporting 10/10 pain to LLQ and right shoulder from recent appendectomy. 20G IV established in LAC, labs drawn, fluids hung, and pt medicated per mar. pt currently in x-ray for KUB. rr even/unlabored. pt does not appear pale or diaphoretic. call roberts within pt reach. plan of care ongoing.
[2023-03-13 09:50] LABS: Alanine Aminotransferase 10 U/L (0-31); Albumin Level 3.9 g/dL (3.5-5.0); Alkaline Phosphatase 62 U/L (39-117); Anion Gap 10 (12-20); Aspartate Amino Transferase 13 U/L (5-31); Bilirubin Direct 0.2 mg/dL (0.0-0.5); Bilirubin Total 0.2 mg/dL (0.0-1.0); Blood Urea Nitrogen 15 mg/dL (9-16); Calcium 9.2 mg/dL (8.4-10.2); Carbon Dioxide 24 mmol/L (22-29); Chloride 111 mmol/L (96-108); Creatinine Clr Calc Pharmacy 161.3; Estimated Glomerular Filt Rate > 60; Glucose Random 98 mg/dL (60-115); Lipase 15 U/L (8-78); Sodium 141 mmol/L (135-145); Total Protein 6.9 g/dL (6.5-8.0)
[2023-03-13 10:02] LABS: HCG Quantitative < 2 mIU/mL
--- NOTE | 2023-03-13 10:25 | PM.HPGS ---
History of Present Illness History of Present Illness Date of Service: 03/13/23 Chief complaint: Vomiting Narrative: Leigh Pabon is a 37-year-old woman who is status post laparoscopic sleeve gastrectomy 08/2021 for obesity who developed acute appendicitis and underwent a laparoscopic appendectomy on 03/11/2023. Intraoperatively, there was no gross pus, but there was evidence of contained perforation due to adhesions to the surrounding mesoappendix and abdominal fat. Patient tolerated her diet of clear liquids and protein shakes and was discharged. Patient contacted the PA earlier today noting that she woke up at 05:00 today having crampy abdominal pain and vomiting. She does not recall when her last flatus or bowel movement occurred. She was directed to come to the office and is retching vomiting in a bag and was sent to the emergency room via wheelchair. Communication with the charge nurse occurred and I will evaluate the patient later in the ER and I have requested labs and hydration begin. The patient was examined in ER [facility] and reports her nausea and vomiting has settled down since getting Zofran. She reports some vague abdominal achiness but denies any severe abdominal pain. Review of Systems Review of Systems: Yes all other systems are reviewed and are negative Constitutional: Constitutional: Reports as per [facility] Past Medical History Medical History (Updated 03/13/23 @ 11:52 by Maude Chung MD) Nausea Fatigue Allergic dermatitis Upper respiratory infection, acute History of postoperative nausea and vomiting COVID-19 vaccine series completed Left flank pain Recurrent nephrolithiasis Generalized anxiety disorder COVID-19 virus infection Renal calculus, bilateral Hematochezia Sinusitis, acute frontal Allergic rhinitis Sinus congestion Nasal congestion Degenerative joint disease Morbid obesity Bilateral hand numbness Witnessed apneic spells Annual physical exam Chronic back pain Menorrhagia History of MRSA infection Migraine Asthma Hypertension Irritable bowel syndrome Obesity Renal calculus Left ovarian cyst Encounter for laboratory testing for COVID-19 virus COVID-19 Family History Family History Father Diabetes Substance abuse CVD (cardiovascular disease) Hypertension Hypercholesteremia Mother Diabetes Depression with anxiety CVD (cardiovascular disease) Hypertension Myocardial infarct Substance abuse Maternal Grandmother Diabetes Maternal Grandfather Diabetes Kidney failure, acute Surgical History Surgical History History of laparoscopic appendectomy S/P laparoscopic sleeve gastrectomy History of endoscopy History of colonoscopy History of lithotripsy History of bladder surgery History of tonsillectomy Social History Social History Household Members: Spouse Housing: Apartment Are you a primary home care administrator to a significant other at home: No Do you presently have visiting nurse or other home services: No Alcohol intake: never Patient Tobacco Use Status: Never used Tobacco e-Cigarette/Vaping Use: Never Used Second Hand Smoke Exposure: No Advance Directives: Yes Advance Directives on File: Yes Advance Directives Date on File: 09/18/21 service: No Current occupational status: employed Current occupational exposures/hazards: No Cognitive needs: No Hearing needs: No Vision needs: No Meds Allergies Allergy/AdvReac Type Severity Reaction Status Date / Time morphine [MORPHINE] Allergy Severe Anaphylaxis Verified 03/13/23 08:31 amoxicillin [AMOXICILLIN] Allergy Intermediate RASH, hives Verified 03/13/23 08:31 cephalexin Allergy Intermediate hives Verified 03/13/23 08:31 clindamycin [CLINDAMYCIN] Allergy Intermediate RASH Verified 03/13/23 08:31 Penicillins Allergy Intermediate hives/rash Verified 03/13/23 08:31 citalopram AdvReac Intermediate Nausea Verified 03/13/23 08:31 Home Medications Medication Instructions Recorded Confirmed Last Taken Type etonogestrel 68 mg subdermal 1 implant subdermal ONCE 03/17/20 03/11/23 Unknown History implant (Nexplanon) Physical Exam Vital Signs: Vital Signs: Last Vital Signs Temp 98.2 F 03/13/23 08:53 Pulse 59 03/13/23 08:53 Resp 16 03/13/23 08:53 BP 128/76 03/13/23 08:53 Pulse Ox 98 03/13/23 08:53 O2 Del Method Room Air 03/13/23 08:53 BMI result Body Mass Index 37.2 The patient appears more comfortable than in the office earlier She is in no acute distress and having no respiratory difficult Abdomen is obese but soft with appropriate incisional tenderness. There is no rebound, rigidity or guarding. Expected ecchymosis are present at the trocar sites but there was no evidence of cellulitis Results Results Labs: Short CBC 03/13/23 Range/Units 09:23 WBC 8.0 (4.8-10.8) X10*3/uL Hgb 10.5 L (12.0-16.0) g/dl Hct 32.8 L (37.0-47.0) % Plt Count 267 (160-400) X10*3/uL BMP 03/13/23 09:23 Sodium 141 Potassium 4.0 Chloride 111 H Carbon Dioxide 24 BUN 15 Creatinine 0.65 Calcium 9.2 Liver Function 03/13/23 Range/Units 09:23 Total Bilirubin 0.2 (0.0-1.0) mg/dL Direct Bilirubin 0.2 (0.0-0.5) mg/dL AST 13 (5-31) U/L ALT 10 (0-31) U/L Alkaline Phosphatase 62 (39-117) U/L Albumin 3.9 (3.5-5.0) g/dL Abdominal x-ray: image reviewed Additional studies: The patient's supine abdominal x-ray show a nonspecific air gas pattern including in her small bowel and colon Assessment and Plan (1) History of postoperative nausea and vomiting: Status: Acute (2) Obesity with body mass index (BMI) of 30.0 to 39.9: Status: Acute (3) Ileus: Status: Acute Plan The patient has normal white blood cell count is reassuring that this is not an infectious complication. Her hemoglobin seems to have drifted down and it is unclear whether this is dilution or a bleed. However, the patient is not experiencing severe abdominal pain is I would expect with hemoperitoneum. Continue IV hydration and will reassess the patient afterwards. Patient may be admitted due to her history of postop nausea vomiting and x-ray consistent with ileus. Trending her CBC will also occur if she is admitted. I will reassess her this morning in about an hour 1215pm Patient is still requiring IV hydration and Zofran. Will admit for IV hydration, antiemetics and trend her ileus. Repeat labs in morning. Given the confusion from a abdominal CT which will likely demonstrate free air and fluid, will hold off unless there is a clinical or lab changed. Plan was discussed with Dr. Chung and the patient. Quality Stroke Does the patient have a stroke diagnosis?: No VTE Prior VTE?: No VTE Risk Level:: Surgical - moderate VTE Device Contraindication: N/A - Device Ordered VTE Drug Contraindication: Treatment Not Indicated Procedures Date of Service Date of Service: 03/13/23
[2023-03-13 12:12] LABS: Appearance Urine Cloudy; Color Urine Yellow; Glucose Urine UA Negative (Negative); Leukocyte Esterase Urine Moderate (2+) (Negative); Nitrite Urine Negative (Negative); PH 6.5 (5.0-9.0); Specific Gravity - Urine 1.015 (1.005-1.025); UMIC TRIGGER UACC YES; Urine Blood Negative (Negative); Urine Ketones Negative (Negative); Urine Protein Negative (Neg-Trace)
--- NOTE | 2023-03-13 12:19 | PHA.MEDREC ---
Pharmacy Consult ? Medication Reconciliation Pharmacy has completed the medication reconciliation. COMPLETED MED REC USING DISCHARGE INSTRUCTIONS FROM 5 DAYS AGO AND CLAIM HISTORY
[2023-03-13 12:22] LABS: Bacteria Urine 4+ (None Seen); Hyaline Casts Urine 0-2 /LPF (0-2); RBC Urine 0-2 /HPF (0-2); Squamous Epithelial Cell Urine >20 /HPF (0-2); UACC Culture Trigger YES
--- NOTE | 2023-03-13 12:37 | PC.NURSE ---
pt NPO and has been since arrived.
[2023-03-13] MEDS: levoFLOXacin/D5W 500 MG/100 ML PIGGYBACK 100 MG IV (12:52)
[2023-03-13] MEDS: metroNIDAZOLE/NS 500 MG/100 ML PIGGYBACK 100 MG IV (14:04)
--- NOTE | 2023-03-13 16:22 | MHC.EDTECH ---
This pct assumed care of pt at 1500 ,vitals taken ,pt belongings list done ,Pt has a bed on med Surge waiting for nurse to nurse report .
[2023-03-13] MEDS: Lactated Ringers 1,000 ML 100 ML IVCONT (16:34)
--- NOTE | 2023-03-13 17:01 | PC.NURSE ---
report given to RADHA Bahena. awaiting pt transport to inpatient room.
[2023-03-13] MEDS: Acetaminophen 325 MG TABLET 975 MG PO (20:04)
[2023-03-14 03:24] VITALS: BP 136/75; PULSE 67; RESP 18; TEMP 36.7; O2SAT 97
[2023-03-14] MEDS: Lactated Ringers 1,000 ML 100 ML IVCONT (04:22)
[2023-03-14 05:44] LABS: MANUAL DIFF FLAG NO
[2023-03-14 05:56] LABS: Basophils Percent Auto 0.5 % (0-2); Eosinophils Absolute Auto 0.2 X10*3/uL (0.0-0.4); Eosinophils Percent Auto 2.7 % (0-4); Hematocrit 31.3 % (37.0-47.0); Lymphocytes Absolute Auto 2.1 X10*3/uL (1.2-4.9); Lymphocytes Percent Auto 34.1 % (20-40); Mean Corpuscular HGB Conc 31.9 g/dl (31.0-35.0); Mean Corpuscular Hemoglobin 30.2 pg (27.0-33.0); Mean Corpuscular Volume 94.6 fL (80.0-98.0); Mean Platelet Volume 10.8 fL (9.4-12.3); Monocytes Absolute Auto 0.6 X10*3/uL (0.1-1.2); Neutrophils Absolute Auto 3.3 x10*3/uL (2.0-8.3); Neutrophils Percent Auto 53.7 % (45-73); Platelet Count 248 X10*3/uL (160-400); Red Blood Count 3.31 X10*6/uL (4.20-5.50); Red Cell Distribution Width 12.3 % (11.0-16.0); White Blood Count 6.2 X10*3/uL (4.8-10.8)
[2023-03-14 06:13] LABS: Anion Gap 10 (12-20); Blood Urea Nitrogen 8 mg/dL (9-16); Calcium 8.8 mg/dL (8.4-10.2); Carbon Dioxide 26 mmol/L (22-29); Chloride 108 mmol/L (96-108); Creatinine Clr Calc Pharmacy 163.9; Estimated Glomerular Filt Rate > 60; Glucose Random 96 mg/dL (60-115); Potassium 4.3 mmol/L (3.3-5.1); Sodium 140 mmol/L (135-145)
[2023-03-14 07:30] VITALS: BP 134/87; PULSE 68; RESP 16; TEMP 36.2; O2SAT 99
--- NOTE | 2023-03-14 08:19 | P.PNGS_ITS ---
Subjective Subjective Date of Service: 03/14/23 Patient reports: no new complaints, feels better, flatus and no bowel movement Interval history: The patient is sitting up in bed on the phone with her . She looks 100% better and notes her nausea and vomiting has resolved. She denies any abdominal pain and further denies any chest pain, difficulty breathing or shortness of breath. Physical Exam 2 Vital Signs: Vital Signs: Last Vital Signs Temp 97.1 F 03/14/23 07:30 Pulse 68 03/14/23 07:30 Resp 16 03/14/23 07:30 BP 134/87 03/14/23 07:30 Pulse Ox 99 03/14/23 07:30 O2 Del Method Room Air 03/14/23 07:30 BMI result Body Mass Index 37.2 On exam she is in good spirits No respiratory distress She is anicteric Her abdomen has appropriate incisional tenderness but no peritoneal sign Objective Data Active Medications Acetaminophen (Acetaminophen 325 Mg Tablet) 975 mg PO Q6H PRN PRN Reason: Pain, Mild (Pain Scale 1-3) Last Admin: 03/13/23 20:04 Dose: 975 mg Documented By: GLENN Lactated Ringer's (Lr) 1,000 mls @ 100 mls/hr IVCONT .Q10H CHARLES Last Admin: 03/14/23 04:22 Dose: 100 mls/hr Documented By: GLENN Ondansetron HCl (Ondansetron Hcl 4 Mg/2 Ml Vial) 4 mg IVPUSH Q6H PRN PRN Reason: Nausea and Vomiting Last Admin: 03/13/23 15:01 Dose: 4 mg Documented By: ZOHRA Ondansetron HCl (Ondansetron Hcl 4 Mg/2 Ml Vial) 4 mg IVPUSH Q4H PRN PRN Reason: Nausea Labs 03/14/23 05:28 03/14/23 05:28 Labs: Laboratory Results - last 24 hr 03/13/23 03/13/23 03/14/23 09:23 12:05 05:28 MCV 91.6 94.6 MCH 29.3 30.2 MCHC 32.0 31.9 RDW 12.6 12.3 Plt Count 267 248 MPV 10.5 10.8 Immature Gran % (Auto) 0.3 0.0 Neut % (Auto) 65.3 53.7 Lymph % (Auto) 24.3 34.1 [place] % (Auto) 8.5 9.0 Eos % (Auto) 1.1 2.7 Baso % (Auto) 0.5 0.5 Lymph # (Auto) 1.9 2.1 [place] # (Auto) 0.7 0.6 Eos # (Auto) 0.1 0.2 Baso # (Auto) 0.0 0.0 Abs Immat Gran (auto) 0.02 0.00 Absolute Neuts (auto) 5.2 3.3 Absolute Nucleated RBC 0.000 0.000 Nucleated RBC % (auto) 0.0 0.0 Anion Gap 10 L 10 L Estim Creat Clear Calc 161.3 163.9 Estimated GFR > 60 > 60 Random Glucose 98 96 Calcium 9.2 8.8 Total Bilirubin 0.2 Direct Bilirubin 0.2 AST 13 ALT 10 Alkaline Phosphatase 62 Total Protein 6.9 Albumin 3.9 Lipase 15 Beta HCG, Quant < 2 Urine Color Yellow Urine Appearance Cloudy Urine pH 6.5 Ur Specific [place] 1.015 Urine Protein Negative Urine Glucose (UA) Negative Urine Ketones Negative Urine Blood Negative Urine Nitrite Negative Ur Leukocyte Esterase Moderate (2+) H Urine RBC 0-2 Urine WBC 11-20 H Ur Squamous Epith Cells >20 Urine Bacteria 4+ Hyaline Casts 0-2 Procedures Date of Service Date of Service: 03/14/23 Progress Note: A&P Assessment and plan (1) Ileus: Status: Acute (2) History of postoperative nausea and vomiting: Status: Acute (3) Acute appendicitis: Status: Acute (4) Obesity with body mass index (BMI) of 30.0 to 39.9: Status: Acute (5) S/P laparoscopic sleeve gastrectomy: Status: Acute Plan Patient is significantly improved. Will start clears with protein supplements and reassess after lunch for possible discharge. She continues to have a normal white blood cell count and she is instructed to stop the Levaquin and Flagyl since I have not ordered them postoperatively. We also discussed her drifting hemoglobin. If she had a little bit of bleeding postoperatively, and is not having any evidence of a white count or ongoing falling to her hemoglobin and is clinically stable, my recommendation is follow- up labs on an outpatient basis assuming discharge. However, if she has return of abdominal pain and is unable to be discharged, monitoring her labs and possible CT to assess for ongoing bleeding would be in order. Patient seemed to have her questions answered and requested her participate in a conference call. His questions were answered. Time Spent With Patient Time: Total time managing care of this patient today ____ minutes. Quality Stroke Does the patient have a stroke diagnosis?: No VTE Prior VTE?: No VTE Risk Level:: Surgical - moderate VTE Device Contraindication: N/A - Device Ordered VTE Drug Contraindication: Treatment Not Indicated
--- NOTE | 2023-03-14 11:46 | MHC.CM.PN ---
Addendum entered by Martha Foy 03/14/23 12:45: Discharge order received. DP Home self care. Pts spouse will provide transport home. Original Note: Patient lives with her spouse and 4 kids. 03/11/23 Hospitalized for Lap Appy. 03/13 patient returns with a PO illeus. She is independent with all functional mobility. DP home self care. Patients spouse will provide transportation home.
--- NOTE | 2023-03-14 12:36 | PM.DS ---
DS: Providers Provider Date of Service: 03/14/23 Date of admission: 03/13/23 12:16 Primary care physician: Sarmad Rincon MD DS: Diagnosis Discharge Diagnosis (1) Ileus: Status: Acute (2) History of postoperative nausea and vomiting: Status: Acute (3) Acute appendicitis: Status: Acute (4) Obesity with body mass index (BMI) of 30.0 to 39.9: Status: Acute (5) S/P laparoscopic sleeve gastrectomy: Status: Acute DS: Summary Hospital Course Hospital Course: See admitting H and P. The patient is a 37-year-old woman who is status post laparoscopic sleeve gastrectomy over a year ago and presented with acute appendicitis and underwent laparoscopic appendectomy on 03/11/23. She also has a history of significant postop nausea and vomiting. By postop day 1 she was meeting discharge criteria and tolerating her bariatric diet. She was discharged home and was doing well until 03/13/2023 when she contacted the office noting that she was having vomiting. She was seen in the office and concern for a postop ileus was raised so she was sent to the emergency department. She improved with IV hydration and Zofran but was noted to have a slight drift in her hemoglobin. And her nausea and vomiting resolved. She continued to have a normal white count and her hemoglobin remained stable. She tolerated both breakfast and lunch and was discharged home in improved condition following a postoperative ileus after laparoscopic appendectomy for acute appendicitis is evidence by pathology. She will resume her postop bariatric diet and follow up with me next week. She no longer requires narcotic and will take only Tylenol for pain. Overall condition at time of discharge is improved Time Attestation Discharge coordination time: Less than 30 minutes Quality: Safe Use of Opioids Does Pt have an Active Cancer Diagnosis on the Problem List?: No Quality: Stroke Does the patient have a stroke diagnosis?: No Physical Exam Vital Signs: Vital Signs: Last Vital Signs Temp 97.1 F 03/14/23 07:30 Pulse 68 03/14/23 07:30 Resp 16 03/14/23 07:30 BP 134/87 03/14/23 07:30 Pulse Ox 99 03/14/23 07:30 O2 Del Method Room Air 03/14/23 07:30 BMI result Body Mass Index 37.2 DS: Data Data Completed and Pending Completed studies during hospitalization [Text1]: Procedures Excision of Stomach, Percutaneous Endoscopic Approach, Vertical (09/15/21) Release Peritoneum, Percutaneous Endoscopic Approach (09/15/21) Repair Diaphragm, Percutaneous Endoscopic Approach (09/15/21) Labs on day of discharge: Laboratory Results - last 24 hr 03/14/23 05:28 WBC 6.2 RBC 3.31 L Hgb 10.0 L Hct 31.3 L MCV 94.6 MCH 30.2 MCHC 31.9 RDW 12.3 Plt Count 248 MPV 10.8 Immature Gran % (Auto) 0.0 Neut % (Auto) 53.7 Lymph % (Auto) 34.1 [place] % (Auto) 9.0 Eos % (Auto) 2.7 Baso % (Auto) 0.5 Lymph # (Auto) 2.1 [place] # (Auto) 0.6 Eos # (Auto) 0.2 Baso # (Auto) 0.0 Abs Immat Gran (auto) 0.00 Absolute Neuts (auto) 3.3 Absolute Nucleated RBC 0.000 Nucleated RBC % (auto) 0.0 Sodium 140 Potassium 4.3 Chloride 108 Carbon Dioxide 26 Anion Gap 10 L BUN 8 L Creatinine 0.64 Estim Creat Clear Calc 163.9 Estimated GFR > 60 Random Glucose 96 Calcium 8.8 Discharge Plan Discharge Anticipated Discharge Date/Time: 03/14/23 13:00 Patient Disposition: Home, Self-Care Discharge Diagnosis: Postoperative ileus Referrals: Po,Sarmad Turcios MD [Primary Care Provider] - 1 Week Jorge Waters MD, [facility] [[facility] - 1 Week Discharge Medications: Continued clotrimazole 1 % cream 1 appl topical BID Qty: 45 3RF cetirizine 10 mg tablet 10 mg PO DAILY Qty: 90 3RF sennosides [Senna Laxative] 8.6 mg tablet 8.6 mg PO DAILY Qty: 90 3RF docusate sodium 100 mg capsule 100 mg PO DAILY Qty: 90 1RF sumatriptan succinate [Imitrex] 50 mg tablet 50 mg PO Q2H PRN (Reason: migraine headache) Qty: 10 12RF Rx Instructions: do not exceed 2 doses per 24 hrs Saxenda 3 mg/0.5 mL (18 mg/3 mL) pen injector See Rx Instructions subcut .COMPLEX Qty: 15 1RF Rx Instructions: inject subcutaneously once daily: week 1 = 0.6 mg; week 2 = 1.2 mg; week 3 = 1.8 mg; week 4 = 2.4 mg; then 3 mg daily subcut bupropion HCl [Wellbutrin SR] 100 mg tablet sustained-release 12 hr 100 mg PO BEDTIME Qty: 30 3RF amitriptyline 10 mg tablet 10 mg PO BEDTIME Qty: 30 0RF Discontinued polyethylene glycol 3350 [Miralax] 17 gram powder in packet 17 g PO DAILY Qty: 30 0RF levofloxacin 500 mg tablet 500 mg PO DAILY 5 Days Qty: 5 0RF Rx Instructions: LAST DOSE 03/16 oxycodone 5 mg tablet 5 mg PO Q4H PRN (Reason: pain) Qty: 14 0RF Rx Instructions: Partial Fill upon patient request. metronidazole 500 mg tablet 500 mg PO TID Qty: 14 0RF Rx Instructions: TAKE UNTIL 03/15 Discharge Orders: Discharge Order (Routine); Ordered 03/14/23 Ordered By: Jorge Waters Diet: bariatric diet Activity on Discharge: No heavy lifting Stand Alone Forms: Patient Portal Discharge page Care Plan Goals: Allow adequate postoperative healing Health Concerns: Good nutrition to allow adequate healing Plan of Treatment: Follow bariatric meal plan and activity restrictions Assessment: Postoperative ileus--resolved You had a laparoscopic appendectomy performed by Dr. Waters & appear to have developed an ileus which is when your bowels shut down from surgery. It is normal to feel some minor abdominal discomfort due to the gas from the operation, however if you develop severe pain in your abdomen or chest, fevers over 100F, vomiting and are unable to keep liquids down, you should contact Dr. Waters or report to the nearest emergency department. If your incisions become red, swollen and tender, draining pus or have problems, please contact Dr. Waters report to the nearest emergency department. If you have bandages on your incisions, leave them in place for 48 hours, then remove them. You can shower but not soak in a tub after removing the bandages. If there are paper tapes known as butterflies/Steri-Strips, leave them fall off on their own in 1-2 weeks. You do not need to put another bandage on your incisions unless your clothing rubs and irritates your incisions. Resume bariatric meal plan; stop the prescribed antibiotics and oxycodone. If you develop severe abdominal pain contact Dr. Waters or report to the nearest emergency department. You can shower after you removed your bandages in 48 hours, but do not soak in a tub, go in a pool, or go swimming in a osei pond or ocean. Please let the paper tapes to dry after getting them wet. You do not need to replace a bandage on lesser clothing irritates the incision. You may find that pants with an elastic waist like gym cloths or suspenders are more comfortable than pants requiring a belt until your incisions completely heal. Because of the operation, you should not lift more than 20 lb for the next 4 weeks. Any strenuous activity such as lifting more than 20 lb, digging, yoga, any athletic activity, like running, soccer, or other strenuous activity, lifting heavy bags/groceries, swimming, martial arts, or other strenuous athletic activities can cause hernias. If you have any questions regarding a specific activity, please ask Dr. Waters. Avoiding strenuous activities will minimize the risk of incisional hernias. At your 1 week post-op office visit, Dr. Waters will discuss returning to work on light duty with you. Since you can perform light duty, you are not disabled, but your employer may not allow you to return until you have no restrictions; it is up to you to discuss this issue, as we cannot disclose personal information. Please bring any paperwork to that follow-up appointment from your employer. Please note that you are not disabled and need to discuss your work restrictions for medical reasons with your employer. If you do not have a follow-up post-op visit, call [phone] to schedule one, or call with questions. If you were prescribed an antibiotic, continue taking the medication as prescribed. The anesthesia from the operation and pain medicine will cause constipation. You can purchase etsd-xge-slejuqq stool softener known as Colace/docusate, 100 mg and take 2 tablets in the morning with breakfast and 2 tablets in the evening after dinner to minimize this problem. Even if you are not taking narcotics, the anesthesia can cause constipation. Unless you have a medical reason, you should take byfq-kbn-ueyglge Tylenol/acetaminophen, 2 tablets with qjtw-inq-tnwjubm ibuprofen, 2 tablets, every 6 hours to help with pain. Add the narcotic pain medicine if you are still having pain. Ice packs are also allowed to minimize pain and swelling. You should eat a high-protein, high-fiber, low-fat diet to optimize healing. Please resume any preoperative medications unless otherwise directed by Dr. Waters. Please contact your primary care provider for a follow-up appointment in 2 weeks.
== END 2023-03-14 13:46 | disposition home or self-care (01) | DRG 252 ==
LOC: HO.ED 11:52 → HO.EDOVER 12:29 → HO.S3 15:38
PROVIDERS: Admitting Provider Surgery; Emergency Provider Emergency Medicine Emergency Medical Services; PCP Internal Medicine; Visit Provider Surgery
DX: K91.89 Other postprocedural complications and disorders of digestive system (principal); K56.7 Ileus, unspecified; E66.9 Obesity, unspecified; Z68.37 Body mass index [BMI] 37.0-37.9, adult; Z98.84 Bariatric surgery status; Z79.899 Other long term (current) drug therapy
CPT/HCPCS: 36415; 74018; 80048; 80076; 81001; 83690; 84702; 85025; 87086; 99285; J1170; J1836; J1956; J2405; J7120

== ENCOUNTER → 2023-03-13 08:53 | Outpatient (BNV) | payer OTHER, SELFPAY | PROVIDERS: Emergency Provider Emergency Medicine Emergency Medical Services; PCP Internal Medicine; Visit Provider Surgery | DX: K56.7 Ileus, unspecified (principal); Z87.898 Personal history of other specified conditions; K35.80 Unspecified acute appendicitis; E66.9 Obesity, unspecified; Z98.84 Bariatric surgery status | CPT/HCPCS: 99024 ==

== ENCOUNTER 2023-03-18 08:44 | Outpatient (AMB) | payer OTHER, SELFPAY ==
--- NOTE | 2023-03-18 08:49 | A.OFFVIS_ITS ---
Intake Vital Signs 03/18/23 08:54 Height 5 ft 9 in Weight 246 lb 0.574 oz BMI 36.3 BP 143/75 H Blood Pressure Location Rt brachial Position Sitting Pulse 76 Pulse Source Pulse Oximeter Temp 98.6 F Temp Source Tympanic Pulse Oximetry (%) 98 Oxygen Delivery Method Room Air Intake Visit Reasons: post op appendectomy 03/11 Intake Note: Pt c/o: dizziness and nausea since surgery but states gradually feeling better Allergies morphine [MORPHINE] Allergy (Severe, Verified 03/18/23 08:54) Anaphylaxis amoxicillin [AMOXICILLIN] Allergy (Intermediate, Verified 03/18/23 08:54) RASH, hives cephalexin Allergy (Intermediate, Verified 03/18/23 08:54) hives clindamycin [CLINDAMYCIN] Allergy (Intermediate, Verified 03/18/23 08:54) RASH Penicillins Allergy (Intermediate, Verified 03/18/23 08:54) hives/rash citalopram Adverse Reaction (Intermediate, Verified 03/18/23 08:54) Nausea HPI HPI Comments History of Present Illness Details The patient is a 37-year-old woman who is status post laparoscopic sleeve gastrectomy 08/2021 for obesity who developed acute appendicitis and underwent a laparoscopic appendectomy on 03/11/2023. Intraoperatively, there was no gross pus, but there was evidence of contained perforation due to adhesions to the surrounding mesoappendix and abdominal fat. Patient tolerated her diet of clear liquids and protein shakes and was discharged. Patient was admitted overnight for IV hydration last week and then had resolution of her nausea and vomiting/clinical ileus. She was discharged tolerating bariatric diet and today reports ongoing intermittent nausea but no vomiting. She is tolerating protein shakes, her multivitamin and liquids, but has nausea when eating solid food. She otherwise denies fevers, chills and is having some bowel irregularity given the diet change, but is passing flatus. [facility] Medical History (Updated 03/13/23 @ 11:52 by Maude Chung MD) Nausea Fatigue Allergic dermatitis Upper respiratory infection, acute History of postoperative nausea and vomiting COVID-19 vaccine series completed Left flank pain Recurrent nephrolithiasis Generalized anxiety disorder COVID-19 virus infection Renal calculus, bilateral Hematochezia Sinusitis, acute frontal Allergic rhinitis Sinus congestion Nasal congestion Degenerative joint disease Morbid obesity Bilateral hand numbness Witnessed apneic spells Annual physical exam Chronic back pain Menorrhagia History of MRSA infection Migraine Asthma Hypertension Irritable bowel syndrome Obesity Renal calculus Left ovarian cyst Encounter for laboratory testing for COVID-19 virus COVID-19 Surgical History History of laparoscopic appendectomy S/P laparoscopic sleeve gastrectomy History of endoscopy History of colonoscopy History of lithotripsy History of bladder surgery History of tonsillectomy Family History Father Diabetes Substance abuse CVD (cardiovascular disease) Hypertension Hypercholesteremia Mother Diabetes Depression with anxiety CVD (cardiovascular disease) Hypertension Myocardial infarct Substance abuse Maternal Grandmother Diabetes Maternal Grandfather Diabetes Kidney failure, acute Social History Household Members: Spouse and Children Housing: Apartment Are you a primary care mgr to a significant other at home: No Do you presently have visiting nurse or other home services: No Alcohol intake: never Patient Tobacco Use Status: Never used Tobacco e-Cigarette/Vaping Use: Never Used Second Hand Smoke Exposure: No Advance Directives Date on File: 09/18/21 service: No Current occupational status: employed Current occupational exposures/hazards: No Cognitive needs: No Hearing needs: No Vision needs: No Review of Systems Const All systems reviewed & are unremarkable except as noted in HPI and below Physical Exam On exam, she is nontoxic She is anicteric She is having no respiratory difficulty Her abdominal incisions are healing well with expected ecchymosis but no peritoneal sign is noted on abdominal exam Results Reviewed Results Reviewed: Pathology confirming acute appendicitis with no neoplasia is noted. CBCD & CMP, nonfasting labs are ordered today Assessment & Plan Assessment & Plan (1) Abdominal pain: Code(s): R10.9 - Unspecified abdominal pain (2) Ileus: Code(s): K56.7 - Ileus, unspecified (3) Obesity with body mass index (BMI) of 30.0 to 39.9: Code(s): E66.9 - Obesity, unspecified (4) S/P laparoscopic sleeve gastrectomy: Comment: 09/15/21 Code(s): Z98.84 - Bariatric surgery status (5) History of postoperative nausea and vomiting: Comment: NEEDS SCOPOLAMINE PATCH PRE-OP Code(s): Z87.898 - Personal history of other specified conditions Plan Patient is instructed to avoid solid food at this point. Given the need for hydration and protein, the patient is instructed to resume postop bariatric diet with a goal of 60 oz of water/fluids as well as 100 g of protein via protein shakes. Patient notes that she takes 2 different brands of protein shakes and does not recall the total, she can mix her own and take 3 shakes to a total of 100 g or alternately reach out with questions. Patient is too uncomfortable and needs to focus on hydration and nutrition so she was given notes regarding school and work. She will go to the lab for nonfasting labs today, see me next week in follow-up and reach out if she is clinically worsening. Orders: Orders Complete Blood Count Auto Diff Today E66.9 - Obesity, unspecified, K56.7 - Ileus, unspecified, R10.9 - Unspecified abdominal pain, Z98.84 - Bariatric surgery status Comprehensive Met. Panel Today E66.9 - Obesity, unspecified, K56.7 - Ileus, unspecified, R10.9 - Unspecified abdominal pain, Z98.84 - Bariatric surgery status Medications: New ondansetron HCl 4 mg PO Q6H PRN 20 tabs 0RF nausea and vomiting Coding Level of Care Code Global (85007) Diagnoses Abdominal pain R10.9 Ileus K56.7 Obesity with body mass index (BMI) of 30.0 to 39.9 E66.9 S/P laparoscopic sleeve gastrectomy Z98.84 History of postoperative nausea and vomiting Z87.898
[2023-03-18 08:54] VITALS: BP 143/75; PULSE 76; TEMP 37; O2SAT 98; BMI 36.3
== END 2023-03-18 09:09 | disposition home or self-care (01) ==
PROVIDERS: PCP Internal Medicine; Visit Provider Surgery
DX: R10.9 Unspecified abdominal pain (principal); K56.7 Ileus, unspecified; E66.9 Obesity, unspecified; Z98.84 Bariatric surgery status; Z87.898 Personal history of other specified conditions
CPT/HCPCS: 99024

== ENCOUNTER 2023-03-18 08:44 | Outpatient (REF) | payer OTHER, SELFPAY ==
[2023-03-18 09:43] LABS: MANUAL DIFF FLAG NO
[2023-03-18 10:03] LABS: Basophils Percent Auto 0.4 % (0-2); Eosinophils Absolute Auto 0.1 X10*3/uL (0.0-0.4); Eosinophils Percent Auto 1.7 % (0-4); Hematocrit 36.8 % (37.0-47.0); Imm Gran Abs Auto 0.02 X10*3/uL (0.00-0.03); Imm Gran Pct Auto 0.3 % (0.0-0.4); Lymphocytes Absolute Auto 1.7 X10*3/uL (1.2-4.9); Lymphocytes Percent Auto 22.1 % (20-40); Mean Corpuscular HGB Conc 32.6 g/dl (31.0-35.0); Mean Corpuscular Hemoglobin 29.5 pg (27.0-33.0); Mean Corpuscular Volume 90.4 fL (80.0-98.0); Mean Platelet Volume 10.3 fL (9.4-12.3); Monocytes Absolute Auto 0.4 X10*3/uL (0.1-1.2); Monocytes Percent Auto 5.8 % (2-11); Neutrophils Absolute Auto 5.2 x10*3/uL (2.0-8.3); Neutrophils Percent Auto 69.7 % (45-73); Platelet Count 308 X10*3/uL (160-400); Red Blood Count 4.07 X10*6/uL (4.20-5.50); Red Cell Distribution Width 12.4 % (11.0-16.0); White Blood Count 7.5 X10*3/uL (4.8-10.8)
[2023-03-18 10:21] LABS: Alanine Aminotransferase 34 U/L (0-31); Albumin Level 4.2 g/dL (3.5-5.0); Alkaline Phosphatase 62 U/L (39-117); Anion Gap 12 (12-20); Aspartate Amino Transferase 25 U/L (5-31); Bilirubin Total 0.3 mg/dL (0.0-1.0); Blood Urea Nitrogen 14 mg/dL (9-16); Carbon Dioxide 24 mmol/L (22-29); Chloride 106 mmol/L (96-108); Estimated Glomerular Filt Rate > 60; Glucose Random 104 mg/dL (60-115); Potassium 3.9 mmol/L (3.3-5.1); Sodium 138 mmol/L (135-145); Total Protein 7.2 g/dL (6.5-8.0)
[2023-03-18 10:45] LABS: HBsAGNum1 0.31 S/CO (0.00-0.99); Hepatitis B Core Antibody Nonreactive (Nonreactive); Hepatitis B Surface Antigen Negative (Negative); ~HepC Num1 0.07 S/CO (0.00-0.79); ~Hepatitis B Surface Antibody REACTIVE (Nonreactive); ~Hepatitis C Antibody Nonreactive (Nonreactive)
[2023-03-19 21:37] LABS: Rubella IgG Antibody 1.63 Index
[2023-03-20 21:38] LABS: TS Negative Control Passed; TS Panel A 1; TS Panel B 1; TS Positive Control Passed; TSpotTB Negative (Negative)
== END 2023-03-18 08:45 | disposition home or self-care (01) ==
LOC: HO.LAB 08:44
PROVIDERS: PCP Internal Medicine; Referring Provider Internal Medicine; Visit Provider Surgery
DX: Z02.0 Encounter for examination for admission to educational institution (principal); R79.89 Other specified abnormal findings of blood chemistry; E66.9 Obesity, unspecified; R10.9 Unspecified abdominal pain; K56.7 Ileus, unspecified; Z48.815 Encounter for surgical aftercare following surgery on the digestive system; Z98.890 Other specified postprocedural states; Z98.84 Bariatric surgery status
CPT/HCPCS: 36415; 80053; 85025; 86481; 86704; 86706; 86762; 86765; 86787; 86803; 87340; 99212

== ENCOUNTER 2023-03-25 08:57 | Outpatient (AMB) | payer OTHER, SELFPAY ==
--- NOTE | 2023-03-25 08:58 | A.OFFVIS_ITS ---
Intake Vital Signs 03/25/23 09:04 Height 5 ft 9 in Weight 250 lb 14.177 oz BMI 37.0 BP 154/76 H Blood Pressure Location Rt brachial Position Sitting Pulse 80 Pulse Source Pulse Oximeter Temp 96.9 F Temp Source Temporal Artery Scan Pulse Oximetry (%) 97 Oxygen Delivery Method Room Air Intake Visit Reasons: post op Allergies morphine [MORPHINE] Allergy (Severe, Verified 03/25/23 09:05) Anaphylaxis amoxicillin [AMOXICILLIN] Allergy (Intermediate, Verified 03/25/23 09:05) RASH, hives cephalexin Allergy (Intermediate, Verified 03/25/23 09:05) hives clindamycin [CLINDAMYCIN] Allergy (Intermediate, Verified 03/25/23 09:05) RASH Penicillins Allergy (Intermediate, Verified 03/25/23 09:05) hives/rash citalopram Adverse Reaction (Intermediate, Verified 03/25/23 09:05) Nausea HPI HPI Comments History of Present Illness Details The patient is a 37-year-old woman who is status post laparoscopic sleeve gastrectomy 08/2021 for obesity who developed acute appendicitis and underwent a laparoscopic appendectomy on 03/11/2023. Intraoperatively, there was no gross pus, but there was evidence of contained perforation due to adhesions to the surrounding mesoappendix and abdominal fat. Patient tolerated her diet of clear liquids and protein shakes and was discharged. Patient contacted the office requesting to be seen due to a lump and concerns with 1 of her incisions & h/o MRSA. The patient denies F/C/S or drainage. She's concerned about palpable swelling in her panniculus. [facility] Medical History (Updated 03/20/23 @ 00:01 by Annette Rivas) Nausea Fatigue Allergic dermatitis Upper respiratory infection, acute History of postoperative nausea and vomiting COVID-19 vaccine series completed Left flank pain Recurrent nephrolithiasis Generalized anxiety disorder COVID-19 virus infection Renal calculus, bilateral Hematochezia Sinusitis, acute frontal Allergic rhinitis Sinus congestion Nasal congestion Degenerative joint disease Morbid obesity Bilateral hand numbness Witnessed apneic spells Annual physical exam Chronic back pain Menorrhagia History of MRSA infection Migraine Asthma Hypertension Irritable bowel syndrome Obesity Renal calculus Left ovarian cyst Encounter for laboratory testing for COVID-19 virus COVID-19 Surgical History History of laparoscopic appendectomy S/P laparoscopic sleeve gastrectomy History of endoscopy History of colonoscopy History of lithotripsy History of bladder surgery History of tonsillectomy Family History Father Diabetes Substance abuse CVD (cardiovascular disease) Hypertension Hypercholesteremia Mother Diabetes Depression with anxiety CVD (cardiovascular disease) Hypertension Myocardial infarct Substance abuse Maternal Grandmother Diabetes Maternal Grandfather Diabetes Kidney failure, acute Household Members: Spouse and Children Housing: Apartment Are you a primary district manager primary care sales to a significant other at home: No Do you presently have visiting nurse or other home services: No Alcohol intake: never Patient Tobacco Use Status: Never used Tobacco e-Cigarette/Vaping Use: Never Used Second Hand Smoke Exposure: No Advance Directives Date on File: 09/18/21 service: No Current occupational status: employed Current occupational exposures/hazards: No Cognitive needs: No Hearing needs: No Vision needs: No Review of Systems Const All systems reviewed & are unremarkable except as noted in HPI and below Physical Exam On exam, the patient is nontoxic. She is having no respiratory difficulty Abdomen is obese and soft. A normal expected healing ridge is present in the left lower quadrant with minimal erythema. Her other trocar sites are healing well with no evidence of cellulitis. There is no purulence from the left lower quadrant and expected healing ridge is all that is present. Assessment & Plan Assessment & Plan (1) S/P laparoscopic sleeve gastrectomy: Comment: 09/15/21 Code(s): Z98.84 - Bariatric surgery status (2) Hypertension: Code(s): I10 - Essential (primary) hypertension Qualifiers: Hypertension type: essential hypertension Qualified Code(s): I10 - Essential (primary) hypertension (3) Morbid obesity: Code(s): E66.01 - Morbid (severe) obesity due to excess calories (4) History of postoperative nausea and vomiting: Comment: NEEDS SCOPOLAMINE PATCH PRE-OP Code(s): Z87.898 - Personal history of other specified conditions (5) S/P laparoscopic appendectomy: Code(s): Z90.49 - Acquired absence of other specified parts of digestive tract Plan Instructions regarding diet and activity reviewed and apparently understood. Patient is reassured that there is no evidence of an MRSA infection and that the healing ridge noted is normal and should resolve. She is to refrain from sitting in a bath or other soaking until the scabs fall off. Work notes were previously provided as were school note. Patient will contact me with new concerns or other problems. Coding Level of Care Code Global (48816) Diagnoses S/P laparoscopic sleeve gastrectomy Z98.84 Essential hypertension I10 Hypertension type: essential hypertension Morbid obesity E66.01 History of postoperative nausea and vomiting Z87.898 S/P laparoscopic appendectomy Z90.49
[2023-03-25 09:04] VITALS: BP 154/76; PULSE 80; TEMP 36.1; O2SAT 97; BMI 37.0
== END 2023-03-25 09:10 | disposition home or self-care (01) ==
PROVIDERS: PCP Internal Medicine; Visit Provider Surgery
DX: Z98.84 Bariatric surgery status (principal); I10 Essential (primary) hypertension; E66.01 Morbid (severe) obesity due to excess calories; Z87.898 Personal history of other specified conditions; Z90.49 Acquired absence of other specified parts of digestive tract
CPT/HCPCS: 99024

== ENCOUNTER → 2023-03-25 08:57 | Outpatient (BNVA) | payer OTHER, SELFPAY | PROVIDERS: PCP Internal Medicine; Visit Provider Surgery ==

== ENCOUNTER 2023-04-06 21:43 | Emergency (ER) | payer OTHER, SELFPAY ==
[2023-04-06 21:48] VITALS: BP 151/80; PULSE 90; RESP 18; TEMP 36.6; O2SAT 99; BMI 35.0
[2023-04-06 22:17] LABS: Basophils Percent Auto 0.5 % (0-2); Eosinophils Absolute Auto 0.1 X10*3/uL (0.0-0.4); Eosinophils Percent Auto 1.4 % (0-4); Hematocrit 36.7 % (37.0-47.0); Hemoglobin 11.9 g/dl (12.0-16.0); Imm Gran Abs Auto 0.02 X10*3/uL (0.00-0.03); Imm Gran Pct Auto 0.2 % (0.0-0.4); Lymphocytes Absolute Auto 2.8 X10*3/uL (1.2-4.9); Lymphocytes Percent Auto 33.1 % (20-40); MANUAL DIFF FLAG NO; Mean Corpuscular HGB Conc 32.4 g/dl (31.0-35.0); Mean Corpuscular Hemoglobin 30.1 pg (27.0-33.0); Mean Corpuscular Volume 92.7 fL (80.0-98.0); Mean Platelet Volume 10.3 fL (9.4-12.3); Monocytes Absolute Auto 0.6 X10*3/uL (0.1-1.2); Monocytes Percent Auto 7.3 % (2-11); Neutrophils Absolute Auto 4.8 x10*3/uL (2.0-8.3); Neutrophils Percent Auto 57.5 % (45-73); Platelet Count 270 X10*3/uL (160-400); Red Blood Count 3.96 X10*6/uL (4.20-5.50); Red Cell Distribution Width 12.7 % (11.0-16.0); White Blood Count 8.4 X10*3/uL (4.8-10.8)
[2023-04-06 22:29] LABS: Alanine Aminotransferase 12 U/L (0-31); Albumin Level 4.2 g/dL (3.5-5.0); Alkaline Phosphatase 67 U/L (39-117); Anion Gap 13 (12-20); Aspartate Amino Transferase 11 U/L (5-31); Bilirubin Direct < 0.2 mg/dL (0.0-0.5); Bilirubin Total 0.2 mg/dL (0.0-1.0); Blood Urea Nitrogen 19 mg/dL (9-16); Calcium 9.4 mg/dL (8.4-10.2); Carbon Dioxide 23 mmol/L (22-29); Chloride 110 mmol/L (96-108); Creatinine Clr Calc Pharmacy 158.8; Estimated Glomerular Filt Rate > 60; Glucose Random 113 mg/dL (60-115); Lipase 18 U/L (8-78); Potassium 3.5 mmol/L (3.3-5.1); Sodium 142 mmol/L (135-145); Total Protein 7.1 g/dL (6.5-8.0)
--- NOTE | 2023-04-06 22:47 | ED_ITS ---
HPI - Abdominal Pain General Chief Complaint: Abdominal Pain Stated Complaint: popped hernia? Time Seen by Provider: 04/06/23 22:38 Source: patient Mode of arrival: ambulatory Limitations: no limitations History of Present Illness HPI narrative: Patient with history of umbilical hernia recently had appendectomy on 03/11 was drinking water and suddenly choked to start coughing noticed bulging of the umbilical area slightly nausea no vomiting Related Data Previous Rx's Medication Instructions Recorded clotrimazole 1 % topical cream 1 appl topical BID #45 grams 09/26/22 cetirizine 10 mg tablet 10 mg PO DAILY #90 tabs 10/17/22 sennosides 8.6 mg tablet (Senna 8.6 mg PO DAILY #90 tabs 10/18/22 Laxative) docusate sodium 100 mg capsule 100 mg PO DAILY #90 caps 12/12/22 bupropion HCl 100 mg tablet,12 hr 100 mg PO BEDTIME #30 tabs 01/16/23 sustained-release (Wellbutrin SR) sumatriptan succinate 50 mg tablet 50 mg PO Q2H PRN migraine headache 02/11/23 (Imitrex) #10 tabs amitriptyline 10 mg tablet 10 mg PO BEDTIME #30 tabs 03/01/23 liraglutide (weight loss) 3 mg/0.5 See Rx Instructions subcut 03/04/23 mL (18 mg/3 mL) subcut pen .COMPLEX #15 mL injector (Saxenda) ondansetron HCl 4 mg tablet 4 mg PO Q6H PRN nausea and 03/18/23 vomiting #20 tabs Allergies Allergy/AdvReac Type Severity Reaction Status Date / Time morphine [MORPHINE] Allergy Severe Anaphylaxis Verified 03/25/23 09:05 amoxicillin [AMOXICILLIN] Allergy Intermediate RASH, hives Verified 03/25/23 09:05 cephalexin Allergy Intermediate hives Verified 03/25/23 09:05 clindamycin [CLINDAMYCIN] Allergy Intermediate RASH Verified 03/25/23 09:05 Penicillins Allergy Intermediate hives/rash Verified 03/25/23 09:05 citalopram AdvReac Intermediate Nausea Verified 03/25/23 09:05 Review of Systems Review of Systems Yes all other systems are reviewed and are negative PMFSH Past Medical History Medical History (Updated 04/06/23 @ 23:00 by Bry Flores MD) Nausea Fatigue Allergic dermatitis Upper respiratory infection, acute History of postoperative nausea and vomiting COVID-19 vaccine series completed Left flank pain Recurrent nephrolithiasis Generalized anxiety disorder COVID-19 virus infection Renal calculus, bilateral Hematochezia Sinusitis, acute frontal Allergic rhinitis Sinus congestion Nasal congestion Degenerative joint disease Morbid obesity Bilateral hand numbness Witnessed apneic spells Annual physical exam Chronic back pain Menorrhagia History of MRSA infection Migraine Asthma Hypertension Irritable bowel syndrome Obesity Renal calculus Left ovarian cyst Encounter for laboratory testing for COVID-19 virus COVID-19 Surgical History History of laparoscopic appendectomy S/P laparoscopic sleeve gastrectomy History of endoscopy History of colonoscopy History of lithotripsy History of bladder surgery History of tonsillectomy Family History Family History Father Diabetes Substance abuse CVD (cardiovascular disease) Hypertension Hypercholesteremia Mother Diabetes Depression with anxiety CVD (cardiovascular disease) Hypertension Myocardial infarct Substance abuse Maternal Grandmother Diabetes Maternal Grandfather Diabetes Kidney failure, acute Social History Social History Household Members: Spouse and Children Housing: Apartment Are you a primary home care provider to a significant other at home: No Do you presently have visiting nurse or other home services: No Alcohol intake: never Comment: COUNTS CORRECT Patient Tobacco Use Status: Never used Tobacco e-Cigarette/Vaping Use: Never Used Second Hand Smoke Exposure: No Advance Directives: Yes Advance Directives on File: Yes Advance Directives Date on File: 09/18/21 service: No Current occupational status: employed Current occupational exposures/hazards: No Cognitive needs: No Hearing needs: No Vision needs: No Physical Exam ED Vital Signs: Vital Signs - 24 hr 04/06/23 21:48 Temperature 97.8 F Pulse Rate 90 Respiratory Rate 18 Blood Pressure 151/80 H Pulse Oximetry 99 Oxygen Delivery Method Room Air BMI result Body Mass Index 35.0 Appearance: Alert. Oriented X3. No acute distress. Neck: Normal inspection. Neck supple. CVS: Normal heart rate and rhythm. Pulses normal. Respiratory: No respiratory distress. Equal air entry bilateral, no wheezing/rales/rhonchi Abdomen: Soft small fat containing umbilical hernia slightly tender, Bowel sounds are present, no mass palpable, no CVA tenderness Skin: Skin warm and dry. Normal skin color. Normal skin turgor. Extremities: No lower extremity edema. No calf tenderness Neuro: Oriented X 3. Medical Decision Making Medical Decision Making [facility] Narrative: Patient has small fat containing hernia which was reduced easily without significant discomfort patient was feeling much better after umbilical hernia was reduced. Lab Data [facility] Lab Attestation statement: I reviewed the patient's lab results. 04/06/23 22:08 04/06/23 22:08 Labs: Lab Results 04/06/23 Range/Units 22:08 WBC 8.4 (4.8-10.8) X10*3/uL RBC 3.96 L (4.20-5.50) X10*6/uL Hgb 11.9 L (12.0-16.0) g/dl Hct 36.7 L (37.0-47.0) % MCV 92.7 (80.0-98.0) fL MCH 30.1 (27.0-33.0) pg MCHC 32.4 (31.0-35.0) g/dl RDW 12.7 (11.0-16.0) % Plt Count 270 (160-400) X10*3/uL MPV 10.3 (9.4-12.3) fL Immature Gran % (Auto) 0.2 (0.0-0.4) % Neut % (Auto) 57.5 (45-73) % Lymph % (Auto) 33.1 (20-40) % [place] % (Auto) 7.3 (2-11) % Eos % (Auto) 1.4 (0-4) % Baso % (Auto) 0.5 (0-2) % Lymph # (Auto) 2.8 (1.2-4.9) X10*3/uL [place] # (Auto) 0.6 (0.1-1.2) X10*3/uL Eos # (Auto) 0.1 (0.0-0.4) X10*3/uL Baso # (Auto) 0.0 (0.0-0.2) X10*3/uL Abs Immat Gran (auto) 0.02 (0.00-0.03) X10*3/uL Absolute Neuts (auto) 4.8 (2.0-8.3) x10*3/uL Absolute Nucleated RBC 0.000 (0.0-0.012) X10*3/uL Nucleated RBC % (auto) 0.0 (0.0-0.2) /100WBC Sodium 142 (135-145) mmol/L Potassium 3.5 (3.3-5.1) mmol/L Chloride 110 H (96-108) mmol/L Carbon Dioxide 23 (22-29) mmol/L Anion Gap 13 (12-20) BUN 19 H (9-16) mg/dL Creatinine 0.66 (0.5-1.4) mg/dL Estim Creat Clear Calc 158.8 Estimated GFR > 60 Random Glucose 113 (60-115) mg/dL Calcium 9.4 (8.4-10.2) mg/dL Total Bilirubin 0.2 (0.0-1.0) mg/dL Direct Bilirubin < 0.2 (0.0-0.5) mg/dL AST 11 (5-31) U/L ALT 12 (0-31) U/L Alkaline Phosphatase 67 (39-117) U/L Total Protein 7.1 (6.5-8.0) g/dL Albumin 4.2 (3.5-5.0) g/dL Lipase 18 (8-78) U/L Discharge Plan Discharge Clinical Impression: Reducible umbilical hernia Patient Disposition: Home, Self-Care Instructions: Umbilical Hernia (ED) Additional Instructions: Avoid straining Follow-up with your surgeon for umbilical hernia repair Report to the ER if worsening of the pain/vomiting Prescriptions: No Action clotrimazole 1 % cream 1 appl topical BID Qty: 45 3RF cetirizine 10 mg tablet 10 mg PO DAILY Qty: 90 3RF sennosides [Senna Laxative] 8.6 mg tablet 8.6 mg PO DAILY Qty: 90 3RF docusate sodium 100 mg capsule 100 mg PO DAILY Qty: 90 1RF sumatriptan succinate [Imitrex] 50 mg tablet 50 mg PO Q2H PRN (Reason: migraine headache) Qty: 10 12RF Rx Instructions: do not exceed 2 doses per 24 hrs Saxenda 3 mg/0.5 mL (18 mg/3 mL) pen injector See Rx Instructions subcut .COMPLEX Qty: 15 1RF Rx Instructions: inject subcutaneously once daily: week 1 = 0.6 mg; week 2 = 1.2 mg; week 3 = 1.8 mg; week 4 = 2.4 mg; then 3 mg daily subcut bupropion HCl [Wellbutrin SR] 100 mg tablet sustained-release 12 hr 100 mg PO BEDTIME Qty: 30 3RF amitriptyline 10 mg tablet 10 mg PO BEDTIME Qty: 30 0RF ondansetron HCl 4 mg tablet 4 mg PO Q6H PRN (Reason: nausea and vomiting) Qty: 20 0RF
[2023-04-06 23:34] VITALS: BP 149/99; PULSE 74; RESP 18; O2SAT 98
--- NOTE | 2023-04-06 23:35 | PC.NURSE ---
pt from home reporting 10/10 lower abdominal pain. pt reports previous surgery two weeks ago for appendix. pt reports she has history of umbilical hernia. reports burning sensation in the lower abdomen. pt reports inability to lift heavy items and ambulate for long periods.
== END 2023-04-06 23:36 | disposition home or self-care (01) ==
PROVIDERS: Emergency Provider Internal Medicine; PCP Internal Medicine
DX: K42.9 Umbilical hernia without obstruction or gangrene (principal)
CPT/HCPCS: 36415; 80048; 80076; 83690; 85025; 99283

== ENCOUNTER 2023-04-09 13:23 | Outpatient (AMB) | payer OTHER, SELFPAY ==
--- NOTE | 2023-04-09 13:30 | A.OFFVIS_ITS ---
Intake Vital Signs 04/09/23 13:37 Height 5 ft 10 in Weight 250 lb 0.067 oz BMI 35.9 BP 140/83 H Blood Pressure Location Rt brachial Position Sitting Pulse 77 Pulse Source Pulse Oximeter Temp 96.5 F L Temp Source Tympanic Pulse Oximetry (%) 99 Oxygen Delivery Method Room Air Intake Visit Reasons: Abdominal pain Allergies morphine [MORPHINE] Allergy (Severe, Verified 03/25/23 09:05) Anaphylaxis amoxicillin [AMOXICILLIN] Allergy (Intermediate, Verified 03/25/23 09:05) RASH, hives cephalexin Allergy (Intermediate, Verified 03/25/23 09:05) hives clindamycin [CLINDAMYCIN] Allergy (Intermediate, Verified 03/25/23 09:05) RASH Penicillins Allergy (Intermediate, Verified 03/25/23 09:05) hives/rash citalopram Adverse Reaction (Intermediate, Verified 03/25/23 09:05) Nausea HPI HPI Comments History of Present Illness Details The patient is a 37-year-old woman who is status post laparoscopic sleeve gastrectomy 08/2021 for obesity who developed acute appendicitis and underwent a laparoscopic appendectomy on 03/11/2023. The patient is here for follow-up regard an umbilical hernia noted previously back to July, on CT Abd/pelvis that has become symptomatic while cough last week. She was evaluated in the emergency department on 04/06/2023 and noted to be reducible. The patient is interested in hernia repair, concerned about returning to work on 04/17/2023 after her laparoscopic appendectomy but is also interested in panniculectomy. [facility] Medical History Nausea Fatigue Allergic dermatitis Upper respiratory infection, acute History of postoperative nausea and vomiting COVID-19 vaccine series completed Left flank pain Recurrent nephrolithiasis Generalized anxiety disorder COVID-19 virus infection Renal calculus, bilateral Hematochezia Sinusitis, acute frontal Allergic rhinitis Sinus congestion Nasal congestion Degenerative joint disease Morbid obesity Bilateral hand numbness Witnessed apneic spells Annual physical exam Chronic back pain Menorrhagia History of MRSA infection Migraine Asthma Hypertension Irritable bowel syndrome Obesity Renal calculus Left ovarian cyst Encounter for laboratory testing for COVID-19 virus COVID-19 Surgical History History of laparoscopic appendectomy S/P laparoscopic sleeve gastrectomy History of endoscopy History of colonoscopy History of lithotripsy History of bladder surgery History of tonsillectomy Family History (Reviewed 04/09/23 @ 13:33 by Jorge Waters MD, [facility] Father Diabetes Substance abuse CVD (cardiovascular disease) Hypertension Hypercholesteremia Mother Diabetes Depression with anxiety CVD (cardiovascular disease) Hypertension Myocardial infarct Substance abuse Maternal Grandmother Diabetes Maternal Grandfather Diabetes Kidney failure, acute Social History Household Members: Spouse and Children Housing: Apartment Are you a primary urgent care physician to a significant other at home: No Do you presently have visiting nurse or other home services: No Alcohol intake: never Comment: COUNTS CORRECT Patient Tobacco Use Status: Never used Tobacco e-Cigarette/Vaping Use: Never Used Second Hand Smoke Exposure: No Advance Directives Date on File: 09/18/21 service: No Current occupational status: employed Current occupational exposures/hazards: No Cognitive needs: No Hearing needs: No Vision needs: No Review of Systems Const All systems reviewed & are unremarkable except as noted in HPI and below Physical Exam On exam, the patient is nontoxic. She is having no respiratory difficulty Abdomen is obese and soft. A reducible umbilical hernia is palpable but not readily visible secondary to the patient's body habitus. A normal expected healing ridge is resolving in the left lower quadrant without erythema. Her other trocar sites are healing well with no evidence of cellulitis. She has redundant panniculus noted today on exam Results Reviewed Results Reviewed: In reviewing CT abd/pelvis scans back to July,, this umbilical hernia was present. The umbilical fascial defect is 1.9cm Assessment & Plan Assessment & Plan (1) Umbilical hernia: Code(s): K42.9 - Umbilical hernia without obstruction or gangrene (2) S/P laparoscopic appendectomy: Code(s): Z90.49 - Acquired absence of other specified parts of digestive tract (3) Obesity with body mass index (BMI) of 30.0 to 39.9: Code(s): E66.9 - Obesity, unspecified (4) S/P laparoscopic sleeve gastrectomy: Comment: 09/15/21 Code(s): Z98.84 - Bariatric surgery status (5) GERD (gastroesophageal reflux disease): Code(s): K21.9 - Gastro-esophageal reflux disease without esophagitis Qualifiers: Esophagitis presence: esophagitis presence not specified Qualified Code(s): K21.9 - Gastro-esophageal reflux disease without esophagitis (6) Morbid obesity: Code(s): E66.01 - Morbid (severe) obesity due to excess calories (7) History of postoperative nausea and vomiting: Comment: NEEDS SCOPOLAMINE PATCH PRE-OP Code(s): Z87.898 - Personal history of other specified conditions Plan Options were discussed with the patient including the option of a 2nd opinion. Discussion of the patient's case with Dr. Ranjith loco the option of weight loss and panniculectomy with umbilical hernia repair, which the patient is very interested in. The inherent risk of hernia recurrence in this acute setting given her BMI and weight gain after sleeve gastrectomy was candidly discussed, and the patient would prefer to try to lose weight to optimize successful hernia repair as well as address panniculectomy. From the appendectomy perspective, the patient is healing well and should be cleared to return to work without restriction affective 04/17/2023 as previously noted. If the patient's umbilical hernia become symptomatic, this may need to be modified and hernia repair could be considered, but the patient's comorbidities increase the risk of operative complication and recurrence. Given this, the patient would like to try to lose weight and is set up with Josef Mchugh PA-C for April, to resume postop bariatric diet. Coding Level of Care Code Est Pt Level 4 (06559) Diagnoses Umbilical hernia K42.9 S/P laparoscopic appendectomy Z90.49 Obesity with body mass index (BMI) of 30.0 to 39.9 E66.9 S/P laparoscopic sleeve gastrectomy Z98.84 Gastroesophageal reflux disease, unspecified whether esophagitis present K21.9 Esophagitis presence: esophagitis presence not specified Morbid obesity E66.01 History of postoperative nausea and vomiting Z87.898
[2023-04-09 13:37] VITALS: BP 140/83; PULSE 77; TEMP 35.8; O2SAT 99; BMI 35.9
== END 2023-04-09 13:57 | disposition home or self-care (01) ==
PROVIDERS: PCP Internal Medicine; Visit Provider Surgery
DX: K42.9 Umbilical hernia without obstruction or gangrene (principal); Z90.49 Acquired absence of other specified parts of digestive tract; E66.9 Obesity, unspecified; Z98.84 Bariatric surgery status; K21.9 Gastro-esophageal reflux disease without esophagitis
CPT/HCPCS: 99024

== ENCOUNTER → 2023-04-09 13:23 | Outpatient (BNVA) | payer OTHER, SELFPAY | PROVIDERS: PCP Internal Medicine; Visit Provider Surgery | DX: K42.9 Umbilical hernia without obstruction or gangrene (principal); K21.9 Gastro-esophageal reflux disease without esophagitis; E66.01 Morbid (severe) obesity due to excess calories; Z90.49 Acquired absence of other specified parts of digestive tract; Z98.84 Bariatric surgery status; Z87.898 Personal history of other specified conditions; Z68.35 Body mass index [BMI] 35.0-35.9, adult | CPT/HCPCS: 99212 ==

== ENCOUNTER 2023-04-17 15:31 | Outpatient (AMB) | payer OTHER, SELFPAY ==
--- NOTE | 2023-04-17 15:42 | A.OFFVIS_ITS ---
Intake Vital Signs 04/17/23 15:49 Height 5 ft 10 in Weight 249 lb BMI 35.7 BP 146/76 H Blood Pressure Location Rt brachial Position Sitting Pulse 77 Intake Visit Reasons: 2nd opinion umbilical hernia, post appendectomy Intake Note: This patient presents for a 2nd opinion umbilical hernia, post appendectomy. Patient c/o; reports no changes. Retort Load Expediter Required: No Accompanied by: Self / Same As Patient Allergies morphine [MORPHINE] Allergy (Severe, Verified 04/17/23 15:50) Anaphylaxis amoxicillin [AMOXICILLIN] Allergy (Intermediate, Verified 04/17/23 15:50) RASH, hives cephalexin Allergy (Intermediate, Verified 04/17/23 15:50) hives clindamycin [CLINDAMYCIN] Allergy (Intermediate, Verified 04/17/23 15:50) RASH Penicillins Allergy (Intermediate, Verified 04/17/23 15:50) hives/rash citalopram Adverse Reaction (Intermediate, Verified 04/17/23 15:50) Nausea Medication List - Last Reconciled 04/17/23 by Yash Elliott MD amitriptyline 10 mg PO BEDTIME bupropion HCl (Wellbutrin SR) 100 mg PO BEDTIME cetirizine 10 mg PO DAILY clotrimazole 1% 1 appl topical BID docusate sodium 100 mg PO DAILY liraglutide (weight loss) (Saxenda) inject subcutaneously once daily: week 1 = 0.6 mg; week 2 = 1.2 mg; week 3 = 1.8 mg; week 4 = 2.4 mg; then 3 mg daily subcut ondansetron HCl 4 mg PO Q6H PRN sennosides (Senna Laxative) 8.6 mg PO DAILY sumatriptan succinate (Imitrex) 50 mg PO Q2H PRN HPI 2nd opinion umbilical hernia, post appendectomy HPI Details 37 year female referred for an umbilical hernia. She says that she has had CT scans before showing this fat containing hernia. She had sleeve gastrectomy 2 years ago and a laparoscopic appendectomy last March 11, [address]. She says that about 2 weeks ago she noticed a ?pop? on an area just above her umbilicus. She was told by the ED physician that she had a hernia and this was reduced She stated that she is supposed to have panniculectomy down the line with the weight management center but she was asked to lose 60 more lb. 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 She denies GI complaints. [facility] Medical History Supraumbilical hernia Nausea Fatigue Allergic dermatitis Upper respiratory infection, acute History of postoperative nausea and vomiting COVID-19 vaccine series completed Left flank pain Recurrent nephrolithiasis Generalized anxiety disorder COVID-19 virus infection Renal calculus, bilateral Hematochezia Sinusitis, acute frontal Allergic rhinitis Sinus congestion Nasal congestion Degenerative joint disease Morbid obesity Bilateral hand numbness Witnessed apneic spells Annual physical exam Chronic back pain Menorrhagia History of MRSA infection Migraine Asthma Hypertension Irritable bowel syndrome Obesity Renal calculus Left ovarian cyst Encounter for laboratory testing for COVID-19 virus COVID-19 Surgical History History of laparoscopic appendectomy S/P laparoscopic sleeve gastrectomy History of endoscopy History of colonoscopy History of lithotripsy History of bladder surgery History of tonsillectomy Family History Father Diabetes Substance abuse CVD (cardiovascular disease) Hypertension Hypercholesteremia Mother Diabetes Depression with anxiety CVD (cardiovascular disease) Hypertension Myocardial infarct Substance abuse Maternal Grandmother Diabetes Maternal Grandfather Diabetes Kidney failure, acute Social History Household Members: Spouse and Children Housing: Apartment Are you a primary urgent care physician to a significant other at home: No Do you presently have visiting nurse or other home services: No Alcohol intake: never Comment: COUNTS CORRECT Patient Tobacco Use Status: Never used Tobacco e-Cigarette/Vaping Use: Never Used Second Hand Smoke Exposure: No Advance Directives Date on File: 09/18/21 service: No Current occupational status: employed Current occupational exposures/hazards: No Cognitive needs: No Hearing needs: No Vision needs: No Review of Systems Const Denies chills and Denies fever(s) Card Denies chest pain, Denies dyspnea and Denies dyspnea on exertion Resp Denies cough, Denies dyspnea and Denies dyspnea on exertion GI Denies hematochezia and Denies change in bowel habits Denies hematuria Musc Denies back pain and Denies limited range of motion Neuro Denies focal weakness and Denies convulsions Psych Denies depression and Denies mood swings Physical Exam Vital Signs: Last Vital Signs Pulse 77 04/17/23 15:49 BP 146/76 H 04/17/23 15:49 BMI result Body Mass Index 35.7 Const General: comfortable and no acute distress Orientation/consciousness: patient oriented x3 Neck Neck: Yes no lymphadenopathy Resp Auscultation: clear to auscultation bilaterally Cardio Rhythm: regular rhythm GI Other: Has a pannus with excess skin hanging down her abdomen; she has a vague mass on the area above the umbilicus with Valsalva maneuvers. This seems to be about 2.5 cm but the fascial defect is difficult to define because of her subcutaneous fat Palpation (GI): Soft to palpation, nontender and no guarding Neuro General: patient oriented x3 Assessment & Plan Assessment & Plan (1) Supraumbilical hernia: Code(s): K43.9 - Ventral hernia without obstruction or gangrene Plan: She will has this palpable mass on the supraumbilical area seems to be consistent with a hernia. This is more protuberant with Valsalva I am going to order for a CAT scan of the abdomen to define this as she has had multiple surgeries. This may be port site hernia although review of her previous CT scan shows that this hernia is just at the level of the umbilicus and is fat containing. She otherwise wants to proceed with hernia repair. I discussed the technique of this procedure with possible mesh. I reviewed the risks including but not limited to bleeding, infections and bowel injury, and recurrence, as well as the benefits and alternatives. She understands that her perioperative risks may be a little bit higher than most people in view of her obesity. She understands the plan well and has given consent. Orders: Orders CT abdomen pelvis wo IV con Today K43.9 - Ventral hernia without obstruction or gangrene Coding Level of Care Code New Pt Level 3 (96066) Diagnoses Supraumbilical hernia K43.9
[2023-04-17 15:49] VITALS: BP 146/76; PULSE 77; BMI 35.7
== END 2023-04-17 16:16 | disposition home or self-care (01) ==
PROVIDERS: PCP Internal Medicine; Visit Provider Surgery
DX: K43.9 Ventral hernia without obstruction or gangrene (principal)
CPT/HCPCS: 99024

== ENCOUNTER → 2023-04-17 15:31 | Outpatient (BNVA) | payer OTHER, SELFPAY | PROVIDERS: PCP Internal Medicine; Visit Provider Surgery | DX: K43.9 Ventral hernia without obstruction or gangrene (principal) | CPT/HCPCS: 99212 ==

== ENCOUNTER 2023-04-25 14:27 | Emergency (ER) | payer OTHER, SELFPAY ==
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
[2023-04-25 15:32] VITALS: BP 159/113; PULSE 89; RESP 20; TEMP 36.7; O2SAT 97; BMI 36.4
[2023-04-25 15:57] LABS: IDNOW Serial# 08D9AD1C; Strep A Nucleic Acid Negative (Negative)
[2023-04-25 16:28] LABS: Influenza A PCR POSITIVE (Negative); Influenza B PCR NEGATIVE (Negative); Resp Syncy Virus RNA Qual PCR NEGATIVE (Negative); SARS COV2 PCR INHOUSE NEGATIVE (Negative)
== END 2023-04-25 17:25 | disposition home or self-care (01) ==
PROVIDERS: Physician Assistant Medical; Emergency Provider Emergency Medicine; PCP Internal Medicine
DX: R05.9 Cough, unspecified (principal); R42 Dizziness and giddiness; Z79.899 Other long term (current) drug therapy; Z20.822 Contact with and (suspected) exposure to COVID-19; Z20.828 Contact with and (suspected) exposure to other viral communicable diseases
CPT/HCPCS: 0241U; 87651; 99282; 99283

== ENCOUNTER 2023-05-10 14:20 | Outpatient (AMB) | payer OTHER, SELFPAY ==
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
[2023-05-10 14:35] VITALS: BP 145/78; PULSE 103; TEMP 36.2; O2SAT 98; BMI 36.6
== END 2023-05-10 15:15 | disposition home or self-care (01) ==
PROVIDERS: PCP Internal Medicine; Visit Provider Physician Assistant Surgical
DX: E66.9 Obesity, unspecified (principal); Z68.36 Body mass index [BMI] 36.0-36.9, adult; Z90.3 Acquired absence of stomach [part of]; Z98.84 Bariatric surgery status
CPT/HCPCS: 99213

== ENCOUNTER → 2023-05-10 14:20 | Outpatient (BNVA) | payer OTHER, SELFPAY | PROVIDERS: PCP Internal Medicine; Visit Provider Physician Assistant Surgical | DX: E66.9 Obesity, unspecified (principal); Z68.36 Body mass index [BMI] 36.0-36.9, adult; Z98.84 Bariatric surgery status | CPT/HCPCS: 99212 ==

== ENCOUNTER 2023-05-30 14:58 | Outpatient (AMB) | payer OTHER, SELFPAY ==
[2023-05-30 15:06] VITALS: BP 158/96; PULSE 81; O2SAT 99; BMI 36.8
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
== END 2023-05-30 15:59 | disposition home or self-care (01) ==
PROVIDERS: PCP Internal Medicine; Visit Provider Internal Medicine
DX: I10 Essential (primary) hypertension (principal); E66.9 Obesity, unspecified; K43.9 Ventral hernia without obstruction or gangrene; Z68.36 Body mass index [BMI] 36.0-36.9, adult; G25.81 Restless legs syndrome; Z98.84 Bariatric surgery status; F43.23 Adjustment disorder with mixed anxiety and depressed mood; G47.10 Hypersomnia, unspecified
CPT/HCPCS: 99214

== ENCOUNTER 2023-06-11 08:05 | Outpatient (AMB) | payer OTHER, SELFPAY ==
[2023-06-11 08:21] VITALS: BP 130/82; PULSE 90; TEMP 36.6; O2SAT 98; BMI 37.1
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
== END 2023-06-11 09:42 | disposition home or self-care (01) ==
PROVIDERS: PCP Internal Medicine; Visit Provider Internal Medicine
DX: J06.9 Acute upper respiratory infection, unspecified (principal); J02.9 Acute pharyngitis, unspecified
CPT/HCPCS: 87880; 99213

== ENCOUNTER 2023-06-25 11:13 | Outpatient (AMB) | payer OTHER, SELFPAY ==
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
== END 2023-06-25 12:22 | disposition home or self-care (01) ==
LOC: HO.HMGH 11:13
PROVIDERS: PCP Internal Medicine; Visit Provider Internal Medicine
DX: J20.9 Acute bronchitis, unspecified (principal)
CPT/HCPCS: 99213

== ENCOUNTER → 2023-07-10 09:43 | Outpatient (BNVA) | payer OTHER, SELFPAY | PROVIDERS: PCP Internal Medicine; Visit Provider Physician Assistant Surgical ==

== ENCOUNTER 2023-07-10 14:39 | Outpatient (AMB) | payer OTHER, SELFPAY ==
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
[2023-07-10 10:04] VITALS: BMI 37.7
== END 2023-07-10 14:45 | disposition home or self-care (01) ==
LOC: HO.HBS 14:39
PROVIDERS: PCP Internal Medicine; Visit Provider Physician Assistant Surgical
DX: E66.9 Obesity, unspecified (principal); Z68.37 Body mass index [BMI] 37.0-37.9, adult; Z90.3 Acquired absence of stomach [part of]; Z98.84 Bariatric surgery status
CPT/HCPCS: 99213

== ENCOUNTER 2023-07-24 08:39 | Outpatient (REF) | payer OTHER, SELFPAY ==
[2023-07-24 10:17] LABS: MANUAL DIFF FLAG NO
[2023-07-24 10:23] LABS: Basophils Percent Auto 0.4 % (0-2); Eosinophils Absolute Auto 0.1 X10*3/uL (0.0-0.4); Hematocrit 38.6 % (37.0-47.0); Hemoglobin 12.5 g/dl (12.0-16.0); Imm Gran Abs Auto 0.03 X10*3/uL (0.00-0.03); Imm Gran Pct Auto 0.4 % (0.0-0.4); Lymphocytes Percent Auto 28.7 % (20-40); Mean Corpuscular HGB Conc 32.4 g/dl (31.0-35.0); Mean Corpuscular Hemoglobin 29.8 pg (27.0-33.0); Mean Corpuscular Volume 91.9 fL (80.0-98.0); Mean Platelet Volume 10.9 fL (9.4-12.3); Monocytes Absolute Auto 0.5 X10*3/uL (0.1-1.2); Monocytes Percent Auto 7.5 % (2-11); Neutrophils Absolute Auto 4.2 x10*3/uL (2.0-8.3); Platelet Count 310 X10*3/uL (160-400); White Blood Count 6.8 X10*3/uL (4.8-10.8)
[2023-07-24 11:10] LABS: Alanine Aminotransferase 15 U/L (0-31); Albumin Level 4.2 g/dL (3.5-5.0); Alkaline Phosphatase 68 U/L (39-117); Anion Gap 12 (12-20); Aspartate Amino Transferase 13 U/L (5-31); Bilirubin Total 0.4 mg/dL (0.0-1.0); Blood Urea Nitrogen 18 mg/dL (9-16); Calcium 9.2 mg/dL (8.4-10.2); Carbon Dioxide 25 mmol/L (22-29); Chloride 108 mmol/L (96-108); Estimated Glomerular Filt Rate > 60; Glucose Random 92 mg/dL (60-115); Potassium 4.2 mmol/L (3.3-5.1); Sodium 141 mmol/L (135-145); Total Protein 7.3 g/dL (6.5-8.0)
== END 2023-07-24 08:40 | disposition home or self-care (01) ==
LOC: HO.HMGCLDS 08:39
PROVIDERS: PCP Internal Medicine; Visit Provider Physician Assistant Surgical
DX: G43.909 Migraine, unspecified, not intractable, without status migrainosus (principal); Z98.84 Bariatric surgery status
CPT/HCPCS: 36415; 80053; 85025

== ENCOUNTER 2023-07-28 08:26 | Inpatient (IN) | payer OTHER, SELFPAY ==
[2023-07-28] VITALS (8 sets, daily range): BP systolic 122–156; BP diastolic 60–94; PULSE 64–76; RESP 15–20; TEMP 35.8–36.7; O2SAT 94–100; BMI 36.7; BMI 38.6
--- NOTE | ~2023-07-28 | CT_ITS ---
EXAMINATION: CT abdomen pelvis w IV con CLINICAL INFORMATION: Reason for Exam supraumbilical pain, s/p appy, gastric sleeve COMPARISON: Prior x-ray 03/10/2023 TECHNIQUE: Multidetector volumetric imaging was performed from the superior aspect of the liver through the pubic symphysis 85 mL of Omnipaque 350 injected Sagittal and coronal reformatted images were obtained on the technologist's workstation. This CT examination was performed using dose optimization techniques as appropriate, variously including the following: *Automated exposure control *Adjustment of mA and/or kV according to patient size (this includes techniques or standardized protocols for targeted exams where dose is matched to indication/reason for exam; i.e. extremities or head) *Use of iterative reconstruction technique DLP: 1009 mGy-cm FINDINGS: LOWER THORAX: Included lung bases are clear. HEPATOBILIARY: No focal hepatic lesions. No biliary ductal dilatation. GALLBLADDER: Gallbladder unremarkable. SPLEEN: Spleen is normal in size. PANCREAS: No focal mass or ductal dilatation. STOMACH AND GASTROINTESTINAL TRACT: Status post partial gastrectomy, no CT evidence of suture dehiscence or leak. There is mild partial small bowel obstruction, dilated multiple small bowel loops with air-fluid level, transition zone midabdomen, at anterior abdominal wall periumbilical hernia containing loop of small bowel with a narrow neck probably causing the obstruction. There is A segment of small bowel which has somewhat thickened wall raising suspicion for possible inflammation or infectious ileitis, Crohn's IBD, among others. Arce image. Appendix has been removed. ADRENALS: No adrenal nodules. KIDNEYS/URETERS: There is a 2 mm nonobstructing stone lower calyx right kidney. There is a 3 mm nonobstructing stone lower calyx left kidney. There is no hydronephrosis. No renal mass. URINARY BLADDER: Partially decompressed. PELVIC VISCERA: Cyst in the left adnexa 4.1 cm most likely of left ovarian origin. PERITONEUM: No free air or fluid. LYMPH NODES: Mildly enlarged mesenteric lymph nodes largest 1.2 cm short axis image 40 series of 3. VASCULAR:Abdominal aorta normal in size, no aneurysm found. BONES, ABDOMINAL WALL AND SOFT TISSUES: There is anterior abdominal wall hernia containing loop of small bowel, with a narrow neck, likely the cause the bowel obstruction. CT/CT abdomen pelvis w IV con IMPRESSION: 1. Partial small bowel obstruction, transition zone at anterior abdominal wall periumbilical hernia containing loop of small bowel with a narrow neck probably causing the obstruction. Urgent surgical evaluation is warranted. 2. There is a segment of small bowel which has somewhat thickened wall raising suspicion for possible inflammation or infectious ileitis, Crohn's IBD, among others. 3. Status post partial gastrectomy, no CT evidence of suture dehiscence or leak. 4. Cyst in the left adnexa 4.1 cm most likely of left ovarian origin. Findings are overwhelmingly likely to represent a benign functional cyst. No followup imaging recommended. 5. Mildly enlarged mesenteric lymph nodes largest 1.2 cm short axis. 6. Bilateral nonobstructing kidney stones. (Referring physician staff is being called, by physician staff assistance, to be alerted of the above critical findings and recommendations.) 07/28/2023 11:45 AM a J
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
[2023-07-28 09:20] LABS: MANUAL DIFF FLAG NO
[2023-07-28] MEDS: Ketorolac Tromethamine 30 MG/ML VIAL IVPUSH (09:20)
[2023-07-28] MEDS: HYDROmorphone HCl 0.5 MG/0.5 ML SYRINGE IVPUSH ×2 (09:21→10:44)
[2023-07-28] MEDS: ondansetron HCL 4 MG/2 ML VIAL IVPUSH (09:21)
[2023-07-28 09:25] LABS: Basophils Percent Auto 0.4 % (0-2); Eosinophils Absolute Auto 0.1 X10*3/uL (0.0-0.4); Eosinophils Percent Auto 1.9 % (0-4); Hematocrit 35.7 % (37.0-47.0); Hemoglobin 12.1 g/dl (12.0-16.0); Imm Gran Abs Auto 0.01 X10*3/uL (0.00-0.03); Imm Gran Pct Auto 0.2 % (0.0-0.4); Lymphocytes Absolute Auto 1.2 X10*3/uL (1.2-4.9); Lymphocytes Percent Auto 25.2 % (20-40); Mean Corpuscular HGB Conc 33.9 g/dl (31.0-35.0); Mean Corpuscular Hemoglobin 29.9 pg (27.0-33.0); Mean Corpuscular Volume 88.1 fL (80.0-98.0); Mean Platelet Volume 10.5 fL (9.4-12.3); Monocytes Absolute Auto 0.7 X10*3/uL (0.1-1.2); Monocytes Percent Auto 14.8 % (2-11); Neutrophils Absolute Auto 2.7 x10*3/uL (2.0-8.3); Neutrophils Percent Auto 57.5 % (45-73); Platelet Count 279 X10*3/uL (160-400); Red Blood Count 4.05 X10*6/uL (4.20-5.50); Red Cell Distribution Width 12.9 % (11.0-16.0); White Blood Count 4.7 X10*3/uL (4.8-10.8)
[2023-07-28] MEDS: Lactated Ringers 1,000 ML 999 ML IV (09:27)
[2023-07-28 11:08] LABS: Appearance Urine Cloudy; Color Urine Yellow; Glucose Urine UA Negative (Negative); Leukocyte Esterase Urine Trace (Negative); Nitrite Urine Negative (Negative); PH 6.5 (5.0-9.0); UMIC TRIGGER UACC YES; Urine Blood Moderate (2+) (Negative); Urine Ketones Negative (Negative); Urine Protein Negative (Neg-Trace)
[2023-07-28 11:09] LABS: UPreg QC Valid YES; Urine Pregnancy NEGATIVE (NEGATIVE)
[2023-07-28] MEDS: HYDROmorphone HCl 1 MG/ML SYRINGE IVPUSH (11:12)
[2023-07-28 11:13] LABS: Bacteria Urine 1+ (None Seen); Hyaline Casts Urine 0-2 /LPF (0-2); WBC Urine 0-5 /HPF (0-5)
[2023-07-28] MEDS: iohexoL 350 MG/ML 100 ML INFUS..BTL IV (11:20)
[2023-07-28] MEDS: Diatrizoate Meglumine, Sodium 30 ML SOLUTION PO (11:20)
[2023-07-28 12:15] LABS: Alanine Aminotransferase 33 U/L (0-31); Albumin Level 4.1 g/dL (3.5-5.0); Alkaline Phosphatase 69 U/L (39-117); Anion Gap 12 (12-20); Aspartate Amino Transferase 60 U/L (5-31); Bilirubin Direct 0.2 mg/dL (0.0-0.5); Bilirubin Total 0.5 mg/dL (0.0-1.0); Blood Urea Nitrogen 13 mg/dL (9-16); Calcium 8.9 mg/dL (8.4-10.2); Carbon Dioxide 20 mmol/L (22-29); Chloride 108 mmol/L (96-108); Creatinine Clr Calc Pharmacy 174.5; Estimated Glomerular Filt Rate > 60; Glucose Random 89 mg/dL (60-115); Lipase 13 U/L (8-78); Potassium 3.8 mmol/L (3.3-5.1); Sodium 136 mmol/L (135-145); Total Protein 7.1 g/dL (6.5-8.0)
--- NOTE | 2023-07-28 13:20 | PHA.MEDREC ---
Pharmacy Consult ? Medication Reconciliation Pharmacy has completed the medication reconciliation. spoke with patient to confirm medications.
[2023-07-28 13:21] LABS: Lactic Acid 0.6 mmol/L (0.5-2.0)
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
[2023-07-28] MEDS: levoFLOXacin/D5W 500 MG/100 ML PIGGYBACK 100 MG IV (15:09)
[2023-07-28] MEDS: 0.9 % Sodium Chloride Flush 3 ML SYRINGE IVFLUSH (15:10)
--- NOTE | 2023-07-28 15:12 | MHC.SHP ---
Pre-Procedural Eval Section A - 24 Hr Update-Section A only Date of Service: 07/28/23 The patient is an INPATIENT: Yes The patient has been examined within 24 hours of the surgical procedure. The History & Physical has been completed within 30 days and I have reviewed it.: Yes Section B - Complete if H&P > 30 days Chief Complaint: Partial SBO Details of Present Illness: Incarcerated ventral hernia Relevant Family History (Specify if Yes): No Relevant Social History: None Present Medications: None Medical History: No relevant PMH History of Previous Operations: Relevant previous surgery/procedure and date(s) (Laparoscopic appendectomy) Allergies: Allergies Allergy/AdvReac Type Severity Reaction Status Date / Time morphine [MORPHINE] Allergy Severe Anaphylaxis Verified 07/28/23 08:30 amoxicillin [AMOXICILLIN] Allergy Intermediate RASH, hives Verified 07/28/23 08:30 cephalexin Allergy Intermediate hives Verified 07/28/23 08:30 clindamycin [CLINDAMYCIN] Allergy Intermediate RASH Verified 07/28/23 08:30 Penicillins Allergy Intermediate hives/rash Verified 07/28/23 08:30 citalopram AdvReac Intermediate Nausea Verified 07/28/23 08:30 Review of Systems Sugical H&P ROS: Negative: Constitution, Cardiovascular, Respiratory, Neurological, Psychiatric, Hem-Onc, Allergic/Immunologic, Genitourinary, Musculoskeletal, Integumentary, Endocrine and Eyes/Ears/Nose/Throat and Yes, Specify: Gastrointestinal (nausea, abdominal pain) Exam Surgical H&P Exam: Normal: HEENT, Normal: Heart, Normal: Lungs, Normal: Extremities, Normal: Skin and Normal: Neurological and Significant Findings: Abdomen (supraumbilical tenderness) Plan Diagnosis/Plan: Unchanged (Open ventral hernia repair with or without mesh. Risks of bleeding, infection, hernia recurrence, SBO, fascial dehiscence were discussed with the patient. She is agreement with the plan..) I have reviewed the history and physical and performed a pertinent physical examination on my patient. No changes have occurred unless specified. Time Spent With Patient Time: Total time managing care of this patient today ____ minutes.
--- NOTE | 2023-07-28 15:15 | PM.OP ---
Brief Operative Note Date of Service: 07/28/23 Pre-op diagnosis: Incarcerated incisional ventral hernia Post-op diagnosis: same Procedure: Indication: This is a 38 year old female known to me who had a laparoscopic sleeve gastrectomy. On 02/2023 the patient underwent a laparoscopic appendectomy and a supraumbilical incision was made for intra-abdominal access. The patient presented today with acute onset of nausea and periumbilical pain. A CT of the abdomen has confirmed the presence of an incarcerated incisional hernia containing small bowel and causing partial SBO. Based on these findings, an urgent open incisonal ventral hernia repair was recommended to reduce the risk for bowel ischemia and need for bowel resection. Risks of bleeding, infection, hernia recurrence, fascial dehiscence, SBO, VTE were discussed with the patient and she was in agreement with the plan. Procedure: After informed consent was obtained, the patient was transferred to the OR and was placed in the supine position. Time-out was performed. Pneumatic compression devices were placed in both lower extremities. Endotracheal intubation and general anesthesia was performed. A midline incision was made starting cephalad to the umbilicus and extending around the umbilicus. The subcutaneous tissues were divided with cautery. The herniated small bowel loop was identified. Careful dissection of the hernia sac from the umbilicus and the surrounding tissues was performed until the fascial edges of the hernia defect were identified. The fascial opening was extended with the cautery to allow careful examination of the herniated bowel loop and safe reduction of the hernia contents. The sac was opened and the herniated bowed has reduced spontaneously. The fascial defect was enlarged to allow exploration of the abdominal cavity. The small bowel was identified and it was ran for several feet in both directions. No areas of injury or ischemia were noted. In addition, there was no purulent fluid in the abdomen. At that point, the hernia sac was excised to the level of the fascia. The hernia defect was then closed with several interrupted #1 Ethibond sutures. No mesh was used. The skin was closed with romy. I was present and performed all steps of the procedure. Derrick Kasper MD Surgeon: Fransisco Kasper MD Anesthesia: GETA and local Was an Pattern Filer used for this Procedure?: No Pattern Filer: Audelia Pride Estimated blood loss (mL): 10 IV fluids (mL): 2,000 Urine output (mL): 0 (No Cook to record output) Pathology: other (Hernia sac) Condition: stable Disposition: PACU
--- NOTE | 2023-07-28 15:26 | P.PNGS_ITS ---
Subjective Subjective Date of Service: 07/29/23 Interval history: Feels well. Has some incisional pain. Was able to ambulate. Physical Exam 2 Vital Signs: Vital Signs: Last Vital Signs Temp 97.7 F 07/28/23 08:30 Pulse 76 07/28/23 08:30 Resp 18 07/28/23 08:30 BP 147/94 H 07/28/23 08:30 Pulse Ox 99 07/28/23 08:30 O2 Del Method Room Air 07/28/23 08:30 BMI result Body Mass Index 36.7 GI: Inspection: Yes normal to inspection, Yes incision (clean, dry and intact) and Yes obesity Palpation (GI): Soft to palpation Extrem: Right lower extremity: normal to inspection (no calf tenderness) L eft lower extremity: normal to inspection (no calf tenderness) Objective Data Active Medications Lactated Ringer's (Lr) 1,000 mls @ 150 mls/hr IVCONT .Q6H40M [facility] Lactated Ringer's (Lr) 1,000 mls @ 150 mls/hr IVCONT .Q6H40M [facility] Levofloxacin (Levaquin) 500 mg in 100 mls @ 100 mls/hr IV PREOP ONE Stop: 07/28/23 16:10 Sodium Chloride (0.9 % Sodium Chloride Flush 3 Ml Syringe) 3 ml IVFLUSH QSHIFT [facility] Last Admin: 07/28/23 15:10 Dose: 3 ml Documented By: DANYEL Labs 07/29/23 05:03 07/29/23 05:03 Labs: Laboratory Results - last 24 hr 07/28/23 07/28/23 07/28/23 09:16 11:01 12:55 MCV 88.1 MCH 29.9 MCHC 33.9 RDW 12.9 Plt Count 279 MPV 10.5 Immature Gran % (Auto) 0.2 Neut % (Auto) 57.5 Lymph % (Auto) 25.2 Rogers % (Auto) 14.8 H Eos % (Auto) 1.9 Baso % (Auto) 0.4 Lymph # (Auto) 1.2 Rogers # (Auto) 0.7 Eos # (Auto) 0.1 Baso # (Auto) 0.0 Abs Immat Gran (auto) 0.01 Absolute Neuts (auto) 2.7 Absolute Nucleated RBC 0.000 Nucleated RBC % (auto) 0.0 Anion Gap 12 Estim Creat Clear Calc 174.5 Estimated GFR > 60 Random Glucose 89 Lactic Acid Cancelled Calcium 8.9 Magnesium 2.0 Total Bilirubin 0.5 Direct Bilirubin 0.2 AST 60 H ALT 33 H Alkaline Phosphatase 69 Total Protein 7.1 Albumin 4.1 Lipase 13 Urine Color Yellow Urine Appearance Cloudy Urine pH 6.5 Ur Specific [place] 1.010 Urine Protein Negative Urine Glucose (UA) Negative Urine Ketones Negative Urine Blood Moderate (2+) H Urine Nitrite Negative Ur Leukocyte Esterase Trace H Urine RBC 6-10 H Urine WBC 0-5 Ur Squamous Epith Cells 11-20 Urine Bacteria 1+ Hyaline Casts 0-2 Urine Test NEGATIVE 07/28/23 12:55 MCV MCH MCHC RDW Plt Count MPV Immature Gran % (Auto) Neut % (Auto) Lymph % (Auto) Rogers % (Auto) Eos % (Auto) Baso % (Auto) Lymph # (Auto) Rogers # (Auto) Eos # (Auto) Baso # (Auto) Abs Immat Gran (auto) Absolute Neuts (auto) Absolute Nucleated RBC Nucleated RBC % (auto) Anion Gap Estim Creat Clear Calc Estimated GFR Random Glucose Lactic Acid 0.6 Calcium Magnesium Total Bilirubin Direct Bilirubin AST ALT Alkaline Phosphatase Total Protein Albumin Lipase Urine Color Urine Appearance Urine pH Ur Specific [place] Urine Protein Urine Glucose (UA) Urine Ketones Urine Blood Urine Nitrite Ur Leukocyte Esterase Urine RBC Urine WBC Ur Squamous Epith Cells Urine Bacteria Hyaline Casts Urine Test Procedures Date of Service Date of Service: 07/29/23 Progress Note: A&P Assessment and plan (1) Incarcerated umbilical hernia: Status: Acute Assessment and Plan: Doing well Labs OK Advance diet If tolerated, will be discharged in the afternoon (2) Small bowel obstruction: Status: Acute Time Spent With Patient Time: Total time managing care of this patient today ____ minutes. Quality Stroke Does the patient have a stroke diagnosis?: No VTE Prior VTE?: No VTE Risk Level:: Surgical - moderate VTE Device Contraindication: N/A - Device Ordered VTE Drug Contraindication: Treatment Not Indicated
[2023-07-28 18:04] LABS: Hematocrit 33.4 % (37.0-47.0)
[2023-07-28] MEDS: Lactated Ringers 1,000 ML 125 ML IVCONT (19:45)
[2023-07-28] MEDS: Acetaminophen 1,000 MG/100 ML PIGGYBACK 16.7 MG IV (19:46)
[2023-07-29 00:09] VITALS: BP 117/63; PULSE 64; RESP 16; TEMP 36.2; O2SAT 95
[2023-07-29] MEDS: Acetaminophen 1,000 MG/100 ML PIGGYBACK 16.7 MG IV ×2 (01:24→07:55)
[2023-07-29] MEDS: Lactated Ringers 1,000 ML 125 ML IVCONT ×2 (03:40→11:57)
[2023-07-29 04:00] VITALS: BP 122/75; PULSE 71; RESP 16; TEMP 36; O2SAT 97
[2023-07-29 05:08] LABS: MANUAL DIFF FLAG NO
[2023-07-29 05:10] LABS: Basophils Percent Auto 0.1 % (0-2); Hematocrit 31.8 % (37.0-47.0); Hemoglobin 10.7 g/dl (12.0-16.0); Imm Gran Abs Auto 0.02 X10*3/uL (0.00-0.03); Imm Gran Pct Auto 0.2 % (0.0-0.4); Lymphocytes Percent Auto 10.8 % (20-40); Mean Corpuscular HGB Conc 33.6 g/dl (31.0-35.0); Mean Corpuscular Hemoglobin 30.1 pg (27.0-33.0); Mean Corpuscular Volume 89.3 fL (80.0-98.0); Monocytes Absolute Auto 0.6 X10*3/uL (0.1-1.2); Monocytes Percent Auto 6.3 % (2-11); Neutrophils Absolute Auto 7.4 x10*3/uL (2.0-8.3); Neutrophils Percent Auto 82.6 % (45-73); Platelet Count 249 X10*3/uL (160-400); Red Blood Count 3.56 X10*6/uL (4.20-5.50); Red Cell Distribution Width 12.9 % (11.0-16.0)
[2023-07-29 05:22] LABS: Lactic Acid 0.9 mmol/L (0.5-2.0)
[2023-07-29 05:24] LABS: Anion Gap 12 (12-20); Blood Urea Nitrogen 11 mg/dL (9-16); Calcium 8.6 mg/dL (8.4-10.2); Carbon Dioxide 24 mmol/L (22-29); Chloride 109 mmol/L (96-108); Creatinine Clr Calc Pharmacy 168.1; Estimated Glomerular Filt Rate > 60; Glucose Random 123 mg/dL (60-115); Potassium 4.5 mmol/L (3.3-5.1); Sodium 140 mmol/L (135-145)
[2023-07-29 07:22] VITALS: BP 129/78; PULSE 66; RESP 18; TEMP 36.3; O2SAT 98
--- NOTE | 2023-07-29 09:28 | MHC.CM.PN ---
Addendum entered by Ibis Coburn RN 07/29/23 13:40: Patient medically cleared for dc home self care via private transport. Original Note: Patient is from home w/ spouse and children. Functionally independent. Denies use of services or medical equipment. PCP Sarmad Rincon MD HCP on file and verified, agent is spouse Issac DP: Home self care once tolerating diet. to transport. CM will continue to follow.
[2023-07-29 12:00] VITALS: BP 130/59; PULSE 58; RESP 16; TEMP 36.1; O2SAT 97
--- NOTE | 2023-07-29 13:16 | P.DS_ITS ---
DS: Providers Provider Date of Service: 07/29/23 Date of admission: 07/28/23 14:09 Primary care physician: Sarmad Rincon MD DS: Diagnosis Discharge Diagnosis (1) Incarcerated umbilical hernia: Status: Acute (2) Small bowel obstruction: Status: Acute DS: Summary Hospital Course Hospital Course: This is a 38 year old female who had a laparoscopic sleeve gastrectomy. On 02/2023 the patient underwent a laparoscopic appendectomy and a supraumbilical incision was made for intra-abdominal access. The patient presented 07/28/23 with acute onset of nausea and periumbilical pain. A CT of the abdomen has confirmed the presence of an incarcerated incisional hernia containing small bowel and causing partial SBO. Based on these findings, an urgent open incisonal ventral hernia repair was recommended to reduce the risk for bowel ischemia and need for bowel resection. Patient tolerated the procedure well. She remained NPO overnight. This morning, she was initiated on a liquid diet which she has tolerated well. No significant complaints of pain. She will be discharged home with follow-up in the office next week. Time Attestation Discharge Coordination Time (in mins): 25 Quality: Safe Use of Opioids Does Pt have an Active Cancer Diagnosis on the Problem List?: No Quality: Stroke Does the patient have a stroke diagnosis?: No Physical Exam Vital Signs: Vital Signs: Last Vital Signs Temp 96.9 F 07/29/23 12:00 Pulse 58 07/29/23 12:00 Resp 16 07/29/23 12:00 BP 130/59 L 07/29/23 12:00 Pulse Ox 97 07/29/23 12:00 O2 Del Method Room Air 07/29/23 12:00 O2 Flow Rate 3 07/28/23 18:07 BMI result Body Mass Index 38.6 DS: Data Data Completed and Pending Completed studies during hospitalization [Text1]: Procedures Excision of Stomach, Percutaneous Endoscopic Approach, Vertical (09/15/21) Release Peritoneum, Percutaneous Endoscopic Approach (09/15/21) Repair Diaphragm, Percutaneous Endoscopic Approach (09/15/21) Resection of Appendix, Percutaneous Endoscopic Approach (03/11/23) Pending studies at discharge: Pending at discharge 07/28/23 16:46 Surgical [PTH] Routine Labs on day of discharge: Laboratory Results - last 24 hr 07/28/23 07/28/23 07/29/23 12:55 17:57 05:03 WBC 9.0 RBC 3.56 L Hgb 11.0 L 10.7 L Hct 33.4 L 31.8 L MCV 89.3 MCH 30.1 MCHC 33.6 RDW 12.9 Plt Count 249 MPV 10.0 Immature Gran % (Auto) 0.2 Neut % (Auto) 82.6 H Lymph % (Auto) 10.8 L [place] % (Auto) 6.3 Eos % (Auto) 0.0 Baso % (Auto) 0.1 Lymph # (Auto) 1.0 L [place] # (Auto) 0.6 Eos # (Auto) 0.0 Baso # (Auto) 0.0 Abs Immat Gran (auto) 0.02 Absolute Neuts (auto) 7.4 Absolute Nucleated RBC 0.000 Nucleated RBC % (auto) 0.0 Sodium 140 Potassium 4.5 Chloride 109 H Carbon Dioxide 24 Anion Gap 12 BUN 11 Creatinine 0.65 Estim Creat Clear Calc 168.1 Estimated GFR > 60 Random Glucose 123 H Lactic Acid 0.6 0.9 Calcium 8.6 Discharge Plan Discharge Anticipated Discharge Date/Time: 07/30/23 10:44 Patient Disposition: Home, Self-Care Discharge Diagnosis: s/p repair umbillical hernia Referrals: Po,Sarmad Turcios MD [Primary Care Provider] - 1 Week Discharge Medications: Continued sennosides [Senna Laxative] 8.6 mg tablet 8.6 mg PO DAILY Qty: 90 3RF hydrochlorothiazide 12.5 mg tablet 12.5 mg PO DAILY Qty: 30 3RF multivitamin Tablet 1 tab PO DAILY acetaminophen 500 mg Tablet 1,000 mg PO DAILY PRN (Reason: Pain) polyethylene glycol 3350 [Gavilax] 17 gram/dose powder 17 g PO DAILY PRN (Reason: Constipation) Nexplanon 68 mg Implant 68 mg SUBDERMAL DIRECTED ropinirole 0.25 mg tablet 0.25 mg PO BEDTIME PRN (Reason: restless leg syndrome) Rx Instructions: administer 1-3 hours before bedtime clotrimazole 1 % cream 1 appl topical BID PRN (Reason: Rash) docusate sodium 100 mg capsule 100 mg PO DAILY Qty: 90 1RF Discharge Orders: Discharge Order (Routine); Ordered 07/29/23 Ordered By: Josef Mchugh Activity on Discharge: No heavy lifting Stand Alone Forms: Patient Portal Discharge page Care Plan Goals: weight loss Health Concerns: umbillical hernia, obesity Plan of Treatment: No tub baths, sex or returning to work until discussed at first post op appointment. No exercise, alcohol, tobacco or illegal drug use. Continue to use incentive spirometer hourly while awake. Walk in home for 5- 10 minutes every 2 hours during the first week. Continue phase 1 diet today and start phase 2 diet tomorrow morning. Follow all instructions in the bariatric handbook and call with any questions. 1. Please call your doctor or come back to the emergency room should any new symptoms arise. 2. You will receive a courtesy call from [facility] 24-48 hours after discharge. 3. Activity: abstain from alcohol, practice limited stair climbing, no bending, no driving, no exercise, no illicit substances, no lifting, no sex, no tub bath, no work. 4. Diet: continue as discussed with bariatric team.. 5. Dressing Change/Wound Care: Do not change or remove surgical dressings unless they are wet or soiled. 6. Call your doctor if: - Your temperature exceeds 101.5 F - You experience excessive pain or swelling - You have an unexpected reaction to medication - You have excessive bleeding - You experience continued vomiting/nausea - Your incision begins to separate - Your incision shows signs of infection such as increased redness, swelling, excessive pain, heat, or drainage (light blood or clear fluid is normal) 7. General instructions: No lifting greater than 5 lbs for 1 week and not more than 20lbs the next 3?weeks. No driving until seen at the office in 5-7 days after surgery. If you do not move your bowels in the next 2 days, please tell?Dr. Kasper. Please walk around your home every hour or two to prevent blood clots from forming in your legs. You do not need to wake from sleeping to walk. Please sleep in a bed or couch to prevent kinking at the hips and knees. Please take your incentive spirometer (your lung roundhouse firer/fireman) home with you and use it for the next few days to prevent pneumonia. You may shower, no hot tubs, baths or swimming pools.?Please follow the post op diet instructions you are?given by Dr Sharyn gallagher? and text me daily at 5-6pm for an update.?If you have any issues or concerns or questions please communicate this to him via text.? The Celebrate shakes have all of the bariatric vitamins you need if you consume these shakes. If you are drinking other protein shakes, you will need to purchase the Celebrate multivitamins and calcium that are available in the hospital gift shop on the first floor of the [facility].??Do not take anything without first discussing with Dr Kasper. . Do not hesitate to contact the office with any questions at . The patient's medical history has been reviewed and they are considered low risk for post op DVT and therefore DVT prophylaxis is not considered necessary. Travel after surgery was reviewed. The patient has not disclosed any travel plans during the first 30 days after surgery and they have been advised that within the first 30 days after surgery any bus, plane, train or car travel over 2 hours in duration is contraindicated due to the possibility of developing blood clots from immobility. Any travel, needs to include periods of ambulation of 10 minutes in duration every 2 hours. The patient was instructed to discuss any plans for travel during this period with their bariatric surgeon. Assessment: s/p repair incarcerated umbillical hernia
--- NOTE | 2023-07-29 14:45 | HO.POSTANES ---
Post Anesthesia Evaluation Post Anesthesia Evaluation Date of Service: 07/29/23 Vital Signs: Vital Signs Temp Pulse Resp BP Pulse Ox O2 Del Method 07/29/23 12:00 96.9 F 58 16 130/59 L 97 Room Air 07/29/23 07:22 97.3 F 66 18 129/78 98 Room Air 07/29/23 04:00 96.8 F 71 16 122/75 97 Room Air Anesthesia: General Mental Status: Awake Pain Control: Satisfactory Nausea/Vomiting: None Hydration: Adequate Anesthesia-Related Issues: No Anes. Related Issues
== END 2023-07-29 15:37 | disposition home or self-care (01) | DRG 227 ==
LOC: HO.ED 11:45 → HO.EDOVER 14:24 → HO.S3 16:18
PROVIDERS: Physician Assistant; Admitting Provider Surgery; Emergency Provider Student in an Organized Health Care Education/Training Program; PCP Internal Medicine; Visit Provider Surgery
PROC: 0WQF0ZZ Repair Abdominal Wall, Open Approach (ICD-10-PCS; principal; 2023-07-28 15:30)
DX: K43.6 Other and unspecified ventral hernia with obstruction, without gangrene (principal); Z79.899 Other long term (current) drug therapy; Z98.84 Bariatric surgery status
CPT/HCPCS: 36415; 74177; 80048; 80076; 81001; 81025; 83605; 83690; 83735; 85014; 85018; 85025; 88302; 99284; J0131; J1100; J1170; J1885; J1956; J2250; J2405; J2704; J2795; J3010; J7120; Q9967

== ENCOUNTER → 2023-07-28 14:09 | Outpatient (BNV) | payer OTHER, SELFPAY | PROVIDERS: Admitting Provider Physician Assistant; Emergency Provider Student in an Organized Health Care Education/Training Program; PCP Internal Medicine; Visit Provider Physician Assistant | DX: K42.0 Umbilical hernia with obstruction, without gangrene (principal); K56.609 Unspecified intestinal obstruction, unspecified as to partial versus complete obstruction | CPT/HCPCS: 49594; 99222; 99238; 99499 ==

== ENCOUNTER 2023-08-05 10:39 | Outpatient (AMB) | payer OTHER, SELFPAY ==
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
[2023-08-05 10:50] VITALS: BP 156/89; PULSE 85; TEMP 36.1; O2SAT 97; BMI 36.4
== END 2023-08-05 11:15 | disposition home or self-care (01) ==
PROVIDERS: PCP Internal Medicine; Visit Provider Physician Assistant Surgical
DX: K42.0 Umbilical hernia with obstruction, without gangrene (principal); Z48.817 Encounter for surgical aftercare following surgery on the skin and subcutaneous tissue
CPT/HCPCS: 99024

== ENCOUNTER → 2023-08-05 10:39 | Outpatient (BNVA) | payer OTHER, SELFPAY | PROVIDERS: PCP Internal Medicine; Visit Provider Physician Assistant Surgical | DX: K42.0 Umbilical hernia with obstruction, without gangrene (principal) | CPT/HCPCS: 99212 ==

== ENCOUNTER 2023-08-13 12:04 | Outpatient (AMB) | payer OTHER, SELFPAY ==
[2023-08-13 12:13] VITALS: BP 136/94; PULSE 74; TEMP 35.4; O2SAT 98
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
== END 2023-08-13 12:37 | disposition home or self-care (01) ==
PROVIDERS: PCP Internal Medicine; Visit Provider Physician Assistant Surgical
DX: K42.0 Umbilical hernia with obstruction, without gangrene (principal); Z48.02 Encounter for removal of sutures
CPT/HCPCS: 99024

== ENCOUNTER → 2023-08-13 12:04 | Outpatient (BNVA) | payer OTHER, SELFPAY | PROVIDERS: PCP Internal Medicine; Visit Provider Physician Assistant Surgical | DX: K42.0 Umbilical hernia with obstruction, without gangrene (principal) | CPT/HCPCS: 99212 ==

== ENCOUNTER 2023-08-14 13:19 | Outpatient (AMB) | payer OTHER, SELFPAY ==
[2023-08-14 13:20] VITALS: BP 144/92; PULSE 83; O2SAT 98; BMI 36.8
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
== END 2023-08-14 14:12 | disposition home or self-care (01) ==
PROVIDERS: PCP Internal Medicine; Visit Provider Internal Medicine
DX: K42.0 Umbilical hernia with obstruction, without gangrene (principal); E66.9 Obesity, unspecified; Z68.36 Body mass index [BMI] 36.0-36.9, adult; T81.30XA Disruption of wound, unspecified, initial encounter; K59.00 Constipation, unspecified; I10 Essential (primary) hypertension; N20.0 Calculus of kidney
CPT/HCPCS: 99214

== ENCOUNTER 2023-08-21 11:54 | Outpatient (AMB) | payer OTHER, SELFPAY ==
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
[2023-08-21 12:05] VITALS: BP 121/64; PULSE 74; TEMP 35.9; O2SAT 97
== END 2023-08-21 12:32 | disposition home or self-care (01) ==
PROVIDERS: PCP Internal Medicine; Visit Provider Physician Assistant Surgical
DX: K42.0 Umbilical hernia with obstruction, without gangrene (principal)
CPT/HCPCS: 99024

== ENCOUNTER → 2023-08-21 11:54 | Outpatient (BNVA) | payer OTHER, SELFPAY | PROVIDERS: PCP Internal Medicine; Visit Provider Physician Assistant Surgical | DX: K42.0 Umbilical hernia with obstruction, without gangrene (principal) | CPT/HCPCS: 99212 ==

== ENCOUNTER → 2023-08-23 10:30 | Outpatient (BNVA) | payer OTHER, SELFPAY | PROVIDERS: PCP Internal Medicine; Visit Provider Surgery ==

== ENCOUNTER 2023-08-27 14:22 | Outpatient (AMB) | payer OTHER, SELFPAY ==
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
[2023-08-27 14:31] VITALS: BP 131/69; PULSE 96; TEMP 35.9; O2SAT 98
== END 2023-08-27 14:44 | disposition home or self-care (01) ==
PROVIDERS: PCP Internal Medicine; Visit Provider Physician Assistant Surgical
DX: K42.0 Umbilical hernia with obstruction, without gangrene (principal)
CPT/HCPCS: 99024

== ENCOUNTER → 2023-08-27 14:22 | Outpatient (BNVA) | payer OTHER, SELFPAY | PROVIDERS: PCP Internal Medicine; Visit Provider Physician Assistant Surgical | DX: Z48.815 Encounter for surgical aftercare following surgery on the digestive system (principal); T81.31XD Disruption of external operation (surgical) wound, not elsewhere classified, subsequent encounter; Z98.890 Other specified postprocedural states | CPT/HCPCS: 99212 ==

== ENCOUNTER → 2023-08-28 12:59 | Outpatient (REF) | payer OTHER, SELFPAY | LOC: HO.SL 12:59 | PROVIDERS: PCP Internal Medicine; Visit Provider Internal Medicine | DX: G47.10 Hypersomnia, unspecified (principal); R06.83 Snoring | CPT/HCPCS: 95806 ==

== ENCOUNTER → 2023-08-28 13:09 | Outpatient (BNV) | payer OTHER, SELFPAY | PROVIDERS: PCP Internal Medicine; Visit Provider Internal Medicine | DX: R06.83 Snoring (principal) | CPT/HCPCS: 95806 ==

== ENCOUNTER 2023-09-06 10:09 | Outpatient (REF) | payer OTHER, SELFPAY ==
[2023-09-06 11:16] LABS: MANUAL DIFF FLAG NO
[2023-09-06 11:52] LABS: Basophils Percent Auto 0.6 % (0-2); Eosinophils Absolute Auto 0.1 X10*3/uL (0.0-0.4); Hematocrit 36.5 % (37.0-47.0); Imm Gran Abs Auto 0.02 X10*3/uL (0.00-0.03); Imm Gran Pct Auto 0.3 % (0.0-0.4); Lymphocytes Absolute Auto 2.1 X10*3/uL (1.2-4.9); Lymphocytes Percent Auto 30.6 % (20-40); Mean Corpuscular HGB Conc 32.9 g/dl (31.0-35.0); Mean Corpuscular Hemoglobin 29.9 pg (27.0-33.0); Mean Corpuscular Volume 90.8 fL (80.0-98.0); Monocytes Absolute Auto 0.6 X10*3/uL (0.1-1.2); Neutrophils Absolute Auto 4.1 x10*3/uL (2.0-8.3); Neutrophils Percent Auto 59.5 % (45-73); Platelet Count 275 X10*3/uL (160-400); Red Blood Count 4.02 X10*6/uL (4.20-5.50); Red Cell Distribution Width 12.9 % (11.0-16.0); White Blood Count 6.8 X10*3/uL (4.8-10.8)
[2023-09-06 12:23] LABS: Estimated Average Glucose 105 mg/dL; Hemoglobin A1c % 5.3 % (<6.0)
[2023-09-06 12:45] LABS: Anion Gap 13 (12-20); Blood Urea Nitrogen 17 mg/dL (9-16); C Reactive Protein 0.15 mg/dL (< or = 0.50); Calcium 9.5 mg/dL (8.4-10.2); Carbon Dioxide 23 mmol/L (22-29); Chloride 108 mmol/L (96-108); Cholesterol 208 mg/dL (<200); Estimated Glomerular Filt Rate > 60; Ferritin 32 ng/mL (10-122); Glucose Random 87 mg/dL (60-115); HDL Cholesterol 48 mg/dL (>40); Insulin 11 uU/mL (2-29); Iron 82 mcg/dL (30-160); LDL Cholesterol Calculated 135 mg/dL (<100); Percent Iron Saturation 29 % (15-50); Potassium 3.9 mmol/L (3.3-5.1); Sodium 140 mmol/L (135-145); TSH reflex Free T4 1.41 uIU/mL (0.32-4.0); Total Iron Binding Capacity 286 mcg/dL (228-428); Triglycerides 126 mg/dL (<150); Unsaturated Iron Binding 204 ug/dL; Vitamin D 25-OH Total 37.5 ng/mL (>30)
[2023-09-06 13:10] LABS: Folate 12.9 ng/mL (> or = 4.0); Vitamin B12 429 pg/mL (200-900)
[2023-09-11 01:53] LABS: Zinc 70 mcg/dL (60-130)
[2023-09-11 18:53] LABS: Vitamin A 54 mcg/dL (38-98)
[2023-09-12 15:37] LABS: Vitamin B1 15 nmol/L (8-30)
== END 2023-09-06 10:10 | disposition home or self-care (01) ==
LOC: HO.LAB 10:09
PROVIDERS: PCP Internal Medicine; Visit Provider Physician Assistant Surgical
DX: I10 Essential (primary) hypertension (principal); D64.9 Anemia, unspecified; E66.9 Obesity, unspecified; Z98.84 Bariatric surgery status
CPT/HCPCS: 36415; 80048; 80061; 82306; 82607; 82728; 82746; 83036; 83525; 83540; 84425; 84443; 84590; 84630; 85025; 86140; 99212

== ENCOUNTER 2023-09-06 10:09 | Outpatient (AMB) | payer OTHER, SELFPAY ==
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
[2023-09-06 10:28] VITALS: BP 120/74; PULSE 79; TEMP 36.2; O2SAT 98; BMI 36.5
== END 2023-09-06 11:02 | disposition home or self-care (01) ==
PROVIDERS: PCP Internal Medicine; Visit Provider Physician Assistant Surgical
DX: K42.0 Umbilical hernia with obstruction, without gangrene (principal); E66.9 Obesity, unspecified; Z68.36 Body mass index [BMI] 36.0-36.9, adult; Z98.84 Bariatric surgery status
CPT/HCPCS: 99214

== ENCOUNTER 2023-09-27 12:04 | Outpatient (AMB) | payer OTHER, SELFPAY ==
[2023-09-27 12:09] VITALS: BP 134/66; PULSE 82; TEMP 35.5; O2SAT 98
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
== END 2023-09-27 12:29 | disposition home or self-care (01) ==
PROVIDERS: PCP Internal Medicine; Visit Provider Physician Assistant Surgical
DX: K42.0 Umbilical hernia with obstruction, without gangrene (principal)
CPT/HCPCS: 99213

== ENCOUNTER → 2023-09-27 12:04 | Outpatient (BNVA) | payer OTHER, SELFPAY | PROVIDERS: PCP Internal Medicine; Visit Provider Physician Assistant Surgical | DX: Z48.815 Encounter for surgical aftercare following surgery on the digestive system (principal); Z98.890 Other specified postprocedural states | CPT/HCPCS: 99212 ==

== ENCOUNTER 2023-10-17 09:10 | Outpatient (AMB) | payer OTHER, SELFPAY ==
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
== END 2023-10-17 10:10 | disposition home or self-care (01) ==
PROVIDERS: PCP Internal Medicine; Visit Provider Urology
DX: N20.0 Calculus of kidney (principal)
CPT/HCPCS: 99204

== ENCOUNTER → 2023-10-17 09:10 | Outpatient (BNVA) | payer OTHER, SELFPAY | PROVIDERS: PCP Internal Medicine; Visit Provider Urology | DX: N20.0 Calculus of kidney (principal) | CPT/HCPCS: 99202 ==

== ENCOUNTER 2023-11-11 15:59 | Outpatient (AMB) | payer OTHER, SELFPAY ==
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
== END 2023-11-11 17:38 | disposition home or self-care (01) ==
LOC: HO.HMGH 15:59
PROVIDERS: PCP Internal Medicine; Visit Provider Internal Medicine
DX: N20.0 Calculus of kidney (principal); Z98.84 Bariatric surgery status; E66.9 Obesity, unspecified; I10 Essential (primary) hypertension; L30.9 Dermatitis, unspecified; R20.0 Anesthesia of skin; Z80.3 Family history of malignant neoplasm of breast
CPT/HCPCS: 99214

== ENCOUNTER 2023-12-05 09:21 | Outpatient (AMB) | payer OTHER, SELFPAY ==
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
[2023-12-05 09:30] VITALS: BP 129/70; PULSE 74; TEMP 35.8; O2SAT 98; BMI 36.6
== END 2023-12-05 09:56 | disposition home or self-care (01) ==
PROVIDERS: PCP Internal Medicine; Visit Provider Physician Assistant Surgical
DX: E66.9 Obesity, unspecified (principal); Z68.36 Body mass index [BMI] 36.0-36.9, adult; Z90.3 Acquired absence of stomach [part of]; Z98.84 Bariatric surgery status
CPT/HCPCS: 99213

== ENCOUNTER → 2023-12-05 09:21 | Outpatient (BNVA) | payer OTHER, SELFPAY | PROVIDERS: PCP Internal Medicine; Visit Provider Physician Assistant Surgical | DX: E66.9 Obesity, unspecified (principal); Z68.36 Body mass index [BMI] 36.0-36.9, adult; Z98.84 Bariatric surgery status | CPT/HCPCS: 99212 ==

== ENCOUNTER 2023-12-09 08:41 | Outpatient (REF) | payer OTHER, SELFPAY ==
[2023-12-09 08:51] LABS: MANUAL DIFF FLAG NO
[2023-12-09 09:28] LABS: Basophils Percent Auto 0.5 % (0-2); Eosinophils Absolute Auto 0.1 X10*3/uL (0.0-0.4); Eosinophils Percent Auto 1.1 % (0-4); Hematocrit 34.5 % (37.0-47.0); Hemoglobin 11.2 g/dl (12.0-16.0); Imm Gran Abs Auto 0.03 X10*3/uL (0.00-0.03); Imm Gran Pct Auto 0.4 % (0.0-0.4); Immature Retic Fraction 22.7 % (3.0-15.9); Lymphocytes Absolute Auto 1.8 X10*3/uL (1.2-4.9); Lymphocytes Percent Auto 24.5 % (20-40); Mean Corpuscular HGB Conc 32.5 g/dl (31.0-35.0); Mean Corpuscular Hemoglobin 29.9 pg (27.0-33.0); Mean Corpuscular Volume 92.2 fL (80.0-98.0); Monocytes Absolute Auto 0.6 X10*3/uL (0.1-1.2); Monocytes Percent Auto 7.4 % (2-11); Neutrophils Absolute Auto 4.9 x10*3/uL (2.0-8.3); Neutrophils Percent Auto 66.1 % (45-73); Platelet Count 259 X10*3/uL (160-400); Red Blood Count 3.74 X10*6/uL (4.20-5.50); Red Cell Distribution Width 12.7 % (11.0-16.0); Retic HGB Equivalent 32.8 pg (30.0-35.0); Reticulocyte Percent 2.6 % (0.5-1.8); Reticulocytes Absolute 0.096 X10*6/uL (0.026-0.095); White Blood Count 7.4 X10*3/uL (4.8-10.8)
[2023-12-09 10:03] LABS: Alanine Aminotransferase 11 U/L (0-31); Albumin Level 4.4 g/dL (3.5-5.0); Alkaline Phosphatase 59 U/L (39-117); Anion Gap 10 (12-20); Aspartate Amino Transferase 12 U/L (5-31); Bilirubin Total 0.3 mg/dL (0.0-1.0); Blood Urea Nitrogen 15 mg/dL (9-16); Calcium 9.4 mg/dL (8.4-10.2); Carbon Dioxide 26 mmol/L (22-29); Chloride 108 mmol/L (96-108); Estimated Glomerular Filt Rate > 60; Glucose Random 97 mg/dL (60-115); Iron 54 mcg/dL (30-160); Percent Iron Saturation 18 % (15-50); Potassium 4.3 mmol/L (3.3-5.1); Sodium 140 mmol/L (135-145); Total Iron Binding Capacity 292 mcg/dL (228-428); Total Protein 7.2 g/dL (6.5-8.0); Unsaturated Iron Binding 238 ug/dL
[2023-12-09 10:23] LABS: Ferritin 14 ng/mL (10-122); Free T4 (Free Thyroxine) 0.85 ng/dL (0.71-1.85); Thyroid Stimulating Hormone 2.02 uIU/mL (0.32-4.0)
[2023-12-09 10:49] LABS: Folate 9.7 ng/mL (> or = 4.0); Vitamin B12 361 pg/mL (200-900)
== END 2023-12-09 08:42 | disposition home or self-care (01) ==
LOC: HO.LAB 08:41
PROVIDERS: Absent Provider Internal Medicine; PCP Internal Medicine
DX: Z00.00 Encounter for general adult medical examination without abnormal findings (principal); D64.9 Anemia, unspecified
CPT/HCPCS: 36415; 80053; 82533; 82607; 82728; 82746; 83540; 84439; 84443; 85025; 85045

== ENCOUNTER 2023-12-11 09:08 | Outpatient (AMB) | payer OTHER, SELFPAY ==
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
[2023-12-11 09:40] VITALS: BP 118/74; BMI 36.5
== END 2023-12-11 10:23 | disposition home or self-care (01) ==
PROVIDERS: PCP Internal Medicine; Visit Provider Obstetrics & Gynecology
DX: N93.9 Abnormal uterine and vaginal bleeding, unspecified (principal); Z11.3 Encounter for screening for infections with a predominantly sexual mode of transmission; Z32.02 Encounter for pregnancy test, result negative
CPT/HCPCS: 99203

== ENCOUNTER 2023-12-11 09:08 | Outpatient (REF) | payer OTHER, SELFPAY ==
[2023-12-11 14:26] LABS: CT PCR NOT DETECTED (Not Detect.); NG PCR NOT DETECTED (Not Detect.)
[2023-12-16 12:33] LABS: HPV mRNA E6/E7 Not Detected (Not Detected)
== END 2023-12-11 09:09 | disposition home or self-care (01) ==
LOC: HO.LNP 09:08
PROVIDERS: PCP Internal Medicine; Visit Provider Obstetrics & Gynecology
DX: Z12.4 Encounter for screening for malignant neoplasm of cervix (principal); Z11.51 Encounter for screening for human papillomavirus (HPV); N93.9 Abnormal uterine and vaginal bleeding, unspecified; Z20.2 Contact with and (suspected) exposure to infections with a predominantly sexual mode of transmission
CPT/HCPCS: 81025; 87491; 87591; 87624; 88175; 99202

== ENCOUNTER 2023-12-13 12:49 | Outpatient (REF) | payer OTHER, SELFPAY ==
--- NOTE | ~2023-12-13 | US_ITS ---
EXAMINATION: US PELVIS CLINICAL INFORMATION: Abnormal uterine and vaginal bleeding, last menstrual period 11/13/2023, left adnexal 4.1 cm cyst most likely of left ovarian origin on 07/18/2023 CT scan COMPARISON: CT abdomen and pelvis of 07/18/2023. TECHNIQUE: Ultrasound of the pelvis is performed using both transabdominal and transvaginal transducers along with Doppler. Transvaginal imaging is performed due to inadequate visualization transabdominally. FINDINGS: The uterus is anteverted and measures 10.9 x 5.5 x 6.2 cm. Endometrial thickness is 8 mm. No significant free fluid. Nabothian cysts and echogenic foci characteristic of calcifications identified in the cervix. Right ovary measures 3.3 x 2.3 x 2.4 cm, volume 9.4 mL. A 2.4 x 2.2 x 1.7 cm complex right ovarian cyst with diffuse internal echoes is difficult to characterize due to limited visualization. Left ovary was seen only on transabdominal ultrasound images, limiting evaluation, and measures 4.1 x 3.4 x 3.7 cm, volume 27.0 mL. A 3.6 x 2.5 x 3.3 cm left ovarian cyst with low-level internal echoes and possible septation is difficult to characterize due to limited visualization. Limited visualization due to bowel gas. US/US pelvic and transvaginal IMPRESSION: 1. Endometrial thickness is 8 mm. 2. Bilateral complex ovarian cysts are difficult to characterize due to limited visualization. 4.1 cm left ovarian cyst and 2.4 cm right ovarian cyst demonstrate diffuse low-level internal echoes and are difficult to characterize due to limited visualization. Prior CT scan of 03/10/2023 demonstrated 5.2 cm right adnexal cyst and CT scan of 07/28/2023 demonstrated a 4.1 cm most likely left ovarian cyst. 3. Ovarian cysts were not identified on pelvic ultrasound of 08/22/2018. 4. Correlation with clinical exam and gynecologic consultation recommended to determine further management. Recommend follow-up ultrasound in 6-8 weeks. Electronically signed by: Lucila Panchal MD 01/01/2024 06:48 AM EDT
[2023-12-13 13:04] LABS: Hematocrit 36.7 % (37.0-47.0); Hemoglobin 12.3 g/dl (12.0-16.0); Mean Corpuscular HGB Conc 33.5 g/dl (31.0-35.0); Mean Corpuscular Hemoglobin 30.5 pg (27.0-33.0); Mean Corpuscular Volume 91.1 fL (80.0-98.0); Mean Platelet Volume 10.6 fL (9.4-12.3); Platelet Count 299 X10*3/uL (160-400); Red Blood Count 4.03 X10*6/uL (4.20-5.50); White Blood Count 9.5 X10*3/uL (4.8-10.8)
[2023-12-13 14:20] LABS: HCG Quantitative < 2 mIU/mL; TSH reflex Free T4 2.11 uIU/mL (0.32-4.0)
[2023-12-14 04:10] LABS: Syphilis Screen Nonreactive (Nonreactive)
[2023-12-14 04:42] LABS: HBsAGNum1 0.31 S/CO (0.00-0.99); HIV AB/AG Nonreactive (Nonreactive); HIV Num 1 0.05 S/CO (0.00-0.99); Hepatitis B Surface Antigen Negative (Negative); ~Hepatitis C Antibody Nonreactive (Nonreactive)
== END 2023-12-13 12:50 | disposition home or self-care (01) ==
LOC: HO.US 12:49
PROVIDERS: PCP Internal Medicine; Visit Provider Obstetrics & Gynecology
DX: N93.9 Abnormal uterine and vaginal bleeding, unspecified (principal); Z20.2 Contact with and (suspected) exposure to infections with a predominantly sexual mode of transmission; N83.292 Other ovarian cyst, left side; N83.291 Other ovarian cyst, right side
CPT/HCPCS: 36415; 76830; 76856; 84146; 84443; 84702; 85027; 86780; 86803; 87340; 87389

== ENCOUNTER 2024-02-09 07:38 | Emergency (ER) | payer OTHER, SELFPAY ==
--- NOTE | ~2024-02-09 | CT_ITS ---
EXAMINATION: CT ABDOMEN PELVIS WITHOUT IV CONTRAST CLINICAL INFORMATION: abd pain, Hx of sbo, s/p appy COMPARISON: July 28, 2023 TECHNIQUE: Multidetector volumetric imaging was performed from the superior aspect of the liver through the pubic symphysis , noncontrast this study. Sagittal and coronal reformatted images were obtained on the technologist's workstation. This CT examination was performed using dose optimization techniques as appropriate, variously including the following: *Automated exposure control *Adjustment of mA and/or kV according to patient size (this includes techniques or standardized protocols for targeted exams where dose is matched to indication/reason for exam; i.e. extremities or head) *Use of iterative reconstruction technique DLP: 946 mGy-cm FINDINGS: LOWER THORAX: Included lung bases are clear. HEPATOBILIARY: No focal hepatic lesions. No biliary ductal dilatation. GALLBLADDER: Gallbladder unremarkable. SPLEEN: Spleen is normal in size. PANCREAS: No focal mass or ductal dilatation. STOMACH AND GASTROINTESTINAL TRACT: Postsurgical changes partial gastrectomy. There is no bowel distention or thickening. Appendix has been removed. No CT evidence of suture dehiscence, obstruction, inflammation or other complications. ADRENALS: No adrenal nodules. KIDNEYS/URETERS: Multiple bilateral small nonobstructing kidney stones lower calyces measuring 1 to 3 mm, one on the right and 3 on the left. No hydronephrosis. Kidneys otherwise homogeneous normal in size and texture. URINARY BLADDER: Partially decompressed. PELVIC VISCERA: Fluid-filled cystic structure in the right adnexa 3.7 cm, probably a dominant follicle. Newly developed since prior exam. PERITONEUM: No free air or fluid. LYMPH NODES: No lymphadenopathy. VASCULAR:Abdominal aorta normal in size, no aneurysm found. BONES, ABDOMINAL WALL AND SOFT TISSUES: Postsurgical changes scarring anterior abdominal wall from prior laparoscopic appendectomy. Age-appropriate changes of the spine and skeletal system, no destructive osteolytic or osteosclerotic bone lesion found CT/CT abdomen pelvis wo IV con IMPRESSION: 1. No CT evidence of acute intra-abdominal process to explain patient's pain symptoms. 2. Postsurgical changes partial gastrectomy. No CT evidence of suture dehiscence, obstruction, inflammation or other complications. 3. Bilateral nonobstructing kidney stones. 4. Fluid-filled cystic structure in the right adnexa 3.7 cm, probably a dominant follicle, in this patient age group, this is considered physiologic, no follow-up is indicated.. Electronically signed by: Kishore Penaloza MD 02/09/2024 09:36 AM EDT RP
[2024-02-09 07:44] VITALS: BP 128/51; PULSE 75; RESP 18; TEMP 36.8; O2SAT 98; BMI 36.7
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
[2024-02-09 08:31] LABS: MANUAL DIFF FLAG NO
[2024-02-09 08:33] LABS: Basophils Percent Auto 0.6 % (0-2); Eosinophils Absolute Auto 0.1 X10*3/uL (0.0-0.4); Eosinophils Percent Auto 1.5 % (0-4); Hematocrit 36.4 % (37.0-47.0); Hemoglobin 11.9 g/dl (12.0-16.0); Imm Gran Abs Auto 0.02 X10*3/uL (0.00-0.03); Imm Gran Pct Auto 0.3 % (0.0-0.4); Lymphocytes Absolute Auto 1.9 X10*3/uL (1.2-4.9); Lymphocytes Percent Auto 28.6 % (20-40); Mean Corpuscular HGB Conc 32.7 g/dl (31.0-35.0); Mean Corpuscular Hemoglobin 29.9 pg (27.0-33.0); Mean Corpuscular Volume 91.5 fL (80.0-98.0); Mean Platelet Volume 10.5 fL (9.4-12.3); Monocytes Absolute Auto 0.6 X10*3/uL (0.1-1.2); Monocytes Percent Auto 9.5 % (2-11); Neutrophils Absolute Auto 3.9 x10*3/uL (2.0-8.3); Neutrophils Percent Auto 59.5 % (45-73); Platelet Count 290 X10*3/uL (160-400); Red Blood Count 3.98 X10*6/uL (4.20-5.50); Red Cell Distribution Width 12.9 % (11.0-16.0); White Blood Count 6.5 X10*3/uL (4.8-10.8)
--- NOTE | 2024-02-09 08:34 | PC.NURSE ---
a&xox4. vss and up to date. pt presents to the ED c/o periumbilical pain that radiates to RLQ x 3-4 days. pt reports that pain is a 5/10 w/ no movement and increases to 10/10 during ambulation/when changing position. pt also reports episodes of nausea/constipation x 3 days. pt reports taking senna at home w/ minimal relief stating that she has had 1 abnormal hard BM. pt denies any episodes of vomiting/diarrhea/fever/chills/urinary sx. labs/urine obtained/sent to lab by tech. pt waiting for CT to be completed. no sob/wob noted. respirations even/unlabored. plan of care ongoing. call roberts placed within reach.
[2024-02-09 08:47] LABS: Appearance Urine Cloudy; Color Urine Yellow; Glucose Urine UA Negative (Negative); Leukocyte Esterase Urine Trace (Negative); Nitrite Urine Negative (Negative); Specific Gravity - Urine 1.025 (1.005-1.025); UMIC TRIGGER UACC YES; Urine Blood Large (3+) (Negative); Urine Ketones Negative (Negative); Urine Protein Negative (Neg-Trace)
[2024-02-09 08:49] LABS: UPreg QC Valid YES; Urine Pregnancy NEGATIVE (NEGATIVE)
[2024-02-09 08:51] LABS: Bacteria Urine 1+ (None Seen); Hyaline Casts Urine 0-2 /LPF (0-2); WBC Urine 0-5 /HPF (0-5)
[2024-02-09 09:39] LABS: Alanine Aminotransferase 15 U/L (0-31); Albumin Level 4.1 g/dL (3.5-5.0); Alkaline Phosphatase 58 U/L (39-117); Anion Gap 14 (12-20); Aspartate Amino Transferase 19 U/L (5-31); Bilirubin Direct 0.1 mg/dL (0.0-0.5); Bilirubin Total 0.5 mg/dL (0.0-1.0); Blood Urea Nitrogen 18 mg/dL (9-16); Calcium 8.9 mg/dL (8.4-10.2); Carbon Dioxide 22 mmol/L (22-29); Chloride 108 mmol/L (96-108); Creatinine Clr Calc Pharmacy 156.4; Estimated Glomerular Filt Rate > 60; Glucose Random 95 mg/dL (60-115); Lipase 15 U/L (8-78); Potassium 4.3 mmol/L (3.3-5.1); Sodium 140 mmol/L (135-145)
[2024-02-09 09:54] VITALS: BP 106/47; PULSE 73; RESP 16; TEMP 36.7; O2SAT 97
--- NOTE | 2024-02-09 10:28 | PC.NURSE ---
this nurse took over care of patient at 9am from , pt a&ox3, c/o 09/05 abd pain, vss, pt rr equal/non labored, awaiting results of ct scan. will continue with plan of care.
[2024-02-09 11:21] VITALS: BP 108/45; PULSE 70; RESP 16; TEMP 36.7; O2SAT 97
== END 2024-02-09 11:22 | disposition home or self-care (01) ==
PROVIDERS: Emergency Provider Emergency Medicine; PCP Internal Medicine
DX: N83.201 Unspecified ovarian cyst, right side (principal); R10.2 Pelvic and perineal pain; Z79.899 Other long term (current) drug therapy
CPT/HCPCS: 36415; 74176; 80048; 80076; 81001; 81025; 83690; 85025; 99284

== ENCOUNTER 2024-02-19 08:59 | Outpatient (AMB) | payer OTHER, SELFPAY ==
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
[2024-02-19 09:53] VITALS: BMI 36.7
== END 2024-02-19 10:22 | disposition home or self-care (01) ==
LOC: HO.HWS 08:59
PROVIDERS: PCP Internal Medicine; Visit Provider Obstetrics & Gynecology
DX: N90.7 Vulvar cyst (principal)
CPT/HCPCS: 56405

== ENCOUNTER → 2024-02-19 08:59 | Outpatient (BNVA) | payer OTHER, SELFPAY | PROVIDERS: PCP Internal Medicine; Visit Provider Obstetrics & Gynecology | DX: N90.7 Vulvar cyst (principal) | CPT/HCPCS: 56405 ==

== ENCOUNTER 2024-02-28 14:49 | Outpatient (AMB) | payer OTHER, SELFPAY ==
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
== END 2024-02-28 15:18 | disposition home or self-care (01) ==
LOC: HO.HMCH 14:49
PROVIDERS: PCP Internal Medicine; Visit Provider Internal Medicine
DX: F41.1 Generalized anxiety disorder (principal)

== ENCOUNTER → 2024-02-28 14:49 | Outpatient (BNVA) | payer OTHER, SELFPAY | PROVIDERS: PCP Internal Medicine; Visit Provider Internal Medicine ==

== ENCOUNTER 2024-03-20 15:40 | Outpatient (AMB) | payer OTHER, SELFPAY ==
[2024-03-20 15:53] VITALS: BP 124/72; PULSE 73; O2SAT 99; BMI 36.7
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
== END 2024-03-20 17:23 | disposition home or self-care (01) ==
PROVIDERS: PCP Internal Medicine; Visit Provider Internal Medicine
DX: Z00.00 Encounter for general adult medical examination without abnormal findings (principal); Z98.84 Bariatric surgery status; E66.9 Obesity, unspecified; Z68.36 Body mass index [BMI] 36.0-36.9, adult; I10 Essential (primary) hypertension; F41.1 Generalized anxiety disorder; N20.0 Calculus of kidney; H91.93 Unspecified hearing loss, bilateral; K21.9 Gastro-esophageal reflux disease without esophagitis

== ENCOUNTER → 2024-03-20 15:40 | Outpatient (BNVA) | payer OTHER, SELFPAY | PROVIDERS: PCP Internal Medicine; Visit Provider Internal Medicine | DX: Z00.00 Encounter for general adult medical examination without abnormal findings (principal); I10 Essential (primary) hypertension; E66.9 Obesity, unspecified; F41.1 Generalized anxiety disorder; N20.0 Calculus of kidney; H91.93 Unspecified hearing loss, bilateral; K21.9 Gastro-esophageal reflux disease without esophagitis; Z98.84 Bariatric surgery status | CPT/HCPCS: 96127; 99395 ==

== ENCOUNTER 2024-04-14 11:41 | Outpatient (REF) | payer OTHER, SELFPAY | END 2024-04-14 11:42 | disposition home or self-care (01) | LOC: HO.LNP 11:41 | PROVIDERS: PCP Internal Medicine; Visit Provider Obstetrics & Gynecology | DX: N93.9 Abnormal uterine and vaginal bleeding, unspecified (principal); N83.299 Other ovarian cyst, unspecified side | CPT/HCPCS: 58100; 81025; 88305; 99212 ==

== ENCOUNTER 2024-04-14 11:41 | Outpatient (AMB) | payer OTHER, SELFPAY ==
--- OUTSIDE RECORDS SUMMARY | 2024-04-14 11:50 | XMS_ITS | Data Portability ---
Author Organization [facility] Address [address] [place] [address] Assessment No assessment recorded. Plan of Treatment Reminders Order Date Submit Date Provider Last Modified By Organization Details Last Modified Time Details Appointments None recorded. Lab rapid strep group A, throat 2021 022 [email or web address] 1 _[facility], [address] [place] [address], [phone], 2 11:20:27 rapid SARS CoV 2 Ag, QL IA, respiratory specimen 2021 022 [email or web address] 1 2099[facility], [address] [place] [address], [phone], 2 11:20:27 rapid flu (A+B) 2021 0[email or web address] [place] [address], [address] [place] [address], [phone], 2 11:20:27 rapid strep group A, throat 2022 023 [email or web address] 2099[facility], [address] [place] [address], [phone], 3 10:19:04 Referral None recorded. Procedures None recorded. Surgeries None recorded. Imaging None recorded. Medication Orders fluticasone propionate 50 mcg/actuati on nasal spray,suspe nsion 2021 022 CLAUDINE [facility]acy #[id number], [address] [place], [address], 11:20:29 cephalexin 500 mg capsule 2022 023 [email or web address] [facility]/Pharmacy #[id number], [address] [place], [address], 10:23:42 Patient TargetsNo targets recorded. Patient Instructions Encounter Date Encounter Id Patient Instructions Last Modified By Organization Details Last Modified Time 04/19/2022 [id number] influenza (flu): care instructions [email or web address] Not available 04/19/2022 11:20:27 07/27/2022 [id number] sore throat: car e instructions [email or web address] Not available 07/27/2022 10:23:40 Discussed potential complications and intervention options with the patient during this visit. Patient was instructed to increase room humidity and eat soft bland foods. Raising the head of the bed, lozenges, and saline nasal spray were also recommended. Patient may take ibuprofen or acetaminophen as needed for pain control. If the issue does not improve in 24-48 hours, patient should return to the clinic for follow-up. You have been prescribed an antibiotic for your bacterial illness. While antibiotics are sometimes necessary, they can have a negative impact upon the healthy bacteria within your body. This can result in diarrhea/loose stools and yeast infections. By taking probiotics during the course of your prescription, you can lessen the probability of these undesirable side effects. Probiotics can be purchased bdro-jzh-defbfet at your pharmacy in the form of capsules or gummies. They are also found naturally in yogurt with live cultures. Mix salt into a quarter-glass of warm water and stir until no more salt will dissolve. Gargle and spit out the salt water mixture one mouthful at a time until the glass is empty. Repeat 4 times daily. Hand hygiene is a remy measure for preventing spread to others, especially after coughing or sneezing and before preparing foods or eating, and we remind all patients of its importance. Please discard of your current tooth brush and get a new one after being on the antibiotic for 3-4 days to prevent reinfection. You are considered contagious until you have the antibiotic for 24 hours. We have sent out for lab results, typically take 3-5 days to return. [email or web address] Not available 07/27/2022 10:16:32 Reason for Referral None Reported. Results Created Date Observation Date Name Description Value Unit Range Abnormal Flag Note LastModifiedBy Organization Detail LastModifiedTime 04/19/20 22 04/19/2022 rapid SARS CoV 2 Ag, QL IA, respi rator y speci men Unknown Analyte Normal =Negat mark Not Available [address] [place] [address], [phone], 04/19/2022 10:42:20 04/19/20 22 04/19/2022 rapid SARS CoV 2 Ag, QL IA, respi rator y speci men Unknown Analyte negati ve Not Available [address] [place] [address], [phone], 04/19/2022 10:42:20 04/19/20 22 04/19/2022 rapid strep group A, throa t Unknown Analyte Normal = Negati ve Not Available [address] [place] [address], [phone], 04/19/2022 10:39:30 04/19/20 22 04/19/2022 rapid strep group A, throa t Unknown Analyte negati ve Not Available [address] [place] [address], [phone], 04/19/2022 10:39:30 04/19/20 22 04/19/2022 rapid flu (A+B) Unknown Analyte Normal = Negati ve Not Available [address] [place] [address], [phone], 04/19/2022 10:42:25 04/19/20 22 04/19/2022 rapid flu (A+B) Unknown Analyte Normal = Negati ve Not Available [address] [place] [address], [phone], 04/19/2022 10:42:25 04/19/20 22 04/19/2022 rapid flu (A+B) Unknown Analyte negati ve Not Available [facility] [address] [place], [address], 04/19/2022 10:42:25 04/19/20 22 04/19/2022 rapid flu (A+B) Unknown Analyte negati ve Not Available [address] [place] [address] [place], [address], 04/19/2022 10:42:25 07/28/19 23 07/27/2022 rapid strep group A, throa t Unknown Analyte Normal = Negati ve Not Available [address] [place] [address] [place], [phone], 07/27/2022 09:57:14 07/28/1907/27/2022 rapid strep group A, throa t Unknown Analyte positi ve Not Available [address] [place] [address] [place], [phone], 07/27/2022 09:57:14 Result Notes None recorded. Problems Name Problem SNOMED Code Status Onset Date Resolution Date Notes Provider Name and Address Organization Details Recorded Time Irritable bowel syndrome 97025591 Active 022 Nancy Artesia null, PA - [facility] 10:41:33 Problem Notes None recorded. Procedures Surgical History Date Name Laterality Status Provider Name and Address Organization Details Recorded Time laparoscopic sleeve gastrectomy completed Nancy Artesia PA - [facility] 04/19/2022 10:41:53 tonsillectomy completed Nancy Guerrero PA - [facility] 04/19/2022 10:42:02 lithotripsy completed Nancy Artesia PA - [facility] 04/19/2022 10:42:13 Imaging Results None recorded. Procedure Notes None recorded. Medical Equipment None Reported. Allergies Allergen ID Allergen Name Allergen Category Reaction Reaction Severity Criticality Documentation Date Start Date Code Code System Note Provider Name and Address Organization Details Recorded Time 94123 amoxicill in medicatio n rash Not available low 04/19/2022 723 RxNorm Nancy Artesia null, PA - [facility] 2 10:40:36 39135 clindamyc in Not available rash Not available low 04/19/2022 2582 RxNorm Nancy Guerrero null, PA - [facility] 2 10:40:45 53276 morphine medicatio n anaphylax is Not available high 04/19/2022 7052 RxNorm Nancy Guerrero null, PA - [facility] 2 10:40:54 Medications Name Sig Start Date Stop Date Status Note LastModified by Organization Details LastModified Time cetirizine 10 mg tablet TAKE 1 TABLET BY MOUTH DAILY active Not Available Not Available Not Available benzonatate 200 mg capsule TAKE 1 CAPSULE BY MOUTH 2 TO 3 TIMES A DAY NEEDED FOR COUGH active Not Available Not Available No t Available citalopram 20 mg tablet TAKE 1 TABLET BY MOUTH EVERY DAY active Not Available Not Available No t Available tamsulosin 0.4 mg capsule TAKE 1 CAPSULE BY MOUTH EVERY DAY active Not Available Not Available No t Available cephalexin 500 mg capsule Take 1 capsule twice a day by oral route with meals for 10 days. 2022 active Not Available Not Available Not Avai lable docusate sodium 100 mg capsule TAKE 1 CAPSULE BY MOUTH EVERY DAY active Not Available Not Available No t Available Senna Laxative 8.6 mg tablet TAKE 2 TABLETS BY MOUTH AT BEDTIME FOR CONSTIPATIO N active Not Available Not Available No t Available fluticasone propionate 50 mcg/actuatio n nasal spray,suspen dony SPRAY 1 SPRAY TWICE A DAY BY INTRANASAL ROUTE DIRECTED. active Not Available Not Available No t Available clotrimazole 1 % topical cream APPLY TOPICALLY TWICE DAILY active Not Available Not Available Not Available Miralax active Not Available Not Avail able Not Available multivitamin active Not Available Not Available Not Available Vitals Date Recorded Body height Body temperature Body mass index (BMI) Body weight Oxygen saturation Oxygen saturation in Arterial blood by Pulse oximetry Heart rate Respiratory rate Systolic blood pressure Diastolic blood pressure Provider Name and Address Organization Details Last Updated DateTime 3 177.8 cm 98.1 [degF] 33.7 kg/m2 880273. 21 g 97 % 97 % 113 /min 18 /min 134 mm[Hg] 88 mm[Hg] DHAVAL H[facility] 3 09:55:21 Date Recorded Body height Body mass index (BMI) Body weight Oxygen saturation Oxygen saturation in Arterial blood by Pulse oximetry Heart rate Respiratory rate Body temperature Systolic blood pressure Diastolic blood pressure Provider Name and Address Organization Details Last Updated DateTime 2 177.8 cm 32.4 kg/m2 056241. 88 g 100 % 100 % 64 /min 18 /min 98.1 [degF] 129 mm[Hg] 77 mm[Hg] Nancy Masters [facility] 2 10:40:07 Social History Question Answer Notes LastModified by [employer] ion Details LastModified Time Tobacco Smoking Status Never Smoker Nancy weiss PA [facility] 04/19/2022 10:41:42 What Is Your Level Of Alcohol Consumption? Occasional [email or web address] Information not available 07/27/2022 Have You Had Direct Contact, Or Contact During Intimacy, With Monkeypox Rash, Scabs, Or Body Fluids From A Person With Monkeypox? No Information not available 04/19/2022 Do You Use Any Illicit Or Recreational Drugs? No Information not available 04/19/2022 Have You Recently Traveled Abroad? No Information not available 04/19/2022 Do You Or Have You Ever Used Any Other Forms Of Tobacco Or Nicotine? No Information not available 04/19/2022 Sex: Unknown Functional Status None recorded. Mental Status None recorded. Family History Relationship Description Onset Age of this Age Resolved Age Notes LastModified by Organization Details LastModified Time Father No current problems or disability Not available 04/19 10:41:35 Mother No current problems or disability Not available 04/19 10:41:35 Medical History No medical history recorded. Gynecological HistoryNo gynecological history recorded. Obstetrics History GPAL:G 0 P 0 0 0 0 Immunizations Vaccine Type Date Status Note Provider Nam e and Address Organization Details Recorded Time Influenza, split virus, quadrivalent, preservative 8 completed DHAVAL GOODHIND null, PA - [facility] 07/27/2022 09:50:38 COVID-19, mRNA, LNP-S, PF, 30 mcg/0.3 mL dose 2 completed DHAVAL GOODHIND null, PA - [facility] 07/27/2022 09:50:38 COVID-19, mRNA, LNP-S, PF, 30 mcg/0.3 mL dose 1 completed DHAVAL GOODHIND null, PA - [facility] 07/27/2022 09:50:38 COVID-19, mRNA, LNP-S, PF, 30 mcg/0.3 mL dose 1 completed DHAVAL GOODHIND null, PA - [facility] 07/27/2022 09:50:38 COVID-19, mRNA, LNP-S, bivalent, PF, 30 mcg/0.3 mL dose 2 completed DHAVAL GOODHIND null, PA - [facility] 07/27/2022 09:50:38 Tdap 8 completed DHAVAL GOODHIND null, PA - [facility] 07/27/2022 09:50:38 Tdap 8 completed DHAVAL MURPHYHIND null, PA - [facility] 07/27/2022 09:50:38 Hep B, adult 1 completed DHAVAL GOODHIND null, PA - [facility] 07/27/2022 09:50:38 Hep B, adult 1 completed DHAVAL GOODHIND null, PA - [facility] 07/27/2022 09:50:38 Influenza, split virus, quadrivalent, PF 0 completed DHAVAL MURPHYHIND null, PA - [facility] 07/27/2022 09:50:38 Influenza, split virus, quadrivalent, PF 1 completed DHAVAL MURPHYHIND null, PA - [facility] 07/27/2022 09:50:38 Past Encounters Encounter ID Performer Location Encounter Start Date Encounter Closed Date Diagnosis/Indication Diagnosis SNOMED-CT Code Diagnosis ICD10 Code [id number] [address] [facility] [place] [address] 04/20/2021 16:56:44 04/20/2021 18:27:02 [id number] [address] [facility] [place] [address] 09/28/2015 20:00:26 09/28/2015 20:51:27 [id number] [address] [place] [place] [address] 05/30/2017 08:30:54 05/30/2017 09:37:34 [id number] [address] [facility] [place] [address] 04/30/2016 18:32:41 04/30/2016 19:06:38 [id number] WADE VILLEDA MD [address] [facility] [place] [address] 04/19/2022 08:48:37 04/19/2022 11:28:03 Sore throat 459997200 J02.9 Influenza 5040280 J11.1 [id number] Jhonny Mast NP [address] [facility] [place] [address] 07/27/2022 08:24:08 07/27/2022 10:20:36 Streptococcal sore throat 49824228 J02.0 Health Concerns Section Related Observation LastModified by Organization Detai ls LastModified Time None Recorded Concern Status LastModified by Organization Details LastModified Time None Recorded Advance Directives Directive None Recorded Payers Encounter Date Sequence Insurance Name Policy Number Policy Vera Covered Member ID Vera Member ID Guarantor Name 04/30/2016 1 [facility] - MEDICAID ESSENTIAL (MEDICAID HMO) [id number] Leigh Pabon [id number] Leigh Pabon 05/30/2017 1 [facility] - MEDICAID ESSENTIAL (MEDICAID HMO) [id number] Leigh Pabon [id number] Leigh Pabon 04/20/2021 1 [facility] HEALTH[facility] - MEDICAID ESSENTIAL (MEDICAID HMO) [id number] Leigh Verduzco Cm [id number] Leigh Cm 04/20/2021 1 [facility] PLAN (MEDICAID HMO) HOMERO Verduzco Pabon [id number] Leigh Pabon 04/19/2022 1 [facility] PLAN (MEDICAID HMO) HOMERO Verduzco Cm [id number] Leigh Pabon 07/27/2022 1 [facility] PLAN (MEDICAID HMO) [employer] LL[employer]arolina Verduzco Pabon [id number] Leigh Pabon Notes Date Note Type Note Provider Name and Address Organization Details Recorded Time 2 text/html Sore throatReported bypatient.Location:throat; head Severity:mild Onset/Timin weeks Associated Symptoms:no sputum production; no shortness of breath; no sinus pain; no vomiting; no nausea;hoarseness;coughing Modifying Factors:OTC medication no relief* started a week ago with aches, congestion, ST, chills/sweats, ears ache, dry hacky cough. Dayquil no help WADE VILLEDA MD [address] [place], [address], PA - [facility] 04/19/2022 11:39:38 3 text/html Sore throatReported bypatient.Source of patient informationInformation obtained from patient; Patient arrived at Urgent Care ambulatory; learning styles: auditory Location:throat Severity:mild Quality:sharp; burning Onset/Timin days Associated Symptoms:no sputum production; no shortness of breath; no wheezing; no vomiting; no nausea;sore throat;hoarseness;coughing; sinus pain/ congestion Context:no foreign travel; non-smoker;sick contact Modifying Factors:exposed to Strep non household Jhonny Mast NP [address] [place], [address], [place] - [facility] 07/27/2022 10:23:51 OBGyn Episode No OBEpisode recorded.
[2024-04-14 12:12] VITALS: BP 134/72
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
== END 2024-04-14 13:06 | disposition home or self-care (01) ==
LOC: HO.HWS 11:41
PROVIDERS: PCP Internal Medicine; Visit Provider Obstetrics & Gynecology
DX: N83.291 Other ovarian cyst, right side (principal); N93.9 Abnormal uterine and vaginal bleeding, unspecified; Z32.02 Encounter for pregnancy test, result negative
CPT/HCPCS: 58100; 99213

== ENCOUNTER 2024-04-20 12:36 | Outpatient (REF) | payer OTHER, SELFPAY ==
--- NOTE | ~2024-04-20 | US_ITS ---
EXAMINATION: US PELVIS CLINICAL INFORMATION: Ovarian cyst, unspecified site. COMPARISON: None available. Correlated to CT dated February 09, 2024. TECHNIQUE: Ultrasound of the pelvis is performed using both transabdominal and transvaginal transducers along with Doppler. Transvaginal imaging is performed due to inadequate visualization transabdominally. FINDINGS: Submitted for interpretation on May 04, 2024. Uterus: The uterus is anteverted and measures 8 x 5 x 6 cm. Heterogeneous the anechoic structures within the cervix. The double wall endometrial thickness is 4 mm. The uterus is smooth in contour and has normal myometrial echogenicity. No visible fibroid. Adnexa: Both ovaries are visualized. There is normal color flow to the adnexa. There is no ovarian torsion. There is no pelvic ascites or fluid collection. . Right ovary measures 3 x 2 x 3 cm. Volume is 5 cc. There is no solid or cystic lesion. There are few scattered follicles. Left ovary measures 5 x 5 x 5 cm. Volume is 64 cc. There is a large, 5 cm septated anechoic lesion without flow on color Doppler interrogation. US/US pelvic and transvaginal IMPRESSION: 5 cm septated cystic lesion, left adnexa. Consider contrast-enhanced MRI pelvis. No ovarian torsion. No uterine fibroid. Electronically signed by: Endy Mcnulty MD 05/04/2024 09:13 AM EST
== END 2024-04-20 12:37 | disposition home or self-care (01) ==
LOC: HO.HMGCX 12:36
PROVIDERS: PCP Internal Medicine; Visit Provider Obstetrics & Gynecology
DX: N83.299 Other ovarian cyst, unspecified side (principal)
CPT/HCPCS: 76830; 76856

== ENCOUNTER → 2024-04-20 12:41 | Outpatient (BNV) | payer OTHER, SELFPAY | PROVIDERS: PCP Internal Medicine; Visit Provider Radiology Diagnostic Radiology | DX: N83.292 Other ovarian cyst, left side (principal) | CPT/HCPCS: 76830; 76856 ==

== ENCOUNTER 2024-04-30 13:43 | Outpatient (AMB) | payer OTHER, SELFPAY ==
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
[2024-04-30 13:51] VITALS: BP 122/65; PULSE 94; TEMP 36.6; O2SAT 96; BMI 35.4
--- OUTSIDE RECORDS SUMMARY | 2024-04-30 15:00 | XMS_ITS | Data Portability ---
Author Organization [facility] Address [address] [place] [address] Assessment No assessment recorded. Plan of Treatment Reminders Order Date Submit Date Provider Last Modified By Organization Details Last Modified Time Details Appointments None recorded. Lab rapid strep group A, throat 2021 022 [email or web address] 1 [facility], [address] [place] [address], [phone], 2 11:20:27 rapid SARS CoV 2 Ag, QL IA, respiratory specimen 2021 022 [email or web address] 1 2099_[facility], [address] [place] [address], [phone], 2 11:20:27 rapid flu (A+B) 2021 0[id number] [place] [address], [address] [place] [address], [phone], 2 11:20:27 rapid strep group A, throat 2022 023 [email or web address] 2099_[facility], [address] [place] [address], [phone], 3 10:19:04 Referral None recorded. Procedures None recorded. Surgeries None recorded. Imaging None recorded. Medication Orders fluticasone propionate 50 mcg/actuati on nasal spray,suspe nsion 2021 022 CLAUDINE [facility][id number], [address] [place], [address], 11:20:29 cephalexin 500 mg capsule 2022 023 [email or web address] [facility][id number], [address] [place], [address], 10:23:42 Patient TargetsNo targets recorded. Patient Instructions Encounter Date Encounter Id Patient Instructions Last Modified By Organization Details Last Modified Time 04/19/2022 [id number] influenza (flu): care instructions Not available 04/19/2022 11:20:27 07/27/2022 [id number] sore throat: car e instructions [email or web address] Not [...] undesirable side effects. Probiotics can be purchased [id number] at your pharmacy in the form of [...] Unknown Analyte Normal =Negat mark Not Available [address] [place] [address], [phone], 04/19/2022 10:42:20 04/19/20 22 04/19/2022 rapid SARS CoV 2 Ag, QL IA, respi rator y speci men Unknown Analyte negati ve Not Available [address] [place] [address], [phone], 04/19/2022 10:42:20 04/19/20 22 04/19/2022 rapid strep group A, throa t Unknown Analyte Normal = Negati ve Not Available [address] [place] [address], [phone], 04/19/2022 10:39:30 04/19/20 22 04/19/2022 rapid strep group A, throa t Unknown Analyte negati ve Not Available [address] [place] [address], [phone], 04/19/2022 10:39:30 04/19/20 22 04/19/2022 rapid flu (A+B) Unknown Analyte Normal = Negati ve Not Available [address] [place] [address], [phone], 04/19/2022 10:42:25 04/19/20 22 04/19/2022 rapid flu (A+B) Unknown Analyte Normal = Negati ve Not Available [address] [place] [address], [phone], 04/19/2022 10:42:25 04/19/20 22 04/19/2022 rapid flu (A+B) Unknown Analyte negati ve Not Available [facility] [address] [place], [address], 04/19/2022 10:42:25 04/19/20 22 04/19/2022 rapid flu (A+B) Unknown Analyte negati ve Not Available [address] [place] [address] [place], [address], 04/19/2022 10:42:25 07/28/19 23 07/27/2022 rapid strep group A, throa t Unknown Analyte Normal = Negati ve Not Available [address] [place] [address] [place], [address], 07/27/2022 09:57:14 07/28/1907/27/2022 rapid strep group A, throa t Unknown Analyte positi ve Not Available [address] [place] [address] [place], [address], 07/27/2022 09:57:14 Result Notes None recorded. Problems Name Problem SNOMED Code Status Onset Date Resolution Date Notes Provider Name and Address Organization Details Recorded Time Irritable bowel syndrome 11830623 Active 022 Nancy Guerrero null, PA - [facility] 10:41:33 Problem Notes None recorded. Procedures Surgical History Date Name Laterality Status Provider Name and Address Organization Details Recorded Time laparoscopic sleeve gastrectomy completed Nancy Honeydew PA - [facility] 04/19/2022 10:41:53 tonsillectomy completed Nancy Honeydew PA - [facility] 04/19/2022 10:42:02 lithotripsy completed Nancy Guerrero PA - [facility] 04/19/2022 10:42:13 Imaging Results None recorded. Procedure Notes None recorded. Medical Equipment None Reported. Allergies Allergen ID Allergen Name Allergen Category Reaction Reaction Severity Criticality Documentation Date Start Date Code Code System Note Provider Name and Address Organization Details Recorded Time 63068 amoxicill in medicatio n rash Not available low 04/19/2022 723 RxNorm Nancy Guerrero null, PA - [facility] 2 10:40:36 58769 clindamyc in Not available rash Not available low 04/19/2022 2582 RxNorm Nancy Guerrero null, PA - [facility] 2 10:40:45 19767 morphine medicatio n anaphylax is Not available high 04/19/2022 7052 RxNorm Nancy Honeydew null, PA - [facility] 2 10:40:54 [...] 3 177.8 cm 98.1 [degF] 33.7 kg/m2 438441. 21 g 97 % 97 % 113 /min 18 /min 134 mm[Hg] 88 mm[Hg] DHAVAL H[facility]MER [facility] 3 09:55:21 Date Recorded Body height Body mass index (BMI) Body weight Oxygen saturation Oxygen saturation in Arterial blood by Pulse oximetry Heart rate Respiratory rate Body temperature Systolic blood pressure Diastolic blood pressure Provider Name and Address Organization Details Last Updated DateTime 2 177.8 cm 32.4 kg/m2 001781. 88 g 100 % 100 % 64 /min 18 /min 98.1 [degF] 129 mm[Hg] 77 mm[Hg] Nancy Masters [facility] 2 10:40:07 Social History Question Answer Notes LastModified by [employer] ion Details LastModified Time Tobacco Smoking Status Never Smoker Nancy weiss PA [facility] 04/19/2022 10:41:42 What Is Your Level [...] Diagnosis/Indication Diagnosis SNOMED-CT Code Diagnosis ICD10 Code [id number] [address] [facility] [place] [address] 04/20/2021 16:56:44 04/20/2021 18:27:02 [id number] [address] [facility] [place] [address] 09/28/2015 20:00:26 09/28/2015 20:51:27 [id number] [address] [facility] [place] [address] 05/30/2017 08:30:54 05/30/2017 09:37:34 [id number] [address] [facility] [place] [address] 04/30/2016 18:32:41 04/30/2016 19:06:38 [id number] WADE VILLEDA MD [address] [facility] [place] [address] 04/19/2022 08:48:37 04/19/2022 11:28:03 Sore throat 701935594 J02.9 Influenza 2103294 J11.1 [id number] Jhonny Mast NP [address] [facility] [place] [address] 07/27/2022 08:24:08 07/27/2022 10:20:36 Streptococcal sore throat 78967942 J02.0 Health Concerns Section Related Observation LastModified by Organization Detai ls LastModified Time None Recorded Concern Status LastModified by Organization Details LastModified Time None Recorded Advance Directives Directive None Recorded Payers Encounter Date Sequence Insurance Name Policy Number Policy Vera Covered Member ID Vera Member ID Guarantor Name 04/30/2016 1 [facility] [place]ICAID ESSENTIAL (MEDICAID HMO) [id number] Leigh Pabon [id number] Leigh Pabon 05/30/2017 1 [facility] [place] (MEDICAID HMO) [id number] Leigh Pabon [id number] Leigh Pabon 04/20/2021 1 [facility] - MEDICAID ESSENTIAL (MEDICAID HMO) [id number] Leigh Verduzco Cm [id number] Leigh Cm 04/20/2021 1 [facility] PL[facility] (MEDICAID HMO) HOMERO Verduzco Pabon [id number] Leigh Pabon 04/19/2022 1 [facility] PL[facility] (MEDICAID HMO) HOMERO Verduzco Cm [id number] Leigh Pabon 07/27/2022 1 [facility] PL[facility] (MEDICAID HMO) [facility] Pabon [id number] Leigh Pabon Notes Date Note Type Note [...] WADE VILLEDA MD [address] [place], [address], PA - [facility] 04/19/2022 11:39:38 3 [...] Jhonny Mast NP [address] [place], [address], [place] PA - [facility] 07/27/2022 10:23:51 OBGyn Episode No OBEpisode recorded.
== END 2024-04-30 14:24 | disposition home or self-care (01) ==
PROVIDERS: PCP Internal Medicine; Visit Provider Physician Assistant Surgical
DX: E66.812 Obesity, class 2 (principal); Z68.35 Body mass index [BMI] 35.0-35.9, adult; Z90.3 Acquired absence of stomach [part of]; Z98.84 Bariatric surgery status
CPT/HCPCS: 99213; G2211

== ENCOUNTER → 2024-04-30 13:43 | Outpatient (BNVA) | payer OTHER, SELFPAY | PROVIDERS: PCP Internal Medicine; Visit Provider Physician Assistant Surgical | DX: Z98.84 Bariatric surgery status (principal) | CPT/HCPCS: 99212 ==

== ENCOUNTER 2024-05-05 11:58 | Outpatient (REF) | payer OTHER, SELFPAY ==
[2024-05-05 14:22] LABS: Lactate Dehydrogenase 113 U/L (122-220)
[2024-05-05 14:39] LABS: Carcinoembryonic Antigen < 1.73 ng/mL
[2024-05-06 07:04] LABS: HBS Num1 653.04 mIU/mL (0-7.99); HBc Num1 0.13 S/CO (0.00-0.79); HBsAGNum1 0.44 S/CO (0.00-0.99); Hepatitis B Core Antibody Nonreactive (Nonreactive); Hepatitis B Surface Antigen Negative (Negative); ~HepC Num1 0.09 S/CO (0.00-0.79); ~Hepatitis B Surface Antibody REACTIVE (Nonreactive); ~Hepatitis C Antibody Nonreactive (Nonreactive)
[2024-05-06 22:28] LABS: Rubella IgG Antibody 1.43 Index
[2024-05-07 13:09] LABS: Alpha Fetoprotein 1.2 ng/mL
[2024-05-08 02:52] LABS: TS Negative Control Passed; TS Panel A 0; TS Panel B 0; TS Positive Control Passed; TSpotTB Negative (Negative)
[2024-05-08 09:24] LABS: CA-125 12 U/mL (<35); Carbohydrate Antigen 19-9 12 U/mL (<34)
[2024-05-11 18:54] LABS: Inhibin B 36 pg/mL
== END 2024-05-05 11:59 | disposition home or self-care (01) ==
LOC: HO.LAB 11:58
PROVIDERS: Absent Provider Internal Medicine; PCP Internal Medicine; Visit Provider Obstetrics & Gynecology
DX: Z00.00 Encounter for general adult medical examination without abnormal findings (principal); Z02.0 Encounter for examination for admission to educational institution; N93.9 Abnormal uterine and vaginal bleeding, unspecified; R79.89 Other specified abnormal findings of blood chemistry; N83.299 Other ovarian cyst, unspecified side
CPT/HCPCS: 36415; 82105; 82378; 83520; 83615; 86301; 86304; 86336; 86481; 86704; 86706; 86735; 86762; 86765; 86787; 86803; 87340; 99212

== ENCOUNTER 2024-05-05 11:58 | Outpatient (AMB) | payer OTHER, SELFPAY ==
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
--- OUTSIDE RECORDS SUMMARY | 2024-05-05 13:52 | XMS_ITS | Data Portability ---
Author Organization [facility] [address] Address [address] [place] [address] Assessment No assessment recorded. Plan of Treatment Reminders Order Date Submit Date Provider Last Modified By Organization Details Last Modified Time Details Appointments None recorded. Lab rapid strep group A, throat 2021 022 [email or web address] [address] [facility], [address] [place] [address], [phone], 2 11:20:27 rapid SARS CoV 2 Ag, QL IA, respiratory specimen 2021 022 [email or web address] [address] [facility], [address] [place] [address], [phone], 2 11:20:27 rapid flu (A+B) 2021 0[email or web address] [place] [address], [address] [place] [address], [phone], 2 11:20:27 rapid strep group A, throat 2022 [email or web address], [address] [place] [address], [phone], 3 10:19:04 Referral None recorded. Procedures None recorded. Surgeries None recorded. Imaging None recorded. Medication Orders fluticasone propionate 50 mcg/actuati on nasal spray,suspe nsion [address] [id number], [address] [place], [address], 11:20:29 cephalexin 500 mg capsule [email or web address] [id number], [address] [place], [address], 10:23:42 Patient TargetsNo targets recorded. Patient Instructions Encounter Date Encounter Id Patient Instructions Last Modified By Organization Details Last Modified Time 04/19/2022 [id number] influenza (flu): care instructions [email or web address] Not available 04/19/2022 11:20:27 07/27/2022 [id number] sore throat: car e instructions [email or web address] Not [...] undesirable side effects. Probiotics can be purchased [id number] at your pharmacy in the form of [...] Unknown Analyte Normal =Negat mark Not Available [address] [place] [address], [phone], 04/19/2022 10:42:20 04/19/20 22 04/19/2022 rapid SARS CoV 2 Ag, QL IA, respi rator y speci men Unknown Analyte negati ve Not Available [address] [place] [address], [phone], 04/19/2022 10:42:20 04/19/20 22 04/19/2022 rapid strep group A, throa t Unknown Analyte Normal = Negati ve Not Available [address] [place] [address], [phone], 04/19/2022 10:39:30 04/19/20 22 04/19/2022 rapid strep group A, throa t Unknown Analyte negati ve Not Available [address] [place] [address], [phone], 04/19/2022 10:39:30 04/19/20 22 04/19/2022 rapid flu (A+B) Unknown Analyte Normal = Negati ve Not Available [address] [place] [address], [phone], 04/19/2022 10:42:25 04/19/20 22 04/19/2022 rapid flu (A+B) Unknown Analyte Normal = Negati ve Not Available [address] [place] [address], [phone], 04/19/2022 10:42:25 04/19/20 22 04/19/2022 rapid flu (A+B) Unknown Analyte negati ve Not Available [facility] [address] [place], [address], 04/19/2022 10:42:25 04/19/20 22 04/19/2022 rapid flu (A+B) Unknown Analyte negati ve Not Available [address] [place] [address] [place], [phone], 04/19/2022 10:42:25 07/28/19 23 07/27/2022 rapid strep group A, throa t Unknown Analyte Normal = Negati ve Not Available [address] [place] [address] [place], [address], 07/27/2022 09:57:14 07/28/1907/27/2022 rapid strep group A, throa t Unknown Analyte positi ve Not Available [address] [place] [address] [place], [address], 07/27/2022 09:57:14 Result Notes None recorded. Problems Name Problem SNOMED Code Status Onset Date Resolution Date Notes Provider Name and Address Organization Details Recorded Time Irritable bowel syndrome 40220627 Active 022 Nancy Guerrero null, PA - [facility] 10:41:33 Problem Notes None recorded. Procedures Surgical History Date Name Laterality Status Provider Name and Address Organization Details Recorded Time laparoscopic sleeve gastrectomy completed Nancy Richfield PA - [facility] 04/19/2022 10:41:53 tonsillectomy completed Nancy Richfield PA - [facility] 04/19/2022 10:42:02 lithotripsy completed Nancy Guerrero PA - [facility] 04/19/2022 10:42:13 Imaging Results None recorded. Procedure Notes None recorded. Medical Equipment None Reported. Allergies Allergen ID Allergen Name Allergen Category Reaction Reaction Severity Criticality Documentation Date Start Date Code Code System Note Provider Name and Address Organization Details Recorded Time 10657 amoxicill in medicatio n rash Not available low 04/19/2022 723 RxNorm Nancy Guerrero null, PA - [facility] 2 10:40:36 94688 clindamyc in Not available rash Not available low 04/19/2022 2582 RxNorm Nancy Guerrero null, PA - [facility] 2 10:40:45 83624 morphine medicatio n anaphylax is Not available high 04/19/2022 7052 RxNorm Nancy Richfield null, PA - [facility] 2 10:40:54 [...] 3 177.8 cm 98.1 [degF] 33.7 kg/m2 536674. 21 g 97 % 97 % 113 /min 18 /min 134 mm[Hg] 88 mm[Hg] [facility] 3 09:55:21 Date Recorded Body height Body mass index (BMI) Body weight Oxygen saturation Oxygen saturation in Arterial blood by Pulse oximetry Heart rate Respiratory rate Body temperature Systolic blood pressure Diastolic blood pressure Provider Name and Address Organization Details Last Updated DateTime 2 177.8 cm 32.4 kg/m2 771638. 88 g 100 % 100 % 64 /min 18 /min 98.1 [degF] 129 mm[Hg] 77 mm[Hg] Nancy Masters [facility] 2 10:40:07 Social History Question Answer Notes LastModified by B[employer]to[employer]wh[employer] ion Details LastModified Time Tobacco Smoking Status Never Smoker Nancy weiss PA [facility] 04/19/2022 10:41:42 What Is Your Level [...] Diagnosis/Indication Diagnosis SNOMED-CT Code Diagnosis ICD10 Code Diagnosis Note [id number] Mirian Gallegos [facility] [place] [address] 04/20/2021 16:56:44 04/20/2021 18:27:02 [id number] Mirian Gallegos [facility] [place] [address] 09/28/2015 20:00:26 09/28/2015 20:51:27 [id number] Mirian Mcelroyr El [facility] [place] [address] 05/30/2017 08:30:54 05/30/2017 09:37:34 [id number] Mirian Gallegos [facility] [place] [address] 04/30/2016 18:32:41 04/30/2016 19:06:38 [id number] WADE VILLEDA MD Eduardo5Jesse Felipe [address] [facility] [place] [address] 04/19/2022 08:48:37 04/19/2022 11:28:03 Sore throat 883788018 J02.9 Influenza 5675955 J11.1 If your symptoms worsen or persist you should be re-evaluat ed. Drink plenty of fluids You can take acetaminop hen (generic Tylenol) as directed on the bottle. Be careful about how much you take in one day. Taking more than the recommende d amount can cause liver problems. If you are having thick mucus, you can useMUCINEX PLAINto help with your symptoms. Mucinex helps to thin mucus and works best when you drink plenty of water/flui ds throughout the whole day. If you are having thick mucus and a cough, you can useMUCINEX -DMto help with your symptoms. Mucinex helps to thin mucus and the DM is the cough suppressan t. This will work best when you drink plenty of water/flui ds throughout the whole day. If you just have coughand not thick mucus, you can useDELSYMt o help with your symptoms. Some people feel DELSYM makes them feel a little tired so you may want to use cough drops during the day and add the DELSYM in at night. If your symptoms are getting worse, or if you develop new symptoms that concern you, you should call 911 or go to the Emergency Department . Return to [facility] or see your primary care physician if your symptoms fail to improve in 5-7 days. You should follow up sooner if your symptoms worsen significan tly or if you develop new symptoms that concern you. [id number] Jhonny Mast NP [address] [address] 07/27/2022 08:24:08 07/27/2022 10:20:36 Streptococcal sore throat 35047244 J02.0 Health Concerns Section Related Observation LastModified by Organization Detai ls LastModified Time None Recorded Concern Status LastModified by Organization Details LastModified Time None Recorded Advance Directives Directive None Recorded Payers Encounter Date Sequence Insurance Name Policy Number Policy Vera Covered Member ID Vera Member ID Guarantor Name 04/30/2016 1 [facility] [employer] MEDICAID ESSENTIAL (MEDICAID HMO) [id number] Leigh A Pabon [id number] Leigh Pabon 05/30/2017 1 [facility] [employer] - MEDICAID ESSENTIAL (MEDICAID HMO) [id number] Leigh A Pabon [id number] Leigh Pabon 04/20/2021 1 [facility] [employer] [facility] - MEDICAID ESSENTIAL (MEDICAID HMO) [id number] Leigh A Pabon [id number] Leigh Pbaon 04/20/2021 1 [facility] (MEDICAID HMO) [place] Leigh A Pabon [id number] Leigh Pabon 04/19/2022 1 [facility] PL[facility] (MEDICAID HMO) [place] Leigh A Pabon [id number] Leigh Pabon 07/27/2022 1 [facility] (MEDICAID HMO) [place] Leigh A Pabon [id number] Leigh Pabon Notes Date Note Type Note [...] WADE VILLEDA MD [address] [place], [address], PA [employer] [facility] 04/19/2022 11:39:38 3 text/html Sore throatReported [...] Jhonny Mast NP [address] [place], [address], PA [facility] 07/27/2022 10:23:51 OBGyn Episode No OBEpisode recorded.
== END 2024-05-05 12:55 | disposition home or self-care (01) ==
PROVIDERS: PCP Internal Medicine; Visit Provider Obstetrics & Gynecology
DX: N83.299 Other ovarian cyst, unspecified side (principal); N93.9 Abnormal uterine and vaginal bleeding, unspecified
CPT/HCPCS: 99213

== ENCOUNTER 2024-05-06 12:47 | Emergency (ER) | payer OTHER, SELFPAY ==
--- NOTE | ~2024-05-06 | XR_ITS ---
EXAMINATION: XR WRIST 3 OR MORE VIEWS LEFT HISTORY: pain/swelling COMPARISON: There are no prior studies available for comparison. FINDINGS: Four views of the left wrist are submitted. Osseous mineralization is normal. There is no fracture or dislocation. The joint spaces are preserved. The soft tissues are unremarkable. XR/XR wrist LT min 3V IMPRESSION: Unremarkable examination of the left wrist. Electronically signed by: Alfredo Aldrich MD 05/06/2024 02:13 PM MAGDY
[2024-05-06 12:49] VITALS: BP 133/68; PULSE 79; RESP 18; TEMP 35.9; O2SAT 98; BMI 34.8
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
--- NOTE | 2024-05-06 14:56 | PC.NURSE ---
Pt. approached this RN stating that she has to leave immediately d/t a family emergency.
== END 2024-05-06 15:04 | disposition left against medical advice (07) ==
PROVIDERS: Emergency Provider Student in an Organized Health Care Education/Training Program; PCP Internal Medicine
DX: M25.532 Pain in left wrist (principal); Z79.899 Other long term (current) drug therapy
CPT/HCPCS: 73110; 99281; 99283

== ENCOUNTER → 2024-05-06 13:18 | Outpatient (BNV) | payer OTHER, SELFPAY | PROVIDERS: PCP Internal Medicine; Visit Provider Radiology Diagnostic Radiology | DX: M25.532 Pain in left wrist (principal) | CPT/HCPCS: 73110 ==

== ENCOUNTER → 2024-05-07 18:06 | Outpatient (BNV) | payer OTHER, SELFPAY | PROVIDERS: PCP Internal Medicine; Visit Provider Radiology Diagnostic Radiology | DX: M25.572 Pain in left ankle and joints of left foot (principal) | CPT/HCPCS: 73610; 73630 ==

== ENCOUNTER 2024-05-12 14:34 | Outpatient (AMB) | payer OTHER, SELFPAY ==
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
[2024-05-12 14:45] VITALS: BP 120/76; PULSE 69; TEMP 36.1; O2SAT 99; BMI 34.9
== END 2024-05-12 15:22 | disposition home or self-care (01) ==
PROVIDERS: PCP Internal Medicine
DX: K59.00 Constipation, unspecified (principal); K92.1 Melena; I10 Essential (primary) hypertension; G43.909 Migraine, unspecified, not intractable, without status migrainosus; F41.1 Generalized anxiety disorder

== ENCOUNTER → 2024-05-12 14:34 | Outpatient (BNVA) | payer OTHER, SELFPAY | PROVIDERS: PCP Internal Medicine | DX: I10 Essential (primary) hypertension (principal); N20.0 Calculus of kidney; F41.1 Generalized anxiety disorder; K59.00 Constipation, unspecified; K92.1 Melena; G43.909 Migraine, unspecified, not intractable, without status migrainosus; Z98.84 Bariatric surgery status | CPT/HCPCS: 99212 ==

== ENCOUNTER 2024-06-11 08:48 | Outpatient (AMB) | payer OTHER, SELFPAY ==
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
[2024-06-11 09:11] VITALS: BP 109/63; PULSE 82; TEMP 36.6; O2SAT 98; BMI 33.9
== END 2024-06-11 11:10 | disposition home or self-care (01) ==
PROVIDERS: PCP Internal Medicine; Visit Provider Physician Assistant Surgical
DX: E66.811 Obesity, class 1 (principal); Z68.33 Body mass index [BMI] 33.0-33.9, adult; Z90.3 Acquired absence of stomach [part of]; Z98.84 Bariatric surgery status
CPT/HCPCS: 99213; G2211

== ENCOUNTER → 2024-06-11 08:48 | Outpatient (BNVA) | payer OTHER, SELFPAY | PROVIDERS: PCP Internal Medicine; Visit Provider Physician Assistant Surgical | DX: Z98.84 Bariatric surgery status (principal); I10 Essential (primary) hypertension; D64.9 Anemia, unspecified; E66.9 Obesity, unspecified ==

== ENCOUNTER 2024-06-29 05:13 | Emergency (ER) | payer OTHER, SELFPAY ==
--- NOTE | ~2024-06-29 | XR_ITS ---
EXAMINATION: XR CHEST CLINICAL INFORMATION: cough, chest burning sensation COMPARISON: Chest 01/11/2023 TECHNIQUE: Frontal view of the chest was obtained. FINDINGS: No significant abnormality is noted involving the heart, lungs, mediastinum, bony thorax or soft tissues. XR/XR chest 1V IMPRESSION: Unremarkable chest examination. Electronically signed by: Yony Johnson MD 06/29/2024 07:08 AM [facility]
[2024-06-29 05:17] VITALS: BP 119/67; PULSE 104; RESP 18; TEMP 36.9; O2SAT 98; BMI 33.4
--- OUTSIDE RECORDS SUMMARY | 2024-06-29 05:40 | XMS_ITS | Data Portability ---
Author Organization [facility], [address] Address [address] [place] [address] Assessment No assessment recorded. Plan of Treatment Reminders Order Date Submit Date Provider Last Modified By Organization Details Last Modified Time Details Appointments None recorded. Lab rapid strep group A, throat 2022 023 vicky [facility], [address] [place] [address], [phone], 3 10:19:04 rapid strep group A, throat 2021 022 [email or web address] 1 _[facility], [address] [place] [address], [phone], 2 11:20:27 rapid SARS CoV 2 Ag, QL IA, respiratory specimen 2021 022 [email or web address] 1 [facility], [address] [place] [address], [phone], 2 11:20:27 rapid flu (A+B) 2021 022 [email or web address] 1 2099_[facility], [address] [place] [address], [phone], 2 11:20:27 Referral None recorded. Procedures None recorded. Surgeries None recorded. Imaging None recorded. Medication Orders cephalexin 500 mg capsule 2022 023 [email or web address] [id number], [address] [place], [address], 3 10:23:42 fluticasone propionate 50 mcg/actuati on nasal spray,suspe nsion 2021 022 CLAUDINE [facility][id number], [address] [place], [address], 11:20:29 Patient TargetsNo targets recorded. Patient Instructions Encounter Date Encounter Id Patient Instructions Last Modified By Organization Details Last Modified Time 04/19/2022 [id number] influenza (flu): care instructions [email or web address] Not available 04/19/2022 11:20:27 07/27/2022 [id number] sore throat: car e instructions [email or web address] Not available 07/27/2022 10:23:40 Discussed potential complications [...] undesirable side effects. Probiotics can be purchased [id number] at your pharmacy in the form of [...] Unknown Analyte Normal =Negat mark Not Available [address] [place] [address], [phone], 04/19/2022 10:42:20 04/19/20 22 04/19/2022 rapid SARS CoV 2 Ag, QL IA, respi rator y speci men Unknown Analyte negati ve Not Available [address] [place] [address], [phone], 04/19/2022 10:42:20 04/19/20 22 04/19/2022 rapid strep group A, throa t Unknown Analyte Normal = Negati ve Not Available [address] [place] [address], [phone], 04/19/2022 10:39:30 04/19/20 22 04/19/2022 rapid strep group A, throa t Unknown Analyte negati ve Not Available [address] [place] [address], [phone], 04/19/2022 10:39:30 04/19/20 22 04/19/2022 rapid flu (A+B) Unknown Analyte Normal = Negati ve Not Available [address] [place] [address], [phone], 04/19/2022 10:42:25 04/19/20 22 04/19/2022 rapid flu (A+B) Unknown Analyte Normal = Negati ve Not Available [address] [place] [address], [phone], 04/19/2022 10:42:25 04/19/20 22 04/19/2022 rapid flu (A+B) Unknown Analyte negati ve Not Available [facility] [address] [place], [address], 04/19/2022 10:42:25 04/19/20 22 04/19/2022 rapid flu (A+B) Unknown Analyte negati ve Not Available [address] [place] [address] [place], [phone], 04/19/2022 10:42:25 07/28/19 23 07/27/2022 rapid strep group A, throa t Unknown Analyte Normal = Negati ve Not Available [address] [place] [address] [place], [phone], 07/27/2022 09:57:14 07/28/1907/27/2022 rapid strep group A, throa t Unknown Analyte positi ve Not Available [address] [place] [address] [place], [phone], 07/27/2022 09:57:14 Result Notes None recorded. Problems Name Problem SNOMED Code Status Onset Date Resolution Date Notes Provider Name and Address Organization Details Recorded Time Irritable bowel syndrome 51145549 Active 022 Nancy Guerrero null, PA - [facility] 10:41:33 Problem Notes None recorded. Procedures Surgical History Date Name Laterality Status Provider Name and Address Organization Details Recorded Time laparoscopic sleeve gastrectomy completed Nancy Guerrero PA - [facility] 04/19/2022 10:41:53 tonsillectomy [...] Name and Address Organization Details Recorded Time 91289 amoxicill in medicatio n rash Not available low 04/19/2022 723 RxNorm Nancy [place] null, PA - [facility] 2 10:40:36 48909 clindamyc in Not available rash Not available low 04/19/2022 2582 RxNorm Nancy Guerrero null, PA - [facility] 2 10:40:45 99490 morphine medicatio n anaphylax is Not available [...] 3 177.8 cm 98.1 [degF] 33.7 kg/m2 337421. 21 g 97 % 97 % 113 /min 18 /min 134 mm[Hg] 88 mm[Hg] DHAVAL HAMMER [facility] 3 09:55:21 Date Recorded Body height Body mass index (BMI) Body weight Oxygen saturation Oxygen saturation in Arterial blood by Pulse oximetry Pain severity - 0-10 verbal numeric rating [Score] - Reported Heart rate Respiratory rate Body temperature Systolic blood pressure Diastolic blood pressure Provider Name and Address Organization Details Last Updated DateTime 2 177.8 cm 32.4 kg/m2 581817. 88 g 100 % 100 % 4 64 /min 18 /min 98.1 [degF] 129 mm[Hg] 77 mm[Hg] Nancy Masters [facility] 2 10:40:07 Social History Question Answer Notes LastModified by GuestSpan ion Details LastModified Time Tobacco Smoking Status Never Smoker Nancy weiss PA [facility] 04/19/2022 10:41:42 What Is Your Level [...] split virus, quadrivalent, preservative 8 completed DHAVAL ZHANGND null, PA - [facility] 07/27/2022 09:50:38 COVID-19, mRNA, LNP-S, PF, 30 mcg/0.3 mL dose 2 completed DHAVAL GOODHIND null, PA - [facility] 07/27/2022 09:50:38 COVID-19, mRNA, LNP-S, PF, 30 mcg/0.3 mL dose 1 completed DHAVAL ZHANGND null, PA - [facility] 07/27/2022 09:50:38 COVID-19, mRNA, LNP-S, PF, 30 mcg/0.3 mL dose 1 completed DHAVAL ZHANGND null, PA - [facility] 07/27/2022 09:50:38 COVID-19, mRNA, LNP-S, bivalent, PF, 30 mcg/0.3 mL dose 2 completed DHAVAL MURPHYHIND null, PA - [facility] 07/27/2022 09:50:38 Tdap 8 completed DHAVAL MURPHYHIND null, PA - [facility] 07/27/2022 09:50:38 Tdap 8 completed DHAVAL ZHANGND null, PA - [facility] 07/27/2022 09:50:38 Hep B, adult 1 completed DHAVAL MURPHYHIND null, PA - [facility] 07/27/2022 09:50:38 Hep B, adult 1 completed DHAVAL ZHANGND null, PA - [facility] 07/27/2022 09:50:38 Influenza, split virus, quadrivalent, PF 0 completed DHAVAL ZHANGND null, PA - [facility] 07/27/2022 09:50:38 Influenza, split virus, quadrivalent, PF 1 completed DHAVAL ZHANGND null, PA - [facility] 07/27/2022 09:50:38 Past Encounters Encounter ID Performer Location Encounter Start Date Encounter Closed Date Diagnosis/Indication Diagnosis SNOMED-CT Code Diagnosis ICD10 Code Diagnosis Note [id number] Mirian Gallegos [facility] [place] [address] 04/20/2021 16:56:44 04/20/2021 18:27:02 [id number] Mirian Gallegos [facility] [place] [address] 09/28/2015 20:00:26 09/28/2015 20:51:27 [id number] Mirian Gallegos [facility] [place] [address] 05/30/2017 08:30:54 05/30/2017 09:37:34 [id number] Mirian Gallegos [facility] [place] [address] 04/30/2016 18:32:41 04/30/2016 19:06:38 [id number] WADE VILLEDA MD [email or web address] Gallegos [facility] [place] [address] 04/19/2022 08:48:37 04/19/2022 11:28:03 Sore throat 930244533 J02.9 Influenza 1239539 J11.1 If your symptoms worsen or persist [...] you develop new symptoms that concern you. [id number] [place] [address] [address] 07/27/2022 08:24:08 07/27/2022 10:20:36 Streptococcal sore throat 30990659 J02.0 Health Concerns Section Related Observation LastModified by Organization Detai ls LastModified Time None Recorded Concern Status LastModified by Organization Details LastModified Time None Recorded Advance Directives Directive None Recorded Payers Encounter Date Sequence Insurance Name Policy Number Policy Vera Covered Member ID Vera Member ID Guarantor Name 04/30/2016 1 [facility] - MEDICAID ESSENTIAL (MEDICAID HMO) [id number] Leigh A Pabon [id number] Leigh Pabon 05/30/2017 1 [facility] [employer] - MEDICAID ESSENTIAL (MEDICAID HMO) [id number] Leigh A Pabon [id number] Leigh Pabon 04/20/2021 1 [facility] [employer] - MEDICAID ESSENTIAL (MEDICAID HMO) [id number] Leigh A Pabon [id number] Leigh Pabon 04/20/2021 1 [facility] NET PLAN (MEDICAID HMO) [facility] Leigh A Pabon [id number] Leigh Pabon 04/19/2022 1 [facility] HE[facility] NET PLAN (MEDICAID HMO) [place] Leigh A Pabon [id number] Leigh Pabon 07/27/2022 1 [facility] HE[facility] NET PLAN (MEDICAID HMO) [place] Leigh A Pabon [id number] Leigh Pabon Notes Date Note Type Note [...] WADE VILLEDA MD [address] [place], [address], [place] [employer] [facility] 04/19/2022 11:39:38 3 text/html Sore throatReported [...] Jhonny Mast NP [address] [place], [address], PA - [facility] 07/27/2022 10:23:51 OBGyn Episode No OBEpisode recorded.
[2024-06-29 05:53] LABS: IDNOW Serial# 58CA691E; Strep A Nucleic Acid Negative (Negative)
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
[2024-06-29 06:24] LABS: Influenza A PCR NEGATIVE (Negative); Influenza B PCR NEGATIVE (Negative); Resp Syncy Virus RNA Qual PCR NEGATIVE (Negative); SARS COV2 PCR INHOUSE NEGATIVE (Negative)
[2024-06-29] MEDS: dexAMETHasone sod phosphate 4 MG/ML VIAL IVPUSH (07:51)
[2024-06-29] MEDS: Lidocaine HCl Viscous 2 % 15 ML SOLUTION MUCOUS MEM (07:51)
[2024-06-29] MEDS: Benzonatate 100 MG CAPSULE PO (07:51)
[2024-06-29 07:55] VITALS: BP 119/67; PULSE 104; RESP 18; TEMP 36.9; O2SAT 98
== END 2024-06-29 07:55 | disposition home or self-care (01) ==
PROVIDERS: Emergency Provider Emergency Medicine; PCP Internal Medicine
DX: J06.9 Acute upper respiratory infection, unspecified (principal); R05.9 Cough, unspecified
CPT/HCPCS: 0241U; 71045; 87651; 99282; 99283; J1100

== ENCOUNTER → 2024-06-29 06:07 | Outpatient (BNV) | payer OTHER, SELFPAY | PROVIDERS: Emergency Provider Emergency Medicine; PCP Internal Medicine; Visit Provider Radiology Diagnostic Radiology | DX: R05.9 Cough, unspecified (principal) | CPT/HCPCS: 71045 ==

== ENCOUNTER 2024-06-30 15:14 | Outpatient (AMB) | payer OTHER, SELFPAY ==
[2024-06-30 15:52] VITALS: BP 112/72; PULSE 72; TEMP 36.2; O2SAT 99; BMI 33.4
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
--- OUTSIDE RECORDS SUMMARY | 2024-06-30 19:15 | XMS_ITS | Data Portability ---
Author Organization [facility], [address] Address [address] [place] [address] Assessment No assessment recorded. Plan of Treatment Reminders Order Date Submit Date Provider Last Modified By Organization Details Last Modified Time Details Appointments None recorded. Lab rapid strep group A, throat 2022 023 vicky _[facility], [address] [place] [address], [phone], 3 10:19:04 rapid strep group A, throat 2021 022 [email or web address] 1 _[facility], [address] [place] [address], [phone], 2 11:20:27 rapid SARS CoV 2 Ag, QL IA, respiratory specimen 2021 022 [email or web address] 1 [facility], [address] [place] [address], [phone], 2 11:20:27 rapid flu (A+B) 2021 022 [email or web address] 1 2099_[facility], [address] [place] [address], [phone], 2 11:20:27 Referral None recorded. Procedures None recorded. Surgeries None recorded. Imaging None recorded. Medication Orders cephalexin 500 mg capsule 2022 023 [email or web address] [email or web address] [facility] #[id number], [address] [place], [address], 3 10:23:42 fluticasone propionate 50 mcg/actuati on nasal spray,suspe nsion 2021 022 CLAUDINE [facility][id number], [address] [place], [address], 11:20:29 Patient TargetsNo targets recorded. Patient Instructions Encounter Date Encounter Id Patient Instructions Last Modified By Organization Details Last Modified Time 04/19/2022 [id number] influenza (flu): care instructions [email or web address] Not available 04/19/2022 11:20:27 07/27/2022 [id number] sore throat: car e instructions [email or web address] Not [...] undesirable side effects. Probiotics can be purchased [id number] at your pharmacy in the form of [...] Unknown Analyte Normal =Negat mark Not Available [address] [place] [address], [phone], 04/19/2022 10:42:20 04/19/20 22 04/19/2022 rapid SARS CoV 2 Ag, QL IA, respi rator y speci men Unknown Analyte negati ve Not Available [address] [place] [address], [phone], 04/19/2022 10:42:20 04/19/20 22 04/19/2022 rapid strep group A, throa t Unknown Analyte Normal = Negati ve Not Available [address] [place] [address], [phone], 04/19/2022 10:39:30 04/19/20 22 04/19/2022 rapid strep group A, throa t Unknown Analyte negati ve Not Available [address] [place] [address], [phone], 04/19/2022 10:39:30 04/19/20 22 04/19/2022 rapid flu (A+B) Unknown Analyte Normal = Negati ve Not Available [address] [place] [address], [phone], 04/19/2022 10:42:25 04/19/20 22 04/19/2022 rapid flu (A+B) Unknown Analyte Normal = Negati ve Not Available [address] [place] [address], [phone], 04/19/2022 10:42:25 04/19/20 22 04/19/2022 rapid flu (A+B) Unknown Analyte negati ve Not Available [facility] [address] [place], [address], 04/19/2022 10:42:25 04/19/20 22 04/19/2022 rapid flu (A+B) Unknown Analyte negati ve Not Available [address] [place] [address] [place], [address], 04/19/2022 10:42:25 07/28/19 23 07/27/2022 rapid strep group A, throa t Unknown Analyte Normal = Negati ve Not Available [address] [place] [address] [place], [phone], 07/27/2022 09:57:14 07/28/1907/27/2022 rapid strep group A, throa t Unknown Analyte positi ve Not Available [address] [place] [address] [place], [address], 07/27/2022 09:57:14 Result Notes None recorded. Problems Name Problem SNOMED Code Status Onset Date Resolution Date Notes Provider Name and Address Organization Details Recorded Time Irritable bowel syndrome 90985265 Active 022 Nancy Guerrero null, PA - [...] Name and Address Organization Details Recorded Time 64487 amoxicill in medicatio n rash Not available low 04/19/2022 723 RxNorm Nancy New Riegel null, [place] - [facility] 2 10:40:36 85155 clindamyc in Not available rash Not available low 04/19/2022 2582 RxNorm Nancy Guerrero null, [place] - [facility] 2 10:40:45 87261 morphine medicatio n anaphylax is Not available [...] 3 177.8 cm 98.1 [degF] 33.7 kg/m2 738429. 21 g 97 % 97 % 113 /min 18 /min 134 mm[Hg] 88 mm[Hg] DHAVAL HAMMER [facility] 3 09:55:21 Date Recorded Body height Body mass index (BMI) Body weight Oxygen saturation Oxygen saturation in Arterial blood by Pulse oximetry Pain severity - 0-10 verbal numeric rating [Score] - Reported Heart rate Respiratory rate Body temperature Systolic blood pressure Diastolic blood pressure Provider Name and Address Organization Details Last Updated DateTime 2 177.8 cm 32.4 kg/m2 721723. 88 g 100 % 100 % 4 64 /min 18 /min 98.1 [degF] 129 mm[Hg] 77 mm[Hg] Nancy Masters [facility] 2 10:40:07 Social History Question Answer Notes LastModified by [employer] ion Details LastModified Time Tobacco Smoking Status Never Smoker Nancy weiss PA [facility] [facility] 04/19/2022 10:41:42 What Is Your Level [...] SNOMED-CT Code Diagnosis ICD10 Code Diagnosis Note [id number] Mirian Gallegos [facility] [place] [address] 04/20/2021 16:56:44 04/20/2021 18:27:02 [id number] Mirian Gallegos [facility] [place] [address] 09/28/2015 20:00:26 09/28/2015 20:51:27 [id number] Mirian Gallegos [facility] [place] [address] 05/30/2017 08:30:54 05/30/2017 09:37:34 [id number] Mirian Gallegos [facility] [place] [address] 04/30/2016 18:32:41 04/30/2016 19:06:38 [id number] WADE VILLEDA MD [email or web address] Gallegos [facility] [place] [address] 04/19/2022 08:48:37 04/19/2022 11:28:03 Sore throat 068178053 J02.9 Influenza 4938359 J11.1 If your symptoms worsen or persist [...] you develop new symptoms that concern you. [id number] [place] [address] [address] 07/27/2022 08:24:08 07/27/2022 10:20:36 Streptococcal sore throat 16421711 J02.0 Health Concerns Section Related Observation LastModified by Organization Detai ls LastModified Time None Recorded Concern Status LastModified by Organization Details LastModified Time None Recorded Advance Directives Directive None Recorded Payers Encounter Date Sequence Insurance Name Policy Number Policy Vera Covered Member ID Vera Member ID Guarantor Name 04/30/2016 1 [facility] - MEDICAID ESSENTIAL (MEDICAID HMO) [id number] Leigh A Pabon [id number] Leigh Pabon 05/30/2017 1 [facility] [employer] [facility] - MEDICAID ESSENTIAL (MEDICAID HMO) [id number] Leigh A Pabon [id number] Leigh Pabon 04/20/2021 1 [facility] - MEDICAID ESSENTIAL (MEDICAID HMO) [id number] Leigh A Pabon [id number] Leigh Pabon 04/20/2021 1 [facility] NET PLAN (MEDICAID HMO) [facility]abon [id number] Leigh Pabon 04/19/2022 1 [facility] HE[facility] NET PLAN (MEDICAID HMO) [place] Leigh A Pabon [id number] Leigh Pabon 07/27/2022 1 [facility] HEALTH NET PLAN (MEDICAID HMO) [place] Leigh A Pabon [id number] Leigh Pabon Notes Date Note Type Note [...] WADE VILLEDA MD [address] [place], [address], [place] [email or web address] 04/19/2022 11:39:38 3 text/html Sore throatReported [...] Jhonny Mast NP [address] [place], [address], [place] - [facility] 07/27/2022 10:23:51 OBGyn Episode No OBEpisode recorded.
== END 2024-06-30 16:42 | disposition home or self-care (01) ==
PROVIDERS: PCP Internal Medicine; Visit Provider Internal Medicine
DX: R05.9 Cough, unspecified (principal); N83.299 Other ovarian cyst, unspecified side; K21.9 Gastro-esophageal reflux disease without esophagitis; Z98.84 Bariatric surgery status; I10 Essential (primary) hypertension; R09.81 Nasal congestion; H61.22 Impacted cerumen, left ear

== ENCOUNTER → 2024-06-30 15:14 | Outpatient (BNVA) | payer OTHER, SELFPAY | PROVIDERS: PCP Internal Medicine; Visit Provider Internal Medicine | DX: N83.299 Other ovarian cyst, unspecified side (principal); K21.9 Gastro-esophageal reflux disease without esophagitis; Z98.84 Bariatric surgery status; R09.81 Nasal congestion; H61.22 Impacted cerumen, left ear | CPT/HCPCS: 99212 ==

== ENCOUNTER 2024-09-01 06:47 | Outpatient (REF) | payer OTHER, SELFPAY ==
[2024-09-01 07:00] LABS: MANUAL DIFF FLAG NO
[2024-09-01 07:25] LABS: Basophils Percent Auto 0.7 % (0-2); Eosinophils Absolute Auto 0.1 X10*3/uL (0.0-0.4); Eosinophils Percent Auto 1.3 % (0-4); Hematocrit 36.4 % (37.0-47.0); Hemoglobin 11.7 g/dl (12.0-16.0); Imm Gran Abs Auto 0.02 X10*3/uL (0.00-0.03); Imm Gran Pct Auto 0.3 % (0.0-0.4); Lymphocytes Absolute Auto 1.9 X10*3/uL (1.2-4.9); Lymphocytes Percent Auto 30.8 % (20-40); Mean Corpuscular HGB Conc 32.1 g/dl (31.0-35.0); Mean Corpuscular Hemoglobin 29.2 pg (27.0-33.0); Mean Corpuscular Volume 90.8 fL (80.0-98.0); Mean Platelet Volume 10.9 fL (9.4-12.3); Monocytes Absolute Auto 0.5 X10*3/uL (0.1-1.2); Neutrophils Absolute Auto 3.5 x10*3/uL (2.0-8.3); Neutrophils Percent Auto 57.9 % (45-73); Platelet Count 304 X10*3/uL (160-400); Red Blood Count 4.01 X10*6/uL (4.20-5.50)
[2024-09-01 07:52] LABS: Anion Gap 12 (12-20)
[2024-09-01 08:04] LABS: Estimated Average Glucose 100 mg/dL; Hemoglobin A1C 97.9617 umol/L; Hemoglobin A1c % 5.1 % (<6.0); Total Hemoglobin (HGBA1C) 3058.4739 umol/L
[2024-09-01 08:06] LABS: Alanine Aminotransferase 12 U/L (0-31); Albumin Level 4.3 g/dL (3.5-5.0); Alkaline Phosphatase 73 U/L (39-117); Aspartate Amino Transferase 14 U/L (5-31); Bilirubin Total 0.3 mg/dL (0.0-1.0); Blood Urea Nitrogen 18 mg/dL (9-16); C Reactive Protein 0.18 mg/dL (< or = 0.50); Carbon Dioxide 23 mmol/L (22-29); Chloride 108 mmol/L (96-108); Cholesterol 175 mg/dL (<200); Estimated Glomerular Filt Rate > 60; Glucose Random 89 mg/dL (60-115); Iron 41 mcg/dL (30-160); Percent Iron Saturation 15 % (15-50); Sodium 139 mmol/L (135-145); Total Iron Binding Capacity 267 mcg/dL (228-428); Total Protein 7.1 g/dL (6.5-8.0); Triglycerides 99 mg/dL (<150); Unsaturated Iron Binding 226 ug/dL
[2024-09-01 08:20] LABS: Ferritin 20 ng/mL (10-122); Insulin 5 uU/mL (2-29); TSH reflex Free T4 2.07 uIU/mL (0.32-4.0); Vitamin D 25-OH Total 31.7 ng/mL (>30)
[2024-09-01 08:25] LABS: HDL Cholesterol 49 mg/dL (>40); LDL Cholesterol Calculated 107 mg/dL (<100)
[2024-09-01 08:28] LABS: Folate 5.9 ng/mL (> or = 4.0); Vitamin B12 273 pg/mL (200-900)
[2024-09-03 23:37] LABS: Zinc 75 mcg/dL (60-130)
[2024-09-05 13:14] LABS: Vitamin B1 <6 nmol/L (8-30)
[2024-09-05 16:14] LABS: Vitamin A 44 mcg/dL (38-98)
== END 2024-09-01 06:48 | disposition home or self-care (01) ==
LOC: HO.LAB 06:47
PROVIDERS: PCP Internal Medicine; Visit Provider Physician Assistant Surgical
DX: H61.22 Impacted cerumen, left ear (principal); H61.21 Impacted cerumen, right ear; G89.29 Other chronic pain; Z98.84 Bariatric surgery status; D64.9 Anemia, unspecified; R53.83 Other fatigue; K59.00 Constipation, unspecified; M54.42 Lumbago with sciatica, left side; M54.41 Lumbago with sciatica, right side
CPT/HCPCS: 36415; 80053; 80061; 82306; 82607; 82728; 82746; 83036; 83525; 83540; 84425; 84443; 84590; 84630; 85025; 86140; 99212

== ENCOUNTER 2024-09-01 13:50 | Outpatient (AMB) | payer OTHER, SELFPAY ==
[2024-09-01 13:56] VITALS: BP 110/74; PULSE 98; RESP 18; TEMP 37.3; O2SAT 98; BMI 32.0
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
--- OUTSIDE RECORDS SUMMARY | 2024-09-01 15:11 | XMS_ITS | Data Portability ---
Author Organization [facility], [address] Address [address] [place] [address] Assessment No assessment recorded. Plan of Treatment Reminders Order Date Submit Date Provider Last Modified By Organization Details Last Modified Time Details Appointments None recorded. Lab rapid strep group A, throat 2022 023 vicky [facility], [address] [place] [address], [phone], 3 10:19:04 rapid strep group A, throat 2021 022 [email or web address] 1 _[facility], [address] [place] [address], [phone], 2 11:20:27 rapid SARS CoV 2 Ag, QL IA, respiratory specimen 2021 022 [email or web address] 1 [facility], [address] [place] [address], [phone], 2 11:20:27 rapid flu (A+B) 2021 022 [email or web address] 1 2099_[facility], [address] [place] [address], [phone], 2 11:20:27 Referral None recorded. Procedures None recorded. Surgeries None recorded. Imaging None recorded. Medication Orders cephalexin 500 mg capsule 2022 023 [email or web address] [email or web address] [id number], [address] [place], [address], 3 10:23:42 fluticasone propionate 50 mcg/actuati on nasal spray,suspe nsion 2021 022 CLAUDINE [id number], [address] [place], [address], 11:20:29 Patient TargetsNo targets recorded. Patient Instructions Encounter Date Encounter Id Patient Instructions Last Modified By Organization Details Last Modified Time 04/19/2022 [id number] influenza (flu): care instructions [email or web address] Not available 04/19/2022 11:20:27 07/27/2022 [id number] sore throat: car e instructions [email or web address] Not [...] undesirable side effects. Probiotics can be purchased hyur-fjc-sdwzsvg at your pharmacy in the form of [...] Unknown Analyte Normal =Negat mark Not Available [address] [place] [address], [phone], 04/19/2022 10:42:20 04/19/20 22 04/19/2022 rapid SARS CoV 2 Ag, QL IA, respi rator y speci men Unknown Analyte negati ve Not Available [address] [place] [address], [phone], 04/19/2022 10:42:20 04/19/20 22 04/19/2022 rapid strep group A, throa t Unknown Analyte Normal = Negati ve Not Available [address] [place] [address], [phone], 04/19/2022 10:39:30 04/19/20 22 04/19/2022 rapid strep group A, throa t Unknown Analyte negati ve Not Available [address] [place] [address], [phone], 04/19/2022 10:39:30 04/19/20 22 04/19/2022 rapid flu (A+B) Unknown Analyte Normal = Negati ve Not Available [address] [place] [address], [phone], 04/19/2022 10:42:25 04/19/20 22 04/19/2022 rapid flu (A+B) Unknown Analyte Normal = Negati ve Not Available [address] [place] [address], [phone], 04/19/2022 10:42:25 04/19/20 22 04/19/2022 rapid flu (A+B) Unknown Analyte negati ve Not Available [facility] [address] [place], [phone], 04/19/2022 10:42:25 04/19/20 22 04/19/2022 rapid flu (A+B) Unknown Analyte negati ve Not Available [address] [place] [address] [place], [phone], 04/19/2022 10:42:25 07/28/19 23 07/27/2022 rapid strep group A, throa t Unknown Analyte Normal = Negati ve Not Available [address] [place] [address] [place], [phone], 07/27/2022 09:57:14 07/28/1907/27/2022 rapid strep group A, throa t Unknown Analyte positi ve Not Available [address] [place] [address] [place], [phone], 07/27/2022 09:57:14 Result Notes None recorded. Problems Name Problem SNOMED Code Status Onset Date Resolution Date Notes Provider Name and Address Organization Details Recorded Time Irritable bowel syndrome 12767226 Active 022 Nancy Morgan null, PA - [facility] 10:41:33 Problem Notes None recorded. Procedures Surgical History Date Name Laterality Status Provider Name and Address Organization Details Recorded Time laparoscopic sleeve gastrectomy completed Nancy Morgan PA - [facility] 04/19/2022 10:41:53 tonsillectomy completed Nancy Morgan PA - [facility] 04/19/2022 10:42:02 lithotripsy completed Nancy Guerrero PA - [facility] 04/19/2022 10:42:13 Imaging Results None recorded. Procedure Notes None recorded. Medical Equipment None Reported. Allergies Allergen ID Allergen Name Allergen Category Reaction Reaction Severity Criticality Documentation Date Start Date Code Code System Note Provider Name and Address Organization Details Recorded Time 81792 amoxicill in medicatio n rash Not available low 04/19/2022 723 RxNorm Nancy Guerrero null, PA - [facility] 2 10:40:36 71086 clindamyc in Not available rash Not available low 04/19/2022 2582 RxNorm Nancy Guerrero null, PA - [facility] 2 10:40:45 43499 morphine medicatio n anaphylax is Not available [...] 3 177.8 cm 98.1 [degF] 33.7 kg/m2 459769. 21 g 97 % 97 % 113 /min 18 /min 134 mm[Hg] 88 mm[Hg] DHAVAL HAMMER [facility] 3 09:55:21 Date Recorded Body height Body mass index (BMI) Body weight Oxygen saturation Oxygen saturation in Arterial blood by Pulse oximetry Pain severity - 0-10 verbal numeric rating [Score] - Reported Heart rate Respiratory rate Body temperature Systolic blood pressure Diastolic blood pressure Provider Name and Address Organization Details Last Updated DateTime 2 177.8 cm 32.4 kg/m2 468667. 88 g 100 % 100 % 4 64 /min 18 /min 98.1 [degF] 129 mm[Hg] 77 mm[Hg] Nancy Masters [facility] 2 10:40:07 Social History Question Answer Notes LastModified by [place] ion Details LastModified Time Tobacco Smoking Status Never Smoker Nancy weiss PA [facility] 04/19/2022 10:41:42 What Is Your Level [...] SNOMED-CT Code Diagnosis ICD10 Code Diagnosis Note [id number] [facility] [address] [place] [address] 04/20/2021 16:56:44 04/20/2021 18:27:02 [id number] [address] [facility] [place] [phone] 09/28/2015 20:00:26 09/28/2015 20:51:27 [id number] [address] [facility] [place] [phone] 05/30/2017 08:30:54 05/30/2017 09:37:34 [id number] [address] [place] [phone] 04/30/2016 18:32:41 04/30/2016 19:06:38 [id number] WADE VILLEDA MD [address] [place] [phone] 04/19/2022 08:48:37 04/19/2022 11:28:03 Sore throat 302568982 J02.9 Influenza 3884861 J11.1 If your symptoms worsen or persist [...] to the Emergency Department . [facility] or see your primary care physician if your symptoms fail to improve in 5-7 days. You should follow up sooner if your symptoms worsen significan tly or if you develop new symptoms that concern you. [id number] Jhonny Mast NP [address] [address] 07/27/2022 08:24:08 07/27/2022 10:20:36 Streptococcal sore throat 07275348 J02.0 Health Concerns Section Related Observation LastModified by Organization Detai ls LastModified Time None Recorded Concern Status LastModified by Organization Details LastModified Time None Recorded Advance Directives Directive None Recorded Payers Encounter Date Sequence Insurance Name Policy Number Policy Vera Covered Member ID Vera Member ID Guarantor Name 04/30/2016 1 [facility] - MEDICAID ESSENTIAL (MEDICAID HMO) [id number] Leigh A Pabon [id number] Leigh Pabon 05/30/2017 1 [facility] - MEDICAID ESSENTIAL (MEDICAID HMO) [id number] Leigh A Pabon [id number] Leigh Pabon 04/20/2021 1 [facility] - MEDICAID ESSENTIAL (MEDICAID HMO) [id number] Leigh A Pabon [id number] Leigh Pabon 04/20/2021 1 [facility] NET PLAN (MEDICAID HMO) [facility] Leigh Bustosarza [id number] Leighbhanu BustosPabon 04/19/2022 1 [facility] NET PLAN (MEDICAID HMO) [facility] Leigh Verduzco Pabon [id number] Leighbhanu Pabon 07/27/2022 1 [facility] PLAN (MEDICAID HMO) HOMERO Pabon [id number] Leigh Pabon Notes Date Note Type Note [...] WADE VILLEDA MD [address] [place], [address], [place] [facility] 04/19/2022 11:39:38 3 text/html Sore throatReported bypatient.Source of patient informationInformation obtained from patient; Patient arrived at Urgent Care ambulatory; learning styles: auditory Location:throat Severity:mild Quality:sharp; burning Onset/Timin days Associated Symptoms:no sputum production; no shortness of breath; no wheezing; no vomiting; no nausea;sore throat;hoarseness;coughing; sinus pain/ congestion Context:no foreign travel; non-smoker;sick contact Modifying Factors:exposed to Strep non household Jhonny Mast NP [address] [facility] [place], [address], [place] - [facility] 07/27/2022 10:23:51 OBGyn Episode No OBEpisode recorded.
== END 2024-09-01 15:49 | disposition home or self-care (01) ==
LOC: HO.HMCH 13:51
PROVIDERS: PCP Internal Medicine
DX: H61.22 Impacted cerumen, left ear (principal); H61.21 Impacted cerumen, right ear; M54.42 Lumbago with sciatica, left side; M54.41 Lumbago with sciatica, right side; G89.29 Other chronic pain; K59.00 Constipation, unspecified

== ENCOUNTER 2024-09-03 09:59 | Outpatient (AMB) | payer OTHER, SELFPAY ==
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
[2024-09-03 10:10] VITALS: BP 131/61; PULSE 87; TEMP 35.6; O2SAT 99; BMI 31.5
--- OUTSIDE RECORDS SUMMARY | 2024-09-03 11:01 | XMS_ITS | Data Portability ---
Author Organization [facility], [address] Address [address] [place] [address] Assessment No assessment recorded. Plan of Treatment Reminders Order Date Submit Date Provider Last Modified By Organization Details Last Modified Time Details Appointments None recorded. Lab rapid strep group A, throat 2022 023 vicky [facility], [address] [place] [address], [phone], 3 10:19:04 rapid strep group A, throat 2021 022 [email or web address] 1 _[facility], [address] [place] [address], [phone], 2 11:20:27 rapid SARS CoV 2 Ag, QL IA, respiratory specimen 2021 022 [email or web address] 1 [facility], [address] [place] [address], [phone], 2 11:20:27 rapid flu (A+B) 2021 022 [email or web address] 1 2099[facility], [address] [place] [address], [phone], 2 11:20:27 Referral None recorded. Procedures None recorded. Surgeries None recorded. Imaging None recorded. Medication Orders cephalexin 500 mg capsule 2022 023 [email or web address] [id number], [address] [place], [address], 3 10:23:42 fluticasone propionate 50 mcg/actuati on nasal spray,suspe nsion 2021 022 CLAUDINE [id number], [address] [place], [address], 11:20:29 Patient TargetsNo targets recorded. Patient Instructions Encounter Date Encounter Id Patient Instructions Last Modified By Organization Details Last Modified Time 04/19/2022 [id number] influenza (flu): care instructions [email or web address] Not available 04/19/2022 11:20:27 07/27/2022 [id number] sore throat: car e instructions [email or web address] Not [...] undesirable side effects. Probiotics can be purchased [id number] at your pharmacy in the form of [...] Unknown Analyte Normal =Negat mark Not Available [address] [place] [address], [phone], 04/19/2022 10:42:20 04/19/20 22 04/19/2022 rapid SARS CoV 2 Ag, QL IA, respi rator y speci men Unknown Analyte negati ve Not Available [address] [place] [address], [phone], 04/19/2022 10:42:20 04/19/20 22 04/19/2022 rapid strep group A, throa t Unknown Analyte Normal = Negati ve Not Available [address] [place] [address], [phone], 04/19/2022 10:39:30 04/19/20 22 04/19/2022 rapid strep group A, throa t Unknown Analyte negati ve Not Available [address] [place] [address], [phone], 04/19/2022 10:39:30 04/19/20 22 04/19/2022 rapid flu (A+B) Unknown Analyte Normal = Negati ve Not Available [address] [place] [address], [phone], 04/19/2022 10:42:25 04/19/20 22 04/19/2022 rapid flu (A+B) Unknown Analyte Normal = Negati ve Not Available [address] [place] [address], [phone], 04/19/2022 10:42:25 04/19/20 22 04/19/2022 rapid flu (A+B) Unknown Analyte negati ve Not Available [facility] [address] [place], [phone], 04/19/2022 10:42:25 04/19/20 22 04/19/2022 rapid flu (A+B) Unknown Analyte negati ve Not Available [address] [place] [address] [place], [address], 04/19/2022 10:42:25 07/28/19 23 07/27/2022 rapid strep group A, throa t Unknown Analyte Normal = Negati ve Not Available [address] [place] [address] [place], [phone], 07/27/2022 09:57:14 07/28/1907/27/2022 rapid strep group A, throa t Unknown Analyte positi ve Not Available [address] [place] [address] [place], [phone], 07/27/2022 09:57:14 Result Notes None recorded. Problems Name Problem SNOMED Code Status Onset Date Resolution Date Notes Provider Name and Address Organization Details Recorded Time Irritable bowel syndrome 82403298 Active 022 Nancy Rienzi null, PA - [facility] 10:41:33 Problem Notes None recorded. Procedures Surgical History Date Name Laterality Status Provider Name and Address Organization Details Recorded Time laparoscopic sleeve gastrectomy completed Nancy Rienzi PA - [facility] 04/19/2022 10:41:53 tonsillectomy completed Nancy Rienzi PA - [facility] 04/19/2022 10:42:02 lithotripsy completed Nancy Guerrero PA - [facility] 04/19/2022 10:42:13 Imaging Results None recorded. Procedure Notes None recorded. Medical Equipment None Reported. Allergies Allergen ID Allergen Name Allergen Category Reaction Reaction Severity Criticality Documentation Date Start Date Code Code System Note Provider Name and Address Organization Details Recorded Time 93476 amoxicill in medicatio n rash Not available low 04/19/2022 723 RxNorm Nancy Guerrero null, PA - [facility] 2 10:40:36 04205 clindamyc in Not available rash Not available low 04/19/2022 2582 RxNorm Nancy Guerrero null, PA - [facility] 2 10:40:45 28281 morphine medicatio n anaphylax is Not available [...] 3 177.8 cm 98.1 [degF] 33.7 kg/m2 285400. 21 g 97 % 97 % 113 /min 18 /min 134 mm[Hg] 88 mm[Hg] DHAVAL HAMMER [facility] 3 09:55:21 Date Recorded Body height Body mass index (BMI) Body weight Oxygen saturation Oxygen saturation in Arterial blood by Pulse oximetry Pain severity - 0-10 verbal numeric rating [Score] - Reported Heart rate Respiratory rate Body temperature Systolic blood pressure Diastolic blood pressure Provider Name and Address Organization Details Last Updated DateTime 2 177.8 cm 32.4 kg/m2 081955. 88 g 100 % 100 % 4 64 /min 18 /min 98.1 [degF] 129 mm[Hg] 77 mm[Hg] Nancy Masters [facility] 2 10:40:07 Social History Question Answer Notes LastModified by [email or web address] ion Details LastModified Time Tobacco Smoking Status Never Smoker Nancy weiss PA [facility] 04/19/2022 10:41:42 What Is Your Level [...] SNOMED-CT Code Diagnosis ICD10 Code Diagnosis Note [id number] [facility] [address] [place] [address] 04/20/2021 16:56:44 04/20/2021 18:27:02 [id number] [address] [place] [phone] 09/28/2015 20:00:26 09/28/2015 20:51:27 [id number] [address] [facility] [place] [phone] 05/30/2017 08:30:54 05/30/2017 09:37:34 [id number] [address] [place] [phone] 04/30/2016 18:32:41 04/30/2016 19:06:38 [id number] WADE VILLEDA MD [address] [place] [phone] 04/19/2022 08:48:37 04/19/2022 11:28:03 Sore throat 211063064 J02.9 Influenza 0930612 J11.1 If your symptoms worsen or persist [...] to the Emergency Department . Return to [facility] or see your primary care physician if your symptoms fail to improve in 5-7 days. You should follow up sooner if your symptoms worsen significan tly or if you develop new symptoms that concern you. [id number] Jhonny Mast NP [address] [address] 07/27/2022 08:24:08 07/27/2022 10:20:36 Streptococcal sore throat 12668505 J02.0 Health Concerns Section Related Observation LastModified by Organization Detai ls LastModified Time None Recorded Concern Status LastModified by Organization Details LastModified Time None Recorded Advance Directives Directive None Recorded Payers Insurance Date Sequence Insurance Name Policy Number Policy Vera Covered Member ID Vera Member ID Guarantor Name 04/19/2022 1 [facility] - [facility] - MEDICAID ESSENTIAL (MEDICAID HMO) [id number] Leigh Pabon [id number] Leigh Pabon 07/27/2022 1 [facility] - HEALTH NET PLAN (MEDICAID HMO) [place] Leigh Pabon [id number] Legih Pabon Notes Date Note Type Note Provider [...] WADE VILLEDA MD [address] [place], [address], [employer] 04/19/2022 11:39:38 3 text/html Sore throatReported bypatient.Source of patient informationInformation obtained from patient; Patient arrived at Urgent Care ambulatory; learning styles: auditory Location:throat Severity:mild Quality:sharp; burning Onset/Timin days Associated Symptoms:no sputum production; no shortness of breath; no wheezing; no vomiting; no nausea;sore throat;hoarseness;coughing; sinus pain/ congestion Context:no foreign travel; non-smoker;sick contact Modifying Factors:exposed to Strep non household Jhonny Mast NP [address] [place], [phone], [facility] 07/27/2022 10:23:51 OBGyn Episode No OBEpisode recorded.
== END 2024-09-03 10:34 | disposition home or self-care (01) ==
LOC: HO.HBS 10:00
PROVIDERS: PCP Internal Medicine; Visit Provider Physician Assistant Surgical
DX: E66.9 Obesity, unspecified (principal); Z68.31 Body mass index [BMI] 31.0-31.9, adult; Z98.84 Bariatric surgery status
CPT/HCPCS: 99213

== ENCOUNTER → 2024-09-03 09:59 | Outpatient (BNVA) | payer OTHER, SELFPAY | PROVIDERS: PCP Internal Medicine; Visit Provider Physician Assistant Surgical | DX: Z98.84 Bariatric surgery status (principal) | CPT/HCPCS: 99212 ==

== ENCOUNTER 2024-10-09 08:31 | Outpatient (AMB) | payer OTHER, SELFPAY ==
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
[2024-10-09 08:36] VITALS: BP 148/80; PULSE 78; TEMP 36.3; O2SAT 99; BMI 31.0
--- OUTSIDE RECORDS SUMMARY | 2024-10-09 08:39 | XMS_ITS | Data Portability ---
Author Organization [facility], [address] Address [address] [place] [address] Assessment No assessment recorded. Plan of Treatment Reminders Order Date Submit Date Provider Last Modified By Organization Details Last Modified Time Details Appointments None recorded. Lab rapid strep group A, throat 2022 023 vicky [facility], [address] [place] [address], [phone], 3 10:19:04 rapid strep group A, throat 2021 022 [email or web address] 1 _[facility], [address] [place] [address], [phone], 2 11:20:27 rapid SARS CoV 2 Ag, QL IA, respiratory specimen [email or web address] [facility], [address] [place] [address], [id number], 2 11:20:27 rapid flu (A+B) 2021 022 [email or web address] 1 2099_[facility], [address] [place] [address], [phone], 2 11:20:27 Referral None recorded. Procedures None recorded. Surgeries None recorded. Imaging None recorded. Medication Orders cephalexin 500 mg capsule 2022 023 [email or web address] [email or web address] [facility] #[id number], [address] [place], [address], 3 10:23:42 fluticasone propionate 50 mcg/actuati on nasal spray,suspe nsion 2021 022 [facility][id number], [address] [place], [address], 11:20:29 Patient TargetsNo targets recorded. Patient Instructions Encounter Date Encounter Id Patient Instructions Last Modified By Organization Details Last Modified Time 04/19/2022 [id number] influenza (flu): care instructions [email or web address] Not available 04/19/2022 11:20:27 07/27/2022 [id number] sore throat: car e instructions [email or web address] Not [...] undesirable side effects. Probiotics can be purchased [id number] at your pharmacy in the form of [...] Unknown Analyte Normal =Negat mark Not Available [address] [place] [address], [phone], 04/19/2022 10:42:20 04/19/20 22 04/19/2022 rapid SARS CoV 2 Ag, QL IA, respi rator y speci men Unknown Analyte negati ve Not Available [address] [place] [address], [phone], 04/19/2022 10:42:20 04/19/20 22 04/19/2022 rapid strep group A, throa t Unknown Analyte Normal = Negati ve Not Available [address] [place] [address], [phone], 04/19/2022 10:39:30 04/19/20 22 04/19/2022 rapid strep group A, throa t Unknown Analyte negati ve Not Available [address] [place] [address], [phone], 04/19/2022 10:39:30 04/19/20 22 04/19/2022 rapid flu (A+B) Unknown Analyte Normal = Negati ve Not Available [address] [place] [address], [phone], 04/19/2022 10:42:25 04/19/20 22 04/19/2022 rapid flu (A+B) Unknown Analyte Normal = Negati ve Not Available [address] [place] [address], [phone], 04/19/2022 10:42:25 04/19/20 22 04/19/2022 rapid flu (A+B) Unknown Analyte negati ve Not Available [facility] [address] [place], [phone], 04/19/2022 10:42:25 04/19/20 22 04/19/2022 rapid flu (A+B) Unknown Analyte negati ve Not Available [address] [place] [address] [place], [phone], 04/19/2022 10:42:25 07/28/19 23 07/27/2022 rapid strep group A, throa t Unknown Analyte Normal = Negati ve Not Available [address] [place] [address] [place], [phone], 07/27/2022 09:57:14 07/28/1907/27/2022 rapid strep group A, throa t Unknown Analyte positi ve Not Available [address] [place] [address] [place], [phone], 07/27/2022 09:57:14 Result Notes None recorded. Problems Name Problem SNOMED Code Status Onset Date Resolution Date Notes Provider Name and Address Organization Details Recorded Time Irritable bowel syndrome 46673341 Active 022 Nancy Guerrero null, [place] - [...] Name and Address Organization Details Recorded Time 18798 amoxicill in medicatio n rash Not available low 04/19/2022 723 RxNorm Nancy [place] null, [place] - [facility] 2 10:40:36 90974 clindamyc in Not available rash Not available low 04/19/2022 2582 RxNorm Nancy Guerrero null, [place] - [facility] 2 10:40:45 40185 morphine medicatio n anaphylax is Not available [...] 3 177.8 cm 98.1 [degF] 33.7 kg/m2 692853. 21 g 97 % 97 % 113 /min 18 /min 134 mm[Hg] 88 mm[Hg] DHAVAL HAMMER [facility] 3 09:55:21 Date Recorded Body height Body mass index (BMI) Body weight Oxygen saturation Oxygen saturation in Arterial blood by Pulse oximetry Heart rate Respiratory rate Body temperature Systolic blood pressure Diastolic blood pressure Provider Name and Address Organization Details Last Updated DateTime 2 177.8 cm 32.4 kg/m2 779616. 88 g 100 % 100 % 64 /min 18 /min 98.1 [degF] 129 mm[Hg] 77 mm[Hg] Nancy Masters [facility] 2 10:40:07 Social History Question Answer Notes LastModified by [employer] Details LastModified Time Tobacco Smoking Status Never Smoker Nancy weiss [facility] 04/19/2022 10:41:42 Have You Had Direct Contact, Or Contact During Intimacy, With Monkeypox Rash, Scabs, Or Body Fluids From A Person With Monkeypox? No Information not available 04/19/2022 Have You Recently Traveled Abroad? No Information not available 04/19/2022 Sex: Unknown Functional Status Question Answer Note LastModified by [employer] Details LastModified Time Do you use any illicit or recreational drugs? No Information not available 04/19/2022 Do you or have you ever used any other forms of tobacco or nicotine? No Information not available 04/19/2022 What is your level of alcohol consumption? Occasional [email or web address] Information not available 07/27/2022 Mental Status None recorded. Family History Relationship [...] split virus, quadrivalent, preservative 8 completed DHAVAL GOODMARTINND null, [place] - [facility] 07/27/2022 09:50:38 [...] 07/27/2022 09:50:38 Hep B, adult 1 completed DHAVALSANTA MURPHYHIND null, [place] - [facility] 07/27/2022 [...] SNOMED-CT Code Diagnosis ICD10 Code Diagnosis Note [id number] [facility] [address] [place] [address] 04/20/2021 16:56:44 04/20/2021 18:27:02 [id number] [address] [address] [place] [phone] 09/28/2015 20:00:26 09/28/2015 20:51:27 [id number] [address] [place] [phone] 05/30/2017 08:30:54 05/30/2017 09:37:34 [id number] [address] [place] [phone] 04/30/2016 18:32:41 04/30/2016 19:06:38 [id number] WADE VILLEDA MD [address] [place] [phone] 04/19/2022 08:48:37 04/19/2022 11:28:03 Sore throat 950414638 J02.9 Influenza 4691121 J11.1 If your symptoms worsen or persist [...] to the Emergency Department . [facility] or see your primary care physician if your symptoms fail to improve in 5-7 days. You should follow up sooner if your symptoms worsen significan tly or if you develop new symptoms that concern you. [id number] Jhonny Mast [place] [address] [phone] 07/27/2022 08:24:08 07/27/2022 10:20:36 Streptococcal sore throat 22236681 J02.0 Health Concerns Section Related Observation LastModified by Organization Detai ls LastModified Time None Recorded Concern Status LastModified by Organization Details LastModified Time None Recorded Advance Directives Directive None Recorded Payers Insurance Date Sequence Insurance Name Policy Number Policy Vera Covered Member ID Vera Member ID Guarantor Name 04/19/2022 1 [facility] - MEDICAID ESSENTIAL (MEDICAID HMO) [id number] Leigh Pabon [id number] Leigh Pabon 07/27/2022 1 [place] - HEALTH NET PLAN (MEDICAID HMO) [id number] Leigh Pabon [id number] Leigh Pabon Notes Date Note Type Note [...] WADE VILLEDA MD [address] [place], [phone], [facility] 04/19/2022 11:39:38 3 text/html Sore throatReported bypatient.Source [...] Mast NP [address] [place], [phone], [facility] 07/27/2022 10:23:51 OBGyn Episode No OBEpisode recorded.
[2024-10-09 08:57] VITALS: BP 110/70
== END 2024-10-09 09:28 | disposition home or self-care (01) ==
LOC: HO.HMCH 08:31
PROVIDERS: PCP Internal Medicine; Visit Provider Internal Medicine
DX: I10 Essential (primary) hypertension (principal); N20.0 Calculus of kidney; Z68.31 Body mass index [BMI] 31.0-31.9, adult; E66.9 Obesity, unspecified; F41.1 Generalized anxiety disorder; H61.22 Impacted cerumen, left ear; N92.0 Excessive and frequent menstruation with regular cycle; Z98.84 Bariatric surgery status

== ENCOUNTER → 2024-10-09 08:31 | Outpatient (BNVA) | payer OTHER, SELFPAY | PROVIDERS: PCP Internal Medicine; Visit Provider Internal Medicine | DX: G25.81 Restless legs syndrome (principal); I10 Essential (primary) hypertension; E66.9 Obesity, unspecified; N20.0 Calculus of kidney; F41.1 Generalized anxiety disorder; N92.0 Excessive and frequent menstruation with regular cycle; H61.22 Impacted cerumen, left ear; Z68.31 Body mass index [BMI] 31.0-31.9, adult; Z98.84 Bariatric surgery status; Z79.899 Other long term (current) drug therapy | CPT/HCPCS: 69210; 99212 ==

== ENCOUNTER 2024-10-21 15:45 | Emergency (ER) | payer OTHER, SELFPAY ==
--- NOTE | ~2024-10-21 | CT_ITS ---
CLINICAL HISTORY: R flank pain, hx calculi CT abdomen and pelvis without contrast Comparison: CT/SR - CT ABDOMEN PELVIS WO IV CON - 02/09/24 09:06 EDT Findings: The lung bases are clear. The liver, gallbladder, spleen, adrenal glands and pancreas are unremarkable. There are tiny bilateral renal calculi present. There is no current hydronephrosis or definite ureteral calculus. No bowel obstruction. Scattered gas and fluid throughout nondistended small and large bowel. Mild diverticulosis. No free air, free fluid, abscess or adenopathy. The uterus is mildly lobular. Question fibroid. Adnexa appear within normal limits. Postsurgical changes along the greater curvature of the stomach. Impression: There are bilateral renal calculi. There is no current obstructive uropathy. Diverticulosis without diverticulitis. Probable uterine fibroid. Scattered gas and fluid throughout nondistended small and large bowel, nonspecific. Mild enteritis possible. This document has been electronically signed by: Roland Taylor MD on 10/21/2024 20:03:10
[2024-10-21 16:10] VITALS: BP 139/86; PULSE 75; RESP 16; TEMP 36.1; O2SAT 99; BMI 29.8
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
[2024-10-21 16:52] LABS: MANUAL DIFF FLAG NO
[2024-10-21 16:54] LABS: Basophils Percent Auto 0.4 % (0-2); Eosinophils Absolute Auto 0.1 X10*3/uL (0.0-0.4); Eosinophils Percent Auto 0.9 % (0-4); Hematocrit 33.5 % (37.0-47.0); Hemoglobin 11.2 g/dl (12.0-16.0); Imm Gran Abs Auto 0.02 X10*3/uL (0.00-0.03); Imm Gran Pct Auto 0.3 % (0.0-0.4); Lymphocytes Absolute Auto 2.4 X10*3/uL (1.2-4.9); Lymphocytes Percent Auto 32.4 % (20-40); Mean Corpuscular HGB Conc 33.4 g/dl (31.0-35.0); Mean Corpuscular Hemoglobin 29.5 pg (27.0-33.0); Mean Corpuscular Volume 88.2 fL (80.0-98.0); Mean Platelet Volume 10.6 fL (9.4-12.3); Monocytes Absolute Auto 0.5 X10*3/uL (0.1-1.2); Monocytes Percent Auto 6.3 % (2-11); Neutrophils Absolute Auto 4.5 x10*3/uL (2.0-8.3); Neutrophils Percent Auto 59.7 % (45-73); Platelet Count 300 X10*3/uL (160-400); Red Cell Distribution Width 12.8 % (11.0-16.0); White Blood Count 7.5 X10*3/uL (4.8-10.8)
[2024-10-21 16:57] LABS: Appearance Urine Clear; Color Urine Yellow; Glucose Urine UA Negative (Negative); Leukocyte Esterase Urine Negative (Negative); Nitrite Urine Negative (Negative); Specific Gravity - Urine 1.015 (1.005-1.025); Urine Blood Negative (Negative); Urine Ketones Negative (Negative); Urine Protein Negative (Neg-Trace)
[2024-10-21 17:20] LABS: Alanine Aminotransferase 12 U/L (0-31); Albumin Level 4.7 g/dL (3.5-5.0); Alkaline Phosphatase 63 U/L (39-117); Anion Gap 11 (12-20); Aspartate Amino Transferase 16 U/L (5-31); Bilirubin Total 0.3 mg/dL (0.0-1.0); Blood Urea Nitrogen 18 mg/dL (9-16); Calcium 9.3 mg/dL (8.4-10.2); Carbon Dioxide 23 mmol/L (22-29); Chloride 108 mmol/L (96-108); Creatinine Clr Calc Pharmacy 139.6; Estimated Glomerular Filt Rate > 60; Glucose Random 89 mg/dL (60-115); Potassium 4.1 mmol/L (3.3-5.1); Sodium 138 mmol/L (135-145); Total Protein 7.2 g/dL (6.5-8.0)
[2024-10-21 17:23] LABS: HCG Quantitative < 2 mIU/mL
[2024-10-21 17:39] VITALS: BP 123/75; PULSE 76; RESP 16; O2SAT 98
[2024-10-21 18:00] VITALS: BP 120/74; PULSE 76; RESP 16; TEMP 36.7; O2SAT 99
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
[2024-10-21] MEDS: Ketorolac Tromethamine 15 MG/ML VIAL IVPUSH (18:56)
--- OUTSIDE RECORDS SUMMARY | 2024-10-21 18:58 | XMS_ITS | Data Portability ---
Author Organization [facility], [address] Address [address] [place] [address] Assessment No assessment recorded. Plan of Treatment Reminders Order Date Submit Date Provider Last Modified By Organization Details Last Modified Time Details Appointments None recorded. Lab rapid strep group A, throat 2022 [email or web address] [place] [address], [address] [place] [address], [phone], 3 10:19:04 rapid strep group A, throat 2021 [email or web address] [place] [address], [address] [place] [address], [phone], 2 11:20:27 rapid SARS CoV 2 Ag, QL IA, respiratory specimen 2021 [email or web address] [place] [address], [address] [place] [address], [phone], 2 11:20:27 rapid flu (A+B) 2021 [email or web address] [place] [address], [address] [place] [address], [phone], 2 11:20:27 Referral None recorded. Procedures None recorded. Surgeries None recorded. Imaging None recorded. Medication Orders cephalexin 500 mg capsule 2022 023 [email or web address] [id number], [address] [place], [address], 3 10:23:42 fluticasone propionate 50 mcg/actuati on nasal spray,suspe nsion 2021 022 [id number], [address] [place], [address], 11:20:29 Patient TargetsNo targets recorded. Patient Instructions Encounter Date Encounter Id Patient Instructions Last Modified By Organization Details Last Modified Time 04/19/2022 [id number] influenza (flu): care instructions Not available 04/19/2022 11:20:27 07/27/2022 [id number] sore throat: car e instructions [email or web address] Not [...] undesirable side effects. Probiotics can be purchased [id number] at your pharmacy in the form of [...] results, typically take 3-5 days to return. [email or web address] [email or web address] Not available 07/27/2022 10:16:32 Reason for Referral None Reported. Results Created Date Observation Date Name Description Value Unit Range Abnormal Flag Note LastModifiedBy Organization Detail LastModifiedTime 04/19/20 22 04/19/2022 rapid SARS CoV 2 Ag, QL IA, respi rator y speci men Unknown Analyte Normal =Negat mark Not Available [address] [place] [address], [phone], 04/19/2022 10:42:20 04/19/20 22 04/19/2022 rapid SARS CoV 2 Ag, QL IA, respi rator y speci men Unknown Analyte negati ve Not Available [address] [place] [address], [phone], 04/19/2022 10:42:20 04/19/20 22 04/19/2022 rapid strep group A, throa t Unknown Analyte Normal = Negati ve Not Available [address] [place] [address], [place], [address], 04/19/2022 10:39:30 04/19/20 22 04/19/2022 rapid strep group A, throa t Unknown Analyte negati ve Not Available [address] [place] [address], [address], 04/19/2022 10:39:30 04/19/20 22 04/19/2022 rapid flu (A+B) Unknown Analyte Normal = Negati ve Not Available [address] [place] [address], [place], [address], 04/19/2022 10:42:25 04/19/20 22 04/19/2022 rapid flu (A+B) Unknown Analyte Normal = Negati ve Not Available [address] [place], [place] [address] [place], [address], 04/19/2022 10:42:25 04/19/20 22 04/19/2022 rapid flu (A+B) Unknown Analyte negati ve Not Available [address] ya[address]ez [address], [place], [address], 04/19/2022 10:42:25 04/19/20 22 04/19/2022 rapid flu (A+B) Unknown Analyte negati ve Not Available [address] [place] [address], [place], [address], 04/19/2022 10:42:25 07/28/19 23 07/27/2022 rapid strep group A, throa t Unknown Analyte Normal = Negati ve Not Available [address] [place] [address], [place], [address], 07/27/2022 09:57:14 07/28/19 23 07/27/2022 rapid strep group A, throa t Unknown Analyte positi ve Not Available [address] [place] [address], [place], [address], 07/27/2022 09:57:14 Result Notes None recorded. Problems Name Problem SNOMED Code Status Onset Date Resolution Date Notes Provider Name and Address Organization Details Recorded Time Irritable bowel syndrome 55677922 Active 022 Nancy Guerrero null, PA - [facility] 10:41:33 Problem Notes None recorded. Procedures Surgical History Date Name Laterality Status Provider Name and Address Organization Details Recorded Time laparoscopic sleeve gastrectomy completed Nancy [place] D[place] PA - [facility] 04/19/2022 10:41:53 tonsillectomy completed Nancy [place] PA - [facility] 04/19/2022 10:42:02 lithotripsy completed Nancy Guerrero PA - [facility] 04/19/2022 10:42:13 Imaging Results None recorded. Procedure Notes None recorded. Medical Equipment None Reported. Allergies Allergen ID Allergen Name Allergen Category Reaction Reaction Severity Criticality Documentation Date Start Date Code Code System Note Provider Name and Address Organization Details Recorded Time 12761 amoxicill in medicatio n rash Not available low 04/19/2022 723 RxNorm Nancy Guerrero null, PA - [facility] 2 10:40:36 05291 clindamyc in Not available rash Not available low 04/19/2022 2582 RxNorm Nancy Guerrero null, PA - [facility] 2 10:40:45 60317 morphine medicatio n anaphylax is Not available [...] 3 177.8 cm 98.1 [degF] 33.7 kg/m2 704129. 21 g 97 % 97 % 113 /min 18 /min 134 mm[Hg] 88 mm[Hg] DHAVAL HAMMER [facility] 3 09:55:21 Date Recorded Body height Body mass index (BMI) Body weight Oxygen saturation Oxygen saturation in Arterial blood by Pulse oximetry Heart rate Respiratory rate Body temperature Systolic blood pressure Diastolic blood pressure Provider Name and Address Organization Details Last Updated DateTime 2 177.8 cm 32.4 kg/m2 631193. 88 g 100 % 100 % 64 /min 18 /min 98.1 [degF] 129 mm[Hg] 77 mm[Hg] Nancy Masters [facility] 2 10:40:07 Social History Question Answer Notes LastModified by [employer] Details LastModified Time Tobacco Smoking Status Never Smoker Nancy weiss [facility] 04/19/2022 10:41:42 Have You Had Direct Contact, Or Contact During Intimacy, With Monkeypox Rash, Scabs, Or Body Fluids From A Person With Monkeypox? No Information not available 04/19/2022 Have You Recently Traveled Abroad? No Information not available 04/19/2022 Sex: Unknown Functional Status Question Answer Note LastModified by [employer] Details LastModified Time Do you use any [...] 30 mcg/0.3 mL dose 2 completed DHAVAL [facility]HANGND null, [facility] - [facility] [...] SNOMED-CT Code Diagnosis ICD10 Code Diagnosis Note [id number] [address] [facility] [address] [place] [phone] 04/20/2021 16:56:44 04/20/2021 18:27:02 [id number] [address] [place] [phone] 09/28/2015 20:00:26 09/28/2015 20:51:27 [id number] [address] [place] [phone] 05/30/2017 08:30:54 05/30/2017 09:37:34 [id number] [address] [place] [phone] 04/30/2016 18:32:41 04/30/2016 19:06:38 [id number] WADE VILLEDA MD [address] [place] [phone] 04/19/2022 08:48:37 04/19/2022 11:28:03 Sore throat 179792609 J02.9 Influenza 4677243 J11.1 If your symptoms worsen or persist [...] to the Emergency Department . Return to [facility] or see your primary care physician if your symptoms fail to improve in 5-7 days. You should follow up sooner if your symptoms worsen significan tly or if you develop new symptoms that concern you. [id number] Jhonny Mast NP [address] [phone] 07/27/2022 08:24:08 07/27/2022 10:20:36 Streptococcal sore throat 49797777 J02.0 Health Concerns Section Related Observation LastModified by Organization Detai ls LastModified Time None Recorded Concern Status LastModified by Organization Details LastModified Time None Recorded Advance Directives Directive None Recorded Payers Insurance Date Sequence Insurance Name Policy Number Policy Vera Covered Member ID Vera Member ID Guarantor Name 04/19/2022 1 [facility] - MEDICAID ESSENTIAL (MEDICAID HMO) [id number] Leigh Pabon [id number] Leigh Pabon 07/27/2022 1 [facility] - HEALTH NET PLAN (MEDICAID HMO) [place] Leigh Pabon [id number] Leigh Pabon Notes Date Note Type Note [...] WADE VILLEDA MD [address] [place], [address], [facility] 04/19/2022 11:39:38 3 text/html Sore throatReported bypatient.Source [...] Mast NP [address] [place], [address], [facility] 07/27/2022 10:23:51 OBGyn Episode No OBEpisode recorded.
[2024-10-21 20:00] VITALS: BP 116/79; PULSE 78; RESP 16; TEMP 36.7; O2SAT 100
[2024-10-21 21:59] VITALS: BP 116/71; PULSE 73; RESP 16; TEMP 36.5; O2SAT 99
[2024-10-21 22:07] VITALS: BP 116/71; PULSE 73; RESP 16; TEMP 36.5; O2SAT 99
== END 2024-10-21 22:18 | disposition home or self-care (01) ==
PROVIDERS: Registered Nurse Emergency; Emergency Provider Internal Medicine; PCP Internal Medicine
DX: R10.2 Pelvic and perineal pain (principal); R07.81 Pleurodynia; R11.0 Nausea; M54.50 Low back pain, unspecified; Z79.899 Other long term (current) drug therapy
CPT/HCPCS: 36415; 74176; 80053; 81003; 84702; 85025; 96374; 99285; J1885

== ENCOUNTER → 2024-10-21 18:43 | Outpatient (BNV) | payer OTHER, SELFPAY | PROVIDERS: Emergency Provider Internal Medicine; PCP Internal Medicine; Visit Provider Radiology Vascular & Interventional Radiology | DX: N20.0 Calculus of kidney (principal); K57.30 Diverticulosis of large intestine without perforation or abscess without bleeding | CPT/HCPCS: 74176 ==

== ENCOUNTER 2024-10-29 09:21 | Outpatient (AMB) | payer OTHER, SELFPAY ==
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
[2024-10-29 09:27] VITALS: BP 126/66; PULSE 76
--- OUTSIDE RECORDS SUMMARY | 2024-10-29 09:39 | XMS_ITS | Data Portability ---
Author Organization [facility], [address] Address [address] [place] [address] Assessment No assessment recorded. Plan of Treatment Reminders Order Date Submit Date Provider Last Modified By Organization Details Last Modified Time Details Appointments None recorded. Lab rapid strep group A, throat 2022 023 [email or web address] 2099[facility], [address] [place] [address], [phone], 3 10:19:04 rapid strep group A, throat 2021 [email or web address] [place] [address], [address] [place] [address], [phone], 2 11:20:27 rapid SARS CoV 2 Ag, QL IA, respiratory specimen 2021 [email or web address] [place] [address], [address] [place] [address], [phone], 2 11:20:27 rapid flu (A+B) 2021 [email or web address] [place] [address], [address] [place] [address], [phone], 2 11:20:27 Referral None recorded. Procedures None recorded. Surgeries None recorded. Imaging None recorded. Medication Orders cephalexin 500 mg capsule 2022 023 [email or web address] [id number], [address] [place], [address], 3 10:23:42 fluticasone propionate 50 mcg/actuati on nasal spray,suspe nsion 2021 022 [id number], [address] [place], [address], 11:20:29 Patient TargetsNo targets recorded. Patient Instructions Encounter Date Encounter Id Patient Instructions Last Modified By Organization Details Last Modified Time 04/19/2022 [id number] influenza (flu): care instructions [email or web address] Not available 04/19/2022 11:20:27 07/27/2022 [id number] sore throat: car e instructions [email or web address] Not [...] undesirable side effects. Probiotics can be purchased [id number] at your pharmacy in the form of [...] Analyte Normal =Negat mark Not Available [address] [place] [address], [phone], 04/19/2022 10:42:20 04/19/20 22 04/19/2022 rapid SARS CoV 2 Ag, QL IA, respi rator y speci men Unknown Analyte negati ve Not Available [address] [place] [address], [phone], 04/19/2022 10:42:20 04/19/20 22 04/19/2022 rapid strep group A, throa t Unknown Analyte Normal = Negati ve Not Available [address] [place] [address], [place], [address], 04/19/2022 10:39:30 04/19/20 22 04/19/2022 rapid strep group A, throa t Unknown Analyte negati ve Not Available [address] [place] [address], [phone], 04/19/2022 10:39:30 04/19/20 22 04/19/2022 rapid flu (A+B) Unknown Analyte Normal = Negati ve Not Available [address] [place] [address], [place], [address], 04/19/2022 10:42:25 04/19/20 22 04/19/2022 rapid flu (A+B) Unknown Analyte Normal = Negati ve Not Available [address] [place], [place] [address] [place], [address], 04/19/2022 10:42:25 04/19/20 22 04/19/2022 rapid flu (A+B) Unknown Analyte negati ve Not Available [address]ner[address] ya[address]ez [address], [place], [address], 04/19/2022 10:42:25 04/19/20 22 04/19/2022 rapid flu (A+B) Unknown Analyte negati ve Not Available [address] [place] [address], [place], [address], 04/19/2022 10:42:25 07/28/19 23 07/27/2022 rapid strep group A, throa t Unknown Analyte Normal = Negati ve Not Available [address] [place] [address], [place], [address], 07/27/2022 09:57:14 07/28/19 23 07/27/2022 rapid strep group A, throa t Unknown Analyte positi ve Not Available [address] [place] [address], [place], [address], 07/27/2022 09:57:14 Result Notes None recorded. Problems Name Problem SNOMED Code Status Onset Date Resolution Date Notes Provider Name and Address Organization Details Recorded Time Irritable bowel syndrome 75843402 Active 022 Nancy Bliss null, PA - [facility] 10:41:33 Problem Notes None recorded. Procedures Surgical History Date Name Laterality Status Provider Name and Address Organization Details Recorded Time laparoscopic sleeve gastrectomy completed Nancy Bliss PA - [facility] 04/19/2022 10:41:53 tonsillectomy completed Nancy Bliss PA - [facility] 04/19/2022 10:42:02 lithotripsy completed Nancy Bliss PA - [facility] 04/19/2022 10:42:13 Imaging Results None recorded. Procedure Notes None recorded. Medical Equipment None Reported. Allergies Allergen ID Allergen Name Allergen Category Reaction Reaction Severity Criticality Documentation Date Start Date Code Code System Note Provider Name and Address Organization Details Recorded Time 52389 amoxicill in medicatio n rash Not available low 04/19/2022 723 RxNorm Nancy Bliss null, PA - [facility] 2 10:40:36 40932 clindamyc in Not available rash Not available low 04/19/2022 2582 RxNorm Nancy Bliss null, PA - [facility] 2 10:40:45 55319 morphine medicatio n anaphylax is Not available [...] Pulse oximetry Heart rate Respiratory rate Systolic And Diastolic Provider Name and Address Organization Details Last Updated DateTime 3 177.8 cm 98.1 [degF] 33.7 kg/m2 673156. 21 g 97 % 97 % 113 /min 18 /min 134/88 mm[Hg] DHAVAL JAQUELIN PA [employer] [facility] 3 09:55:21 Date Recorded Body height Body mass index (BMI) Body weight Oxygen saturation Oxygen saturation in Arterial blood by Pulse oximetry Heart rate Respiratory rate Body temperature Systolic And Diastolic Provider Name and Address Organization Details Last Updated DateTime 2 177.8 cm 32.4 kg/m2 273100. 88 g 100 % 100 % 64 /min 18 /min 98.1 [degF] 129/77 mm[Hg] Nancy Masters [employer] [facility] 2 10:40:07 Social History Question Answer Notes LastModified by [employer] Details LastModified Time Tobacco Smoking Status Never Smoker Nancy weiss PA [employer] [facility] 04/19/2022 10:41:42 Have You Had Direct Contact, Or Contact During Intimacy, With Monkeypox Rash, Scabs, Or Body Fluids From A Person With Monkeypox? No Information not available 04/19/2022 Have You Recently Traveled Abroad? No Information not available 04/19/2022 Sex: Unknown Functional Status Question Answer Note LastModified by [employer] Details LastModified Time Do you use [...] split virus, quadrivalent, PF 0 completed DHAVAL GOODHIND null, PA - [facility] 07/27/2022 09:50:38 Influenza, split virus, quadrivalent, PF 1 completed DHAVAL GOODHIND null, PA - [facility] 07/27/2022 09:50:38 Past Encounters Encounter ID Performer Location Encounter Start Date Encounter Closed Date Diagnosis/Indication Diagnosis SNOMED-CT Code Diagnosis ICD10 Code Diagnosis Note [id number] [facility] [address] [place] [address] 04/20/2021 16:56:44 04/20/2021 18:27:02 [id number] [facility] [address] [place] [address] 09/28/2015 20:00:26 09/28/2015 20:51:27 [id number] [address] [facility] [address] [place] [address] 05/30/2017 08:30:54 05/30/2017 09:37:34 [id number] [facility] [address] [address] [place] [phone] 04/30/2016 18:32:41 04/30/2016 19:06:38 [id number] WADE VILLEDA MD [address] [place] [address] 04/19/2022 08:48:37 04/19/2022 11:28:03 Sore throat 557056912 J02.9 Influenza 0333285 J11.1 If your symptoms worsen or persist [...] you develop new symptoms that concern you. [id number] [place]honny Mast [place] [address] [address] 07/27/2022 08:24:08 07/27/2022 10:20:36 Streptococcal sore throat 08557560 J02.0 Health Concerns Section Related Observation LastModified by Organization Detai ls LastModified Time None Recorded Concern Status LastModified by Organization Details LastModified Time None Recorded Advance Directives Directive None Recorded Payers Insurance Date Sequence Insurance Name Policy Number Policy Vera Covered Member ID Vera Member ID Guarantor Name 04/19/[address] [facility] - [facility] HEALTH[facility] - MEDICAID ESSENTIAL (MEDICAID HMO) [id number] Leigh Pabon [id number] Leigh Pabon 07/27/2022 1 [facility] - HEALTH NET PLAN (MEDICAID HMO) [place] Leigh Pabon [id number] Leigh Pabon Notes Date Note Type Note [...] cough. Dayquil no help WADE VILLEDA MD [facility] [place], [address], PA - [facility] 04/19/2022 11:39:38 3 [...] Mast NP [address] [place], [address], [place] - [facility] 07/27/2022 10:23:51 OBGyn Episode No OBEpisode recorded.
== END 2024-10-29 09:45 | disposition home or self-care (01) ==
LOC: HO.HCS 09:22
PROVIDERS: PCP Internal Medicine; Visit Provider Internal Medicine
DX: Z98.84 Bariatric surgery status (principal); I44.0 Atrioventricular block, first degree
CPT/HCPCS: 93010; 99213

== ENCOUNTER → 2024-10-29 09:21 | Outpatient (BNVA) | payer OTHER, SELFPAY | PROVIDERS: PCP Internal Medicine; Visit Provider Internal Medicine | DX: I44.0 Atrioventricular block, first degree (principal); K21.9 Gastro-esophageal reflux disease without esophagitis; Z98.84 Bariatric surgery status | CPT/HCPCS: 93005; 99212 ==

== ENCOUNTER 2024-11-24 09:44 | Outpatient (AMB) | payer OTHER, SELFPAY ==
[2024-11-24 09:52] VITALS: BP 118/62; PULSE 80; O2SAT 98; BMI 29.7
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
--- OUTSIDE RECORDS SUMMARY | 2024-11-24 10:19 | XMS_ITS | Data Portability ---
Author Organization [facility], [address] Address [address] [place] [address] Assessment No assessment recorded. Plan of Treatment Reminders Order Date Submit Date Provider Last Modified By Organization Details Last Modified Time Details Appointments None recorded. Lab rapid strep group A, throat 2022 [email or web address] [place] [address], [address] [place] [address], [id number], 3 10:19:04 rapid strep group A, throat 2021 0[email or web address] [place] [address], [address] [place] [address], [phone], 2 11:20:27 rapid SARS CoV 2 Ag, QL IA, respiratory specimen 2021 0[email or web address] [place] [address], [address] [place] [address], [phone], 2 11:20:27 rapid flu (A+B) 2021 [email or web address] [place] [address], [address] [place] [address], [phone], 2 11:20:27 Referral None recorded. Procedures None recorded. Surgeries None recorded. Imaging None recorded. Medication Orders cephalexin 500 mg capsule 2022 023 [email or web address] [id number], [address] [place], [address], 3 10:23:42 fluticasone propionate 50 mcg/actuati on nasal spray,suspe nsion 2021 022 [id number], [address] [place], [address], 11:20:29 Patient TargetsNo targets recorded. Patient Instructions Encounter Date Encounter Id Patient Instructions Last Modified By Organization Details Last Modified Time 04/19/2022 [id number] influenza (flu): care instructions [email or web address] Not available 04/19/2022 11:20:27 07/27/2022 [id number] sore throat: car e instructions [email or web address] Not [...] undesirable side effects. Probiotics can be purchased [id number] at your pharmacy in the form of [...] Unknown Analyte Normal =Negat mark Not Available [address] [place] [address], [phone], 04/19/2022 10:42:20 04/19/20 22 04/19/2022 rapid SARS CoV 2 Ag, QL IA, respi rator y speci men Unknown Analyte negati ve Not Available [address] [place] [address], [phone], 04/19/2022 10:42:20 04/19/20 22 04/19/2022 rapid strep group A, throa t Unknown Analyte Normal = Negati ve Not Available [address] [place] [address], [place], [address], 04/19/2022 10:39:30 04/19/20 22 04/19/2022 rapid strep group A, throa t Unknown Analyte negati ve Not Available [address] [place] [address], [phone], 04/19/2022 10:39:30 04/19/20 22 04/19/2022 rapid flu (A+B) Unknown Analyte Normal = Negati ve Not Available [address] [place] [address], [place], [address], 04/19/2022 10:42:25 04/19/20 22 04/19/2022 rapid flu (A+B) Unknown Analyte Normal = Negati ve Not Available [address] [place], [place] [address] [place], [address], 04/19/2022 10:42:25 04/19/20 22 04/19/2022 rapid flu (A+B) Unknown Analyte negati ve Not Available [address] ya[address]ez [address], [place], [address], 04/19/2022 10:42:25 04/19/20 22 04/19/2022 rapid flu (A+B) Unknown Analyte negati ve Not Available [address] [place] [address], [place], [address], 04/19/2022 10:42:25 07/28/19 23 07/27/2022 rapid strep group A, throa t Unknown Analyte Normal = Negati ve Not Available [address] [place] [address], [place], [address], 07/27/2022 09:57:14 07/28/19 23 07/27/2022 rapid strep group A, throa t Unknown Analyte positi ve Not Available [address] [place] [address], [place], [address], 07/27/2022 09:57:14 Result Notes None recorded. Problems Name Problem SNOMED Code Status Onset Date Resolution Date Notes Provider Name and Address Organization Details Recorded Time Irritable bowel syndrome 56852740 Active 022 Nancy Guerrero null, PA - [facility] 10:41:33 Problem Notes None recorded. Procedures Surgical History Date Name Laterality Status Provider Name and Address Organization Details Recorded Time laparoscopic sleeve gastrectomy completed Nancy Malinta PA - [facility] 04/19/2022 10:41:53 tonsillectomy completed Nancy Malinta PA - [facility] 04/19/2022 10:42:02 lithotripsy completed Nancy Guerrero PA - [facility] 04/19/2022 10:42:13 Imaging Results None recorded. Procedure Notes None recorded. Medical Equipment None Reported. Allergies Allergen ID Allergen Name Allergen Category Reaction Reaction Severity Criticality Documentation Date Start Date Code Code System Note Provider Name and Address Organization Details Recorded Time 40270 amoxicill in medicatio n rash Not available low 04/19/2022 723 RxNorm Nancy Guerrero null, PA - [facility] 2 10:40:36 65397 clindamyc in Not available rash Not available low 04/19/2022 2582 RxNorm Nancy Guerrero null, PA - [facility] 2 10:40:45 49943 morphine medicatio n anaphylax is Not available [...] 3 177.8 cm 98.1 [degF] 33.7 kg/m2 967662. 21 g 97 % 97 % 113 /min 18 /min 134/88 mm[Hg] DHAVAL HAMMER [facility] 3 09:55:21 Date Recorded Body height Body mass index (BMI) Body weight Oxygen saturation Oxygen saturation in Arterial blood by Pulse oximetry Pain severity - 0-10 verbal numeric rating [Score] - Reported Heart rate Respiratory rate Body temperature Systolic And Diastolic Provider Name and Address Organization Details Last Updated DateTime 2 177.8 cm 32.4 kg/m2 133264. 88 g 100 % 100 % 4 64 /min 18 /min 98.1 [degF] 129/77 mm[Hg] Nancy Masters [facility] 2 10:40:07 Social History Question Answer Notes LastModified by Milabra Details LastModified Time Tobacco Smoking Status Never Smoker Nancy weiss [facility] 04/19/2022 10:41:42 Have You Had Direct Contact, Or Contact During Intimacy, With Monkeypox Rash, Scabs, Or Body Fluids From A Person With Monkeypox? No Information not available 04/19/2022 Have You Recently Traveled Abroad? No Information not available 04/19/2022 Sex: Unknown Functional Status Question Answer Note LastModified by Milabra Details LastModified Time Do you use any [...] Influenza, split virus, quadrivalent, PF 1 completed DHAVALEL Mayo - [facility] 07/27/2022 09:50:38 Past Encounters Encounter ID Performer Location Encounter Start Date Encounter Closed Date Diagnosis/Indication Diagnosis SNOMED-CT Code Diagnosis ICD10 Code Diagnosis Note [id number] [address] [place] [address] 04/20/2021 16:56:44 04/20/2021 18:27:02 [id number] [address] [place] [address] 09/28/2015 20:00:26 09/28/2015 20:51:27 [id number] [address] [place] [address] 05/30/2017 08:30:54 05/30/2017 09:37:34 [id number] [address] [place] [address] 04/30/2016 18:32:41 04/30/2016 19:06:38 [id number] WADE VILLEDA MD [address] [place] [address] 04/19/2022 08:48:37 04/19/2022 11:28:03 Sore throat 933897280 J02.9 Influenza 4798302 J11.1 If your symptoms worsen or persist [...] to the Emergency Department . [facility] or see your primary care physician if your symptoms fail to improve in 5-7 days. You should follow up sooner if your symptoms worsen significan tly or if you develop new symptoms that concern you. [id number] Jhonny Mast NP [address] [address] 07/27/2022 08:24:08 07/27/2022 10:20:36 Streptococcal sore throat 29001571 J02.0 Health Concerns Section Related Observation LastModified by Organization Detai ls LastModified Time None Recorded Concern Status LastModified by Organization Details LastModified Time None Recorded Advance Directives Directive None Recorded Payers Insurance Date Sequence Insurance Name Policy Number Policy Vera Covered Member ID Vera Member ID Guarantor Name 04/19/2022 1 [facility] - MEDICAID ESSENTIAL (MEDICAID HMO) [id number] Leigh Pabon [id number] Leigh Pabon 07/27/2022 1 [facility] - HEALTH NET PLAN (MEDICAID HMO) [facility] Pabon [id number] Leigh Pabon OBGyn Episode No OBEpisode recorded.
== END 2024-11-24 11:40 | disposition home or self-care (01) ==
LOC: HO.HSMS 09:45
PROVIDERS: PCP Internal Medicine; Visit Provider Nurse Practitioner Family
DX: R51.9 Headache, unspecified (principal); H53.9 Unspecified visual disturbance; R29.810 Facial weakness; G43.709 Chronic migraine without aura, not intractable, without status migrainosus; G25.81 Restless legs syndrome; D64.9 Anemia, unspecified
CPT/HCPCS: 99204

== ENCOUNTER → 2024-11-24 09:44 | Outpatient (BNVA) | payer OTHER, SELFPAY | PROVIDERS: PCP Internal Medicine; Visit Provider Nurse Practitioner Family | DX: G43.709 Chronic migraine without aura, not intractable, without status migrainosus (principal); H53.9 Unspecified visual disturbance; R29.810 Facial weakness; G25.81 Restless legs syndrome; D64.9 Anemia, unspecified | CPT/HCPCS: 99202 ==

== ENCOUNTER 2024-12-07 08:43 | Outpatient (REF) | payer OTHER, SELFPAY ==
--- OUTSIDE RECORDS SUMMARY | 2024-12-07 09:04 | XMS_ITS | Encounter Summary ---
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 Name Role Phone Sarmad Rincon MD Primary Care Provider [phone] Encounter Details Date Type Department Care Team (Late st Contact Info) Description 12/25/2019 Procedure Pass OR Admitting Dept - Virtual Department [address] [place] [address] Social History Tobacco Use Types Packs/Day Years Used Date Smoking Tobacco: Never Smokeless Tobacco: Never Alcohol Use Standard Drinks/Week Comments Not Currently 0 (1 standard drink = 0.6 oz pur e alcohol) Comments No Sex and Gender Information Value Date Recorded Sex Assigned at Not on file Legal Sex Female 12:13 PM EDT Gender Identity Not on file Sexual Orientation Not on file documented as of this encounter Plan of Treatment Not on file documented as of this encounter Visit Diagnoses Not on filedocumented in this encounter Care Teams 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 It is not the complete legal health record.[facility]
== END 2024-12-07 08:44 | disposition home or self-care (01) ==
LOC: HO.LAB 08:43
PROVIDERS: PCP Internal Medicine; Visit Provider Nurse Practitioner Family
DX: Z00.00 Encounter for general adult medical examination without abnormal findings (principal)
CPT/HCPCS: 36415; 83090; 83921; 99212

== ENCOUNTER 2024-12-07 09:17 | Outpatient (AMB) | payer OTHER, SELFPAY ==
--- NOTE | 2024-12-07 09:21 | MHC.NURWM ---
Intake Intake Visit Reasons: (OV) PO LSG 09/15/21 Allergies morphine (MORPHINE) Allergy (Severe, Verified 11/24/24 09:56) Anaphylaxis amoxicillin (AMOXICILLIN) Allergy (Intermediate, Verified 11/24/24 09:56) RASH, hives cephalexin Allergy (Intermediate, Verified 11/24/24 09:56) hives clindamycin (CLINDAMYCIN) Allergy (Intermediate, Verified 11/24/24 09:56) RASH Penicillins Allergy (Intermediate, Verified 11/24/24 09:56) hives/rash citalopram Adverse Reaction (Intermediate, Verified 11/24/24 09:56) Nausea Coding
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
[2024-12-07 09:30] VITALS: BP 127/76; PULSE 88; TEMP 35.7; O2SAT 99; BMI 28.2
== END 2024-12-07 09:47 | disposition home or self-care (01) ==
LOC: HO.HBS 09:17
PROVIDERS: PCP Internal Medicine; Visit Provider Physician Assistant Surgical
DX: E66.3 Overweight (principal); Z98.84 Bariatric surgery status; Z90.3 Acquired absence of stomach [part of]; Z68.28 Body mass index [BMI] 28.0-28.9, adult
CPT/HCPCS: 99213

== ENCOUNTER 2024-12-09 10:04 | Outpatient (AMB) | payer OTHER, SELFPAY ==
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
--- OUTSIDE RECORDS SUMMARY | 2024-12-09 10:42 | XMS_ITS | Encounter Summary ---
Author Organization [facility] Address [address] [place] [address] Phone Care Team Providers Care [employer] Name Role Phone Sarmad Rincon MD Primary Care Provider [phone] Encounter Details Date Type Department Care Team (Late st Contact Info) Description 12/25/2019 Procedure Pass OR Admitting Dept - Virtual Department [address] [place] [id number] Social History Tobacco Use Types Packs/Day Years [...] on filedocumented in this encounter Care Teams [employer] Relationship Specialty Start Date End Date Sarmad Rincon MD [address] [place] [id number] PCP - General Internal Medicine 09/03/18 documented as of this encounter Additional Source Comments The information contained in this document represents components of the legal health record. It is not the complete legal health record.[facility]
== END 2024-12-09 10:33 | disposition home or self-care (01) ==
LOC: HO.HWS 10:04
PROVIDERS: PCP Internal Medicine; Visit Provider Obstetrics & Gynecology
DX: Z30.46 Encounter for surveillance of implantable subdermal contraceptive (principal); Z32.02 Encounter for pregnancy test, result negative
CPT/HCPCS: 11982

== ENCOUNTER 2024-12-09 10:04 | Outpatient (REF) | payer OTHER, SELFPAY ==
[2024-12-09 10:48] LABS: MANUAL DIFF FLAG NO
[2024-12-09 11:29] LABS: Hematocrit 37.7 % (37.0-47.0); Hemoglobin 12.1 g/dl (12.0-16.0); Imm Gran Abs Auto 0.01 X10*3/uL (0.00-0.03); Imm Gran Pct Auto 0.1 % (0.0-0.4); Lymphocytes Absolute Auto 2.2 X10*3/uL (1.2-4.9); Mean Corpuscular HGB Conc 32.1 g/dl (31.0-35.0); Mean Corpuscular Hemoglobin 29.3 pg (27.0-33.0); Mean Corpuscular Volume 91.3 fL (80.0-98.0); NRBC Abs Auto 0.000 X10*3/uL (0.0-0.012); NRBC Pct Auto 0.0 /100WBC (0.0-0.2); Platelet Count 351 X10*3/uL (160-400); Red Blood Count 4.13 X10*6/uL (4.20-5.50); White Blood Count 7.1 X10*3/uL (4.8-10.8)
[2024-12-09 12:16] LABS: Hemoglobin A1C 100.3544 umol/L; Total Hemoglobin (HGBA1C) 3163.3389 umol/L
[2024-12-09 12:21] LABS: Alanine Aminotransferase 15 U/L (0-31); Albumin Level 4.6 g/dL (3.5-5.0); Alkaline Phosphatase 68 U/L (39-117); Anion Gap 10 (12-20); Aspartate Amino Transferase 18 U/L (5-31); Blood Urea Nitrogen 17 mg/dL (9-16); Calcium 8.9 mg/dL (8.4-10.2); Carbon Dioxide 24 mmol/L (22-29); Chloride 109 mmol/L (96-108); Cholesterol 167 mg/dL (<200); Estimated Glomerular Filt Rate > 60; Free T4 (Free Thyroxine) 1.06 ng/dL (0.71-1.85); HDL Cholesterol 48 mg/dL (>40); Potassium 4.3 mmol/L (3.3-5.1); Sodium 139 mmol/L (135-145); Thyroid Stimulating Hormone 1.54 uIU/mL (0.32-4.0); Total Protein 7.3 g/dL (6.5-8.0); Triglycerides 64 mg/dL (<150)
[2024-12-09 12:36] LABS: Folate 5.7 ng/mL (> or = 4.0); Vitamin B12 238 pg/mL (200-900)
[2024-12-09 16:25] LABS: Iron 52 mcg/dL (30-160); Percent Iron Saturation 20 % (15-50); Total Iron Binding Capacity 265 mcg/dL (228-428); Unsaturated Iron Binding 213 ug/dL
[2024-12-09 16:34] LABS: Ferritin 21 ng/mL (10-122)
[2024-12-12 16:43] LABS: Intrinsic Factor Antibodies Negative (Negative)
== END 2024-12-09 10:05 | disposition home or self-care (01) ==
LOC: HO.LAB 10:04
PROVIDERS: Absent Provider Nurse Practitioner Family; PCP Internal Medicine; Visit Provider Obstetrics & Gynecology
DX: Z30.46 Encounter for surveillance of implantable subdermal contraceptive (principal); D64.9 Anemia, unspecified; I10 Essential (primary) hypertension; E78.00 Pure hypercholesterolemia, unspecified; Z32.02 Encounter for pregnancy test, result negative
CPT/HCPCS: 11982; 36415; 80053; 80061; 81025; 82306; 82607; 82728; 82746; 83036; 83540; 83615; 83921; 84207; 84439; 84443; 85025; 86340

== ENCOUNTER → 2024-12-09 13:57 | Outpatient (BNV) | payer OTHER, SELFPAY | PROVIDERS: Visit Provider Nurse Practitioner Family | DX: D64.9 Anemia, unspecified (principal); N92.0 Excessive and frequent menstruation with regular cycle; Z98.84 Bariatric surgery status | CPT/HCPCS: 99204 ==

== ENCOUNTER 2025-01-25 11:57 | Outpatient (AMB) | payer OTHER, SELFPAY ==
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
[2025-01-25 11:35] VITALS: BMI 27.4
== END 2025-01-25 12:00 | disposition home or self-care (01) ==
LOC: HO.HBS 11:57
PROVIDERS: Visit Provider Physician Assistant Surgical
DX: E66.3 Overweight (principal); Z68.27 Body mass index [BMI] 27.0-27.9, adult; L98.7 Excessive and redundant skin and subcutaneous tissue; Z90.3 Acquired absence of stomach [part of]; Z98.84 Bariatric surgery status
CPT/HCPCS: 99213

== ENCOUNTER 2025-03-26 09:21 | Emergency (ER) | payer OTHER, SELFPAY ==
[2025-03-26 09:23] VITALS: BP 134/59; PULSE 89; RESP 16; TEMP 37; O2SAT 96; BMI 28.9
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
--- OUTSIDE RECORDS SUMMARY | 2025-03-26 10:05 | XMS_ITS | Clinical Summary ---
Author Organization [facility] Address [address] [place] [id number] Phone Care Team Providers Care Senior Master Scheduler Name Role Phone Sarmad Rincon MD Primary Care Provider [phone] Allergies Active Allergy Reactions Criticality Noted Date Comments Amoxicillin Rash Low 09/04/2018 Morphine Anaphylaxis High 09/04/2018 Penicillamine Rash Low 09/04/2018 Medications citalopram (CELEXA) 40 MG tablet Take 40 mg by mouth daily. Active polyethylene glycol 3350 (MIRALAX ORAL) Take by mouth. Active etonogestreL (NEXPLANON) 68 mg Impl Inject 68 mg into the skin Once every 3 years. Active Medication-Red e Text Bariatric Multivitamins with 45 mg Iron oral tablet, chewable Active Hospital, Clinic, or Other Facility Administered Medication Ordered Dose Route Frequency Start Date End Date Status etonogestreL (NEXPLANON) subdermal implant 68 mgIndications:Encounter for removal and reinsertion of Nexplanon 68 mg IDrm Every 3 years 02/08/2022 Active Active Problems Problem Noted Date Diagnosed Date Mixed incontinence 06/17/2019 Immunizations Immunization Administration Dates Next Due Influenza Quadrivalent w/ Preservative IM 2017 Tdap 03/06/2018,09/12/2017 Family History Medical History Relation Comments Diabetes Father Hypertension Father Kidney disease Father Diabetes Maternal Grandfather Kidney disease Maternal Grandfather Diabetes Maternal Grandmother Heart failure Maternal Grandmother Hyperlipidemia Maternal Grandmother Stroke Maternal Grandmother Anxiety disorder Mother Depression Mother Drug abuse Mother Hyperlipidemia Mother Hypertension Mother Migraines Mother No Known Problems Paternal Grandfather No Known Problems Paternal Grandmother Relation Status Comments Father Maternal Grandfather Maternal Grandmother Mother Paternal Grandfather Paternal Grandmother Social History Tobacco Use Types Packs/Day Years Used Date Smoking Tobacco: Never Smokeless Tobacco: Never Alcohol Use Standard Drinks/Week Comments Not Currently 0 (1 standard drink = 0.6 oz pur e alcohol) Education Answer Date Recorded Are you interested in more education? Not on alexander e 08/24/2022 Are you concerned about learning? Not on file 08/24/2022 No 08/24/2022 No 08/24/2022 Digital Access Answer Date Recorded No 09/22/2022 No 09/22/2022 No 09/22/2022 Reliable internet access at home? Not on file 09/22/2022 Device with a working camera? Not on file Comments No Sex and Gender Information Value Date Recorded Sex Assigned at Not on file Legal Sex Female 12:13 PM EDT Gender Identity Not on file Sexual Orientation Not on file Last Filed Vital Signs Vital Sign Reading Time Taken Comments Blood Pressure 130/72 02/08/2022 9:28 AM EDT Pulse - - Temperature - - Respiratory Rate - - Oxygen Saturation - - Inhaled Oxygen Concentration - - Weight 104.8 kg (231 lb) 02/08/2022 9:28 AM EDT Height 172.7 cm (5' 8 ) 11/11/2019 2:07 PM EDT Body Mass Index 35.12 11/11/2019 2:07 PM EDT Plan of Treatment Health Maintenance Due Date Last Done Comments DEPRESSION SCREENING 1998 INFLUENZA VACCINE (#1) 2024 , 02/03/2020, 01/27/2018 COVID-19 VACCINE ( season) 2024 03/28/2022, 05/21/2021, 09/15/2020, Additional history exists Contraceptive Implant 02/08/2025 02/08/2022 PAP SMEAR 02/08/2025 02/08/2022 Adult Td,Tdap Booster 03/06/2028 03/06/2018, 018 HEPATITIS C SCREENING Completed 02/08/2022, 022 HIV ONE-TIME SCREENING (18-65 YEARS) Completed 02/08/2022 SMOKING STATUS SCREENING (Once After 26 Yrs) Completed 02/08/2022 HEPATITIS A VACCINES Aged Out No long er eligible based on patient's age to complete this topic HIB VACCINES Aged Out No longer eligi ble based on patient's age to complete this topic MENINGOCOCCAL VACCINES (ACWY) Aged Out No longer eligible based on patient's age to complete this topic MENINGOCOCCAL VACCINES (B) Aged Out N o longer eligible based on patient's age to complete this topic PNEUMOCOCCAL VACCINES (0-49 years) Aged Out No longer eligible based on patient's age to complete this topic Medical Devices Not on file Procedures Procedure Name Priority Date/Time Associated Diagnosis Comments HEPATITIS C ANTIBODY, QUALITATIVE Routine 02/08/2022 10:43 AM EDT Screening for STD (sexually transmitted disease) PAP TEST Routine 02/08/2022 12:00 AM EDT from Last 3 Months or Most Recently Relevant to Health Maintenance Results * Hepatitis C antibody, qualitative (02/08/2022 10:43 AM EDT) HCV NON-REACTIV E NON-REACTI VE [facility] Blood 02/08/2022 10:4 3 AM EDT 02/08/2022 10:47 AM EDT Vance Gracia MD LAB BLOOD BKR ORDERABLES Tiffanie l Result [address] [address] * (ABNORMAL) Pap Smear (02/08/2022 12:00 AM EDT) 02/08/2022 02/09/2022 9:1 2 AM EDT Narrative SEE NARRATIVE - 02/14/2022 1:19 PM EDT [address] [address] Classroom Instructor: Janie Jalloh MD STEWARD DISHWASHER Cytology Report FINAL DIAGNOSIS A. PAP SMEAR (SUREPATH) CE: SPECIMEN ADEQUACY: Satisfactory for evaluation; transformation zone present. INTERPRETATION: EPITHELIAL CELL ABNORMALITY - SQUAMOUS. Atypical squamous cells of undetermined significance. Coccobacilli consistent with shift in polly Electronically Signed Out By: NOLAN Salazar MD([facility]) By his/her signature above, the pathologist listed as making the Final Diagnosis certifies that he/she has personally reviewed this case and confirmed or corrected the diagnosis. The Pap test is a screening test primarily for squamous cancers and precursors and has associated false-negative and false-positive results. New technologies such as liquid-based preparations may decrease but will not eliminate all false-negative results. Regular sampling and follow-up of unexplained clinical signs and symptoms are recommended to minimize false negative results. PROCEDURES/ADDENDA HPV Testing (Requested) Ordered Date: 02/09/2022 A. PAP SMEAR (SUREPATH) CE: Human Papilloma Virus Test Negative for high-risk human papillomavirus types 16, 18, 45 and the Other high risk probe set (Includes 31, 33, 35, 39, 51, 52, 56, 58, 59, 66, 68) by [employer] HR-HPV analysis. Clinical correlation is advised. This HPV test was performed at [facility], [address] [place] [address]. This test has been FDA approved for [facility] cervical cytology specimens. The accuracy and precision of this test for all other specimen sources has been verified in the Cytopathology Laboratory of the [facility] and has not been cleared or approved by the U.S. Food and Drug Administration. Clinical correlation is advised. Electronically Signed Out By: CAMMY Marin ([facility]) AWA on 02/13/2022 13:35 CLINICAL HISTORY Date of Last Menstrual Period: Not Provided Menstrual History: Unknown Contraceptive History: Other: NEXPLANON Other Clinical Conditions: Screening Pap SPECIMEN SOURCE A: PAP SMEAR (SUREPATH) CE Patient Name: LEIGH PABON : 1985 (Age: 36) Sex: F Institution: [facility] Location: [facility] Date of Collection: 02/08/2022 Date of Reported: 02/14/2022 13:19 Results to: Vance Gracia MD, BS Vance Gracia MD CYTOLOGY ORDERABLES Final Res ult SEE NARRATIVE from Last 3 Months or Most Recently Relevant to Health Maintenance Insurance [place] [address] [place] [address] [address] [place] [address] [address] [place] [address] [place] [address] [place] [address] [employer] Care Teams Senior Master Scheduler Relationship Specialty Start Date End Date Sarmad Rincon MD [address] [place] [address] PCP - General Internal Medicine 09/03/18 Additional Source Comments The information contained in this document represents components of the legal health record. It is not the complete legal health record.[facility]
--- OUTSIDE RECORDS SUMMARY | 2025-03-26 10:05 | XMS_ITS | Encounter Summary ---
Author Organization [facility] Address [address] [place] [address] Phone Care Team Providers Care Java Developer Name Role Phone Sarmad Rincon MD Primary Care Provider [phone] Encounter Details Date Type Department Care Team (Late st Contact Info) Description 12/25/2019 Procedure Pass OR Admitting Dept - Virtual Department [address] [place] [address] Social History Tobacco Use Types Packs/Day Years [...] on filedocumented in this encounter Care Teams Java Developer Relationship Specialty Start Date End Date Sarmad Rincon MD [address] [place] [address] PCP - General Internal Medicine 09/03/18 documented as of this encounter Additional Source Comments The information contained in this document represents components of the legal health record. It is not the complete legal health record.[facility]
[2025-03-26 10:46] VITALS: BP 134/59; PULSE 89; RESP 16; TEMP 37; O2SAT 96
== END 2025-03-26 10:47 | disposition home or self-care (01) ==
PROVIDERS: Emergency Provider Emergency Medicine; PCP Internal Medicine
DX: K08.89 Other specified disorders of teeth and supporting structures (principal)
CPT/HCPCS: 99282; 99283

== ENCOUNTER 2025-03-29 21:12 | Emergency (ER) | payer OTHER, SELFPAY ==
[2025-03-29 21:39] VITALS: BP 144/64; PULSE 75; RESP 18; TEMP 36.7; O2SAT 100; BMI 27.7
[2025-03-29 22:46] LABS: MANUAL DIFF FLAG NO
[2025-03-29 22:48] LABS: Hematocrit 35.1 % (37.0-47.0); Hemoglobin 11.5 g/dl (12.0-16.0); Imm Gran Abs Auto 0.01 X10*3/uL (0.00-0.03); Imm Gran Pct Auto 0.1 % (0.0-0.4); Lymphocytes Absolute Auto 2.8 X10*3/uL (1.2-4.9); Mean Corpuscular HGB Conc 32.8 g/dl (31.0-35.0); Mean Corpuscular Hemoglobin 29.9 pg (27.0-33.0); Mean Corpuscular Volume 91.2 fL (80.0-98.0); NRBC Abs Auto 0.000 X10*3/uL (0.0-0.012); NRBC Pct Auto 0.0 /100WBC (0.0-0.2); Platelet Count 317 X10*3/uL (160-400); Red Blood Count 3.85 X10*6/uL (4.20-5.50); White Blood Count 7.3 X10*3/uL (4.8-10.8)
[2025-03-29 23:02] LABS: Alanine Aminotransferase 14 U/L (0-31); Albumin Level 4.8 g/dL (3.5-5.0); Alkaline Phosphatase 64 U/L (39-117); Anion Gap 10 (12-20); Aspartate Amino Transferase 16 U/L (5-31); Blood Urea Nitrogen 20 mg/dL (9-16); Calcium 9.3 mg/dL (8.4-10.2); Carbon Dioxide 25 mmol/L (22-29); Chloride 110 mmol/L (96-108); Creatinine Clr Calc Pharmacy 127.2; Estimated Glomerular Filt Rate > 60; Potassium 3.9 mmol/L (3.3-5.1); Sodium 141 mmol/L (135-145); Total Protein 7.4 g/dL (6.5-8.0)
[2025-03-29 23:28] LABS: Appearance Urine Clear; Glucose Urine UA Negative (Negative); PH 5.5 (5.0-9.0); Specific Gravity - Urine 1.020 (1.005-1.025)
--- OUTSIDE RECORDS SUMMARY | 2025-03-30 02:16 | XMS_ITS | Clinical Summary ---
Author Organization [facility] Address [address] [employer] [facility] [address] [facility] [address] [place] [address] Phone Care Team Providers Care System Archive Analyst Name Role Phone Sarmad Rincon MD Primary Care Provider [phone] Allergies Active Allergy Reactions Criticality Noted Date [...] AM EDT) HCV NON-REACTIV E NON-REACTI VE [facility] Blood 02/08/2022 10:4 3 AM EDT 02/08/2022 10:47 AM EDT Vance Gracia MD LAB BLOOD BKR ORDERABLES Tiffanie l Result [address] [address] * (ABNORMAL) Pap Smear (02/08/2022 12:00 AM EDT) 02/08/2022 02/09/2022 9:1 2 AM EDT Narrative SEE NARRATIVE - 02/14/2022 1:19 PM EDT [address] [address] Relations Liaison: Janie Jalloh MD TOOL DESIGNER APPRENTICE Cytology Report FINAL DIAGNOSIS A. PAP SMEAR (SUREPATH) CE: SPECIMEN ADEQUACY: Satisfactory for evaluation; transformation zone present. INTERPRETATION: EPITHELIAL CELL ABNORMALITY - SQUAMOUS. Atypical squamous cells of undetermined significance. Coccobacilli consistent with shift in polly Electronically Signed Out By: ONLAN Salazar MD([facility]) By his/her signature above, the pathologist listed [...] 52, 56, 58, 59, 66, 68) by [employer] HR-HPV analysis. Clinical correlation is advised. This HPV test was performed at [facility], [address] [place] [address]. This test has been FDA approved for [facility] cervical cytology specimens. The accuracy and precision of this test for all other specimen sources has been verified in the Cytopathology Laboratory of the [facility] and has not been cleared or approved by the U.S. Food and Drug Administration. Clinical correlation is advised. CLINICAL HISTORY Date of Last Menstrual Period: Not Provided Menstrual History: Unknown Contraceptive History: Other: NEXPLANON Other Clinical Conditions: Screening Pap SPECIMEN SOURCE A: PAP SMEAR (SUREPATH) CE Patient Name: LEIGH PABON : 1985 (Age: 36) Sex: F Institution: [facility] Location: [facility] Date of Collection: 02/08/2022 Date of Reported: 02/14/2022 13:19 Results to: Vance Gracia MD, BS Vance Gracia MD CYTOLOGY ORDERABLES Final Res ult SEE NARRATIVE from Last 3 Months or Most Recently Relevant to Health Maintenance Insurance [employer] [place] [address] [place] [address] [address] [place] [address] [place] [address] [place] [address] [place] [address] [employer] Care Teams System Archive Analyst Relationship Specialty Start Date End Date Sarmad Rincon MD [address] [place] [address] PCP - General Internal Medicine 09/03/18 Additional Source Comments The information contained in this document represents components of the legal health record. It is not the complete legal health record.[facility]
--- OUTSIDE RECORDS SUMMARY | 2025-03-30 02:16 | XMS_ITS | Encounter Summary ---
Author Organization [facility] Address [address] [place] [address] Phone Care Team Providers Care Pbx Manager Name Role Phone Sarmad Rincon MD Primary Care Provider [phone] Encounter Details Date Type Department Care Team (Late st Contact Info) Description 12/25/2019 Procedure Pass OR Admitting Dept - Virtual Department [address] [place] [address] Social History Tobacco Use Types Packs/Day Years [...] on filedocumented in this encounter Care Teams Pbx Manager Relationship Specialty Start Date End Date Sarmad Rincon MD [address] [place] [address] PCP - General Internal Medicine 09/03/18 documented as of this encounter Additional Source Comments The information contained in this document represents components of the legal health record. It is not the complete legal health record.[facility]
--- OUTSIDE RECORDS SUMMARY | 2025-03-30 02:16 | XMS_ITS | Data Portability ---
Author Organization [facility] Address [address] [place] [address] Assessment No assessment recorded. Plan of Treatment Reminders Order Date Submit Date Provider Last Modified By Organization Details Last Modified Time Details Appointments None recorded. Lab rapid strep group A, throat 2022 [email or web address] [place] [address], [address] [place] [address], [phone], 3 10:19:04 rapid strep group A, throat 2021 [email or web address] [place] [address], [address] [place] [address], [phone], 2 11:20:27 rapid SARS CoV 2 Ag, QL IA, respiratory specimen 2021 [email or web address] [place] [address], [address] [place] [address], [phone], 2 11:20:27 rapid flu (A+B) 2021 [email or web address] [place] [address], [address] [place] [address], [phone], 2 11:20:27 Referral None recorded. Procedures None recorded. Surgeries None recorded. Imaging None recorded. Medication Orders cephalexin 500 mg capsule 2022 023 [email or web address] [id number], [address] [place], [address], 3 10:23:42 fluticasone propionate 50 mcg/actuati on nasal spray,suspe nsion 2021 022 [id number], [address] [place], [address], 11:20:29 Patient TargetsNo targets recorded. Patient Instructions Encounter Date Encounter Id Patient Instructions Last Modified By Organization Details Last Modified Time 04/19/2022 [id number] influenza (flu): care instructions [email or web address] Not available 04/19/2022 11:20:27 07/27/2022 [id number] sore throat: car e instructions [email or web address] Not [...] undesirable side effects. Probiotics can be purchased [id number] at your pharmacy in the form of [...] Unknown Analyte Normal =Negat mark Not Available [address] [place] [address], [phone], 04/19/2022 10:42:20 04/19/20 22 04/19/2022 rapid SARS CoV 2 Ag, QL IA, respi rator y speci men Unknown Analyte negati ve Not Available [address] [place] [address], [address], 04/19/2022 10:42:20 04/19/20 22 04/19/2022 rapid strep group A, throa t Unknown Analyte Normal = Negati ve Not Available [address] [place] [address], [place], [address], 04/19/2022 10:39:30 04/19/20 22 04/19/2022 rapid strep group A, throa t Unknown Analyte negati ve Not Available [address] [place] [address], [address], 04/19/2022 10:39:30 04/19/20 22 04/19/2022 rapid flu (A+B) Unknown Analyte Normal = Negati ve Not Available [address] [place] [address], [place], [address], 04/19/2022 10:42:25 04/19/20 22 04/19/2022 rapid flu (A+B) Unknown Analyte Normal = Negati ve Not Available [address] [place], [place] [address] [place], [address], 04/19/2022 10:42:25 04/19/20 22 04/19/2022 rapid flu (A+B) Unknown Analyte negati ve Not Available [address] ya[address]ez [address], [place], [address], 04/19/2022 10:42:25 04/19/20 22 04/19/2022 rapid flu (A+B) Unknown Analyte negati ve Not Available [address] [place] [address], [place], [address], 04/19/2022 10:42:25 07/28/19 23 07/27/2022 rapid strep group A, throa t Unknown Analyte Normal = Negati ve Not Available [address] [place] [address], [place], [address], 07/27/2022 09:57:14 07/28/19 23 07/27/2022 rapid strep group A, throa t Unknown Analyte positi ve Not Available [address] [place] [address], [place], [address], 07/27/2022 09:57:14 Result Notes None recorded. Problems Name Problem SNOMED Code Status Onset Date Resolution Date Notes Provider Name and Address Organization Details Recorded Time Irritable bowel syndrome 07715525 Active 022 Nancy Guerrero null, [place] - [facility] 10:41:33 Problem Notes None recorded. Procedures Surgical History Date Name Laterality Status Provider Name and Address Organization Details Recorded Time laparoscopic sleeve gastrectomy completed Nancy Guerrero PA - [facility] 04/19/2022 10:41:53 tonsillectomy completed Nancy [place] PA - [facility] 04/19/2022 10:42:02 lithotripsy completed Nancy [place] PA - [facility] 04/19/2022 10:42:13 Imaging Results None recorded. Procedure Notes None recorded. Medical Equipment None Reported. Allergies Allergen ID Allergen Name Allergen Category Reaction Reaction Severity Criticality Documentation Date Start Date Code Code System Note Provider Name and Address Organization Details Recorded Time 32062 amoxicill in medicatio n rash Not available low 04/19/2022 723 RxNorm Nancy Guerrero null, [place] - [facility] 2 10:40:36 08433 clindamyc in Not available rash Not available low 04/19/2022 2582 RxNorm Nancy [place] null, [place] - [facility] 2 10:40:45 48137 morphine medicatio n anaphylax is Not available [...] mass index (BMI) Body weight Oxygen saturation Heart rate Respiratory rate Systolic And Diastolic Provider Name and Address Organization Details Last Updated DateTime 3 177.8 cm 98.1 [degF] 33.7 kg/m2 173403. 21 g 97 % 113 /min 18 /min 134/88 mm[Hg] DHAVAL HAMMER [facility] 3 09:55:21 Date Recorded Body height Body mass index (BMI) Body weight Oxygen saturation Pain severity - 0-10 verbal numeric rating [Score] - Reported Heart rate Respiratory rate Body temperature Systolic And Diastolic Provider Name and Address Organization Details Last Updated DateTime 2 177.8 cm 32.4 kg/m2 516511. 88 g 100 % 4 64 /min 18 /min 98.1 [degF] 129/77 mm[Hg] Nancy Masters [facility] 2 10:40:07 Social History Question Answer Notes LastModified by [employer] Details LastModified Time Tobacco Smoking Status Never Smoker Nancy weiss [facility] 04/19/2022 10:41:42 Have You Had Direct Contact, Or Contact During Intimacy, With Monkeypox Rash, Scabs, Or Body Fluids From A Person With Monkeypox? No Information not available 04/19/2022 Have You Recently Traveled Abroad? No Information not available 04/19/2022 Sex: Unknown Functional Status Question Answer Note LastModified by [employer] Details LastModified Time Do you use any [...] Diagnosis SNOMED-CT Code Diagnosis ICD10 Code Diagnosis IMO Codes Diagnosis Note [id number] [address] [address] [address] [place] [address] 04/20/2021 16:56:44 04/20/2021 18:27:02 [id number] [address] [facility] [address] [place] [address] 09/28/2015 20:00:26 09/28/2015 20:51:27 [id number] [address] [facility] [address] [place] [address] 05/30/2017 08:30:54 05/30/2017 09:37:34 [id number] [facility] [facility] [address] [place] [address] 04/30/2016 18:32:41 04/30/2016 19:06:38 [id number] WADE VILLEDA MD [address] [place] [address] 04/19/2022 08:48:37 04/19/2022 11:28:03 Sore throat 096530548 J02.9 Influenza 6755771 J11.1 If your symptoms worsen or persist [...] to the Emergency Department . Return [facility] or see your primary care physician if your symptoms fail to improve in 5-7 days. You should follow up sooner if your symptoms worsen significan tly or if you develop new symptoms that concern you. [id number] Jhonny Mast NP [address] [address] [place] [address] 07/27/2022 08:24:08 07/27/2022 10:20:36 Streptococcal sore throat 88920449 J02.0 Health Concerns Section Related Observation LastModified by Organization Detai ls LastModified Time None Recorded Concern Status LastModified by Organization Details LastModified Time None Recorded Advance Directives Directive None Recorded Payers Insurance Date Sequence Insurance Name Policy Number Policy Vera Covered Member ID Vera Member ID Guarantor Name 04/19/2022 1 [facility] - [facility]ALTH[facility] - MEDICAID ESSENTIAL (MEDICAID HMO) [id number] Leigh Pabon [id number] Leigh Pabon 07/27/2022 1 [facility] - HEALTH NET PLAN (MEDICAID HMO) [place] Leigh Pabon [id number] Leigh Pabon Notes Date Note Type Note Provider Name and Address Organization Details Recorded Time 022 text/ht ml Sore throatReported by PatientSore ThroatFor associated symptoms, patient reportshoarsenessandcoughingbut reportsno sputum production,no shortness of breath,no sinus pain,no vomiting, andno nausea. For location, patient reportsthroatandhead. For severity, patient reportsmild. For onset/timing, patient reports1 weeks. For modifying factors, patient reportsotc medication no relief*. started a week ago with aches, congestion, ST, chills/sweats, ears ache, dry hacky cough. Dayquil no help WADE VILLEDA MD [address] [place], [address], [place] - [facility] 04/19/2022 11:39:38 023 text/ht ml Sore throatReported by PatientSore ThroatFor associated symptoms, patient reportssore throat,hoarseness,coughing, andsinus pain/ congestionbut reportsno sputum production,no shortness of breath,no wheezing,no vomiting, andno nausea. For context, patient reportssick contactbut reportsno foreign travelandnon-smoker. For modifying factors, patient reportsexposed to strep non household. For source of patient information, patient reportsinformation obtained from patient,patient arrived at urgent care ambulatory, andlearning styles: auditory. For location, patient reportsthroat. For severity, patient reportsmild. For quality, patient reportssharpandburning. For onset/timing, patient reports3 days. Jhonny Mast NP [address] [place], [address], [place] - [facility] 07/27/2022 10:23:51 OBGyn Episode No OBEpisode recorded.
== END 2025-03-30 02:18 | disposition left against medical advice (07) ==
PROVIDERS: Emergency Provider Emergency Medicine
DX: R10.30 Lower abdominal pain, unspecified (principal)
CPT/HCPCS: 36415; 80053; 81001; 85025; 99281; 99282

== ENCOUNTER 2025-04-07 14:47 | Outpatient (AMB) | payer OTHER, SELFPAY ==
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
--- OUTSIDE RECORDS SUMMARY | 2025-04-07 23:12 | XMS_ITS | Encounter Summary ---
Author Organization [facility] Address [address] [place] [address] Phone Care Team Providers Care Rug Receiving Clerk Name Role Phone Sarmad Rincon MD Primary Care Provider [phone] Encounter Details Date Type Department Care Team (Late st Contact Info) Description 12/25/2019 Procedure Pass OR Admitting Dept - Virtual Department [address] [place] [id number] Social History Tobacco Use Types Packs/Day Years [...] on filedocumented in this encounter Care Teams Rug Receiving Clerk Relationship Specialty Start Date End Date Sarmad Rincon MD [address] [place] [id number] PCP - General Internal Medicine 09/03/18 documented as of this encounter Additional Source Comments The information contained in this document represents components of the legal health record. It is not the complete legal health record.[facility]
--- OUTSIDE RECORDS SUMMARY | 2025-04-07 23:12 | XMS_ITS | Clinical Summary ---
Author Organization [facility] Address [address] [facility] [address] [place] [id number] Phone Care Team Providers Care Journeyman Meat Cutter Name Role Phone Sarmad Rincon MD Primary Care Provider [phone] Allergies Active Allergy Reactions Criticality Noted Date [...] AM EDT) HCV NON-REACTIV E NON-REACTI VE [facility] Blood 02/08/2022 10:4 3 AM EDT 02/08/2022 10:47 AM EDT Vance Gracia MD LAB BLOOD BKR ORDERABLES Tiffanie l Result [address] [address] * (ABNORMAL) Pap Smear (02/08/2022 12:00 AM EDT) 02/08/2022 02/09/2022 9:1 2 AM EDT Narrative SEE NARRATIVE - 02/14/2022 1:19 PM EDT [address] [address] Cabinet And Trim Installer: Janie Jalloh MD ROLL UP OPERATOR Cytology Report FINAL DIAGNOSIS A. PAP SMEAR (SUREPATH) CE: SPECIMEN ADEQUACY: Satisfactory for evaluation; transformation zone present. INTERPRETATION: EPITHELIAL CELL ABNORMALITY - SQUAMOUS. Atypical squamous cells of undetermined significance. Coccobacilli consistent with shift in polly Electronically Signed Out By: NOLAN Salazar MD([facility]) By his/her signature above, the pathologist [...] 52, 56, 58, 59, 66, 68) by [employer] HR-HPV analysis. Clinical correlation is advised. This HPV test was performed at [facility], [address] [place] [address]. This test has been FDA approved for [facility] cervical cytology specimens. The accuracy and precision of this test for all other specimen sources has been verified in the Cytopathology Laboratory of the [facility] and has not been cleared or approved by the U.S. Food and Drug Administration. Clinical correlation is advised. CLINICAL HISTORY Date of Last Menstrual Period: Not Provided Menstrual History: Unknown Contraceptive History: Other: NEXPLANON Other Clinical Conditions: Screening Pap SPECIMEN SOURCE A: PAP SMEAR (SUREPATH) CE Patient Name: LEIGH PABON : 1985 (Age: 36) Sex: F Institution: [facility] Location: [facility] Date of Collection: 02/08/2022 Date of Reported: 02/14/2022 13:19 Results to: Vance Gracai MD, BS Vance Gracia MD CYTOLOGY ORDERABLES Final Res ult SEE NARRATIVE from Last 3 Months or Most Recently Relevant to Health Maintenance Insurance [place] [place] [address] [place] [address] [place] [address] [place] [address] [place] [place] [address] [employer] Care Teams Journeyman Meat Cutter Relationship Specialty Start Date End Date Sarmad Rincon MD [address] [place] [address] PCP - General Internal Medicine 09/03/18 Additional Source Comments The information contained in this document represents components of the legal health record. It is not the complete legal health record.[facility]
--- OUTSIDE RECORDS SUMMARY | 2025-04-07 23:12 | XMS_ITS | Data Portability ---
Author Organization [facility], [facility] Address [address] [place] [address] Assessment No assessment recorded. Plan of Treatment Reminders Order Date Submit Date Provider Last Modified By Organization Details Last Modified Time Details Appointments None recorded. Lab rapid strep group A, throat 2022 [email or web address] [place] [address], [address] [place] [address], [phone], 3 10:19:04 rapid strep group A, throat 2021 0[email or web address] [place] [address], [address] [place] [address], [phone], 2 11:20:27 rapid SARS CoV 2 Ag, QL IA, respiratory specimen 2021 0[email or web address] [place] [address], [address] [place] [address], [phone], 2 11:20:27 rapid flu (A+B) 2021 [email or web address] [place] [address], [address] [place] [address], [phone], 2 11:20:27 Referral None recorded. Procedures None recorded. Surgeries None recorded. Imaging None recorded. Medication Orders cephalexin 500 mg capsule 2022 023 [email or web address] [id number], [address] [place], [address], 3 10:23:42 fluticasone propionate 50 mcg/actuati on nasal spray,suspe nsion 2021 022 [id number], [address] [place], [address], 11:20:29 Patient TargetsNo targets recorded. Patient Instructions Encounter Date Encounter Id Patient Instructions Last Modified By Organization Details Last Modified Time 04/19/2022 [id number] influenza (flu): care instructions Not available 04/19/2022 11:20:27 07/27/2022 [id number] sore throat: car e instructions [email or web address] Not [...] undesirable side effects. Probiotics can be purchased [id number] at your pharmacy in the form of [...] Unknown Analyte Normal =Negat mark Not Available [address] [place] [address], [address], 04/19/2022 10:42:20 04/19/20 22 04/19/2022 rapid SARS CoV 2 Ag, QL [place], respi rator y speci men Unknown Analyte negati ve Not Available [address] [place] [address], [address], 04/19/2022 10:42:20 04/19/20 22 04/19/2022 rapid strep group A, throa t Unknown Analyte Normal = Negati ve Not Available [address] [place] [address], [place], [address], 04/19/2022 10:39:30 04/19/20 22 04/19/2022 rapid strep group A, throa t Unknown Analyte negati ve Not Available [address] [place] [address], [address], 04/19/2022 10:39:30 04/19/20 22 04/19/2022 rapid flu (A+B) Unknown Analyte Normal = Negati ve Not Available [address] [place] [address], [place], [address], 04/19/2022 10:42:25 04/19/20 22 04/19/2022 rapid flu (A+B) Unknown Analyte Normal = Negati ve Not Available [address] [place], [place] [address] [place], [address], 04/19/2022 10:42:25 04/19/20 22 04/19/2022 rapid flu (A+B) Unknown Analyte negati ve Not Available [address] ya[address]ez [address], [place], [address], 04/19/2022 10:42:25 04/19/20 22 04/19/2022 rapid flu (A+B) Unknown Analyte negati ve Not Available [address] [place] [address], [place], [address], 04/19/2022 10:42:25 07/28/19 23 07/27/2022 rapid strep group A, throa t Unknown Analyte Normal = Negati ve Not Available [address] [place] [address], [place], [address], 07/27/2022 09:57:14 07/28/19 23 07/27/2022 rapid strep group A, throa t Unknown Analyte positi ve Not Available [address] [place] [address], [place], [address], 07/27/2022 09:57:14 Result Notes None recorded. Problems Name Problem SNOMED Code Status Onset Date Resolution Date Notes Provider Name and Address Organization Details Recorded Time Irritable bowel syndrome 87481454 Active 022 Nancy Guerrero null, PA - [facility] 10:41:33 Problem Notes None recorded. Procedures Surgical History Date Name Laterality Status Provider Name and Address Organization Details Recorded Time laparoscopic sleeve gastrectomy completed Nancy Inverness PA - [facility] 04/19/2022 10:41:53 tonsillectomy completed Nancy Inverness PA - [facility] 04/19/2022 10:42:02 lithotripsy completed Nancy Guerrero PA - [facility] 04/19/2022 10:42:13 Imaging Results None recorded. Procedure Notes None recorded. Medical Equipment None Reported. Allergies Allergen ID Allergen Name Allergen Category Reaction Reaction Severity Criticality Documentation Date Start Date Code Code System Note Provider Name and Address Organization Details Recorded Time 87143 amoxicill in medicatio n rash Not available low 04/19/2022 723 RxNorm Nancy Inverness null, PA - [facility] 2 10:40:36 41934 clindamyc in Not available rash Not available low 04/19/2022 2582 RxNorm Nancy Inverness null, PA - [facility] 2 10:40:45 66922 morphine medicatio n anaphylax is Not available high 04/19/2022 7052 RxNorm Nancy Inverness null, PA - [facility] 2 10:40:54 [...] 3 177.8 cm 98.1 [degF] 33.7 kg/m2 874192. 21 g 97 % 113 /min 18 /min 134/88 mm[Hg] DHAVAL HAMMER [facility] 3 09:55:21 Date Recorded Body height Body mass index (BMI) Body weight Oxygen saturation Pain severity - 0-10 verbal numeric rating [Score] - Reported Heart rate Respiratory rate Body temperature Systolic And Diastolic Provider Name and Address Organization Details Last Updated DateTime 2 177.8 cm 32.4 kg/m2 906021. 88 g 100 % 4 64 /min 18 /min 98.1 [degF] 129/77 mm[Hg] Nancy Masters [facility] 2 10:40:07 Social History Question Answer Notes LastModified by [employer] Details LastModified Time Tobacco Smoking Status Never Smoker Nancy weiss [facility] 04/19/2022 10:41:42 Have You Had Direct Contact, Or Contact During Intimacy, With Monkeypox Rash, Scabs, Or Body Fluids From A Person With Monkeypox? No Information not available 04/19/2022 Have You Recently Traveled Abroad? No Information not available 04/19/2022 Sex: Unknown Functional Status Question Answer Note LastModified by [employer] Details LastModified Time Do you use any [...] ICD10 Code Diagnosis IMO Codes Diagnosis Note [id number] [address] [address] [address] [place] [address] 04/20/2021 16:56:44 04/20/2021 18:27:02 [id number] [address] [facility] [address] [facility] [address] [place] [address] 09/28/2015 20:00:26 09/28/2015 20:51:27 [id number] [address] [facility] [address] [place] [phone] 05/30/2017 08:30:54 05/30/2017 09:37:34 [id number] [facility] [address] [place] [address] 04/30/2016 18:32:41 04/30/2016 19:06:38 [id number] WADE VILLEDA MD [address] [place] [address] 04/19/2022 08:48:37 04/19/2022 11:28:03 Sore throat 652917658 J02.9 Influenza 7496256 J11.1 If your symptoms worsen or persist [...] to the Emergency Department . Return to [facility] or see your primary care physician if your symptoms fail to improve in 5-7 days. You should follow up sooner if your symptoms worsen significan tly or if you develop new symptoms that concern you. [id number] Jhonny Mast NP [address] [address] [place] [address] 07/27/2022 08:24:08 07/27/2022 10:20:36 Streptococcal sore throat 69123852 J02.0 Health Concerns Section Related Observation LastModified by Organization Detai ls LastModified Time None Recorded Concern Status LastModified by Organization Details LastModified Time None Recorded Advance Directives Directive None Recorded Payers Insurance Date Sequence Insurance Name Policy Number Policy Vera Covered Member ID Vera Member ID Guarantor Name 04/19/2022 1 [facility] - [facility] - MEDICAID ESSENTIAL (MEDICAID HMO) [id number] Leigh Pabon [id number] Leigh Pabon 07/27/2022 1 [facility] - HEALTH NET PLAN (MEDICAID HMO) [place] Leigh Pabon [id number] Leigh Pabon Notes Date Note Type Note [...] WADE VILLEDA MD [address] [place], [address], PA - [facility] 04/19/2022 11:39:38 023 [...] Jhonny Mast NP [address] [place], [address], [place] - [facility] 07/27/2022 10:23:51 OBGyn Episode No OBEpisode recorded.
== END 2025-04-08 16:00 | disposition home or self-care (01) ==
LOC: HO.HSMS 14:47
PROVIDERS: PCP Internal Medicine; Visit Provider Nurse Practitioner Family
DX: R51.9 Headache, unspecified (principal); H53.9 Unspecified visual disturbance; R29.810 Facial weakness; G43.709 Chronic migraine without aura, not intractable, without status migrainosus; G25.81 Restless legs syndrome; D64.9 Anemia, unspecified
CPT/HCPCS: 99214